=== PATIENT | female | born 1960 | race Caucasian/White ===

== ENCOUNTER 2022-09-27 14:49 | Outpatient (OUT) | payer BC, SELFPAY ==
--- NOTE | 2022-09-27 14:51 | MM_ITS ---
Patient: ZARA BENEDICT Exam Date: 09/27/2022 : 1960 Gender:F Ordering : SPEEDY Perez . Admission #: [id number] Family : DR MCCLAINJARETHIDA PRABHAKAR Order #: [id number] CLICK HERE TO VIEW EXAM RADIOLOGY REPORT PROCEDURE: MM TOMOSYNTHESIS SCREENING BI COMPARISON: MG MAMM SCREEN 3D MELVINA CAD, 09/10/2020. MG MAMM SCREEN 3D MELVINA CAD, 09/12/2021. INDICATIONS: Screening mammogram Z12.31 Calculator Name NCI Breast Cancer Risk Assessment Tool 5 Year Breast Cancer Risk 1.30% Lifetime Breast Cancer Risk 6.60% Personal Breast Cancer No Personal Ovarian Cancer No Treatments None Family Cancers Father with bladder cancer at age 80. LOCATION: [facility] BREAST COMPOSITION: Almost entirely fatty. FINDINGS: DIAGNOSTIC CATEGORY 1--NEGATIVE. NO CHANGE FROM COMPARISON ASSESSMENT. Scattered benign-appearing lymph nodes are present. RIGHT BREAST: No significant suspicious finding. LEFT BREAST: No significant suspicious finding. RECOMMENDATIONS: ROUTINE MAMMOGRAM AND CLINICAL EVALUATION IN 12 MONTHS. PLEASE NOTE: A NORMAL MAMMOGRAM DOES NOT EXCLUDE THE POSSIBILITY OF BREAST CANCER. A CLINICALLY SUSPICIOUS PALPABLE LUMP SHOULD BE BIOPSIED. Dictated by: Shekhar Horton MD on 09/28/2022 at 07:15 Approved by: Shekhar Horton MD on 09/28/2022 at 07:17
== END 2022-09-27 14:50 | disposition home or self-care (01) ==
LOC: MAMMO 14:49
PROVIDERS: PCP Family Medicine; Visit Provider Physician Assistant
DX: Z12.31 Encounter for screening mammogram for malignant neoplasm of breast (principal); Z80.52 Family history of malignant neoplasm of bladder
CPT/HCPCS: 77063; 77067

== ENCOUNTER 2022-10-11 15:29 | Outpatient (RCR) | payer BC, SELFPAY | END 2023-02-01 17:21 | disposition home or self-care (01) | LOC: PT 15:29 | PROVIDERS: PCP Family Medicine; Visit Provider Family Medicine | DX: R51.9 Headache, unspecified (principal) | CPT/HCPCS: 20561; 97161 ==

== ENCOUNTER 2022-11-30 07:39 | Outpatient (OUT) | payer BC, SELFPAY ==
[2022-11-30 12:28] LABS: Thyroid Stimulating Hormone 1.244 uIU/mL (0.358-3.740)
== END 2022-11-30 07:40 | disposition home or self-care (01) ==
LOC: LAB 07:41
PROVIDERS: PCP Family Medicine; Visit Provider Family Medicine
DX: R53.83 Other fatigue (principal)
CPT/HCPCS: 36415; 84443

== ENCOUNTER 2023-02-06 08:41 | Outpatient (OUT) | payer BC, SELFPAY | END 2023-02-06 08:42 | disposition home or self-care (01) | LOC: PST 08:42 | PROVIDERS: PCP Family Medicine; Visit Provider Surgery | DX: Z01.818 Encounter for other preprocedural examination (principal); Z86.010 Personal history of colon polyps ==

== ENCOUNTER 2023-02-13 09:39 | Day surgery (SDC) | payer BC, SELFPAY ==
--- NOTE | 2023-02-13 | OP_ITS ---
OPERATION DATE: ??02/13/2023 PREOPERATIVE DIAGNOSIS:? Personal history of colon polyps. POSTOPERATIVE DIAGNOSIS:? Sigmoid diverticulosis. PROCEDURE:? Colonoscopy to cecum. SURGEON:? Colby Herbert M.D. ANESTHESIA:? Monitored anesthesia care. ESTIMATED BLOOD LOSS:? Zero. INDICATIONS AND CONSENT:? Patient is a 62-year-old female who presents for surveillance colonoscopy. Indications, risks, benefits, alternatives of proceeding with colonoscopy were explained extensively to the patient, including the risks of bleeding, colon perforation or anesthetic complications.? All of her questions were answered.? Informed consent was obtained. PROCEDURE:? Patient brought to the operating room, placed in the left lateral decubitus position.? Monitored anesthesia care was provided.? Rectal exam was performed which showed no masses or blood.? The scope was inserted into the anal canal.? Under direct visualization was advanced.? With the aid of abdominal compression, it was advanced to the cecum where cecal markings were clearly identified.? There was noted to be a good prep.? Upon withdrawal of the scope, mucosal surfaces were carefully examined.? There were no mass lesions or polyps.? No inflammatory changes or ulcerations.? There was mild sigmoid diverticulosis without inflammatory changes or scarring.? The scope was retroflexed in the anal canal.? There were noted to be some prominent rectal veins.? No significant hemorrhoidal disease.? The scope was then withdrawn.? Patient tolerated procedure well, was sent to recovery room in good condition.f/u colonoscopy in 5 years CC:? Dr. Terrell ALDRICH
[2023-02-13 10:01] VITALS: BMI 27.6
[2023-02-13 10:08] VITALS: BP 163/100; PULSE 104; RESP 16; TEMP 36; O2SAT 99
[2023-02-13 10:12] LABS: Glucometer 177 mg/dL (74-106)
[2023-02-13] MEDS: LACTATED RINGER'S SOLUTION 1,000 ML 50 ML IV (10:17)
[2023-02-13 13:09] VITALS: BP 104/58; PULSE 89; RESP 16; O2SAT 100
[2023-02-13 13:25] VITALS: BP 104/63; PULSE 63; RESP 16; O2SAT 96
== END 2023-02-13 13:48 | disposition home or self-care (01) ==
PROVIDERS: PCP Family Medicine; Visit Provider Surgery
PROC: (CPT 45378; principal; 2023-02-13 10:50)
DX: K57.30 Diverticulosis of large intestine without perforation or abscess without bleeding (principal); Z86.010 Personal history of colon polyps; F41.9 Anxiety disorder, unspecified; E11.42 Type 2 diabetes mellitus with diabetic polyneuropathy; E11.319 Type 2 diabetes mellitus with unspecified diabetic retinopathy without macular edema; Z90.710 Acquired absence of both cervix and uterus; I10 Essential (primary) hypertension; Z79.4 Long term (current) use of insulin; Z79.84 Long term (current) use of oral hypoglycemic drugs; E66.3 Overweight; Z68.28 Body mass index [BMI] 28.0-28.9, adult
CPT/HCPCS: 45378; 36415; 82948; J2704

== ENCOUNTER 2023-03-29 13:13 | Outpatient (OUT) | payer BC, SELFPAY ==
--- NOTE | 2023-03-29 13:15 | XR_ITS ---
The [address] [address] Patient Name: ZARA BENEDICT MRN: [id number] date: 1960 Sex: F Assigned Patient Location: [facility] Current Patient Location: Accession/Order Number: [id number] Exam Date: 03/29/2023 13:16 Report Date: 04/01/2023 17:55 At the request of: JARETH PRABHAKAR Procedure: XR lumbar spine min 4V EXAM: XR lumbar spine min 4V HISTORY: Chronic Bilateral Low Back Pain COMPARISON: None. TECHNIQUE: 5 view study FINDINGS: Vertebral bodies are normal in height. There is mild disc space narrowing at L3-4, L4-5, and L5-S1. Right facet arthropathy is noted at L4-5 and L5-S1. Faceted gallbladder calculi noted. Also, there is milk of calcium bile within the gallbladder. XR/XR lumbar spine min 4V IMPRESSION: Lower lumbar spondylosis. Cholelithiasis. Electronically authenticated by: Susana HARVEY Date: 04/01/2023 17:55
--- OUTSIDE RECORDS SUMMARY | 2023-03-29 13:15 | XMS_ITS | CCD ---
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 Name Role Phone DO Fanny Prabhakar Primary Care Provider DO Bharat Zelaya Jr Attending Provider Mala Aguillon Unavailable Petangelica, DO Escobedo Primary Care Provider DO Bharat Zelaya Jr Attending Provider Bharat Zelaya Jr Attending Unavailable Bharat Zelaya Jr Admitting Unavailable Petznick, Fanny Primary Care Unavailable Petznick, Fanny Primary Care Unavailable Self, Referral Admitting Unavailable Self, Referral Attending Unavailable Bharat Zelaya Jr Admitting Unavailable Stepanic Bharat Jefferson Attending Unavailable Petznick, Fanny Primary Care Unavailable Bharat Zelaya Jr Admitting Unavailable Stepanic Bharat Jefferson Attending Unavailable Petznick, Fanny Primary Care Unavailable Petznick, Fanny Primary Care Unavailable Self, Referral Admitting Unavailable Self, Referral Attending Unavailable Bharat Zelaya Jr Admitting Unavailable iWlliamanic Bharat Jefferson Attending Unavailable Petznick, Fanny Primary Care Unavailable PETZNJORJE, DR ESCOBEDO Primary Care Unavailable VISCI, DR CHACON Attending Unavailable VISCI, DR CHACON Admitting Unavailable ZIEBER, DR JOHNSON De La Rosa Consulting Unavailable VISCI, DR CHACON Consulting Unavailable PETZNJROJE, DR ESCOBEDO Attending Unavailable PETZNJORJE, DR ESCOBEDO Admitting Unavailable PETZNICK, DR ESCOBEDO Primary Care Unavailable PETZNICK, DR ESCOBEDO Consulting Unavailable MISC, DR MCMAHON Admitting Unavailable MISC, DR MCMAHON Consulting Unavailable STEPANIC, DR DIAZ Primary Care Unavailable MISC, DR MCMAHON Attending Unavailable FLAVIA MELVIN Consulting Unavailable PETZNICK, DR ESCOBEDO Attending Unavailable PETZNICK, DR ESCOBEDO Admitting Unavailable PETZNICK, DR ESCOBEDO Primary Care Unavailable ELLI ., MR LOVELACE Attending Unavailable PETASAELICK, DR ESCOBEDO Primary Care Unavailable CALLOWAY ., MR [place] Admitting Unavailable PETANGELICA, DR ESCOBEDO Attending Unavailable PETANGELICA, DR ESCOBEDO Admitting Unavailable PETANGELICA, DR ESCOBEDO Primary Care Unavailable FANNY PRABHAKAR Primary Care Physician [phone] Colby SANTA Attending Unavailable FANNY PRABHAKAR Referring Unavailable Colby SANTA Attending Unavailable Allergies Allergy Classification Reported Allergen(s) Allergy Type Date of Onset Reaction(s) Facility (6 sources) atorvastatin; Translations: [atorvastatin] Drug Allergy 2 Joint pain (finding) [facility] (7 sources) Cephalexin; Translations: [cephalexin] Drug Allergy 6 Swelling, Edema (finding) [facility] (6 sources) rosuvastatin; Translations: [rosuvastatin] Drug Allergy 2 Diarrhea (finding) [facility] (2 sources) Acetaminophen / oxyCODONE; Translations: [acetaminophen-ox ycodone] Drug Allergy Itching (finding) [facility] (2 sources) diphenhydrAMINE; Translations: [diphenhydramine] Drug Allergy Itching (finding) [facility] (1 source) Hmg-Coa Reductase Inhibitors (Statins) Drug allergy aches/diarrhea [facility] Other (1 source) Acetaminophen / oxyCODONE; Translations: [Percocet] Drug Allergy [facility] Repository (1 source) diphenhydrAMINE; Translations: [Benadryl] Drug Allergy [facility] Repository Medications Current Medications Medication Drug Class(es) Dates Sig (Normalized) Sig (Original) 3 ML semaglutide 1.34 MG/ML Pen Injector [Ozempic] (1 source) Start: 01-14-2023 inject 1 mg by subcutaneous injection every week Ozempic (1 mg dose) 4 mg/3 mL subcutaneous solution 1 mg, SubCutaneous, qWeek, Refills(s) 0 Start Date: 01/14/23 Status: Ordered Acidophilus Probiotic Blend (1 source) Start: 01-29-2023 take 1 capsule by mouth once daily Acidophilus Probiotic Blend 1 cap(s), Oral, Daily, Refill(s) 0 Start Date: 01/29/23 Status: Ordered B-12 1000 mcg oral tablet (1 source) Start: 01-29-2023 take 1 tablet by mouth once daily B-12 1000 mcg oral tablet 1,000 mcg = 1 tab(s), Oral, Daily, Refills(s) 0 Start Date: 01/29/23 Status: Ordered celecoxib 200 mg oral capsule (5 sources) Nonsteroidal Anti-inflammatory Drug Start: 01-29-2023 take 1 capsule by mouth once daily CeleBREX 200 mg Cap 200 mg = 1 cap(s), Oral, Daily, Refills(s) 0 Start Date: 01/29/23 Status: Ordered Start: 10-19-2021 take 1 capsule by mo [facility] once daily Celecoxib (Celebrex) 200 mg Capsule Active 200 MG PO Daily October 18, 2021 11:00pm CeleBREX Active cetirizine hydrochloride 10 mg oral tablet (4 sources) Histamine-1 Receptor Antagonist Start: 01-29-2023 take 1 tablet by mouth once daily cetirizine 10 mg Tab 10 mg = 1 tab(s), Oral, Daily, Refills(s) 0 Start Date: 01/29/23 Status: Ordered Start: 10-17-2021 [facility] Cetirizine (Zyrtec) 10 mg Tablet Active 10 MG PO Every morning October 16, 2021 11:00pm Cymbalta 30 mg Cap-DR (1 source) Start: 01-14-2023 take 1 capsule by mouth once daily Cymbalta 30 mg Cap-DR = 1 cap(s), Oral, Daily, Refills(s) 0 Start Date: 01/14/23 Status: Ordered dapagliflozin 5 mg oral tablet (4 sources) Sodium-Glucose Cotransporter 2 Inhibitor Start: 10-17-2021 take 1 tablet by mouth once daily Dapagliflozin (Farxiga) 5 mg tablet Active 5 MG PO Daily October 16, 2021 11:00pm Farxiga Active dicyclomine hydrochloride 20 mg oral tablet (4 sources) Anticholinergic Start: 10-17-2021 take 20 mg by mouth twice daily Dicyclomine Active 20 MG PO Twice daily October 16, 2021 11:00pm Dicyclomine HCl Active DULoxetine 30 mg delayed release oral capsule (3 sources) Serotonin and Norepinephrine Reuptake Inhibitor Start: 10-17-2021 take 30 mg by mouth once daily at bedtime Duloxetine Active 30 MG PO Daily at bedtime October 16, 2021 11:00pm empagliflozin 10 mg oral tablet (1 source) Sodium-Glucose Cotransporter 2 Inhibitor Start: 01-29-2023 take 1 tablet by mouth once daily in the morning Jardiance 10 mg oral tablet 10 mg = 1 tab(s), Oral, qAM, Refills(s) 0 Start Date: 01/29/23 Status: Ordered Escitalopram (1 source) Serotonin Reuptake Inhibitor Escitalopram Oxalate Active esomeprazole 20 mg delayed release oral capsule (3 sources) Proton Pump Inhibitor Start: 10-19-2021 take 10 mg by mouth once daily Esomeprazole Magnesium (Nexium) 20 mg Capsule,Delayed Release(Dr/Ec) Active 10 MG PO Daily October 18, 2021 11:00pm estradiol 0.5 mg oral tablet (5 sources) Estrogen Start: 01-29-2023 take 1 tablet by mouth once daily estradiol 0.5 mg Tab 0.5 mg = 1 tab(s), Oral, Daily, Refills(s) 0 Start Date: 01/29/23 Status: Ordered Start: 10-17-2021 take 0.5 mg by mouth once daily at bedtime Estradiol Active 0.5 MG PO Daily at bedtime October 16, 2021 11:00pm Estradiol Active fluticasone propionate 0.05 mg/actuat metered dose nasal spray (4 sources) Corticosteroid Start: 01-29-2023 Flonase 0.05 m g/inh [place] 1 spray(s), Nasal, BID, Refill(s) 0 Start Date: 01/29/23 Status: Ordered Start: 10-17-2021 End: 10-19-2021 Fluticasone Propionate Disco ntinued 1 SPRAY INTRANASAL Daily October 16, 2021 11:00pm October 19, 2021 6:59am gabapentin 300 mg oral capsule (5 sources) Anti-epileptic Agent Start: 01-29-2023 take 1 capsule by mouth once daily gabapentin 300 mg Cap 300 mg = 1 cap(s), Oral, Daily, Refills(s) 0 Start Date: 01/29/23 Status: Ordered Start: 10-17-2021 take 300 mg by mouth once daily at bedtime Gabapentin Active 300 MG PO Daily at bedtime October 16, 2021 11:00pm Gabapentin Activ e glimepiride 1 mg oral tablet (4 sources) Sulfonylurea Start: 10-17-2021 take 2 mg by mouth once daily in the morning Glimepiride Active 2 MG PO Every morning October 16, 2021 11:00pm Glimepiride Acti ve hydrOXYzine hydrochloride 25 mg oral tablet (1 source) Antihistamine Start: 12-16-2021 take 1-2 tablets by mouth once daily at bedtime as needed hydrOXYzine HCl 25 MG 1-2 tablet at bedtime as needed Orally once a day for 10 days Nov, Active 3 ml insulin degludec 100 unt/ml pen injector (2 sources) Insulin Analog Start: 10-17-2021 Insulin Degludec (Tresiba Flextouch U-100) 100 unit/mL (3 mL) insulin pen Active 25 UNIT SUBCUT Every morning October 16, 2021 11:00pm Insulin Degludec (Tresiba Flextouch U-100) 100 unit/mL (3 mL) insulin pen (1 source) Start: 10-17-2021 Insulin Degludec (Tresiba Flextouch U-100) 100 unit/mL (3 mL) insulin pen Active 25 UNIT SUBCUT Every morning October 16, 2021 11:00pm insulin glargine 100 unt/ml injectable solution (1 source) Insulin Analog Start: 01-14-2023 inject 35 [IU] by subcutaneous injection once daily Lantus 100 units/mL Injection-Insulin 35 unit(s), SubCutaneous, Daily, Refills(s) 0 Start Date: 01/14/23 Status: Ordered krill oil 500 mg oral capsule (3 sources) Start: 10-17-2021 take 500 mg by mouth twice daily Krill Oil Active 500 MG PO Twice daily October 16, 2021 11:00pm L.Acidop-L.Pardeep-B.B ifid-B.Long (Probiotic Colon Support) 70 mg (5 billion cell) Tablet,Delayed Release (Dr/Ec) (3 sources) Start: 10-17-2021 take 1 tablet by mouth once daily L.Acidop-L.Pardeep-B .Bifid-B.Long (Probiotic Colon Support) 70 mg (5 billion cell) Tablet,Delayed Release (Dr/Ec) Active 1 TAB PO Daily October 16, 2021 11:00pm Start: 10-17-2021 take 1 tablet by nicole th once daily L.Acidbarak-Yen.Pardeep-B.Bifid-B.Long (Probioti c Colon Support) 70 mg (5 billion cell) Tablet,Delayed Release (Dr/Ec) Active 1 TAB PO Daily October 17, 2021 12:00am metFORMIN hydrochloride 1000 mg oral tablet (5 sources) Biguanide Start: 01-14-2023 take 1 tablet by mouth twice daily metformin 1000 mg Tab 1,000 mg = 1 tab(s), Oral, BID, Refills(s) 0 Start Date: 01/14/23 Status: Ordered Start: 10-17-2021 take 1000 mg by mouth at break fast Metformin Active 1000 MG PO With breakfast and supper October 16, 2021 11:00pm metFORMIN HCl Ac tive Ozempic (1 source) Ozempic Active predniSONE 10 mg oral tablet (1 source) Start: 12-16-2021 prednisone 10 MG as directed with food Orally 5 tablet x 2 days, 4 tablet x2 days, 3 tablet x2 days, 2 tablet x 2 days, 1 tablet x 2 days for 10 days Nov, Active Semaglutide (3 sources) Start: 10-17-2021 inject 1 mg by subcutaneous injection every week at bedtime Semaglutide (Ozempic) 1 mg/dose (4 mg/3 mL) pen injector Active 1 MG SUBCUT every week October 16, 2021 11:00pm Takes q Saturday @ HS Start: 10-17-2021 inject 1 mg by subcu taneous injection every week at bedtime Semaglutide (Ozempic) 1 mg/dose (4 mg/3 mL) pen injector Active 1 MG SUBCUT every week October 17, 2021 12:00am Takes q Saturday @ HS tiZANidine 4 mg oral tablet (5 sources) Central alpha-2 Adrenergic Agonist Start: 01-29-2023 take 1 tablet by mouth once daily Zanaflex 4 mg Tab 4 mg = 1 tab(s), Oral, Daily, Refills(s) 0 Start Date: 01/29/23 Status: Ordered Start: 10-17-2021 take 4 mg by mouth at bedtime Tizanidine Active 4 MG PO Bedtime October 16, 2021 11:00pm tiZANidine HCl A ctive Tresiba FlexTouch (1 source) Tresiba FlexTouc h Active vitamin b12 1 mg oral tablet (6 sources) Vitamin B12 Start: 10-19-2021 take 1 tablet by mouth once daily Cyanocobalamin (Vitamin B-12) (Vitamin B-12) 1,000 mcg Tablet Active 1000 MCG PO Daily October 18, 2021 11:00pm Start: 10-17-2021 End: 10-19-2021 take 1 tablet by mouth once daily Cyanocobalamin (Vitamin B-12) (Vitamin B-12) 2,500 mcg Tablet, Sublingual Discontinued 2500 MCG PO Daily October 16, 2021 11:00pm October 19, 2021 6:58am Zinc (3 sources) Start: 10-17-2021 take 50 mg by mouth once daily Zinc Active 50 MG PO Daily October 16, 2021 11:00pm Start: 10-17-2021 take 50 mg by mouth once daily Zinc Active 50 MG PO Daily October 17, 2021 12:00am Completed/Discontinued Medications Medication Drug Class(es) Dates Sig (Normalized) Sig (Original) acetaminophen 325 mg / oxyCODONE hydrochloride 5 mg oral tablet (3 sources) Opioid Agonist Start: 10-19-2021 End: 02-19-2022 take 1 tablet by mouth every six hours Oxycodone-Acetamin ophen (Percocet) 5-325 mg tablet Discontinued 1 TAB PO Q6H 28 7 October 19, 2021 February 19, 2022 6:12am atorvastatin (1 source) HMG-CoA Reductase Inhibitor Atorvastatin Calcium Not-Taking fluconazole 100 mg oral tablet (3 sources) Azole Antifungal Start: 10-17-2021 End: 10-19-2021 take 1 tablet by mouth once daily Fluconazole (Diflucan) 100 mg Tablet Discontinued 100 MG PO Daily October 16, 2021 11:00pm October 19, 2021 6:59am Up to 4 days Ivermectin (3 sources) Antiparasitic, Pediculicide Start: 10-17-2021 End: 10-19-2021 Ivermectin (Soolantra) 1 % Cream Discontinued 1 APPLIC TOPICAL Daily October 16, 2021 11:00pm October 19, 2021 6:59am Start: 10-17-2021 End: 10-19-2021 Ivermectin (Soolantra) 1 % C ream Discontinued 1 APPLIC TOPICAL Daily October 17, 2021 12:00am October 19, 2021 7:59am Pravastatin (1 source) HMG-CoA Reductase Inhibitor Prav astatin Sodium Not-Taking Triamcinolone (1 source) Corticosteroid Start: 11-12-2016 KENALOG - 10 mg Oct, 20 mg Problems Active Problems Problem Classification Problem Date Documented Date Episodic/Chronic Anxiety disorders (1 source) Anxiety 01-14-2023 Chronic Diabetes mellitus without complication (1 source) Diabetes mellitus 01-14-2023 Chronic Essential hypertension (1 source) Hypertensive disorder 01-14-2023 Chronic Headache; including migraine (4 sources) Headache; including migraine; Translations: [HEADACHE UNSPECIFIED] Onset: 06-25-2022 Other and unspecified benign neoplasm (3 sources) History of polyp of colon; Translations: [Personal history of colonic polyps] Onset: 01-29-2023 Episodic Other inflammatory condition of skin (1 source) Rosacea 01-14-2023 Chronic Other nervous system disorders (1 source) 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 Other non-traumatic joint disorders (4 sources) Other specific joint derangements of left shoulder, not elsewhere classified; Translations: [OTH SPEC JOINT DERANG LT SHLDR NEC] Onset: 10-10-2021 Chronic Other non-traumatic joint disorders (3 sources) Shoulder pain; Translations: [Pain in left shoulder] 10-19-2021 Episodic Other nutritional; endocrine; and metabolic disorders (1 source) Overweight 01-29-2023 Episodic Other nutritional; endocrine; and metabolic disorders (1 source) Overweight in adulthood with body mass index of 25 or more but less than 30 01-29-2023 Episodic Retinal detachments; defects; vascular occlusion; and retinopathy (1 source) 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 Unclassified (1 source) Unspecified rotator cuff tear or rupture of left shoulder, not specified as traumatic; Translations: [Unspecified rotator cuff tear or rupture of left shoulder, not specified as traumatic] Onset: 10-19-2021 Unclassified (1 source) Encounter for preprocedural laboratory examination; Translations: [Encounter for preprocedural laboratory examination] Onset: 10-17-2021 Past or Other Problems Problem Classification Problem Date Documented Date Episodic/Chronic Other connective tissue disease (1 source) Adhesive capsulitis of left shoulder; Translations: [Adhesive capsulitis of left shoulder] Onset: 02-19-2022 Episodic Other non-traumatic joint disorders (1 source) Pain in left shoulder; Translations: [Pain in left shoulder] Onset: 10-19-2021 Episodic Other screening for suspected conditions (not mental disorders or infectious disease) (4 sources) Encounter for screening mammogram for malignant neoplasm of breast; Translations: [ENC SCR MAMMO MALIG NEOPLASM BREAST] Onset: 09-12-2021 Episodic Poisoning by nonmedicinal substances (1 source) Toxic effect of venom of bees, accidental (unintentional), initial encounter Onset: 12-16-2021 Resolved: 12-16-2021 Episodic Residual codes; unclassified (4 sources) Other specified postprocedural states; Translations: [OTH SPECIFIED POSTPROCEDURAL STATES] Onset: 11-06-2021 Episodic Residual codes; unclassified (1 source) Family history of malignant neoplasm of bladder; Translations: [FAM HX MALIGNANT NEOPLASM BLADDER] Onset: 09-14-2021 Episodic Results Test Name Value Interpretation Reference Range Facility Outside Colonoscopyon 2022 Outside Colonoscopy [id number]#1. 00TIFF Normal [facility] Reminderson 02-14-2023 Reminders - From: Eunice Davis LPN To: GSN - Clinical; Sent: 02/14/2023 14:19:54 EST Show up: 01/14/2028 07:00:00 EDT Subject: colonoscopy recall Due Date/Time: 02/14/2028 07:00:00 EST Reminder/Recall Patient due for surveillance colonoscopy 02/14/2028 due to remote history of colon polyps. Normal [facility] Lab Reportson 02-13-2023 Lab Reports [id number]#1. 00TIFF Normal [facility] Insurance Correspondenceon 1 04-10-2022 Insurance Correspondence [id number] 1.00TIFF Normal [facility] Consent for Procedure/Surger yon 01-30-2023 Consent for Procedure/Surgery [id number] .00TIFF Normal [facility] Facesheeton 01-30-2023 Facesheet [id number]# 1.00TIFF [facility] Ambulatory Visit Summaryon 1 Ambulatory Visit Summary ISELA BENEDICT :1960 Visit Date:01/29/2023 Ambulatory Visit Instructions Your Diagnosis Personal history of colonic polyps Your Care Team Attending Physician - KIET GUZMAN, Colby De La Rosa Primary Care Physician - FANNY PRABHAKAR DO Referring Physician - FANNY PRABHAKAR DO This Is Your Medications List Contact prescribing physician if questions or concerns celecoxib (CeleBREX 200 mg Cap) cetirizine (cetirizine 10 mg Tab) cyanocobalamin (B-12 1000 mcg oral tablet) duloxetine (Cymbalta 30 mg Cap-DR) empagliflozin (Jardiance 10 mg oral tablet) estradiol (estradiol 0.5 mg Tab) fluticasone nasal (Flonase 0.05 mg/inh [place]) gabapentin (gabapentin 300 mg Cap) insulin glargine (Lantus 100 units/mL Injection-Insulin) lactobacillus acidophilus (Acidophilus Probiotic Blend) metformin (metformin 1000 mg Tab) semaglutide (Ozempic (1 mg dose) 4 mg/3 mL subcutaneous solution) tizanidine (Zanaflex 4 mg Tab) Procedures Performed Colonoscopy (08/01/2015), Colonoscopy, Rotator cuff repair, Stripping of vein, VH - Vaginal hysterectomy. Discharge Vitals Heart Rate (Peripheral) 72 Respiratory Rate 16 Blood Pressure 138/78 Height 175.2 cm Height 69 in Weight 88 kg Weight 193.6 lb BMI 28.67 Medications What How Much When Instructions Unchanged celecoxib (CeleBREX 200 mg Cap) 1 Capsules By Mouth Every day Contact prescribing physician if questions or concerns Unchanged cetirizine (cetirizine 10 mg Tab) 1 Tablets By Mouth Every day Contact prescribing physician if questions or concerns Unchanged cyanocobalamin (B-12 1000 mcg oral tablet) 1 Tablets By Mouth Every day Contact prescribing physician if questions or concerns Unchanged duloxetine (Cymbalta 30 mg Cap-DR) 1 Capsules By Mouth Every day Contact prescribing physician if questions or concerns Unchanged empagliflozin (Jardiance 10 mg oral tablet) 1 Tablets By Mouth Once a day (in the morning) Contact prescribing physician if questions or concerns Unchanged estradiol (estradiol 0.5 mg Tab) 1 Tablets By Mouth Every day Contact prescribing physician if questions or concerns Unchanged fluticasone nasal (Flonase 0.05 mg/ inh [place]) 1 Sprays Nasal Inhalation 2 times a day Contact prescribing physician if questions or concerns Unchanged gabapentin (gabapentin 300 mg Cap) 1 Capsules By Mouth Every day Contact prescribing physician if questions or concerns Unchanged insulin glargine (Lantus 100 units/ mL Injection-Insulin) 35 Units Subcutaneous Every day Contact prescribing physician if questions or concerns Unchanged lactobacillus acidophilus (Acidophilus Probiotic Blend) 1 Capsules By Mouth Every day Contact prescribing physician if questions or concerns Unchanged metformin (metformin 1000 mg Tab) 1 Tablets By Mouth 2 times a day Contact prescribing physician if questions or concerns Unchanged semaglutide (Ozempic (1 mg dose) 4 mg/ 3 mL subcutaneous solution) 1 Milligram Subcutaneous Every week Contact prescribing physician if questions or concerns Unchanged tizanidine (Zanaflex 4 mg Tab) 1 Tablets By Mouth Every day Contact prescribing physician if questions or concerns Allergies Benadryl (Itching) Percocet (Itching) atorvastatin (Joint pain) cephalexin (Edema) rosuvastatin (Diarrhea) Problems Ongoing - Any problem that you are currently receiving treatment for. Anxiety BMI 28.0-28.9,adult Diabetes History of colon polyps HTN (hypertension) Overweight Peripheral neuropathy Personal history of colonic polyps Retinopathy Rosacea Patient Survey You may receive a survey via text or e-mail asking about your office visit. Please share your experience with us by completing your survey. We appreciate your feedback and thank you for choosing us for your care. Normal [facility] CBC AUTO DIFFon 05-30-2022 BASO # 0.0 103/ul Normal 0.0-0.1 [facility] Comment on above: Performed By: #### C BC #### [facility] [address] [place] [address] Dr. Ian Sandra Basophils/100 WBC (Bld) 0.4 % Normal 0.2-2.0 [facility] Comment on above: Performed By: #### C BC #### [facility] [address] [place] [address] Dr. Ian Sandra EO # 0.1 103/ul Normal 0.0-0.7 [facility] Comment on above: Performed By: #### C BC #### [facility] [address] [place] [address] Dr. Ian Sandra Eosinophils/100 WBC (Bld) 3.1 % Normal 0.9-7.0 [facility] Comment on above: Performed By: #### C BC #### [facility] [address] [place] [address] Dr. Ina Sandra Erythrocyte distribution width (RBC) [Ratio] 13.5 % Normal 11.0-15.0 [facility] Comment on above: Performed By: #### C BC #### [facility] [address] [place] [address] Dr. Ian Sandra Hematocrit (Bld) [Volume fraction] 48.9 % Critically high 36.0-48.0 [facility] Comment on above: Performed By: #### C BC #### [facility] [address] [place] [address] Dr. Ian Sandra Hemoglobin (Bld) [Mass/Vol] 16.0 g/dL Normal 12.0-16.0 [facility] Comment on above: Performed By: #### C BC #### [facility] [address] [place] [address] Dr. Ian Sandra IG # 0.01 10e3/ul Normal 0.00-0.03 [facility] Comment on above: Performed By: #### C BC #### [facility] [address] [place] [address] Dr. Ian Sandra IG % 0.2 % Normal 0.0-0.5 [facility] Comment on above: Performed By: #### C BC #### [facility] [address] [place] [address] Dr. Ian Sandra LYMPH # 1.4 103/ul Normal 1.2-3.8 [facility] Comment on above: Performed By: #### C BC #### [facility] [address] [place] [address] Dr. Ian Sandra Lymphocytes/100 WBC (Bld) 29.5 % Normal 20.5-60.0 [facility] Comment on above: Performed By: #### C BC #### [facility] [address] [place] [address] Dr. Ian Sandra MANUAL DIFF REQ NO Normal [facility] Comment on above: Performed By: #### C BC #### [facility] [address] [place] [address] Dr. Ian Sandra MCH (RBC) [Entitic mass] 29.9 pg Normal 26.7-34.0 [facility] Comment on above: Performed By: #### C BC #### [facility] [address] [place] [address] Dr. Ian Sandra MCHC (RBC) [Mass/Vol] 32.7 g/dL Normal 29.9-35.2 [facility] Comment on above: Performed By: #### C BC #### [facility] [address] [place] [address] Dr. Ian Sandra MCV (RBC) [Entitic vol] 91.4 fL Normal 81.0-99.0 [facility] Comment on above: Performed By: #### C BC #### [facility] [address] [place] [address] Dr. Ian Sandra MONO # 0.4 103/ul Normal 0.3-0.8 [facility] Comment on above: Performed By: #### C BC #### [facility] [address] [place] [address] Dr. Ian Sandra Monocytes/100 WBC (Bld) 9.4 % Normal 1.7-12.0 [facility] Comment on above: Performed By: #### C BC #### [facility] [address] [place] [address] Dr. Ian Sandra NEUT # 2.6 103/ul Normal 1.4-6.5 [facility] Comment on above: Performed By: #### C BC #### [facility] [address] [place] [address] Dr. Ian Sandra Neutrophils/100 WBC (Bld) 57.4 % Normal 43.0-75.0 [facility] Comment on above: Performed By: #### C BC #### [facility] [address] [place] [address] Dr. Ian Sandra Platelet mean volume (Bld) [Entitic vol] 11.2 fL Normal 9.5-13.5 [facility] Comment on above: Performed By: #### C BC #### [facility] [address] [place] [address] Dr. Ian Sandra PLT 176 103/ul Normal 150-450 [facility] Comment on above: Performed By: #### C BC #### [facility] [address] [place] [address] Dr. Ian Sandra RBC 5.35 106/ul Normal 4.20-5.40 [facility] Comment on above: Performed By: #### C BC #### [facility] [address] [place] [address] Dr. Ian Sandra WBC 4.6 103/ul Normal 4.0-11.0 [facility] Comment on above: Performed By: #### C BC #### [facility] [address] [place] [address] Dr. Ian Sandra LIPID PROFILEon 05-30-2022 CHOL-HDL RATIO NORM SEE BELOW Normal [facility] Comment on above: Result Comment: 3.3 - 4.4 LOW RISK 4.4 - 7.1 AVERAGE RISK 7.1 - 11.0 MODERATE RISK >11.0 HIGH RISK Performed By: #### C MP, LIPID #### [facility] [address] [place] [address] Dr. Ian Sandra Cholesterol [Mass/Vol] 218 mg/dL Critically high <=200 [facility] Comment on above: Performed By: #### C MP, LIPID #### [facility] [address] [place], [place] [id number] Dr. Ian Sandra Cholesterol in HDL [Mass/Vol] 46 mg/dL Normal 40-60 [facility] Comment on above: Performed By: #### C MP, LIPID #### [facility] [address] [address] [address] Ian Sandra Cholesterol in LDL [Mass/Vol] 136.4 mg/dL Normal [facility] Comment on above: Performed By: #### C MP, LIPID #### [facility] [address] [address] [address] Ian Sandra Cholesterol.total/Choles terol in HDL [Mass ratio] 4.7 {ratio} Normal [facility] Comment on above: Performed By: #### C MP, LIPID #### [facility] [address] [place] [address] Dr. Ian Sandra HDL NORMAL > or = 60 mg/dl - LO W CARDIOVASCULAR RISK <40 mg/dl - HIGH CARDIOVASCULAR RISK Normal [facility] Comment on above: Performed By: #### C MP, LIPID #### [facility] [address] [place] [address] Dr. Ian Sandra LDL CALC NORMAL SEE BELOW Normal [facility] Comment on above: Result Comment: <100 mg/dl OPTIMAL 100 - 129 mg/dl NEAR OR ABOVE OPTIMAL 130 - 159 mg/dl BORDERLINE HIGH 160 - 189 mg/dl HIGH >190 mg/dl VERY HIGH Performed By: #### C MP, LIPID #### [facility] [address] [address] [address] Ian Sandra Triglyceride [Mass/Vol] 178 mg/dL Critically high <=150 [facility] Comment on above: Performed By: #### C MP, LIPID #### [facility] [address] [address] [address] Ian Sandra VLDL CALC 35.6 mg/dL Normal [facility] Comment on above: Performed By: #### C MP, LIPID #### [facility] [address] [address] [address] Ian Sandra MICROALB CREAT RATIO RANDOMo n 05-30-2022 mALB <1.3 Normal <=30.0 [facility] Comment on above: Performed By: #### M CRR #### [facility] [address] [place] [address] Dr. Ian Sandra MALB CR RATIO RANGE SEE BELOW Normal [facility] Comment on above: Result Comment: NO M ICROALBUMINURIA 0-29 MG/G CLINICAL MICROALBUMINURIA 30-300 MG/G MACROALBUMINURIA >300 MG/G Performed By: #### M CRR #### [facility] [address] [address] [address] Ian Sandra URINE CREAT 45.83 mg/dL Normal 20.00-300.00 [facility] Comment on above: Performed By: #### M CRR #### [facility] [address] [place] [address] Dr. Ian Sandra PROF 14(COMP METB)on 023 Albumin [Mass/Vol] 4.4 g/dL Normal 3.4-5.0 [facility] Comment on above: Performed By: #### C MP, LIPID #### [facility] [address] [place] [address] Dr. Ian Sandra Albumin/Globulin [Mass ratio] 1.1 {ratio} Normal [facility] Comment on above: Performed By: #### C MP, LIPID #### [facility] [address] [place] [address] Dr. Ian Sandra ALP [Catalytic activity/Vol] 80 U/L Normal 46-116 [facility] Comment on above: Performed By: #### C MP, LIPID #### [facility] [address] [place] [address] Dr. Ian Sandra ALT [Catalytic activity/Vol] 45 U/L Normal 14-59 [facility] Comment on above: Performed By: #### C MP, LIPID #### [facility] [address] [place] [address] Dr. Ian Sandra Anion gap [Moles/Vol] 11.7 mmol/L Normal [facility] Comment on above: Performed By: #### C MP, LIPID #### [facility] [address] [place] [address] Dr. Ian Sandra AST [Catalytic activity/Vol] 31 U/L Normal 15-37 [facility] Comment on above: Performed By: #### C MP, LIPID #### [facility] [address] [address] [address] Ian Sandra Bilirubin [Mass/Vol] 0.4 mg/dL Normal 0.2-1.0 [facility] Comment on above: Performed By: #### C MP, LIPID #### [facility] [address] [place] [address] Dr. Ian Sandra Calcium [Mass/Vol] 9.3 mg/dL Normal 8.5-10.1 [facility] Comment on above: Performed By: #### C MP, LIPID #### [facility] [address] [place] [address] Dr. Ian Sandra Chloride [Moles/Vol] 104 mmol/L Normal 98-107 [facility] Comment on above: Performed By: #### C MP, LIPID #### [facility] [address] [place] [address] Dr. Ian Sandra CO2 [Moles/Vol] 29.1 mmol/L Normal 21.0-32.0 [facility] Comment on above: Performed By: #### C MP, LIPID #### [facility] [address] [place] [address] Dr. Ian Sandra Creatinine [Mass/Vol] 0.58 mg/dL Normal 0.55-1.02 [facility] Comment on above: Performed By: #### C MP, LIPID #### [facility] [address] [place] [address] Dr. Ian Sandra EGFR-AF HONDURAN >60 Normal >=60 [facility] Comment on above: Performed By: #### C MP, LIPID #### [facility] [address] [place] [address] Dr. Ian Sandra EGFR-NON AF HONDURAN >60 Normal >=60 [facility] Comment on above: Performed By: #### C MP, LIPID #### [facility] [address] [place] [address] Dr. Ian Sandra Globulin (S) [Mass/Vol] 3.9 g/dL Normal [facility] Comment on above: Performed By: #### C MP, LIPID #### [facility] [address] [place] [address] Dr. Ian Sandra Glucose [Mass/Vol] 171 mg/dL Critically high 74-106 [facility] Comment on above: Performed By: #### C MP, LIPID #### [facility] [address] [place] [address] Dr. Ian Sandra Potassium [Moles/Vol] 3.8 mmol/L Normal 3.5-5.1 [facility] Comment on above: Performed By: #### C MP, LIPID #### [facility] [address] [place] [address] Dr. Ian Sandra Protein [Mass/Vol] 8.3 g/dL Critically high 6.4-8.2 [facility] Comment on above: Performed By: #### C MP, LIPID #### [facility] [address] [place] [address] Dr. Ian Sandra Sodium [Moles/Vol] 141 mmol/L Normal 136-145 [facility] Comment on above: Performed By: #### C MP, LIPID #### [facility] [address] [place] [address] Dr. Ian Sandra Urea nitrogen [Mass/Vol] 14.0 mg/dL Normal 7.0-18.0 [facility] Comment on above: Performed By: #### C MP, LIPID #### [facility] [address] [place] [address] Dr. Ian Sandra Urea nitrogen/Creatinine [Mass ratio] 24.1 mg/mg Normal [facility] Comment on above: Performed By: #### C MP, LIPID #### [facility] [address] [place] [address] Dr. Ian Sandra Basic Metabolic Panelon 11-2 Anion gap [Moles/Vol] 12.6 mmol/L Normal 6.0-15.0 [facility] Comment on above: Performed By: #### B MP #### [address] Calcium [Mass/Vol] 9.5 mg/dL Normal 8.2-10.2 [facility] Comment on above: Performed By: #### B MP #### [address] Chloride [Moles/Vol] 104 mmol/L Normal 95-114 [facility] Comment on above: Performed By: #### B MP #### [address] CO2 [Moles/Vol] 25.8 mmol/L Normal 22.0-30.0 [facility] Comment on above: Performed By: #### B MP #### [address] Creatinine [Mass/Vol] 0.59 mg/dL Normal 0.44-1.03 [facility] Comment on above: Performed By: #### B MP #### [address] Creatinine Clr Calc Pharmacy 121.43 [facility] Comment on above: Result Comment: PERF ORMED BY: [place] [address] PATHOLOGIST DIRECTOR [employer] IGOR GUSTAFSON M.D. Performed By: #### B MP #### [address] Estimated GFR ( Jeannie > 60 [facility] Comment on above: Result Comment: GFR estimated reference range: According to KDOQI guidelines, <60 ml/min/1.73m2 is sufficient to diagnose a patient with chronic kidney disease. Performed By: #### B MP #### [place] [address] [place] Estimated GFR (Non- Am > 60 [facility] Comment on above: Performed By: #### B MP #### [place] [address] [place] Glucose [Mass/Vol] 194 mg/dL High 70-100 [facility] Comment on above: Result Comment: [facility] Glucose Reference Range is dependent on time and content of last meal. Glucose of more than 200 mg/dL in a nonstressed, ambulatory subject supports the diagnosis of Diabetes Mellitus. ADA recommended reference range Performed By: #### B MP #### [facility] [address] [place] [address] [place] Potassium [Moles/Vol] 4.4 mmol/L Normal 3.5-5.1 [facility] Comment on above: Performed By: #### B MP #### [facility] [address] [place] [address] [place] Sodium [Moles/Vol] 138 mmol/L Normal 136-146 [facility] Comment on above: Performed By: #### B MP #### [facility] [address] [place] [address] [place] Urea nitrogen [Mass/Vol] 12 mg/dL Normal 9-23 [facility] Comment on above: Performed By: #### B MP #### [facility] [address] Creatinine and Glomerular fi ltration rate.predicted panel (S/P/Bld)Ordered By: Ga Field on 02-19-2022 Creatinine [Mass/Vol] 0.59 mg/dL 0.44-1.03 [facility] Estimated glomerular filtrat ion rate (GFR) non- AmericanOrdered By: Ga Field on 02-19-2022 GFR/1.73 sq M.predicted among non-blacks MDRD (S/P/Bld) [Vol rate/Area] > 60 mL/Min [facility] Glucose Glucometer (BldC) [M ass/Vol]Ordered By: Bharat Zelaya on 02-19-2022 Glucose [Mass/Vol] 163 mg/dL [facility] Comment on above: Random Glucose Refer ence Range is dependent on time and content of last meal. Glucose of more than 200 mg/dL in a nonstressed, ambulatory subject supports the diagnosis of Diabetes Mellitus. Glucose Poct Glucometerson 04-21-2021 Glucose [Mass/Vol] 163 mg/dL Normal [facility] Comment on above: Result Comment: [facility] Glucose Reference Range is dependent on time and content of last meal. Glucose of more than 200 mg/dL in a nonstressed, ambulatory subject supports the diagnosis of Diabetes Mellitus. PERFORMED BY: [facility] [place] [address] PATHOLOGIST DIRECTOR [employer] IGOR GUSTAFSON M.D. Performed By: #### G LULS #### Point of Care testing , No Panel InformationOrdered By: Ga Field on 02-19-2022 Estimated GFR () > 60 mL/Min [facility] Comment on above: GFR estimated refere nce range: According to KDOQI guidelines, <60 ml/min/1.73m2 is sufficient to diagnose a patient with chronic kidney disease. Pharmacy Creatinine Clearance (Chem 121.43 [facility] Serum or plasma anion gap de terminationOrdered By: Ga Field on 02-19-2022 Anion gap [Moles/Vol] 12.6 mmol/L 6.0-15.0 [facility] Serum or plasma calcium nava urement (mass/volume)Ordered By: Ga Field on 02-19-2022 Calcium [Mass/Vol] 9.5 mg/dL 8.2-10.2 [facility] Serum or plasma chloride eri surement (moles/volume)Ordered By: Ga Field on 02-19-2022 Chloride [Moles/Vol] 104 mmol/L 95-114 [facility] Serum or plasma glucose nava urement (mass/volume)Ordered By: Ga Field on 02-19-2022 Glucose [Mass/Vol] 194 mg/dL 70-100 [facility] Comment on above: ADA recommended refe rence rangeRandom Glucose Reference Range is dependent on time and content of last meal. Glucose of more than 200 mg/dL in a nonstressed, ambulatory subject supports the diagnosis of Diabetes Mellitus. Serum or plasma potassium me asurement (moles/volume)Ordered By: Ga Field on 02-19-2022 Potassium [Moles/Vol] 4.4 mmol/L 3.5-5.1 [facility] Serum or plasma sodium measu rement (moles/volume)Ordered By: Ga Field on 02-19-2022 Sodium [Moles/Vol] 138 mmol/L 136-146 [facility] Serum or plasma total carbon dioxide measurement (moles/volume)Ordered By: Ga Field on 02-19-2022 CO2 [Moles/Vol] 25.8 mmol/L 22.0-30.0 [facility] Serum or plasma urea nitroge n measurement (mass/volume)Ordered By: Ga Field on 02-19-2022 Urea nitrogen [Mass/Vol] 12 mg/dL 9-23 [facility] COVID-19 Antigenon 2 COVID-19 Antigen Healthcare Worker?: N Reference Range: Negative Negative results, from patients with symptom onset beyond five days, should be treated as presumptive and confirmation with a molecular assay, if necessary, for patient management, may be performed. Negative results do not rule out COVID-19 and should not be used as the sole basis for treatment or patient management decisions, including infection control decisions. Negative results should be considered in the context of a patient's recent exposures, history and the presence of clinical signs and symptoms consistent with COVID-19. The Jessica SARS Antigen SAMIR does not differentiate between SARS-CoV and SARS-CoV-2. This test was developed and its performance characteristic determined by [employer] and validated at [facility]. This test has not been FDA cleared or approved. This test has been authorized by FDA under an Emergency Use Authorization (EUA). This test has been validated in accordance with the FDA's Guidance Document (Policy for Diagnostics Testing in Laboratories Certified to Perform High Complexity Testing under CLIA prior to Emergency Use Authorization for Coronavirus Disease-2019 during the Public Health Emergency) issued on July 02, 2019. This test is only authorized for the duration of time the declaration that circumstances exist justifying the authorization of the emergency use of in vitro diagnostic tests for detection of SARS-CoV-2 virus and/or diagnosis of COVID-19 infection under section 564(b)(1) of the Act, 21 U.S.C. 360bbb-3(b)(1), unless the authorization is terminated or revoked sooner. SARS-CoV+SARS-CoV-2 (COVID-19) Ag [Presence] in Respiratory specimen by Rapid immunoassay Negative for SARS Antigen by SAMIR PERFORMED BY: [place] [id number] PATHOLOGIST DIRECTOR [employer] IGOR GUSTAFSON M.D. Normal [facility] Comment on above: Performed By: #### C OVID-19 JESSICA, SOFIANEG #### [facility] [address] [place] [address] COVID-19 SOFIAOrdered By: Juni Zelaya on 02-16-2022 SARS-CoV+SARS-CoV-2 (COVID-19) Ag IA.rapid Ql (Resp) Negative Negative [facility] Comment on above: This is a duplicate Jessica SARS Antigen (SAMIR) result to be used for statistical tracking purpose only. No Panel InformationOrdered By: Bharat Zelaya on 02-16-2022 SARS Antigen (LFIA) [facility] Jessica Ag Negativeon 02-17-20 Jessica Ag Negative Negative Normal Negative [facility] Comment on above: Result Comment: This is a duplicate Jessica SARS Antigen (SAMIR) result to be used for statistical tracking purpose only. PERFORMED BY: [place] [address] PATHOLOGIST DIRECTOR [employer] IGOR GUSTAFSON M.D. Performed By: #### C OVID-19 JESSICA, SOFIANEG #### [facility] [address] [place] [address] [place] Glucose Glucometer (BldC) [M ass/Vol]Ordered By: Bharat Zelaya on 10-19-2021 Glucose [Mass/Vol] 179 mg/dL [facility] Comment on above: Random Glucose Refer ence Range is dependent on time and content of last meal. Glucose of more than 200 mg/dL in a nonstressed, ambulatory subject supports the diagnosis of Diabetes Mellitus. Glucose Poct Glucometerson 0 10-19-2021 Glucose [Mass/Vol] 179 mg/dL Normal [facility] Comment on above: Result Comment: [place] Glucose Reference Range is dependent on time and content of last meal. Glucose of more than 200 mg/dL in a nonstressed, ambulatory subject supports the diagnosis of Diabetes Mellitus. PERFORMED BY: [place] [phone] PATHOLOGIST DIRECTOR [employer] IGOR GUSTAFSON M.D. Performed By: #### G JANESSA #### Point of Care testing , Basic Metabolic Panelon 09-29 Estimated GFR ( Jeannie > 60 Normal [facility] Comment on above: Result Comment: GFR estimated reference range: According to KDOQI guidelines, <60 ml/min/1.73m2 is sufficient to diagnose a patient with chronic kidney disease. Performed By: #### B MP #### [address] Estimated GFR (Non- Am > 60 Normal [facility] Comment on above: Performed By: #### B MP #### [address] COVID-19 FRMCon 10-17-2021 SARS-CoV-2 (COVID-19) RNA ANTOINETTE+probe Ql (Unsp spec) Negative Normal Negative [facility] Comment on above: Order Comment: Healt hcare Worker?: N Result Comment: Testing for SARS-CoV-2 by RT-PCR This test was developed and its performance characteristics determined by [employer] and validated at the [facility]. This test has not been FDA cleared or approved. This test has been authorized by FDA under an Emergency Use Authorization (EUA). This test has been validated in accordance with the FDA's Guidance Document (Policy for Diagnostics Testing in Laboratories Certified to Perform High Complexity Testing under CLIA prior to Emergency Use Authorization for Coronavirus Disease-2019 during the Public Health Emergency) issued on July 02, 2019. This test is only authorized for the duration of time the declaration that circumstances exist justifying the authorization of the emergency use of in vitro diagnostic tests for detection of SARS-CoV-2 virus and/or diagnosis of COVID-19 infection under section 564(b)(1) of the Act, 21 U.S.C. 360bbb-3(b)(1), unless the authorization is terminated or revoked sooner. PERFORMED BY: [address] [place] [id number] PATHOLOGIST DIRECTOR [employer] SALES JIANLAN SUN M.D. Performed By: #### C OVID 19 [facility] #### [place] [id number] [facility] COVID-19 Positive/NegativeOr dered By: Bharat eZlaya on 10-17-2021 SARS-CoV-2 (COVID-19) N gene ANTOINETTE+probe Ql (Resp) Negative Negative [facility] Comment on above: Testing for SARS-CoV -2 by RT-PCR This test was developed and its performance characteristics determined by [employer] and validated at the [facility]. This test has not been FDA cleared or approved. This test has been authorized by FDA under an Emergency Use Authorization (EUA). This test has been validated in accordance with the FDA's Guidance Document (Policy for Diagnostics Testing in Laboratories Certified to Perform High Complexity Testing under CLIA prior to Emergency Use Authorization for Coronavirus Disease-2019 during the Public Health Emergency) issued on July 02, 2019. This test is only authorized for the duration of time the declaration that circumstances exist justifying the authorization of the emergency use of in vitro diagnostic tests for detection of SARS-CoV-2 virus and/or diagnosis of COVID-19 infection under section 564(b)(1) of the Act, 21 U.S.C. 360bbb-3(b)(1), unless the authorization is terminated or revoked sooner. ECG 12 lead ECGon 10-17-2021 ECG 12 lead ECG [facility] [place] [address] [place], [place] [id number] Electrocardiograph Report Signed Patient: Zara Benedict MR#: [id number] : 1960 Acct:[id number] Age/Sex: 61 / F ADM Date: 10/17/21 Loc: Room: Type: [facility] Attending Dr: Bharat Zelaya Jr, DO Ordering Provider: Bharat Zelaya Jr, DO Date of Service: 10/17/21 ECG/ECG 12 lead ECG: OR 10/19/21 Copies to: Test Reason : Blood Pressure : / mmHG Vent. Rate : 083 BPM Atrial Rate : 083 BPM P-R Int : 160 ms QRS Dur : 100 ms QT Int : 378 ms P-R-T Axes : 049 -14 033 degrees QTc Int : 444 ms Normal sinus rhythm Moderate voltage criteria for LVH, may be normal variant Borderline ECG No previous ECGs available Confirmed by ALTON GUZMAN [id number] on 10/18/2021 4:41:03 PM Referred By: JAZMINE ZELAYA Electronically Signed By:EZRA DANG MD [facility] Transcribed By: MUS Signed By Gigi Dang MD 10/18/21 1641 Normal [facility] Estimated glomerular filtrat ion rate (GFR) non- AmericanOrdered By: Bharat Zelaya on 10-17-2021 GFR/1.73 sq M.predicted among non-blacks MDRD (S/P/Bld) [Vol rate/Area] > 60 mL/Min [facility] No Panel InformationOrdered By: Bharat Zelaya on 10-17-2021 Estimated GFR () > 60 mL/Min [facility] Comment on above: GFR estimated refere nce range: According to KDOQI guidelines, <60 ml/min/1.73m2 is sufficient to diagnose a patient with chronic kidney disease. Pharmacy Creatinine Clearance (Chem N/A [facility] Serum or plasma calcium nava urement (mass/volume)Ordered By: Bharat Zelaya on 10-17-2021 Calcium [Mass/Vol] 9.7 mg/dL Normal 8.2-10.2 [facility] Comment on above: Result Comment: PERF ORMED BY: [place] [address] PATHOLOGIST DIRECTOR [employer] IGOR GUSTAFSON M.D. Performed By: #### B MP #### [facility] [address] Serum or plasma chloride eri surement (moles/volume)Ordered By: Bharat Zelaya on 10-17-2021 Chloride [Moles/Vol] 102 mmol/L Normal 95-114 [facility] Comment on above: Performed By: #### B MP #### [facility] [address] [place] [address] Serum or plasma creatinine m easurement with calculation of estimated glomerular filtrOrdered By: Bharat Zelaya on 10-17-2021 Creatinine [Mass/Vol] 0.51 mg/dL Normal 0.44-1.03 [facility] Comment on above: Performed By: #### B MP #### [address] Serum or plasma glucose nava urement (mass/volume)Ordered By: Bharat Zelaya on 10-17-2021 Glucose [Mass/Vol] 134 mg/dL High 70-100 [facility] Comment on above: ADA recommended refe rence range Random Glucose Reference Range is dependent on time and content of last meal. Glucose of more than 200 mg/dL in a nonstressed, ambulatory subject supports the diagnosis of Diabetes Mellitus. Result Comment: [place] om Glucose Reference Range is dependent on time and content of last meal. Glucose of more than 200 mg/dL in a nonstressed, ambulatory subject supports the diagnosis of Diabetes Mellitus. ADA recommended reference range Performed By: #### B MP #### [address] Serum or plasma potassium me asurement (moles/volume)Ordered By: Bharat Zelaya on 10-17-2021 Potassium [Moles/Vol] 3.8 mmol/L Normal 3.5-5.1 [facility] Comment on above: Performed By: #### B MP #### [address] Serum or plasma sodium measu rement (moles/volume)Ordered By: Bharat Zelaya on 10-17-2021 Sodium [Moles/Vol] 137 mmol/L Normal 136-146 [facility] Comment on above: Performed By: #### B MP #### [address] Serum or plasma total carbon dioxide measurement (moles/volume)Ordered By: Bharat Zelaya on 10-17-2021 CO2 [Moles/Vol] 23.6 mmol/L Normal 22.0-30.0 [facility] Comment on above: Performed By: #### B MP #### [address] Serum or plasma urea nitroge n measurement (mass/volume)Ordered By: Bharat Zelaya on 10-17-2021 Urea nitrogen [Mass/Vol] 11 mg/dL Normal 9-23 [facility] Comment on above: Performed By: #### B #### [facility] [address] [id number] [facility] MRI SHOULDER LT WO CONon MRI SHOULDER LT WO CON EXAM: MRI SHOULDE R LT WO CON HISTORY: Left shoulder pain COMPARISON: None. TECHNIQUE: Multiplanar, multi sequential MRI sequences were performed FINDINGS: 7.4 mm foci of hydroxyapatite deposition within the anterior fibers of the supraspinatus tendon (axial 12). Adjacent 8.1 x 3.8 mm high-grade partial-thickness bursal sided tear of the anterior leading edge fibers of the supraspinatus tendon (coronal 16, axial 12 and sagittal 8). Thickening and edema of the adjacent supraspinatus tendon. No full-thickness tendon tear or retraction. The infraspinatus, subscapularis and teres minor tendons exhibit no thickening, tear or edema. Moderate amount of reactive fluid within the subacromial-subdeltoi d bursal space. No glenohumeral joint effusion. The acromioclavicular joint appears unremarkable for patient's age. However, mild reactive thickening of the acromial attachment of the coracoacromial ligament. The coracoclavicular ligaments are unremarkable. Questionable tear of the insertional fibers of the coracohumeral ligament. The superficial subcutaneous soft tissues are free of edema, hematoma, mass or cyst. No muscle edema, hematoma, atrophy or fatty infiltration. No avulsion of the biceps tendon long head from the bicipital tunnel or supraglenoid tubercle. Age-related fraying of the posterior superior aspect of the glenoid labrum at approximately the 11:00 position. No gross avulsion of the biceps labral anchor, however, limited secondary to patient positioning. The articular cartilage of the humeral head and glenoid exhibit no discrete chondral or osteochondral abnormality. IMPRESSION: 1. Supraspinatus hydroxyapatite deposition within adjacent high-grade partial-thickness bursal sided tear. 2. Moderate amount of reactive subacromial-subdeltoi d bursal fluid. 3. Age-related fraying of the posterior superior aspect of the glenoid labrum. 4. Questionable tearing of the insertional fibers of the coracohumeral ligament Electronically authenticated by: FLAVIA MELVIN Date: 2021-10-10 19:39 Normal [facility] MAMM SCREEN 3D MELVINA CADon 09-12-2021 MG MAMM SCREEN 3D MELVINA CAD Patient: ZARA BENEDICT Exam Date: 09/12/2021 : 1960 Gender:F Ordering : DR INES MEJIAS Admission #: [id number] Family : Order #: [id number] CLICK HERE TO VIEW EXAM RADIOLOGY REPORT PROCEDURE: MAMMOGRAM SCREENING 3D BILATERAL CAD COMPARISON: MG MAMM SCREEN 3D MELVINA CAD, 09/10/2020. INDICATIONS: Screening for malignant neoplasm of breast Calculator Name NCI Breast Cancer Risk Assessment Tool 5 Year Breast Cancer Risk 1.20% Lifetime Breast Cancer Risk 6.70% Personal Breast Cancer No Personal Ovarian Cancer No Treatments None Family Cancers Father with bladder cancer at age 80. LOCATION: The [facility] BREAST COMPOSITION: Almost entirely fatty. FINDINGS: DIAGNOSTIC CATEGORY 2--BENIGN FINDING: RIGHT BREAST: No significant suspicious finding. Scattered benign-appearing lymph nodes are present. No significant change has occurred. LEFT BREAST: No significant suspicious finding. No significant change has occurred. RECOMMENDATIONS: ROUTINE MAMMOGRAM AND CLINICAL EVALUATION IN 12 MONTHS. PLEASE NOTE: A NORMAL MAMMOGRAM DOES NOT EXCLUDE THE POSSIBILITY OF BREAST CANCER. A CLINICALLY SUSPICIOUS PALPABLE LUMP SHOULD BE BIOPSIED. Dictated by: Johnson Del Toro M.D. on 09/13/2021 at 10:39 Approved by: Johnson Del Toro M.D. on 09/13/2021 at 11:[address] [facility] Physical Therapy Noteon 03-02 Physical Therapy Note [id number] [id number] [facility] Provider [place] 01-13-2021 Provider Orders [id number] [id number] [facility] Provider [place] 11-18-2020 Provider Orders [id number]#1 [email or web address] [facility] Coding Summaryon 11-16-2020 Coding Summary HTMLBase 64 UlbpufnpULp9bRl+PGhlY WQ+XI3EWZXoL45weHGbjJ 5VG3pOTY9PRKNPMVSAUC4 AAD2vqAM5WAoxX0OvtjTr LuajxIRoUC73WYh5HBB7q NqaNVucwP5hkKCaA4k7Pl AmGD91oL56AFipOAHtLyZ 3LjZpbjsgbWFy J2rvBmUiqZNkXkk+PHRhY mxlIHdpZHRoPScxMDAlJy TyiBjyQX3uZy1lDTBzGIV vbGxhcHNlOiBj t4fyAGJdHPgxDR7rqApvX 7ZooEQ0QWLjn6v8Zy80lU I+WLZdJBT9tAgaDNmjz81 9BpYne9fpLJO9 vWAfLIugLXL1U19lx5Y4C WBqZYHdEHJ2mWA8eF8tjF qpdftpH2LzyOKxRtN5EIR 8zLTptA3dyVkq mntcdY3fYpd+D46OKC9CU KGMBP5ASjw1V3CeIaisjE I+JG05GVCaUX12mFBraTS xa5bzvGn2PkTp CWOqTWO3xFcnLJrdx5EeN AKcB75ieRYkn3V7BKWqqX rdxDBoXvLncDO6sX7fALt zfnzej7pspgcz Wjhyy8hdzb46lB33X18iG VdtQYWsJQF2LOXcLWRspA oukw5fdD4iJb8+LMnmc4z kf9qhoZj7GyIh VNZfvxFulDfxEJJ6j2EgL g19F4PtqZssh2QtDbc2kv 45rUEgv4D5gXX3FPdbJPI liY7mKBsxVuC4 MSBvMyBmrO64sWHsNRisH e1kmEjbsMcpAT6fLGOudc ekOCVfbV6xNOKpqQKuvBg qUC0gILYntyto h404QjRwMBV0FCLuyLZbB 7MzmU6uRcVrGSPqQLOuO4 TceVPtSVwuB578WPsyDnL 4ELRfjtCvQ0Zi XXSokPphQlW8u9J2Nd1Br 0MethhuDKB9XMmcFWT8Nv A4SdWoSnT1P0ZwBlq1FHQ vzNdpXX3aB6Sq VDTzwusavnjfaYM4MILtQ LUvxA94tNAbINyfXn3uq4 M7v626APKpBSDkwC17Kl8 udDogMTBwdCBU lH2ymdubj1xkevpcFoRkX HEnAKh7RCy3YLIcqMtfCg FhQPZ3RxK2RWF5vYLslL1 ymKckamqfrV7p Oyc+Y20gvN9sJVL2EIB6e crpVOQcqqQwSK00FM17M7 RyPjwvdGFibGU+PGRpdiB idRwmUY1bLdTp y8wke3QwATtkQ2CnXJYiI WydVbh1TAUmHJU6kSO8rM 3nOPKgCFhpi1Y4uUB1C1Y xjvVahm9yj2jg XFRmWLpbM67skXRcd5K9W NDjiUX2UPEagChwEkFfiN 93Oyc+QUPnmPkab1YzLwd ge3nps3hrjHm2 JaKeVHBcsqQpiKfbUVL2t 0TnTo69T65fTRvbZREsCC VpZHPjADMqsYqrzg9wyV5 wIi8+PGNvbCB3 eRR4uR2xQIKuVjA0TYmyK 923TgJeyJDqQhdpi4yjb2 olmEv8KqHoVAWhcxVuzQr yZED5t8XnWt56 M38lQIjhXVHxFBZfGSAeZ AHhoAycpo3qgI1wRz2+PC 0fs6djde87kJ89aAE+PHR zGUI0iHhuBXfi KWBkzK2sHBzqJhQ6CWGfR qFufY77pRBjPGxhXl5yoD rljCdkFO5bQWSvwmnod34 7GtAbq6fgFCAk uISyJErnFPN4K86sh8I9X CRlOGCyIXS5kNL2vY3txB lnbjogbGVmdDsgdmVydGl eJImyPOjrO278 IHRvcDsnPlBhdGllbnQgT jLfHTs4J4SaJcr4WBZlyD xqIB4unJTtGXtfUh1nxQk epKajBD1nYRCo whhld182UuLql6bdWWRnv AEgXAfwTGZ3Q07kn9N4QV FaFIKrJMI1cLW1pJ6tqZq nbjogbGVmdDsg hkHauMndITqaHYvlZ904R HRvcDsnPkJpcnRoIERhdG K8AH69LD42aNYpo9K4yRM 7G1PqCQGltrfi fgeelDE5VGUuYLAsbF70G k6isZsmJt7wLTMuLYH1LY PzfNJcO6HntG6mWdChOAR dCLXpS9FymYSa BCllB286NYjhNoP0VWIjw iVcU2FrZCIotKueBzR7s6 W8Mh7FZ4C8IY32QN03kOT ij1Z7gRQ0P4Vf PJHrevtgxwhirZN3FXFuQ ZRadT33Bg8puMnyFn8uXO HpSKY5THEyvXHrU4VzfC4 yOiAjMDAwMDAw B1UqiTZlIAmjN353JEowK lN2UAZhekFkJ2ZyERNtpV fwZzB8f2H9Ru8XRGg4XS0 7DU91uFHfh7G6 kJW1C5XdZCVurihjdysyu LV5OLLeDPOhmB25Lg9hwJ baWu6aZIAgEWT2UTAswLI rD1AfyP3cCtAt WMDvHTFuG7BsvNNpGYjxI 909CUuzLdF0JXFgvdJiI1 NqTIUesIluBkL9d9F4Ch6 XSCJfKE13DPZ7 qOR4WP37AE93D6WuIofqj GFibGU+PHRhYmxlIHdpZH RoPScxMDAlJyBzdHlsZT0 aVn3aKHXkDNHb jGnohNBuJrLqv0owGWGxT GuqYZ3moUrqC2AsiCJ3TN Clt3q8Rz77Z11gK4YqoUI +VMMwzWF6dEF0 eE2zSpMfWdM6DWpuT730Y hHceUQmYbfxd7vmc6ajiW i7WwN3ZZKickTyrPpdPWR 3d5RbYa84Q99w IHdpZHRoPSIxNSUiIHZhb Krjos2pfB0tPk9+PGNvbC R1uAI0tM9rLuXdIbY0DWy uZ404OxVjhYEv Nlzyr4uoe6hwmJi3MyCaP NHxjpQetPedAPG6j4NzLs 02O1SniNzbm9RaIzi7sh3 8dGUli2R7qYB6 E0CzXMXltzxrxLDznUnbC X7fQYFjegsfYCKuhW7hUI PpG3r4BaFmKfY4QEglG0T cmiC5SJAkeEMt BJdpYSX4C30cn9D0WRKxC DLfEWX1bZO4xF7paUjntk ogbGVmdDsgdmVydGljYWw sMBibK022QXHz nHmpGKQxxZ9yZQMyzCPya UwtTC2nSGUrbyhdPacRWL xFUiwgVEFNQVJBIEpFQU4 2L8YuGye2KAXn uDlkDN8ofXWbEAwcFp9ci RcyrSyuUD0qXPNcoadaOW RsgA3bZFBmpCGbiZseNP5 hOKNomcchs590 DnClMKW6UQBsrBLgX5Olt K9cMdThQPBeYWYeW6NphQ YnXTpeQ985MNrfToD0GAA vwzAxQ3BdQJOi lIdmBeT6f7J0Ux0rGW8rM S8lJHJmDH94PI38oWVmt0 G5aIE8U4KrJCOnrezcnay ylXZ9QDKtTTQc aA52vBMzAKufKh8qf8L0n 417CTIsREEkqL00Af9tlD ptYLXmwJWHiK4netuhm2q vcjogIzAwMDAw SQt8UCt0IAMckHvgAuZpO ZB1WnV5WIG3sTVenX5zbC mesnzvtQ0yRzd+NTggWWV cxnH7U5BpIrv0 ETBdaNyuAW5xlWHcMJprE e9feAqnbMljSU8nLMPotn azXPCkiV0lNXPbsEKwlEs nXO0eGPVpmbzh y083HwYbJTG0KUXpiLDuS 7ZaeA9fBvVbUJXnLNKuN8 BkzRLvWDolP151AKfiArR 2BKAukyAhM7Kn TEVjvGgpUuE5q0N6Wc2SE W1MOHE4G3AaTlr6ZQBoeE aaLN9abPYjVOkbOg1xtAf haZsfIP4kOGIm rmwyKRWjtY3eCXPujZHcc CtrUQ0rHMDuuvhtu050Qe JdPUX7FOPcpIKxQ2EzoP6 yOiAjMDAwMDAw U8EidLXpGQmwJ535EPzuW gU1IDGkatGuG7QvUDSpsZ zoOgV5z0H9Qy9COQV6fxA devbzG1H0qHA1 aWVudDwvdGQ+AQ50bb83K 0AzDcfhKel2ZXZxYSM4dG B9oT2eIXUkVNadq5N5zVT 3H6TdfqRiuw9y f1lzKVViZWeuE98hoNUoz 2G8KBCjiDP3XYOxwPbnTd CidK56Gxw+SYZkuHvqg7Y cEphyd7klw6fa sFm1BwWwGJJaseMqjLgmQ EY8n6CoZr46T48cIVjsKB RoPSIzMCUiIHZhbGlnbj0 mrG1bMu6+PGNv oLU6sJM2sT6nSvKgVaU7N HgtH331OqZafIZwMcbkk8 fht1jthVn2ZbOoLMXqpeT zlSsrOYC3j3In Aq56P6GflSgsk1KtAle2a z79qTAab0J7yQE7W0QoOE SrgcvwgFNtdLqqMJ9bZJP cznkzHBKftX5g CEElW6c0YtHsQlH5UCqoC 4PolfA3WRBolYOeHGFzvQ IFrY5exiegm8hexvubJnQ yUJFeEAc8IYs6 YGDkjBjqGyTeLGT9YhH1E QA7rQLbhA9xjMhisntglI 9wOyc+FYx7w2kdzSGpOZ6 soPI7DQ66UF85 uLHkd2Y3yUQ3F2KoGBRed xeddubqeTQ5MXDnDNZbcI 60Tt5xiLzjLn3rDDAnKPN 9PGDkuOGgQ7Zi uZ9iJtMaFZMvQAGjC3Ock CBtXKkiM842WEzzNyA1QH ZpexAdE1OyXCViqJoiKhN 0k8R9Or5WMO95 KB28KO86nHDiw0E9mAY5C 9GmUXOqgxossxowgWQ3YP AtGMAqdB82Qf6kqYuhJo5 kKROnZAT3YMIx gOZiR7WuyT9qMfAfFGLtJ DRdJ9UjlOEyHAywF237EA naMlN4TGLubcMqV9RxOMH ejMnrDzC7l9T6 Sn7SEz43QC78WE65qJCkf 9P2bTK6J8VbBAMichtlcq qktZM1OYFuIFZtkY33Dn7 nlZupBb4bVDMj RPG6NJHzmZHlQ4OqqQ4jX kGzCMTvUPHzA1FbuMHlAT jiP841LWgfIcN2FIZokwX bC0MyEPLxgAtj YeO8c9H2Cd8JANlfdak1Y 3RkPjwvdHI+SJ26TCAjFM 85wXHqzBOjr6uxoRc4LwW zMGEnYET9mVzb PSd (more content not included)... [facility] Provider [place] 09-13-2020 Provider Orders [id number] [email or web address] [facility] Coding Summaryon 09-12-2020 Coding Summary HTMLBase 64 OzvkxzhaMQw9hBy+PGhlY WQ+QM3SGAHtB77ipIRxgR 7JK5oKYR3GBBYCIJPYKU6 XIB3liXJ6RKhjW6TaphSb ViaytATmUH90DSl5DBE4s VwqROjqrM2tjCOhP1i9Fd XpUM67iU16IZkmOTYnVdT 3LjZpbjsgbWFy D0ddZrTfkRCnYlb+PHRhY mxlIHdpZHRoPScxMDAlJy EmhHpvPS9hAv2vVMTvMYM vbGxhcHNlOiBj j5uuFMSmTOfiNG9vqGofE 2DgwEQ4SHHym7n1Ps97nM I+GYEjKKC7oZcuKFdek26 6YtDch5ziMMJ5 tBDiWQveGMJ3J23ev5Q4M LFpNUDxIPI5eTX7aH4jeV otcpepA0KljRBsDjV1NJW 9jKFuvK7foIpx xpskmJ2rSew+E58PCK8AX KKKBH3VZxo4M8NiAwuekN I+OH45UWYaVC37nXScyGL sp5kvhPs9CpPz MLTgXZT2bXzsPHuzn8PuE AMbW49qlUAga4R8LXNzuL migVMpIsSabGR6qT7bNLn vwzhqg4kphaoe Rpryk8xyzj08rH94C18wH JdjBAOnCOX5XJStSMWbqJ onmf6zmF9yWa2+IIbyr1b mj4zrxIq5ApJd AGCafyYckOqqIEG7j4FdD n09Y0NisIggd6QqHqm4kp 60jOUxx8Y0lZU6WIuqFXW taV7uKVlbBzE0 NPUqTfLbdR53hFSfALtrN d3ijVopqNobXV1xBUUqpm reIQJuzO4iAXTzkZFzfAy mQS2wGZKijjkr t848TqJeFBX0YNIscLNjB 4RhqN4eUpOmJZVlRDIjF7 YglCUfZUeoD058JDugPgP 1TRAgykMwE9Xy BZZxlPkoKmS5b5E5Fo9Mr 1GwrkhcPIF4FAvkMUV2Zp D5FfOoNuX3R4SpMnk9RKL gdRiiKQ1bK0Ku NGIuulxdmdtyoIN3XCJeD JHckP36qFFlNGepWz8ux7 G2h506AEBdGZLdwB55Wt0 udDogMTBwdCBU nY0vvbssh4fbxrzvZgIsK LJqYTa9IRs4YAMbwDyjFw OdBWS2LgR6WAA6bSXqwQ9 uqAtsguxalD8i Oyc+M64ieT8rTSM9GAQ6d chrNWSuxuOyGI87QX16H8 RyPjwvdGFibGU+PGRpdiB rfUpgZK1qTfYx i5msz9ZgHKwlV9LoEAHhA WskWfr5UEViKCF5cVZ9sC 9jVHLaIAhwo6Q9oUC9Q6N gtfOewp1hb9gf PLMiGCggH96avURtu9C1J ULecEF9MPIljLrnXxEuxW 93Oyc+VVGahUmnv1AsWpw jy5lwa9psxXu8 WdLyQNPuooAwlUlhKOI2u 7WcHi22N02aDTnvAINtJS LlDGSiHNQuwVvdsz6fsF9 wIi8+PGNvbCB3 hPG6qP0bNTPfPvE1GNnbH 613PfDtlUTfKraiu8jzg1 xatUy3ZsGiKDPcxgUhgWu zLLC8u0UmWx43 E41wPWxxISYnSJWkIKCtF UIdiNjpdv2onQ2iSf4+PC 0yh9fmvn29xR99iGU+PHR kZSZ3oWndXCeh ZOYbdM3kYMiyOqX0VBHrV dDlvA93mXJrRIpbDz4omR zfhCtfFA3mAFDvqshjh72 7NyZug2giGQKm aCYmHAboWTT8P84kc6X8I EUsWGTcCWM7pML5vI0vyM lnbjogbGVmdDsgdmVydGl gXNlmIZhzT592 IHRvcDsnPlBhdGllbnQgT fIgWUe8O8LxWwh4QGGgqS agXQ0cbFLcCCscXv2onLz qwUkiFC7pOSXa ldglt855ZbBrh4lpFNYuc KBiXUssGCP1E82rg5B8JF IhARFhNTC8eLK9xK8ntYe nbjogbGVmdDsg ykMqwHtgKWzsJUbvA679D HRvcDsnPkJpcnRoIERhdG Y5IM20TT16oLPnr1U5xXV 4B6NfIDVfwyrb nobmjXU3VVSyHGWyhT21D n7vgKfqQv0hEOWsCWA4OY LxlIOfT7YsqO0vCgQoHDC xLNMpE3EjkVAu ECyaS026XLhjTkX1YQLcj nLeQ2RyTFCbuWqjQdI7w5 Q5Zo6ZJ5X5OV85QA63nXM rs5P1cNS4B7En TZWylmeqhedioGK1TSFpJ SZobF94Vd0olOmoOl7iTX CfXYI6QWJxeXOjG6XwmF5 yOiAjMDAwMDAw K4VdrVIcCLcqQ213QAaxI uX7ABIphdSwB9BaYPRqzV osCkN1g1A4Js5NNSq6WQ4 0PN17hXPnr5H0 iCN4I6UwNGSuzcgnwowuq RD5DNApPTEjoD37Ur6smB poYy4vFWBmISR8SDPffFX sS7HfeD5wXbZa BCZbJSMhN4JztGHgAAwxB 491MYzlTgP6KSGkvaImH4 HpHLHevZdfGgB5j5X7Li3 ALQLoYT46RVQ9 mFR2NC21KH16X6TyAmisa GFibGU+PHRhYmxlIHdpZH RoPScxMDAlJyBzdHlsZT0 iKd9lVQWkAAFk wWqccBLkWzZaq4vwELQnI IjnCV3kxJxkG2HrkEY2UB Ozu1u3Hb05M36hZ3UcbDD +UDKxlHJ8hAN5 eY7xQvLdNwL4YLarN002M nVgnRPlTwztd3nhx0ypmG l7NqB3BAZhgpKfkCaqBAA 5d7QcKw69V21a IHdpZHRoPSIxNSUiIHZhb Hwrqc3spX7uQu3+PGNvbC N1jQW4lE4eDqWyUwV2UJk iV710BbCpdXXg Lxdrc5xco8uduWw5NcUbK IGjgqDdlAuqCQW1z8ReEr 03D5SzpZfpk3KsKcb2zq1 0gSVuo3V1kQK2 F1PoPQVcaywoiYTnvWpgA Y6tWUJjdispQONseZ5wNG AlW9o2AhPcSmB2TOrkY4I wmwU6FMUtbVOh HLmaOMX9G81oh8Z9WBDtS KTuWGD1lPQ6qZ7rqPgoyf ogbGVmdDsgdmVydGljYWw xRItoM348JTWo eOkoXVUctZ0nEISkqHPau UnjHH1zFTBfjxjtEcoFTJ xFUiwgVEFNQVJBIEpFQU4 4U9NiSmm8HMDy aHvgLQ7xhLCcCEhmDy5sj IlclBpbNJ1bAJVkufkzDL CbjX7nAHPfeMYiaYuuRK4 cTMMsfaayz350 WrVpYTT1JNLikCNzA3Jkt E8aNpGnLPSkWOImC9VjmM FxOHzeP769ZUtlXgD5GEH nycNwN0WeVWCa qJgfSgX0l1C4Ji9rRK1yS I7mJMPqDH90XX84dXIjs8 L7bCM1V4AaIOXclcyyyay awHM5NPMsVGQd eV75jPXqGXkhJm8ub4N0v 642HDEcKNSfkA78Wt0nqD diIBPxiCGVyP1peqfxw1h vcjogIzAwMDAw HCh2IOn3AKUciWmcKlAqM CU3PbT4MWS3uIWtxZ8lfJ lrwooniY0vZnq+NTggWWV cqqS2T7JlOjs3 OWDmuDygTQ6ycZYgWQszD z3ggLclnObkBR8zKYSiku ydAUDabF6oNISxkXLbvKy qNV1bTTXzehvy v388JkLaMUL7BARrmDFoC 5VgkI9uIyBcDUNbPTFdZ2 LvoEPvAXsiV855KIeaIjK 0OQCjubTbM6Xi SOGgjDvpOyZ9s4K8Ua0GS X0LTAV4L0NdHvv7ZYXcrN puGG3mhNPjXMaqNc2stBq abHtlHW1bWGNj kelrWFCotH5sOXZsrUXtc AjcVD1rHXCsarifd032Tk ZwQWX3RUFspHXwW5HrtW9 yOiAjMDAwMDAw Q4PkvXWyYHkaH894LBawH mS2NSCwbkCgX9WhNYDllH arCdL0a2A5Dy3AAXvxfNY +NH57tm17M6Ko WggfOwm3IQNzYUW5oXD7c T1sJDQvDJaqe0D2rZP9K5 CivfIyud0qs6qdROUdJLa zP63irOXtm6A0 QPOjuSW7TWWbfPxbVzDqr G93Oyc+WVNkaEuzk3YiQn sqt5nze2ddfDh3PmFfKNY gdmFsaWduPSJ0 c1ImEv96K43yEIhzVSPhS DQyYHRhZMWrgSawnq2ynD 9wIi8+CBStkHZ2hOW5cK0 wSbEoDeR3YJec S914ViBhiHIlBweas4dqr 6bppPg0KlJsEWTchwEluX sxYXW0u1WqHy26D4ZjiMc ea5HmGuz0ny23 eOKwy1Q6gYS1D4VqWYIja twzjZMwnEdsEG3gSGMpjh gdWNMqnR7iNWYpA7i5BeM cRoV8NGfxX2Az tlX2LMSgpAOhOWAvhIIZt A6tdggje3msfhpsDdVxWP XaDGt2DFx2CPYroOkfMxR rNSV0BhS3DJJ8 bOHpuH9jqLpheqrujA0aD yc+BNc8l0mbaRFoXE9fvT M1OT38TB12rDEbd4R2wLJ 7Z7LkDJEzoqci hagyiPT1VQGlJGImiS63G y3afDeqCa0yBOMsNRL2VA TnrAPdV5ZauZ2zMtEdAZI jHIUoP6YsaCHy BKefA453UYwjFgX7KPYao aOuA3QdEEEdhRjoSaN1s3 M6Dx1GNQ83QB90DP20hSH co3F9qUP9J7Tt HCMkvkjlhtfjiCT5IPGwT SEabW56Oy1kbCgpAe6aZG DnSLE6YPRhlFZcO2ZzsE3 yOiAjMDAwMDAw L5LwhWBaUCnvW136ABnfF aH3EEUdneWtW1HaEUXxjU mkYyI3n5R8Ep7RPs25ST9 3ID72pVIta5R2 sKW7V5UcZYFifietdpymg QU4SYAzVWGcxO76Dp1hpB mgVv8xFCWlWXF0QVQpgEK cM5MrhD3mIvEn BCXrFEJqV2OluHZqKMgyA 224GTlyLnF8KGIndhFsT8 WmWNQkbHjeYiJ8k1T2Rf1 PSAsbstg3N2Gt PjwvdHI+NA37ZYIqKU49m NXqlBThp3jqaXl3CoJbQW SfOUF6bAeiRIcht5XhBRY uD67jpTSsj1S4 IGN (more content not included)... Normal [facility] Mammo Screening 3D Bilate ral.on 09-10-2020 [place] Mammo Screening 3D Bilateral. MAMMOGRAM SCREENING 3-D BILATERAL CLINICAL DATA: Routine screening. FINDINGS: Screening digital mammogram study of both breasts was performed with 2-D and 3-D tomosynthesis imaging. Study was compared to the prior exam dated 09/04/2019. Scattered areas of fibroglandular density are noted bilaterally. There is no evidence of interval dominant spiculated mass, grouped microcalcifications, or skin thickening which would be suggestive of malignancy. A few benign-appearing calcifications are seen on the left. Axillary lymph nodes are noted bilaterally. R2 Image Cat Scan Technologist was utilized for this study. IMPRESSION: No specific evidence of malignancy seen in either breast. BI-RADS 2 - Benign, no evidence of malignancy. Normal interval followup is recommended in 12 months. OVERALL ASSESSMENT- BENIGN A letter of notification will be sent to the patient regarding the results. Assessment / Recommendation: 2-1 Normal interval follow-up Breast density: Scattered Fibroglandular Density Recall interval: 012 months Final Dictated by: Bereket Bernard MD Dictated DT/TM: 09/12/20 5:53 Signed (Electronic Signature): Bereket Bernard MD 09/12/20 8:37 am Technologist: MARLENA Assessment: 2-Benign finding Recommendation: Normal interval follow-up Normal [facility] Provider Orderson 09-02-2020 Provider Orders [id number] .[id number] [facility] Vital Signs Date Time Vital Sign Value Performing Clinician Facility 01-29-2023 15:12-0400 Blood Pressure Location Colby NILL [facility] [place] 01-29-2023 15:12-0400 Diastolic blood pressure 78 mm[Hg] Colby NILL [facility] 01-29-2023 15:12-0400 Heart rate 72 /min Colby NILL [facility] [place] 01-29-2023 15:12-0400 Respiratory rate 16 /min Colby NILL [facility] [place] 01-29-2023 15:12-0400 Systolic blood pressure 138 mm[Hg] Colby NILL [facility] [place] 02-19-2022 08:45-0500 Diastolic blood pressure 81 mm[Hg] DO Fanny Petznick Work Phone: [facility] 02-19-2022 08:45-0500 Heart rate 77 /min DO Fanny Petznick Work Phone: [facility] 02-19-2022 08:45-0500 Respiratory rate 16 /min DO Fanny Petznick Work Phone: [facility] 02-19-2022 08:45-0500 SaO2% (BldA) [Mass fraction] 95 % DO Afnny Petznick Work Phone: [facility] 02-19-2022 08:45-0500 Systolic blood pressure 146 mm[Hg] DO Fanny Petznick Work Phone: [facility] 02-19-2022 08:11-0500 Body temperature 98.4 [degF] DO Fanny Petznick Work Phone: [facility] 02-19-2022 07:41-0500 Inhaled oxygen flow rate 8 L/min DO Fanny Petznick Work Phone: [facility] 02-19-2022 07:24-0500 Body height 175.26 cm DO Fanny Petznick Work Phone: [facility] 02-19-2022 07:24-0500 Body mass index (BMI) [Ratio] 28.6 kg/m2 DO Fanny Petznick Work Phone: [facility] 02-19-2022 07:24-0500 Body weight 87.99 kg DO Fanny Petznick Work Phone: [facility] 12-16-2021 11:50-0400 Body height 175.26 cm Mala Aguillon Other [employer] [facility] [employer] Other 12-16-2021 11:50-0400 Body mass index (BMI) [Ratio] 28.65 kg/m2 Mala Aguillon Other [employer] Other 12-16-2021 11:50-0400 Body temperature 97.6 [degF] Mala Aguillon Other [employer] Other 12-16-2021 11:50-0400 Body weight 88 kg Mala Pal Other [employer] Other 12-16-2021 11:50-0400 Diastolic blood pressure 79 mm[Hg] Mala Aguillon Other [employer] Other 12-16-2021 11:50-0400 Respiratory rate 18 /min Mala Aguillon Other [employer] Other 12-16-2021 11:50-0400 SaO2% (BldA) [Mass fraction] 99 % Mala Aguillon Other [employer] Other 12-16-2021 11:50-0400 Systolic blood pressure 145 mm[Hg] Mala Aguillon Other [facility] [employer] Other 10-19-2021 14:52-0400 Diastolic blood pressure 64 mm[Hg] DO Fanny Petznick Work Phone: [facility] 10-19-2021 14:52-0400 Heart rate 89 /min DO Fanny Petznick Work Phone: [facility] 10-19-2021 14:52-0400 Respiratory rate 18 /min DO Fanny Petznick Work Phone: [phone] [place] [address] 10-19-2021 14:52-0400 SaO2% (BldA) [Mass fraction] 94 % DO Fanny Petznick Work Phone: [phone] [place] [address] 10-19-2021 14:52-0400 Systolic blood pressure 144 mm[Hg] DO Fanny Petznick Work Phone: [facility] 10-19-2021 13:15-0400 Body temperature 98.4 [degF] DO Fanny Petznick Work Phone: [facility] 10-19-2021 12:40-0400 Inhaled oxygen flow rate 8 L/min DO Fanny Petznick Work Phone: [facility] 10-19-2021 11:15-0400 Body height 175.26 cm DO Fanny Petznick Work Phone: [phone] [place] [address] 10-19-2021 11:15-0400 Body mass index (BMI) [Ratio] 29.2 kg/m2 DO Fanny Petznick Work Phone: [facility] 10-19-2021 11:15-0400 Body weight 89.8 kg DO Fanny Petznick Work Phone: [facility] Encounters Encounter Date Encounter Type Care Provider Facility Start: 02-13-2023 End: 02-14-2023 ambulatory Colby SANTA Facility:CD:[id number] Start: 01-29-2023 End: 01-30-2023 ambulatory Colby SANTA Facility:[facility] Start: 01-29-2023 End: 01-29-2023 Patient encounter procedure Colby De La Rosa [facility] Start: 01-03-2023 ambulatory Colby SANTA Facility:[facility] [place] Start: 06-25-[address] FANNY PRABHAKAR Fac ility:[facility] Start: 06-03-2022 Encounter for genera l adult medical examination without abnormal findings DR FANNY PRABHAKAR [facility] Start: 05-30-2022 End: 05-31-[address] FANNY PRABHAKAR Facility:[facility] Start: 05-30-2022 End: 05-31-2022 Encounter for general adult medical examination without abnormal findings DR FANNY PRABHAKAR Facility:[facility] Start: 05-21-2022 ambulatory Fanny Prabhakar Facili ty:[facility] Start: 03-30-[address] FANNY PRABHAKAR Fac ility:[facility] Start: 02-19-2022 End: 02-19-2022 ambulatory Bharat Zelaya Jr Facility:[facility] Start: 02-19-2022 End: 02-19-2022 Admission to same day surgery center DO Fanny Petznick Work Phone: [facility] [place] Start: 02-19-2022 End: 02-19-2022 ambulatory DO Fanny Petznick Work Phone: [facility] Work Phone: Start: 02-16-2022 End: 02-16-2022 ambulatory Bharat Zelaya Jr Facility:[facility] Start: 02-16-2022 End: 02-16-2022 ambulatory DO Fanny Petznick Work Phone: [facility] Work Phone: Start: 02-16-2022 End: 02-16-2022 Patient encounter procedure DO Fanny Petznick Work Phone: [facility] Start: 12-16-2021 End: 12-16-2021 ambulatory Mala Aguillon Other [employer] Other Start: 12-16-2021 Office outpatient ne w 20 minutes Mala Aguillon [facility] Start: 11-06-2021 End: 03-16-2022 ambulatory MR ALBANIA CALLOWAY . Facility:[facility] Start: 10-19-2021 End: 10-19-2021 ambulatory Bharat Zelaya Facility:[facility] Start: 10-19-2021 End: 10-19-2021 Admission to same day surgery center DO Fanny Petznick Work Phone: [facility] [place] Start: 10-17-2021 End: 10-17-2021 [facility] Start: 10-17-2021 End: 10-17-2021 Patient encounter procedure DO Fanny Petznick Work Phone: [facility] Start: 10-10-2021 End: 10-11-[address] DOCTOR PACHECO Facility:[facility] Start: 09-12-2021 End: 09-13-[address] FANNY PRABHAKAR Facility:[facility] Start: 09-04-2021 End: 09-05-2021 ambulatory Fanny Prabhakar Facility:[facility] Procedures Date Procedure Procedure Detail Performing Clinician Start: 02-19-2022 Reduction procedure DO Fanny Petznick Work Phone: Start: 10-19-2021 Procedure on shoulder joint DO Fanny Petznick Work Phone: Start: 08-01-2015 Colonoscopy Colby NI LL Colonoscopy Colby NILL Repair of musculoten dinous cuff of shoulder Colby NILL SARS Antigen (LFIA) DO Allis on Petznick Work Phone: Stripping of vein Colby NI LL Comment on above: x 2 Vaginal hysterectomy Colby NILL Plan of Treatment Date Care Activity Detail Author Start: 02-19-2022 End: 02-19-2022 [facility] Start: 10-19-2021 [facility] Work Phone: Start: 10-19-2021 [facility] Work Phone: Immunizations Immunization Date Immunization Notes Care Provider Fa cili 12-30-2022 influenza virus vaccine, unspecified formulation Colby [facility] [place] 07-15-2020 COVID-19 mRNA, Comirnaty (Pfizer) DO [employer] Work Phone: [facility] 06-24-2020 COVID-19 mRNA, Comirnaty (Pfizer) DO [employer] Work Phone: [facility] Payers Date Payer Category Payer Self-pay [id number] 1960 Unknown [id number] 2.16.84 [id number] 1960 Unknown [id number] 2.16.84 0.1.833544.3.579.2.593 1962 Unknown [id number] 2.16.84 0.1.944660.3.579.2.593 1962 Unknown [id number] 2.16.84 0.1.940491.3.579.2.593 1962 Unknown [id number] 2.16.84 0.1.245264.3.579.2.593 1962 Unknown [id number] 2.16.84 0.1.063875.3.579.2.593 1962 Unknown [id number] 2.16.8 40.1.429440.3.579.2.727 1962 Unknown [id number] 2.16.8 40.1.314838.3.579.2.727 1959 Unknown [id number] 1959 Unknown [id number] Unknown [id number] 2.16.8 40.1.765982.3.579.2.531 Unknown [id number] 2.16.8 40.1.605811.3.579.2.531 Unknown [id number] 2.16.8 40.1.963663.3.579.2.531 Unknown [id number] 2.16.8 40.1.131456.3.579.2.531 Unknown [id number] 2.16.8 40.1.017909.3.579.2.531 Unknown [id number] 2.16.8 40.1.945915.3.579.2.531 Social History Date Type Detail Facility Start: 10-19-2021 End: 01-29-2023 Tobacco smoking status INIS Never smoked tobacco (finding) [facility] Start: 1960 Sex Assigned At Female F [facility] Sex Assigned At [facility] Tobacco smoking status Never Gener [facility] [place] Medical Equipment Procedure Code Equipment Code Equipment Origin al Text Equipment Identifier Dates Arthroscopy, shoulder Tendon/ligament bone anchor, bioabsorbable [id number] [facility] Start: 10-19-2021 Arthroscopy, shoulder Tendon/ligament bone anchor, bioabsorbable [id number] FDA Start: 10-19-2021 Goals Date Patient Goal Desired Activity /State Functional Status Date Assessment Result Facility 01-29-2023 Functional Status N/A [facility] 01-29-2023 Note Date & Type Note Facility 01-29-2023 Note Chief Complaint consultation for colonoscopy HPI Staff 62 year old female presents on consultation from Dr. Ramakrishna Prabhakar for surveillance colonoscopy. Last colonoscopy completed 07/2015 with cecal tubular adenoma. Denies abdominal or rectal pain. No rectal bleeding or change in bowel habits. Denies nausea or vomiting. No unexplained weight loss. No known family history of colon cancer. History of Present Illness 62 yo female with h/o htn, DMII, peripheral neuropathy, anxiety, referred for surveillance colonoscopy due to personal h/o colon polyps; last colonoscopy 07/2015 with removal of 2 cecal tubular adenomas; denies change in bms or blood in stools; abd operations significant for vaginal hysterectomy; denies asa or NSAID use, on Celebrex daily, no SBE prophylaxis; no fmhx of GI malignancy or IBD; no tobacco use. Review of Systems PHQ Score Initial Depression Screen Score: 0 ROS - Provider Constitutional: no fever, no sweats, no weight loss. Eyes: no glasses, no blurred vision, no visual loss. ENMT: no dentures, no hoarseness, no swallowing difficulties, no hearing loss, no ear infection(s), no nose bleeds. Cardiovascular: normal blood pressure, no chest pain, regular heartbeat, no heart murmur. Respiratory: no shortness of breath, no cough, no asthma, no wheezing. Gastrointestinal: no nausea, no vomiting, no diarrhea, no constipation, no blood in stool, no change in bowel habits, no abdominal pain, no hepatitis. Genitourinary: no kidney stones, no urine infection, no dysuria. Musculoskeletal: no pain, no weakness. Skin: no changing moles, no rash, no skin lumps. Neurologic: no seizures, no epilepsy, no headache. Psychiatric: no emotional or psychiatric problem. Heme/Lymph: no bleeding problems, no anemia, no blood clots, no transfusions. Allergy/Immunologic: no swollen lymph nodes/glands, no IV drug abuse. Other: Additional ROS info: Except as noted in the above Review of Systems and in the History of Present Illness, all other systems have been reviewed and are negative or noncontributory. Physical Exam Vitals & Measurements HR: 72(Peripheral) RR: 16 BP: 138/78 HT: 69 in HT: 175.2 cm WT: 88 kg WT: 193.6 lb BMI: 28.67 HEENT: normal conjunctiva, sclera clear, no scleral icterus, EOM intact, PERRLA, oral mucosa moist without lesions. Neck: trachea midline, no mass, symmetric, no thyromegaly or nodules, no adenopathy Respiratory: lungs CTA, respirations non labored. Cardiovascular: regular rate and rhythm, no murmur, no pedal edema or varicosities. Gastrointestinal: soft, non distended, no tenderness, no masses, no palpable hernias, diastasis recti no, no hepatosplenomegaly; normal bs Lymphatic: no cervical adenopathy, no supraclavicular adenopathy. Musculoskeletal: normal gait, digits and nails without infection, nodes, cyanosis, clubbing. Skin: no rashes, no lesions, no ulcers, no subcutaneous nodules, induration. Psychiatric/Neuro: oriented to time, place, person, judgement normal, affect appropriate for age, insight intact, no focal deficits. Tests: review of old records completed , Discussed surgical options, risks, and possible complications with patient. Assessment/Plan 1. Personal history of colonic polyps (Z86.010: Personal history of colonic polyps) plan surveillance colonoscopy under anesthesia, informed consent obtained. Follow-up No qualifying data available Problem List/Past Medical History Ongoing Anxiety BMI 28.0-28.9,adult Diabetes History of colon polyps HTN (hypertension) Overweight Peripheral neuropathy Personal history of colonic polyps Retinopathy Rosacea Historical No qualifying data Procedure/Surgical History Colonoscopy (08/01/2015), Colonoscopy, Rotator cuff repair, Stripping of vein, VH - Vaginal hysterectomy. Medications Acidophilus Probiotic Blend, 1 cap(s), Oral, Daily B-12 1000 mcg oral tablet, 1000 mcg= 1 tab(s), Oral, Daily CeleBREX 200 mg Cap, 200 mg= 1 cap(s), Oral, Daily cetirizine 10 mg Tab, 10 mg= 1 tab(s), Oral, Daily Cymbalta 30 mg Cap-DR, 1 cap(s), Oral, Daily estradiol 0.5 mg Tab, 0.5 mg= 1 tab(s), Oral, Daily Flonase 0.05 mg/inh [place], 1 spray(s), Nasal, BID gabapentin 300 mg Cap, 300 mg= 1 cap(s), Oral, Daily Jardiance 10 mg oral tablet, 10 mg= 1 tab(s), Oral, qAM Lantus 100 units/mL Injection-Insulin, 35 unit(s), SubCutaneous, Daily metformin 1000 mg Tab, 1000 mg= 1 tab(s), Oral, BID Ozempic (1 mg dose) 4 mg/3 mL subcutaneous solution, 1 mg, SubCutaneous, qWeek Zanaflex 4 mg Tab, 4 mg= 1 tab(s), Oral, Daily Allergies Benadryl (Itching) Percocet (Itching) atorvastatin (Joint pain) cephalexin (Edema) rosuvastatin (Diarrhea) Social History Alcohol - Denies Alcohol Use, 01/29/2023 Substance Abuse - Denies Substance Abuse, 01/29/2023 Tobacco Never (less than 100 in lifetime) Tobacco Use:. Never Smokeless Tobacco Use:., 01/29/2023 Family History Abdominal aortic aneurysm: Father. Alcoholism: Broth (more content not included)... [facility] Comment on above: Result Comment: Elec tronically Signed By: KIET GUZMAN, Colby Kaur.[email or web address]\Date and Time Signed: 01/29/23 15:50 EDT Evaluation note 12-16-2021 Note Date & Type Note Facility 12-16-2021 Evaluation note Encounter Date Diagnosis Assessment Notes Nov, Local reaction to bee sting, accidental or unintentional, initial encounter (ICD-10 - T63.441A) Discussed diagnosis with patient. Advised to take medication as directed, reviewed side effects of steroid, take with food and plenty of water. Instructed close monitoring of area. Wound care as discussed. Avoid picking at scab or scrubbing, clean by letting warm soapy water run over. Will send in rx of hydroxyzine to use as directed as needed. May leave open to air. Follow up with PCP in the next 2-3 days. Immediate eval by ER if fever, chills, body aches, increase in swelling or redness, red streaking from wound, SOB, difficulty breathing, chest pain, or any new or concerning symptoms. Patient verbalizes understanding and is agreeable to treatment plan [facility] Other Evaluation + Plan note Note Date & Type Note Facility Evaluation + Plan note No data available for this section [facility] [place] Evaluation note Note Date & Type Note Facility Evaluation note No assessment information availa [facility] Work Phone: History general Narrative - Reported Note Date & Type Note Facility History general Narrative - Reported Type Medical History Type 2 diabetes antwon itus without complication, without long-term current use of insulin Medical History Hypercholesterolemia Medical History Depression, unspecified depressi on type Medical History Proliferative diabet ic retinopathy associated with type 2 diabetes mellitus, unspecified laterality, unspecified proliferative retinopathy type Surgical History hysterectomy Surgical History vein ligation Surgical History tubal ligation Surgical History oral surgery Surgical History left shoulder surgery 2021 Hospitalization History see above [facility] Other Hospital Discharge instructions Note Date & Type Note Facility Hospital Discharge instructions Additional Instructions #1 ice left shoulder as needed for pain. #2 start physical therapy tomorrow. #3 10 wall walks 4 times a day. #4 may use left arm [facility] Work Phone: Hospital Discharge instructions Note Date & Type Note Facility Hospital Discharge instructions No data available for this section [facility] [place] Progress note Note Date & Type Note Facility Progress note No data available for this section [facility] [place] Summary Purpose Family History No Family History Records Found Relationship Condition Age at Onset Recorded Date/T kacy Not Specified Alzheimer's dementia Unknown Hypertension Unknown father Malignant neoplasm of urinary bladder Unk nown Chronic obstructive pulmonary disease Unk nown brother Hypertension Unknown Advance Directives No Advanced Directives Records Found Advance Directive Response Recorded Date/ Time Advance Directives No July 05 11:51am Advance Directive Response Recorded Date/ Time Advance Directives No July 05 10:51am Chief Complaint and Reason for Visit Chief Complaint Internal Derangement Internal Derangement Chief Complaint 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 Additional Source Comments INFORMATION SOURCE (unrecogn ized section and content) DATE CREATED AUTHOR 08/02/2021 [facility] DATE CREATED AUTHOR AUTHOR'S ORGANIZ ATION 05/31/2022 [facility] DATE CREATED AUTHOR AUTHOR'S ORGANIZ ATION 06/27/2022 [facility] DATE CREATED AUTHOR AUTHOR'S ORGANIZ ATION 03/02/2023 [facility] Care Teams (unrecognized sec tion and content) Team Status: Inactive Member Role Status Dates Fanny Prabhakar DO Primary Care Provider Active Bharat Zelaya Jr, DO Attending Provider Active Team Status: Active Member Role Status Dates Fanny Prabhakar DO Primary Care Provider Active REASON FOR VISIT (unrecogniz ed section and content) RIGHT LEG SWELLING, ITCHING POST BEE STING Goals (unrecognized section and content) Goals may be documented in a n alternate section FOR RECORDS PERTAINING TO PATIENTS WHO ARE OR HAVE BEEN ENROLLED IN A CHEMICAL DEPENDENCY/SUBSTANCEABUSE PROGRAM, SOME INFORMATION MAY BE OMITTED. This clinical summary was aggregated from multiple sources. Caution should be exercised in using it in the provision of clinical care. This summary normalizes information from multiple sources, and as a consequence, information in this document may materially change the coding, format and clinical context of patient data. In addition, data may be omitted in some cases. CLINICAL DECISIONS SHOULD BE BASED ON THE PRIMARY CLINICAL RECORDS. [facility] [employer] [facility]. provides no warranty or guarantee of the accuracy or completeness of information in this document.
== END 2023-03-29 13:14 | disposition home or self-care (01) ==
LOC: RAD 13:13
PROVIDERS: PCP Family Medicine; Visit Provider Family Medicine
DX: M54.50 Low back pain, unspecified (principal); G89.29 Other chronic pain; M47.816 Spondylosis without myelopathy or radiculopathy, lumbar region
CPT/HCPCS: 72110

== ENCOUNTER 2023-08-19 21:55 | Outpatient (REF) | payer BC, SELFPAY ==
--- OUTSIDE RECORDS SUMMARY | 2023-08-19 22:00 | XMS_ITS | CCD ---
Author Organization [facility] Care Team Providers Care Fitting Room Associate Name Role Phone Aki, DO Escobedo Primary Care Provider Nathalie Jefferson, DO Diaz Attending Provider Mala Aguillon Unavailable Petangelica, DO Escobedo Primary Care Provider DO Bharat Zelaya Jr Attending Provider Bharat Zelaya Jr Attending Unavailable Bharat Zelaya Jr Admitting Unavailable Petznick, Fanny Primary Care Unavailable Petznick, Fanny Primary Care Unavailable Self, Referral Admitting Unavailable Self, Referral Attending Unavailable Bharat Zelaya Jr Admitting Unavailable Bharat Zelaya Jr Attending Unavailable Petznjorje, Fanny Primary Care Unavailable Bharat Zelaya Jr Admitting Unavailable Bharat Zelaya Jr Attending Unavailable Petznick, Fanny Primary Care Unavailable Petznick, Fanny Primary Care Unavailable Self, Referral Admitting Unavailable Self, Referral Attending Unavailable Bharat Zelaya Jr Admitting Unavailable Bharat Zelaya Jr Attending Unavailable Petznjorje, Fanny Primary Care Unavailable PETANGELICA, DR ESCOBEDO Primary Care Unavailable VISCI, DR CHACON Attending Unavailable VISCI, DR CHACON Admitting Unavailable ZIEBER, DR JOHNSON De La Rosa Consulting Unavailable VISCI, DR CHACON Consulting Unavailable PETZNJORJE, DR ESCOBEDO Attending Unavailable PETZNJORJE, DR ESCOBEDO Admitting Unavailable PETZNJORJE, DR ESCOBEDO Primary Care Unavailable PETZNJORJE, DR ESCOBEDO Consulting Unavailable MISC, DR MCMAHON Admitting Unavailable MISC, DR MCMAHON Consulting Unavailable STEPANIC, DR DIAZ Primary Care Unavailable MISC, DR MCMAHON Attending Unavailable FLAVIA MELVIN Consulting Unavailable PETZNJORJE, DR ESCOBEDO Attending Unavailable PETZNJORJE, DR ESCOBEDO Admitting Unavailable PETZNJORJE, DR ESCOBEDO Primary Care Unavailable CALLOWAY ., MR LOVELACE Attending Unavailable PETANGELICA, DR ESCOBEDO Primary Care Unavailable CALLOWAY ., MR LOVELACE Admitting Unavailable PETANGELICA, DR ESCOBEDO Attending Unavailable AKI, DR ESCOBEDO Admitting Unavailable AKI, DR ESCOBEDO Primary Care Unavailable FANNY PRABHAKAR Primary Care Physician Colby SANTA Attending Unavailable FANNY PRABHAKAR Referring Unavailable Colby SANTA Attending Unavailable FANNY PRABHAKAR Attending Unavailable FANNY PRABHAKAR Referring Unavailable FANNY PRABHAKAR Attending Unavailable Allergies Allergy Classification Reported Allergen(s) Allergy Type Date of Onset Reaction(s) Facility (6 sources) atorvastatin; Translations: [atorvastatin] Drug Allergy 2 Joint pain (finding) [facility] (7 sources) Cephalexin; Translations: [cephalexin] Drug Allergy 6 Swelling, Edema (finding) [facility] (6 sources) rosuvastatin; Translations: [rosuvastatin] Drug Allergy 2 Diarrhea (finding) [facility] (2 sources) Acetaminophen / oxyCODONE; Translations: [acetaminophen-ox ycodone] Drug Allergy Itching (finding) [facility] [place] (2 sources) diphenhydrAMINE; Translations: [diphenhydramine] Drug Allergy Itching (finding) General Surgery [facility] A (1 source) Hmg-Coa Reductase Inhibitors (Statins) Drug allergy aches/diarrhea [employer] Other (1 source) Acetaminophen / oxyCODONE; Translations: [Percocet] Drug Allergy [facility] Repository (1 source) diphenhydrAMINE; Translations: [Benadryl] Drug Allergy [facility] Medications Current Medications Medication Drug [...] Start: 10-19-2021 take 1 capsule by mo [facility] once daily Celecoxib (Celebrex) 200 mg Capsule Active 200 MG PO Daily October 18, 2021 11:00pm CeleBREX Active cetirizine hydrochloride 10 mg oral tablet (4 sources) Histamine-1 Receptor Antagonist Start: 01-29-2023 take 1 tablet by mouth once daily cetirizine 10 mg Tab 10 mg = 1 tab(s), Oral, Daily, Refills(s) 0 Start Date: 01/29/23 Status: Ordered Start: 10-17-2021 take 1 tablet by nicole once daily in the morning Cetirizine (Zyrtec) [...] Corticosteroid Start: 01-29-2023 Flonase 0.05 m g/inh [place]glis 1 spray(s), Nasal, BID, Refill(s) 0 Start [...] 1 tablet by nicole th once daily L.Acidop-L.Pardeep-B.Bifid-B.Long (Probioti c Colon Support) 70 mg (5 [...] Range Facility Outside Colonoscopyon 2022 Outside Colonoscopy [id number]#1. 00TIFF Normal [facility] Reminderson 02-14-2023 Reminders - From: Eunice Davis LPN To: GSN - Clinical; Sent: 02/14/2023 14:19:54 EST Show up: 01/14/2028 07:00:00 EDT Subject: colonoscopy recall Due Date/Time: 02/14/2028 07:00:00 EST Reminder/Recall Patient due for surveillance colonoscopy 02/14/2028 due to remote history of colon polyps. Normal [facility] Lab Reportson 02-13-2023 Lab Reports [id number]#1. 00TIFF [facility] Insurance Correspondenceon 1 04-10-2022 Insurance Correspondence [id number] 1.00TIFF [facility] Consent for Procedure/Surger yon 01-30-2023 Consent for Procedure/Surgery [id number]#1 .00TIFF [facility] Facesheeton 01-30-2023 Facesheet [id number]# 1.00TIFF [facility] Ambulatory Visit Summaryon 1 Ambulatory Visit Summary ISELA BENEDICT :1960 Visit Date:01/29/2023 Ambulatory Visit Instructions Your Diagnosis Personal history of colonic polyps Your Care Team Attending Physician - Colby SANTA MD Primary Care Physician - FANNY PRABHAKAR DO Referring Physician - FANNY PRABHAKAR DO This Is Your Medications List Contact prescribing physician if questions or concerns celecoxib (CeleBREX 200 mg Cap) cetirizine (cetirizine 10 mg Tab) cyanocobalamin (B-12 1000 mcg oral tablet) duloxetine (Cymbalta 30 mg Cap-DR) empagliflozin (Jardiance 10 mg oral tablet) estradiol (estradiol 0.5 mg Tab) fluticasone nasal (Flonase 0.05 mg/inh Inglis) gabapentin (gabapentin 300 mg Cap) insulin glargine [...] Unchanged fluticasone nasal (Flonase 0.05 mg/ inh Inglis) 1 Sprays Nasal Inhalation 2 times a [...] for choosing us for your care. Normal [facility] CBC AUTO DIFFon 05-30-2022 BASO # 0.0 103/ul Normal 0.0-0.1 [facility] Comment on above: Performed By: #### C BC #### [facility] [address] [address] [address] Ian Sandra Basophils/100 WBC (Bld) 0.4 % Normal 0.2-2.0 [facility] Comment on above: Performed By: #### C BC #### [facility] [address] [address] [address] Ian Sandra EO # 0.1 103/ul Normal 0.0-0.7 [facility] Comment on above: Performed By: #### C BC #### [facility] [address] [place] [address] Dr. Ian Sandra Eosinophils/100 WBC (Bld) 3.1 % Normal 0.9-7.0 [facility] Comment on above: Performed By: #### C BC #### [facility] [address] [place] [address] Dr. Ian Sandra Erythrocyte distribution width (RBC) [Ratio] 13.5 % Normal 11.0-15.0 [facility] Comment on above: Performed By: #### C BC #### [facility] [address] [place] [address] Dr. Ian Sandra Hematocrit (Bld) [Volume fraction] 48.9 % Critically high 36.0-48.0 [facility] Comment on above: Performed By: #### C BC #### [facility] [address] [place] [address] Dr. Ian Sandra Hemoglobin (Bld) [Mass/Vol] 16.0 g/dL Normal 12.0-16.0 [facility] Comment on above: Performed By: #### C BC #### [facility] [address] [place] [address] Dr. Ian Sandra IG # 0.01 10e3/ul Normal 0.00-0.03 [facility] Comment on above: Performed By: #### C BC #### [facility] [address] [place] [address] Dr. Ian Sandra IG % 0.2 % Normal 0.0-0.5 [facility] Comment on above: Performed By: #### C BC #### [facility] [address] [place] [address] Dr. Ian Sandra LYMPH # 1.4 103/ul Normal 1.2-3.8 [facility] Comment on above: Performed By: #### C BC #### [facility] [address] [place] [address] Dr. Ian Sandra Lymphocytes/100 WBC (Bld) 29.5 % Normal 20.5-60.0 [facility] Comment on above: Performed By: #### C BC #### [facility] [address] [place] [address] Dr. Ian Sandra MANUAL DIFF REQ NO Normal [facility] [place] Comment on above: Performed By: #### C BC #### [facility] [address] [place] [address] Dr. Ian Sandra MCH (RBC) [Entitic mass] 29.9 pg Normal 26.7-34.0 [facility] Comment on above: Performed By: #### C BC #### [facility] [address] [place] [address] Dr. Ian Sandra MCHC (RBC) [Mass/Vol] 32.7 g/dL Normal 29.9-35.2 [facility] Comment on above: Performed By: #### C BC #### [facility] [address] [place] [address] Dr. Ian Sandra MCV (RBC) [Entitic vol] 91.4 fL Normal 81.0-99.0 [facility] Comment on above: Performed By: #### C BC #### [facility] [address] [place] [address] Dr. Ian Sandra MONO # 0.4 103/ul Normal 0.3-0.8 [facility] Comment on above: Performed By: #### C BC #### [facility] [address] [place] [address] Dr. Ian Sandra Monocytes/100 WBC (Bld) 9.4 % Normal 1.7-12.0 [facility] Comment on above: Performed By: #### C BC #### [facility] [address] [place], [place] [id number] Dr. Ian Sandra NEUT # 2.6 103/ul Normal 1.4-6.5 [facility] Comment on above: Performed By: #### C BC #### [facility] [address] [place] [address] Dr. Ian Sandra Neutrophils/100 WBC (Bld) 57.4 % Normal 43.0-75.0 [facility] Comment on above: Performed By: #### C BC #### [facility] [address] [place] [address] Dr. Ian Sandra Platelet mean volume (Bld) [Entitic vol] 11.2 fL Normal 9.5-13.5 [facility] Comment on above: Performed By: #### C BC #### [facility] [address] [place] [address] Dr. aIn Sandra PLT 176 103/ul Normal 150-450 [facility] Comment on above: Performed By: #### C BC #### [facility] [address] [place] [address] Dr. Ian Sandra RBC 5.35 106/ul Normal 4.20-5.40 [facility] Comment on above: Performed By: #### C BC #### [facility] [address] [place] [address] Dr. Ian Sandra WBC 4.6 103/ul Normal 4.0-11.0 [facility] Comment on above: Performed By: #### C BC #### [facility] [address] [place] [address] Dr. Ian Sandra LIPID PROFILEon 05-30-2022 CHOL-HDL RATIO NORM SEE BELOW Normal [facility] Comment on above: Result Comment: 3.3 - 4.4 LOW RISK 4.4 - 7.1 AVERAGE RISK 7.1 - 11.0 MODERATE RISK >11.0 HIGH RISK Performed By: #### C MP, LIPID #### [facility] [address] [place] [address] Dr. Ian Sandra Cholesterol [Mass/Vol] 218 mg/dL Critically high <=200 [facility] Comment on above: Performed By: #### C MP, LIPID #### [facility] [address] [address] [address] Ian Sandra Cholesterol in HDL [Mass/Vol] 46 mg/dL Normal 40-60 [facility] Comment on above: Performed By: #### C MP, LIPID #### [facility] [address] [address] [address] Ian Sandra Cholesterol in LDL [Mass/Vol] 136.4 mg/dL Normal [facility] Comment on above: Performed By: #### C MP, LIPID #### [facility] [address] [address] [address] Ian Sandra Cholesterol.total/Choles terol in HDL [Mass ratio] 4.7 {ratio} Normal [facility] Comment on above: Performed By: #### C MP, LIPID #### [facility] [address] [place] [address] Dr. Ian Sandra HDL NORMAL > or = 60 mg/dl - LO W CARDIOVASCULAR RISK <40 mg/dl - HIGH CARDIOVASCULAR RISK Normal [facility] Comment on above: Performed By: #### C MP, LIPID #### [facility] [address] [address] [address] Ian Sandra LDL CALC NORMAL SEE BELOW Normal [facility] [place] Comment on above: Result Comment: <100 mg/dl OPTIMAL 100 - 129 mg/dl NEAR OR ABOVE OPTIMAL 130 - 159 mg/dl BORDERLINE HIGH 160 - 189 mg/dl HIGH >190 mg/dl VERY HIGH Performed By: #### C MP, LIPID #### [facility] [address] [address] [address] Ian Sandra Triglyceride [Mass/Vol] 178 mg/dL Critically high <=150 [facility] Comment on above: Performed By: #### C MP, LIPID #### [facility] [address] [place] [address] Dr. Ian Sandra VLDL CALC 35.6 mg/dL Normal [facility] Comment on above: Performed By: #### C MP, LIPID #### [facility] [address] [address] [address] Ian Sandra MICROALB CREAT RATIO RANDOMo n 05-30-2022 mALB <1.3 Normal <=30.0 [facility] Comment on above: Performed By: #### M CRR #### [facility] [address] [address] [address] Ian Sandra MALB CR RATIO RANGE SEE BELOW Normal [facility] Comment on above: Result Comment: NO M ICROALBUMINURIA 0-29 MG/G CLINICAL MICROALBUMINURIA 30-300 MG/G MACROALBUMINURIA >300 MG/G Performed By: #### M CRR #### [facility] [address] [address] [address] Ian Sandra URINE CREAT 45.83 mg/dL Normal 20.00-300.00 [facility] Comment on above: Performed By: #### M CRR #### [facility] [address] [place] [address] Dr. Ian Sandra PROF 14(COMP METB)on 023 Albumin [Mass/Vol] 4.4 g/dL Normal 3.4-5.0 [facility] Comment on above: Performed By: #### C MP, LIPID #### [facility] [address] [place] [address] Dr. Ian Sandra Albumin/Globulin [Mass ratio] 1.1 {ratio} Normal [facility] Comment on above: Performed By: #### C MP, LIPID #### [facility] [address] [place] [address] Dr. Ian Sandra ALP [Catalytic activity/Vol] 80 U/L Normal 46-116 [facility] Comment on above: Performed By: #### C MP, LIPID #### [facility] [address] [place] [address] Dr. Ian Sandra ALT [Catalytic activity/Vol] 45 U/L Normal 14-59 [facility] Comment on above: Performed By: #### C MP, LIPID #### [facility] [address] [address] [address] Ian Sandra Anion gap [Moles/Vol] 11.7 mmol/L Normal [facility] Comment on above: Performed By: #### C MP, LIPID #### [facility] [address] [address] [address] Ian Sandra AST [Catalytic activity/Vol] 31 U/L Normal 15-37 [facility] Comment on above: Performed By: #### C MP, LIPID #### [facility] [address] [address] [address] Ian Sandra Bilirubin [Mass/Vol] 0.4 mg/dL Normal 0.2-1.0 [facility] Comment on above: Performed By: #### C MP, LIPID #### [facility] [address] [address] [address] Ian Sandra Calcium [Mass/Vol] 9.3 mg/dL Normal 8.5-10.1 [facility] Comment on above: Performed By: #### C MP, LIPID #### [facility] [address] [place] [address] Dr. Ian Sandra Chloride [Moles/Vol] 104 mmol/L Normal 98-107 [facility] Comment on above: Performed By: #### C MP, LIPID #### [facility] [address] [address] [address] Ian Sandra CO2 [Moles/Vol] 29.1 mmol/L Normal 21.0-32.0 [facility] Comment on above: Performed By: #### C MP, LIPID #### [facility] [address] [place] [address] Dr. Ian Sandra Creatinine [Mass/Vol] 0.58 mg/dL Normal 0.55-1.02 [facility] Comment on above: Performed By: #### C MP, LIPID #### [facility] [address] [place] [address] Dr. Ian Sandra EGFR-AF KENYAN >60 Normal >=[address] [facility] Comment on above: Performed By: #### C MP, LIPID #### [facility] [address] [address] [address] Ian Sandra EGFR-NON AF KENYAN >60 Normal >=60 [facility] Comment on above: Performed By: #### C MP, LIPID #### [facility] [address] [address] [address] Ian Sandra Globulin (S) [Mass/Vol] 3.9 g/dL Normal [facility] Comment on above: Performed By: #### C MP, LIPID #### [facility] [address] [address] [address] Ian Sandra Glucose [Mass/Vol] 171 mg/dL Critically high 74-106 [facility] Comment on above: Performed By: #### C MP, LIPID #### [facility] [address] [address] [address] Ian Sandra Potassium [Moles/Vol] 3.8 mmol/L Normal 3.5-5.1 [facility] Comment on above: Performed By: #### C MP, LIPID #### [facility] [address] [address] [address] Ian Sandra Protein [Mass/Vol] 8.3 g/dL Critically high 6.4-8.2 [facility] Comment on above: Performed By: #### C MP, LIPID #### [facility] [address] [address] [address] Ian Sandra Sodium [Moles/Vol] 141 mmol/L Normal 136-145 [facility] Comment on above: Performed By: #### C MP, LIPID #### [facility] [address] [address] [address] Ian Sandra Urea nitrogen [Mass/Vol] 14.0 mg/dL Normal 7.0-18.0 [facility] Comment on above: Performed By: #### C MP, LIPID #### [facility] [address] [address] [address] Ian Sandra Urea nitrogen/Creatinine [Mass ratio] 24.1 mg/mg Normal [facility] Comment on above: Performed By: #### C MP, LIPID #### [facility] [address] [address] [address] Ian Sandra Basic Metabolic Panelon 11- Anion gap [Moles/Vol] 12.6 mmol/L Normal 6.0-15.0 [facility] Comment on above: Performed By: #### B MP #### [facility] [address] Calcium [Mass/Vol] 9.5 mg/dL Normal 8.2-10.2 [facility] Comment on above: Performed By: #### B MP #### [facility] [address] Chloride [Moles/Vol] 104 mmol/L Normal 95-114 [facility] Comment on above: Performed By: #### B MP #### [facility] [address] [place] [address] CO2 [Moles/Vol] 25.8 mmol/L Normal 22.0-30.0 [facility] Comment on above: Performed By: #### B MP #### [address] Creatinine [Mass/Vol] 0.59 mg/dL Normal 0.44-1.03 [facility] Comment on above: Performed By: #### B MP #### [place] [address] [place] Creatinine Clr Calc Pharmacy 121.43 [facility] Comment on above: Result Comment: PERF ORMED BY: [place] [address] PATHOLOGIST FIRE RANGER IGOR GUSTAFSON M.D. Performed By: #### B MP #### [address] Estimated GFR ( Jeannie > 60 [facility] Comment on above: Result Comment: GFR estimated reference range: According to KDOQI guidelines, <60 ml/min/1.73m2 is sufficient to diagnose a patient with chronic kidney disease. Performed By: #### B MP #### [address] Estimated GFR (Non- Am > 60 [facility] Comment on above: Performed By: #### B MP #### [address] Glucose [Mass/Vol] 194 mg/dL High 70-100 [facility] Comment on above: Result Comment: Justin om Glucose Reference Range is dependent on time and content of last meal. Glucose of more than 200 mg/dL in a nonstressed, ambulatory subject supports the diagnosis of Diabetes Mellitus. ADA recommended reference range Performed By: #### B MP #### [facility] [address] [id number] [place] Potassium [Moles/Vol] 4.4 mmol/L Normal 3.5-5.1 [facility] Comment on above: Performed By: #### B MP #### [facility] [address] [place] [address] [place] Sodium [Moles/Vol] 138 mmol/L Normal 136-146 [facility] Comment on above: Performed By: #### B MP #### [facility] [address] [place] [address] [place] Urea nitrogen [Mass/Vol] 12 mg/dL Normal 9-23 [facility] Comment on above: Performed By: #### B MP #### [facility] [address] [place] [address] [place] Creatinine and Glomerular fi ltration rate.predicted panel (S/P/Bld)Ordered By: Ga Field on 02-19-2022 Creatinine [Mass/Vol] 0.59 mg/dL 0.44-1.03 [facility] Estimated glomerular filtrat ion rate (GFR) non- AmericanOrdered By: Ga Field on 02-19-2022 GFR/1.73 sq M.predicted among non-blacks MDRD (S/P/Bld) [Vol rate/Area] > 60 mL/Min [facility] Glucose Glucometer (BldC) [M ass/Vol]Ordered By: Bharat Zelaya on 02-19-2022 Glucose [Mass/Vol] 163 mg/dL [facility] Comment on above: Random Glucose Refer ence Range is dependent on time and content of last meal. Glucose of more than 200 mg/dL in a nonstressed, ambulatory subject supports the diagnosis of Diabetes Mellitus. Glucose Poct Glucometerson 1 04-21-2021 Glucose [Mass/Vol] 163 mg/dL Normal [facility] Comment on above: Result Comment: Justin om Glucose Reference Range is dependent on time and content of last meal. Glucose of more than 200 mg/dL in a nonstressed, ambulatory subject supports the diagnosis of Diabetes Mellitus. PERFORMED BY: [facility] [place] [id number] PATHOLOGIST FIRE RANGER IGOR GUSTAFSON M.D. Performed By: #### G LULS #### Point of Care testing , No Panel InformationOrdered By: Ga Field on 02-19-2022 Estimated GFR () > 60 mL/Min [facility] Comment on above: GFR estimated refere nce range: According to KDOQI guidelines, <60 ml/min/1.73m2 is sufficient to diagnose a patient with chronic kidney disease. Pharmacy Creatinine Clearance (Chem 121.43 [facility] Serum or plasma anion gap de terminationOrdered By: Ga Field on 02-19-2022 Anion gap [Moles/Vol] 12.6 mmol/L 6.0-15.0 [facility] Serum or plasma calcium nava urement (mass/volume)Ordered By: Ga Field on 02-19-2022 Calcium [Mass/Vol] 9.5 mg/dL 8.2-10.2 [facility] Serum or plasma chloride eri surement (moles/volume)Ordered By: Ga Field on 02-19-2022 Chloride [Moles/Vol] 104 mmol/L 95-114 [facility] Serum or plasma glucose nava urement (mass/volume)Ordered By: Ga Field on 02-19-2022 Glucose [Mass/Vol] 194 mg/dL 70-100 [facility] Comment on above: ADA recommended refe rence rangeRandom Glucose Reference Range is dependent on time and content of last meal. Glucose of more than 200 mg/dL in a nonstressed, ambulatory subject supports the diagnosis of Diabetes Mellitus. Serum or plasma potassium me asurement (moles/volume)Ordered By: Ga Field on 02-19-2022 Potassium [Moles/Vol] 4.4 mmol/L 3.5-5.1 [facility] Serum or plasma sodium measu rement (moles/volume)Ordered By: Ga Field on 02-19-2022 Sodium [Moles/Vol] 138 mmol/L 136-146 [facility] Serum or plasma total carbon dioxide measurement (moles/volume)Ordered By: Ga Field on 02-19-2022 CO2 [Moles/Vol] 25.8 mmol/L 22.0-30.0 [facility] Serum or plasma urea nitroge n measurement (mass/volume)Ordered By: Ga Field on 02-19-2022 Urea nitrogen [Mass/Vol] 12 mg/dL 12-22 [facility] COVID-19 Antigenon 2 COVID-19 Antigen Healthcare Worker?: [...] developed and its performance characteristic determined by [employer] and validated at [facility]. This test has not been FDA cleared [...] for SARS Antigen by SAMIR PERFORMED BY: [place] [address] PATHOLOGIST FIRE RANGER IGOR GUSTAFSON M.D. Normal [facility] Comment on above: Performed By: #### C OVID-19 JESSICA, SOFIANEG #### [address] COVID-19 SOFIAOrdered By: Juni Zelaya on 02-16-2022 SARS-CoV+SARS-CoV-2 (COVID-19) Ag IA.rapid Ql (Resp) Negative Negative [facility] Comment on above: This is a duplicate Jessica SARS Antigen (SAMIR) result to be used for statistical tracking purpose only. No Panel InformationOrdered By: Bharat Zelaya on 02-16-2022 SARS Antigen (LFIA) [facility] Jessica Ag Negativeon 02-17-20 Jessica Ag Negative Negative Normal Negative [facility] Comment on above: Result Comment: This is a duplicate Jessica SARS Antigen (SAMIR) result to be used for statistical tracking purpose only. PERFORMED BY: [place] [address] PATHOLOGIST FIRE RANGER IGOR GUSTAFSON M.D. Performed By: #### C OVID-19 JESSICA, SOFIANEG #### [address] Glucose Glucometer (BldC) [M ass/Vol]Ordered By: Bharat Zelaya on 10-19-2021 Glucose [Mass/Vol] 179 mg/dL [facility] Comment on above: Random Glucose Refer ence Range is dependent on time and content of last meal. Glucose of more than 200 mg/dL in a nonstressed, ambulatory subject supports the diagnosis of Diabetes Mellitus. Glucose Poct Glucometerson 0 10-19-2021 Glucose [Mass/Vol] 179 mg/dL Normal [facility] Comment on above: Result Comment: Justin om Glucose Reference Range is dependent on time and content of last meal. Glucose of more than 200 mg/dL in a nonstressed, ambulatory subject supports the diagnosis of Diabetes Mellitus. PERFORMED BY: [address] [place] [address] PATHOLOGIST FIRE RANGER IGOR GUSTAFSON M.D. Performed By: #### G JANESSA #### Point of Care testing , Basic Metabolic Panelon 09-29 Estimated GFR ( Jeannie > 60 Normal [facility] Comment on above: Result Comment: GFR estimated reference range: According to KDOQI guidelines, <60 ml/min/1.73m2 is sufficient to diagnose a patient with chronic kidney disease. Performed By: #### B MP #### [address] Estimated GFR (Non- Am > 60 Normal [facility] Comment on above: Performed By: #### B MP #### [address] COVID-19 FRMCon 10-17-2021 SARS-CoV-2 (COVID-19) RNA ANTOINETTE+probe Ql (Unsp spec) Negative Normal Negative [facility] Comment on above: Order Comment: Healt hcare Worker?: N Result Comment: Testing for SARS-CoV-2 by RT-PCR This test was developed and its performance characteristics determined by [employer] ([employer]) and validated at the [facility]. This test has not been FDA cleared [...] is terminated or revoked sooner. PERFORMED BY: [facility] [address] [place] [id number] PATHOLOGIST FIRE RANGER IGOR GUSTAFSON M.D. Performed By: #### C OVID 19 [facility] #### [place] [id number] [facility] COVID-19 Positive/NegativeOr dered By: Bharat Zelaya on 10-17-2021 SARS-CoV-2 (COVID-19) N gene ANTOINETTE+probe Ql (Resp) Negative Negative [facility] Comment on above: Testing for SARS-CoV -2 by RT-PCR This test was developed and its performance characteristics determined by [employer] ([employer]) and validated at the [facility]. This test has not been FDA cleared [...] lead ECGon 10-17-2021 ECG [address] [facility] Main [place] [address] [place], [place] [id number] Electrocardiograph Report Signed Patient: Zara Benedict MR#: [id number] : 1960 Acct:[id number] Age/Sex: 61 / F ADM Date: 10/17/21 Loc: Room: Type: [facility] Attending Dr: Bharat Zelaya Jr, DO Ordering [...] previous ECGs available Confirmed by [id number] on 10/18/2021 4:41:03 PM Referred By: JAZMINE ZELAYA Electronically Signed By:EZRA DANG MD [facility] Transcribed By: MUS Signed By Gigi Dang MD 10/18/21 1641 Normal [facility] Estimated glomerular filtrat ion rate (GFR) non- AmericanOrdered By: Bharat Zelaya on 10-17-2021 GFR/1.73 sq M.predicted among non-blacks MDRD (S/P/Bld) [Vol rate/Area] > 60 mL/Min [facility] No Panel InformationOrdered By: Bharat Zelaya on 10-17-2021 Estimated GFR () > 60 mL/Min [facility] Comment on above: GFR estimated refere nce range: According to KDOQI guidelines, <60 ml/min/1.73m2 is sufficient to diagnose a patient with chronic kidney disease. Pharmacy Creatinine Clearance (Chem N/A [facility] Serum or plasma calcium nava urement (mass/volume)Ordered By: Bharat Zelyaa on 10-17-2021 Calcium [Mass/Vol] 9.7 mg/dL Normal 8.2-10.2 [facility] Comment on above: Result Comment: PERF ORMED BY: [place] [address] PATHOLOGIST FIRE RANGER IGOR GUSTAFSON M.D. Performed By: #### B MP #### [facility] [address] Serum or plasma chloride eri surement (moles/volume)Ordered By: Bharat Zelaya on 10-17-2021 Chloride [Moles/Vol] 102 mmol/L Normal 95-114 [facility] Comment on above: Performed By: #### B MP #### [facility] [address] [place] [address] [place] Serum or plasma creatinine m easurement with calculation of estimated glomerular filtrOrdered By: Bharat Zelaya on 10-17-2021 Creatinine [Mass/Vol] 0.51 mg/dL Normal 0.44-1.03 [facility] Comment on above: Performed By: #### B MP #### [address] Serum or plasma glucose nava urement (mass/volume)Ordered By: Bharat Zelaya on 10-17-2021 Glucose [Mass/Vol] 134 mg/dL High 70-100 [facility] Comment on above: ADA recommended refe rence range Random Glucose Reference Range is dependent on time and content of last meal. Glucose of more than 200 mg/dL in a nonstressed, ambulatory subject supports the diagnosis of Diabetes Mellitus. Result Comment: Justin om Glucose Reference Range is dependent on time and content of last meal. Glucose of more than 200 mg/dL in a nonstressed, ambulatory subject supports the diagnosis of Diabetes Mellitus. ADA recommended reference range Performed By: #### B MP #### [address] Serum or plasma potassium me asurement (moles/volume)Ordered By: Bharat Zelaya on 10-17-2021 Potassium [Moles/Vol] 3.8 mmol/L Normal 3.5-5.1 [facility] Comment on above: Performed By: #### B MP #### [address] Serum or plasma sodium measu rement (moles/volume)Ordered By: Bharat Zelaya on 10-17-2021 Sodium [Moles/Vol] 137 mmol/L Normal 136-146 [facility] Comment on above: Performed By: #### B MP #### [address] Serum or plasma total carbon dioxide measurement (moles/volume)Ordered By: Bharat Zelaya on 10-17-2021 CO2 [Moles/Vol] 23.6 mmol/L Normal 22.0-30.0 [facility] Comment on above: Performed By: #### B MP #### [address] Serum or plasma urea nitroge n measurement (mass/volume)Ordered By: Bharat Zelaya on 10-17-2021 Urea nitrogen [Mass/Vol] 11 mg/dL Normal 9-23 [facility] Comment on above: Performed By: #### B MP #### [facility] [address] MRI SHOULDER LT WO CONon MRI SHOULDER [...] by: FLAVIA MELVIN Date: 2021-10-10 19:39 Normal [facility] MAMM SCREEN 3D MELVINA CADon 09-12-2021 MG MAMM SCREEN 3D MELVINA CAD Patient: ZARA BENEDICT Exam Date: 09/12/2021 : 1960 Gender:F Ordering : DR INES MEJIAS Admission #: [id number] Family : Order #: [id number] CLICK HERE TO VIEW EXAM RADIOLOGY REPORT [...] bladder cancer at age 82. LOCATION: [facility] BREAST COMPOSITION: Almost entirely fatty. FINDINGS: DIAGNOSTIC [...] Toro M.D. on 09/13/2021 at 11:56 Normal [facility] Physical Therapy Noteon 2 Physical Therapy Note [id number] .00OTGTIFF [facility] Provider [place] 01-13-2021 Provider Orders [id number]#1 .00OTGTIFF [facility] Provider [place] 11-18-2020 Provider Orders [id number]#[facility]on 11-16-2020 Coding Summary HTMLBase 64 UlqfurxnXEo4wPx+PGhlY WQ+HT3KKETlF57ljAQhwT 5DN4tQWY8FBRIQZAUKAV9 UTU2gpYL1AVfhU3DrydGm OnxmpOVmLT63PQm2JVZ0k HbyPNbwcR4ymOGoQ9u9Dg VgXW98fM86NOkzPDChKxB 3LjZpbjsgbWFy L8eyDjYewVUxKcg+PHRhY mxlIHdpZHRoPScxMDAlJy CtxLjdCK1rJm2qKPPpYSS vbGxhcHNlOiBj s3scEFPkMEstTM7gaNazF 4AenMR3VZUgv3h0Wn56rL I+MYTdYCB5fGlhVCcbd33 2McQvd8noKWT3 jADnFXrtQET5H36yv7I7P VQaPBQrYSY8vLR8vD5dxD ticukzN9OcvWPzKwN8WED 0cNGrzI1sgKhp vcqmvL1cRvw+U95OZE8VJ LCRXD8FUrt3S3OtHiifrV I+HS20FTBhGE20yLHflXG pp8isaNj8AiXt AALqYHC1vBaeGCgwz0SeY SMrI67mgYGgy4J0HQFiaM snwUMmAbDxrJA3zE3xLXa mauwpk2isheep Lqnet8iiwi15vC70J13tT XnuBRTvSQF0PJXcMLRvpG sxnc8taU3gPq2+YOupi2r jc6pcfLc9ZaPy NCWziySmaRfiVGZ0a1WyG v89P9AjqBfey2ByKoz1iw 75iJAvp0K3fJX3GXxzNJU egT6uTWmaLnN6 VTBpRhOpvT25gDIaYLhgQ c9oaTbqtNlnQH4eCVGdzn wbEJYfrM5nUDRwpKNdeLa oXI1hTFUigjdu h263GhBjHVD8MKRyiBFqP 3TcoE5nUxFaQRGjZEPyN7 MlfYSgJCuoC584EAbeXrX 7AWOaafGfG0Hq KVSvgDwjQhE6d9D8Ed4Zp 3SydvvlUAG7IWdtWET0Uo D6VuRvQdN2O1GiGbz8XMO hmWswRW8aA2Ad YWVrjpfsmypicIA9IBJlN IBkvK29mGNsYEopUv3ep0 P1v611NQOzUGBnyU58Sq3 udDogMTBwdCBU hV7ylqcht6uzmgamPwKzU HJyPGz8FBd9NUTcyWqaGm NwPUA1DsT9JQV7hBOhbS4 iiIyzrdanuV7e Oyc+Q45teX9kTVE7UOX2n iagKBEatnUeDZ09RS85M5 RyPjwvdGFibGU+PGRpdiB cmGanAV3dYkWi c6uco5TmHTqjP8NhUIVzB RknLbw2FRCgIUX5fOP5cU 2tVEJuBBvln6G4bTU9E1H rdfZkan0vl3jc FIKjUNcbC04xkBHqr5B8C GAuyYT8WMCjpVtoPfGutV 93Oyc+GGStwRtqd1ItWsg iz9mxb8rohEd3 EtVxDFQyezIeuNmrEJG8t 8YiCc12I29zOJbeVJCrDV HzRNYnXFUawGnaib3hyJ0 wIi8+PGNvbCB3 tHN1cJ2hTLSkSiC8XNfqZ 332VoMvqGThHxysj0ocg6 xjzYu3WoQcYSLfmjCxzVs aNJC0n6SqDy02 G48aLMufEOWnUXOgWDGuT RElnVpsct5nrK0qOb3+PC 8mw1hlke17uE44tLQ+PHR pRLX5vVhkBCql MZXxoM5qKJnwPdN7FMVzC fOjjK36oOQqVDhyVc9bpF upzXwmTG4nNEZmfuwey54 3OaWcb2dkBWVp eQBtYGjtXRT5S03no4M2D TGcHLNiVXB4rIH2xK9ppU lnbjogbGVmdDsgdmVydGl jSPenGMvuQ690 IHRvcDsnPlBhdGllbnQgT rLeEJf7S3AtOij5EFWfwU pxVX2pxHMvKFkmHr5hnNk ccKcxXK5zHAXn athek289SvDae4dfZNXen LZaUZfzOVA9G26dm8V8ND UjHNMaBSU5jWL2wY9fvGs nbjogbGVmdDsg szJvvNkaHJndJAplM076K HRvcDsnPkJpcnRoIERhdG J7HQ96MO65nGZsj7X3nAA 0Q6ToDOBbukdb pidawKV9CJJsQNYobQ53H p5daOxbWz2mWIAmRBS1WN IyfGYlJ6GacR9bEhUgTSR mGVClU9JpzIRu MMafS360MRpuEcH3PRUey wHeI2SmXIVgwEckZyI9l2 W0Si0UF4Y7FY88UI20lTD gr6D6iPE5I2By FYJduxabhptfpZO7FGPtB OKddW41Zw0umIcyVz0eEI PqUHL3IPVkuAShZ3CmjO6 yOiAjMDAwMDAw X8QguHSrOZirA627FOauL eV5GDKojmNeV0ImFAScdQ piJyD9a5M7Zo3REHb6ZO4 0GC04vVZif5P4 bPU9R0IuIFUtdwhahhbtt PQ5YNQmVFGdyN52Hy9niQ ykXn8sDIJtSHB4LPVeqSB rB9PktH9xJpCc YCJqTOZnU7JjmSHfZAbcE 539QLkoDdR0JLUxzpAkR7 ChHUUohMzbGrA4f8I1Qz7 FXZPdQI38QCM2 bMF2DR31QH51R6IiKqzxe GFibGU+PHRhYmxlIHdpZH RoPScxMDAlJyBzdHlsZT0 qYc4dAZOmFEAa aIezzSQeJqHmq1hiSHQpN TiqYD3jnVbkY8LvcGB5YR Jcg7i2Sv83G34qQ1SntDN +ZELefGC1kRI8 nY9jMuEnNwT0NAqjZ730H sCuzZLxBizcd7prv9sylM j9GyF6EKXwhrAjrTavFSR 9u5UkOj53M77n IHdpZHRoPSIxNSUiIHZhb Zaejh0liX8hBb6+PGNvbC H5gNS2wO4iAlKrEhI2SCj vZ105QoCflUZb Dogtb4nax6wuhGi5MpYdC MLqkzFwxHgnHKK8w8TuHu 93P6WjbDbyr2LlMes4hu4 1kIKur3C2xMH0 X9WtHQYbvfiphSMrnNqzU Q2sXZNwomgaEURldH3fJC LwU4k8VkYiTsW8BRpjB4H dxgT4KQKavXEx LRsfPPX2F31ug8K3QMYzA FPcEEU2kIT2iX9udKfjxr ogbGVmdDsgdmVydGljYWw uCVhkE883RBVm tDvoPUNvcA6gCZKnzGDes OkqNY5sLFJevfprZmlNGF xFUiwgVEFNQVJBIEpFQU4 2M2NfFpo5KYSf iXdxAF6wfDUbFSmtXy8ir VyvjQvrKJ5jPYVonyybBY KujT1nIJZzrKJjqMruMS9 xVUAqeyfzf687 CyTsQZO9MLBteVVwI1Uxc H2vHiAeAHLmHZIhM9JitT IjAFltC376ZNvcDkA7MBD epkRdS2EoTUCc tEwxGcS8e3O6Iq3xPY7kH W0kHQZrFN67GO73yCFkj0 M4zXD0G5VrSZAhlfjnjqm qoKH3UYCqKOXl zW54sWVhUPyuSx8ij6W5p 897DETyNMPbdY87Yi0ehL dhHQVjdPRDsJ3dpccjx7d vcjogIzAwMDAw MLy8MHa4TPWjcFrzWrZlG KW9BfY5TEW4vZSmuQ7loS oqjrfneD0dAce+NTggWWV srvF9E9LwEqe9 LHDriXqzKI7igJZyYHozV s3rnQrlmRkyAJ0eSTJlrb osDDFbnM7rTWHwjCOicFf tKA0hADPulwev i089ByQwICJ5NQTefNKiC 8GfyR2nCcEtOGJpWUNrP2 PnpKWvLCzsT884OPqqQoI 2NJBsloUjO0If RXTumNksViK6x1U4Xi3ZJ Y8GZZR0H7FjUxn3QNHvaS uyRP7vuKIcPMjlRc1ulAl ogGftFJ1eZUGq fqjzITWcrR2xNRXvuJQrt XahOU2dPGHkznurh411Ch VrPBN9EDLzaVHuV6GrzG4 yOiAjMDAwMDAw E7UbsGEzEMntG179WNmbP pI9JANppmVhH2MoVXKeyK mpMdG0o5J9Vz1CGIX2ggD nvqagZ2H8uLG2 aWVudDwvdGQ+EO80qc90Q 0UhMqsyHjk3MGPnSRN5qN M8gD1lTHQzWInpg0K0lVV 3D0BhguGcve9s m6aqVPDcANwhX08leSSmb 7E2WDPcoIX2HOSnaNobQq KktE94Bgy+JMJpkUrda1H mGyamk9dyp8lv jSe9CwPqFQPtzfEquNyjM HY1i1TgYn03V45gIEouIL RoPSIzMCUiIHZhbGlnbj0 inE8kZx0+PGNv zRM7nJP6yH7xWqKfQyU5A SdlP918ZnFgzQMwNojwx3 wfq7sspSp3GrWqUKOusuK bqVsxFYM4t2Zv Cw66D6KnwYnpw3NuCtw4j q00aRSfq8P0cIE6F6QqEB UywcdbmYPffYjrDU3eKDC wdnpgJDYwwA5h DRXyL6c2ZqPgObR2YTpsM 0OhhnI6KHPgrGRaXSKvbJ UIwT5vhdlml6jpadgwVbG yBBXzODc1MAc8 EAPmjPboYvTpHAQ3IqA4R KL3fWShpO0wyXvffqhtlY 9wOyc+OUg0p7jgbKJwRH3 hsXS3TN37HM19 oVTfe2Y1dTS7O0OxRJNkw gvparfryRY2MRSdAOWznG 06Iv3xcMykDp9mJAPvXPU 4TGRocTXaD8Nh aP3rEvNwKVAlQOEyP3Bcy ZKhQKfbK817EVchWpU4PC VrnvKrV1WgSFKmuTvhUzX 1x0D3Dl7FPQ19 NQ36FT71sBOqi0V1uVB3Y 8IiZPUohslksglmrZD7CH EzKCJbiV13Bz9miNckFi0 kDPHaHKB8JLNw fIPfD6MmsU2zGwHgLIYoY SNdM0EhoXEqIQlzP467EN zwBzM0AIAgrhAqK3JbMAV knCppJxM8i8T4 Kh5AEd11EV54FH40gTPql 2M7iRL9S9XmLUUsoipser mqhGP1CAXhAIQfbJ34Qi6 giRqeUr2kFPZp SXP9HOYobVYnX6RgoB8oA xDrQHHtEAXpU2YluGFsPN bmV488LDofJkB8WKOuxkS kP1QwDJJouRcm GbJ9b0Q6Oz3KKFubrdm8C 3RkPjwvdHI+KX92KSYnFX 28gJBikTZjy6loxEi1UeF mZWXcXOP5pAho PSd (more content not included)... [facility] Provider Orderson 09-13-2020 Provider Orders [id number] [facility] Coding Summaryon 09-12-2020 Coding Summary [employer]Base 64 BwqsfumxVSn8mQn+PGhlY WQ+YR6VQXPiN71mwBWitD 6ME0zYFB6KQZDLQCLSQO5 BLX3bjNR2ZJbjW0TrkkKz NpfiuFTtGU13GFt4QZC3p GisJZlasE8ecGCmZ2a6Dm NgDE46pA58EBozSYGiQgW 3LjZpbjsgbWFy K1nrJqKobEMuFvd+PHRhY mxlIHdpZHRoPScxMDAlJy VknCifBB6cDq7lGYLyJYV vbGxhcHNlOiBj o9ymYKZfETsmNT4vaNrmM 7OtbIW8NSYdx9x3Ep35yO I+MVVaIFY3jSyxHLkbi82 2PrUig6ciXBU0 rWFgOFbnFQR5K24yc7Y4K LZcZJAuXIW0jHM8gF7dyP wzqmvgR3EmgZMiWbA5DGF 5gUNtmZ5cvPth jrmzyO5hWkq+M42GOQ9RU RVDTB3MHit2D0VuYrtrzD I+ZD83WJTxXG47mFZxzMM ke8mtdAk6KdSa BCWpABQ3kAmvLErpu8OhK ILtW49qgWKnc0U9FVTsjA pehCZpRyPpcCW6oX1nUGn ddldvi0wimuiu Bmraa6ezkc94vT25X85uY InbUCIcYCO6NBIoXOHjcA ycdm4hyZ4mUk5+BSsaa1x oq4opmBd0MxLb WFVxnzXbcAnxVRN7s4DeK d14H6ZrmDvfx2NbJjq7bs 69vTPct8H8sVH9AMgtPYP ikK2wHOjoUmT3 BWYxIzTbxF16gWXkMOobI z8lhWputVmjVR7rGDWlql tjDKTneZ1iWARobJAizDm lLY6bSNLkxmbu i280TpVaHCG6YQOnzZSgZ 7MtnN5aRaGuNRBvKAPzV7 KwlWDlHJcqV620SZswMcR 4ADLlbiQiZ2Kl DXJcjBbhZnX2u8P0Ua5Nv 9UbmqzdUPP3BHcbQJD4Iq C8PpUyFtA5O4FbBjo4NXU dwEfsYP3lK0Np HFBgjhjdxnjgoFA4DKJvA MVonH50nCVrJAhhBz0iq5 B6k679GNMoFNKylA79Jk8 udDogMTBwdCBU fJ8onzitp8lhlacdFkDnV GVmPGn9PBl1JGGqsZqzVz InMFY5RtI0RZI3tLSceN4 esXfscpzuqD7a Oyc+H81mxT1pZJD3XQR2g vmrFDQjdcFsCT93LI61J1 RyPjwvdGFibGU+PGRpdiB slKqhVH1lMiOy b6rly8RzZAovE3VhQBWtQ LtlRlu3LXWmBBM5yCX3fG 8sSCNqTTjaw8M4fCN4D0D fyzZenb0rb6xo IXNwVWtrG75yqNFdk0N2O ILaxQG9XKLhxCxuAeXctX 93Oyc+ZHWfxEjlz3KaPcf qn6nda8abyQm5 WzKlWJNuwaXrqIwrPQL4v 3YeYm40I07xBZiiLVAqRM YeFVJwMEYxjJwtzi1anZ1 wIi8+PGNvbCB3 gQR3aL1jSFYgPeB9VDyiB 950OgGluVLtQvrbj4ueq7 gpxJl8WxKdMCLwtmAegLr bGFP8c0IeDv40 X07xGByfBZCaPCOdZKCdW SHwiEmjdr4gwU2lKn2+PC 9cd0gfvn83sX79mIQ+PHR fKOO3aUzcAMdr KNJcgP9lPUryWzF4USXjI xOihW47qZIfWVehTf6bpD xzvRihOD4oJCDbwayul78 6HkScf1ygFVLq mZMeAGeeMXS6F49rz6P6E HYbMDMiIVI7kRH0uT9xlV lnbjogbGVmdDsgdmVydGl xNXcsGOygT972 IHRvcDsnPlBhdGllbnQgT yHkVYk2H5FqCrb4KRFneV zjAF0arALmMWqzFy9glFe jlTeyFW7cYWSg lthiy314DzEgn9yqWYKdy HEqRRpaHOX6O13ky6X6FU TtFFNxGOD8aEB7gA8hdDq nbjogbGVmdDsg myQrnHreEGpkMFwcW930M HRvcDsnPkJpcnRoIERhdG T8NF83DJ86dOVtd1P7yIW 5L3IeHNFmhuuh yesxcZA7WPZqRDFfiH82C r3cgQgeUf7zMPJcIRI3JT WnmIZrU6LbdX0cPpFcLWO xQBAhP4HdwQHy GLldQ147MIgfFeU5EUMmt tGjK8IjTOZozBnyCrW2a4 S0Cm3GM4P1JB79KM00hLU kp6W8qCR8F0Tk DMIvxqypzipjuUR8NRChM LOikY45Ef7tkTzzFg0wZY IiTOW1ZTXnqDLpK3ExuN2 yOiAjMDAwMDAw L1YckAKaYLiaG903RNkjR xV5DYUzbmFzD1NzBALmnO rfTnI8j4X3Qb7UAMm8SE6 3UK17qOSxn1Y4 kGH3U8LzXKTtneiqqmbbf GW4KJEfKSXhoA59Be4kdS qnAb9zOUHvVVS8HZPbyYX lI6PqdB9bFgEm BMNoGARnZ2MgmDRkYHegM 403QYqzMqR9JCWykqTnA4 TeQLIbkGpsKoJ6f7F3Ax1 XWJSnHO60RLG0 tVS3DG26GW31N0HsBeziy GFibGU+PHRhYmxlIHdpZH RoPScxMDAlJyBzdHlsZT0 hOc5rJANyBWXm jCghqQGcQmKmv3hbEJPsG GhgAO2ibSigT5ZmmZO8KF Cai6m2Zl19Y56yR9QyiQC +RUEnhDK9vXA9 vP4qUtNcWzK7HSjzA952W pBfpBOxSggea7nyk9leqY k4RpX4MNXidxHhtFpmFBA 9x6PgJy33A60x IHdpZHRoPSIxNSUiIHZhb Uzoaa3ftN5nMx1+PGNvbC U5cHT5hH1dKoWmAsF9YNr zM599QuUthNOy Hmknh5gtg9zezAx7GvEpQ AFplwXxhGktWOE6m9DsQv 46G5AnnDkii9FfInr6wo5 2nLYoc7F2iGZ4 U1HlTLSalfswtWCbcStbC P5jCQRralwhAARnvL6gGG VcY5d2UdEsOgF7NSvhP5R fzmN9EXUujMSe TEezKOL8H63mr4M7GMJsE USvPMO4oYK9oM1vlKxwts ogbGVmdDsgdmVydGljYWw iEXysJ849DNPz zLncHWEcnJ9mOIYfnGIwy VckSS2dNNHkviyiRudNLK xFUiwgVEFNQVJBIEpFQU4 5O5SkRhr6FJBs qMzbVE4nkOEeGJgnVi8hl CxayIuhYA6jAPHyshnnLD FuzI5rTNSgyPCzfBruDG4 dQRKothztl103 BbRxNUN6UZWowNIxL4Qqp S8kJdKpKJNaVDRjJ8KbjF YfSQoeW774UWyfUpQ7HEW sknDdX4YjYOYh gTkqDoK9x3E6Ox7uQA8oF R9dONHzGE06RS35eYQhh2 D4qAJ7E7LaTTYdsiihunm vgLC3PNIqZPMi zG14rGYlTOxrYa3fk3F5z 281QDPoMWHheT93Oh7bfI mkLGMttCZYqZ7lkkiti8l vcjogIzAwMDAw ZVb5KEh8EOKxjYxnEuMmL RJ8EkK5ODJ5tIQolI0lyI rwiemwzG7pMcd+NTggWWV nkyV2Z4RpBxw8 XOCbnQfsUN4keETuEJchM n2mpGctuMlfJR1aYYJozq ujCTCwoV2iXVHeaGPbnJg cAM4bLPCluwgq y739WtJpRUY2JVPflGIoV 0BqcU0bDyWyPWSlZDPbP3 JlyDPfXGwgH367KCehNnH 4TJDxpmKeN6Fq DEMaqWwyRrS3t2F8Sg1OH I7NZKQ7N8WqCxh1CVKtaR hsGZ9fwXXnHRtoMf3qxIh xgKouXO1hAHFz snljEBQkfZ3sAZQjpNTpv LaeDT9oTLPqzhmlr887Ic UlTUK9VTTluLQdF4LinM8 yOiAjMDAwMDAw A2UtgHVhCWdoH445GEmzZ mD6HGVazsMwU0PqFLHyyG riJyJ0k6F7Fc5LMPpvgKZ +LT06kj55G6Xt DidpRdr3VIWtRDU3yHP5z U4qBHBiTPvbe9E5mOB6K6 HqvaZvbe8ys2yjESQsEQg pX22rsESkb5K2 ZHLnfXX2TUWeyNuuZeAac G93Oyc+KYBaoQnoq8UdEj vyu9gvw5timWa9BvUiJWM gdmFsaWduPSJ0 p0FgAg97H96qVYbhPYJsN LKmCWJyVUUfoJtqhm6xiI 9wIi8+ZGNvmYV4tQJ8bB7 lQhWfXnK9HHac T092UfOfzHMgWlmsk0lyj 6hsdNo6WaXdZFCkbmVygX wkJAI2w4VfFt76X5ThrIl sy9QeXyu6oo86 jJUnk9V1hCC1T0WkHNBoh ibygINnqIpnAQ3zMOTfzj ptPWGimL1qZQVfV9k2EgU sCiK9FZjxP7Zz ykW2KSExfXCrPGFfySZBz R3fepuks4eulitkVfWeNQ HlCXx9AGt5CDDpaLqnDxH lAOH8VsX0HPE5 dLIjsC4waMhfwqykkF0sV yc+ZFf4m9iuqSObVR2boA C2GB88IE94dYNnh1O3pGV 9S8OwRNUqzfkv rbhavXC9NWWkEARbyX70U u0esFmxKr5qNRBzQNI6VK EjdBKnP4SbrY9gKhQjYUL hYEXyO3VvyFHd SLplH924MUvaIgL1BXVgq hCkV3NyIRGjzDixVlA5i5 Q8Ux8MRM69VL14SV16cFW qz0R0jTB7B8Cq XDDwlcrzrwqbuPI6UKRpR YYvzE15Ok7kuVcxWt2pPH PlEFF9AJFnoMWlA0HlfG8 yOiAjMDAwMDAw S6AgoKIuORraH035YCapQ jO0XIFoonKlF0KnMTDekS hcYrA0c5X2Rb3RLk52ZV0 0GC50iZLjn7W4 uQF3O9MnWGIkhsjfvuxwv ZU7HLEnRENroA25Zg3hqG xeLi2yRTJxGVD5SDSrlFN wQ9YzmJ1eUeCt MFLpQPCrD4WrsOPpDQnaK 346CAdmZyD2GAIcnbVvS4 WpWPXzbOvmTwX4g5L3Yy1 BLTewfam6P6Oc PjwvdHI+ED23BDNeQV07w LLleMQie6nzxCw8UrTpLC OpIXX2wFllWRbuz7XiZLZ nI67pwFMqj6M7 IGN (more content not included)... Normal [facility] Mammo Screening 3D Bilate ral.on 09-10-2020 [place] Mammo Screening 3D Bilateral. MAMMOGRAM SCREENING 3-D [...] lymph nodes are noted bilaterally. R2 Image Loss Prevention Auditor was utilized for this study. IMPRESSION: No [...] 2-Benign finding Recommendation: Normal interval follow-up Normal [facility] Provider Orderson 09-02-2020 Provider Orders [id number] Normal [facility] Vital Signs Date Time Vital Sign Value Performing Clinician Facility 01-29-2023 15:12-0400 Blood Pressure Location [facility] 01-29-2023 15:12-0400 Diastolic blood pressure 78 mm[Hg] [facility] 01-29-2023 15:12-0400 Heart rate 72 /min [facility] 01-29-2023 15:12-0400 Respiratory rate 16 /min [facility] 01-29-2023 15:12-0400 Systolic blood pressure 138 mm[Hg] [facility] 02-19-2022 08:45-0500 Diastolic blood pressure 81 mm[Hg] DO Fanny Petznick Work Phone: [facility] 02-19-2022 08:45-0500 Heart rate 77 /min DO Fanny Petznick Work Phone: [facility] 02-19-2022 08:45-0500 Respiratory rate 16 /min DO Fanny Petznick Work Phone: [facility] 02-19-2022 08:45-0500 SaO2% (BldA) [Mass fraction] 95 % DO Fanny Petznick Work Phone: [facility] 02-19-2022 08:45-0500 Systolic blood pressure 146 mm[Hg] DO Fanny Petznick Work Phone: [facility] 02-19-2022 08:11-0500 Body temperature 98.4 [degF] DO Fanny Petznick Work Phone: [facility] 02-19-2022 07:41-0500 Inhaled oxygen flow rate 8 L/min DO Fanny Petznick Work Phone: [facility] 02-19-2022 07:24-0500 Body height 175.26 cm DO Fanny Petznick Work Phone: [facility] 02-19-2022 07:24-0500 Body mass index (BMI) [Ratio] 28.6 kg/m2 DO Fanny Petznick Work Phone: [facility] 02-19-2022 07:24-0500 Body weight 87.99 kg DO Fanny Petznick Work Phone: [facility] 12-16-2021 11:50-0400 Body height 175.26 cm Mala Aguillon Other [employer] Other 12-16-2021 11:50-0400 Body mass index (BMI) [Ratio] 28.65 kg/m2 Mala Aguillon Other [employer] Other 12-16-2021 11:50-0400 Body temperature 97.6 [degF] Mala Aguillon Other [employer] Other 12-16-2021 11:50-0400 Body weight 88 kg Mala Aguillon Other [employer] Other 12-16-2021 11:50-0400 Diastolic blood pressure 79 mm[Hg] Mala Aguillon Other [employer] Other 12-16-2021 11:50-0400 Respiratory rate 18 /min Mala Aguillon Other [employer] Other 12-16-2021 11:50-0400 SaO2% (BldA) [Mass fraction] 99 % Mala Aguillon Other [employer] Other 12-16-2021 11:50-0400 Systolic blood pressure 145 mm[Hg] Mala Aguillon Other [facility] [employer] Other 10-19-2021 14:52-0400 Diastolic blood pressure 64 mm[Hg] DO Fanny Petznick Work Phone: [facility] 10-19-2021 14:52-0400 Heart rate 89 /min DO Fanny Petznick Work Phone: [facility] 10-19-2021 14:52-0400 Respiratory rate 18 /min DO Fanny Petznick Work Phone: [facility] 10-19-2021 14:52-0400 SaO2% (BldA) [Mass fraction] 94 % DO Fanny Petznick Work Phone: [facility] 10-19-2021 14:52-0400 Systolic blood pressure 144 mm[Hg] DO Fanny Petznick Work Phone: [facility] 10-19-2021 13:15-0400 Body temperature 98.4 [degF] DO Fanny Petznick Work Phone: [facility] 10-19-2021 12:40-0400 Inhaled oxygen flow rate 8 L/min DO Fanny Petznick Work Phone: [facility] 10-19-2021 11:15-0400 Body height 175.26 cm DO Fanny Petznick Work Phone: [facility] 10-19-2021 11:15-0400 Body mass index (BMI) [Ratio] 29.2 kg/m2 DO Fanny Petznick Work Phone: [facility] 10-19-2021 11:15-0400 Body weight 89.8 kg DO Fanny Petznick Work Phone: [facility] Encounters Encounter Date Encounter Type Care Provider Facility Start: 07-25-2023 End: 07-25-2023 ambulatory FANNY M PETZNICK Not Available Start: 03-28-2023 End: 03-28-2023 ambulatory FANNY PRABHAKAR Not Available Start: 02-13-2023 End: 02-14-2023 ambulatory Colby SANTA Facility:[id number] Start: 01-29-2023 End: 01-30-2023 ambulatory Colby SANTA Facility:[facility] Start: 01-29-2023 End: 01-29-2023 Patient encounter procedure Col[facility] NEFFL General Surgery Nill/Said Juan A Start: 01-03-2023 ambulatory Colby KIET Facility:[facility] Start: 06-25-[address] FANNY PRABHAKAR Fac ility:[facility] Start: 06-03-2022 Encounter for genera l adult medical examination without abnormal findings DR FANNY PRABHAKAR [facility] Start: 05-30-2022 End: 05-31-[address] FANNY PRABHAKAR Facility:[facility] Start: 05-30-2022 End: 05-31-2022 Encounter for general adult medical examination without abnormal findings DR FANNY PRABHAKAR Facility:[facility] Start: 05-21-2022 ambulatory Fanny Prabhakar Facili ty:[facility] Start: 03-30-[address] FANNY PRABHAKAR Fac ility:[facility] Start: 02-19-2022 End: 02-19-2022 ambulatory Bharat Zelaya Jr Facility:[facility] Start: 02-19-2022 End: 02-19-2022 Admission to same day surgery center DO Fanny Petangelica Work Phone: [facility] [place] Start: 02-19-2022 End: 02-19-2022 ambulatory DO Fanny Petangelica Work Phone: [facility] Work Phone: Start: 02-16-2022 End: 02-16-2022 ambulatory Bharat Zelaya Jr Facility:[facility] Start: 02-16-2022 End: 02-16-2022 ambulatory DO Fanny Petznick Work Phone: [facility] Work Phone: Start: 02-16-2022 End: 02-16-2022 Patient encounter procedure DO Fanny Petznick Work Phone: [facility] Start: 12-16-2021 End: 12-16-2021 ambulatory Mala Aguillon Other [employer] Other Start: 12-16-2021 Office outpatient ne w 20 minutes Mala Aguillon [facility] Start: 11-06-2021 End: 03-16-2022 ambulatory MR ALBANIA CALLOWAY . Facility:[facility] Start: 10-19-2021 End: 10-19-2021 [facility] Start: 10-19-2021 End: 10-19-2021 Admission to same day surgery center DO Fanny Petangelica Work Phone: [facility] [place] Start: 10-17-2021 End: 10-17-2021 [facility] Start: 10-17-2021 End: 10-17-2021 Patient encounter procedure DO Fanny Prabhakar Work Phone: [facility] Start: 10-10-2021 End: 10-11-[address] DOCTOR PACHECO Facility:[facility] Start: 09-12-2021 End: 09-13-[address] FANNY PRABHAKAR Facility: Start: 09-04-2021 End: 09-05-2021 ambulatory Fanny Prabhakar Facility:[facility] Procedures Date Procedure Procedure Detail Performing Clinician Start: 02-19-2022 Reduction procedure DO Fanny Petangelica Work Phone: Start: 10-19-2021 Procedure on shoulder joint DO Fanny Petangelica Work Phone: Start: 08-01-2015 Colonoscopy Colby MORA Colonoscopy Colby NEFFL Repair of musculoten dinous cuff of shoulder Colby SANTA SARS Antigen (LFIA) DO Allis on Petznick Work Phone: Stripping of vein Colby WU MORGAN Comment on above: x 2 Vaginal hysterectomy Colby SANTA Plan of Treatment Date Care Activity Detail Author Start: 02-19-2022 End: 02-19-2022 [facility] Start: 10-19-2021 [facility] Work Phone: Start: 10-19-2021 [facility] Work Phone: Immunizations Immunization Date Immunization Notes Care Provider Fa cili 12-30-2022 influenza virus vaccine, unspecified formulation Colby SANTA [facility] 07-15-2020 COVID-19 mRNA, Comirnaty (Pfizer) DO Fanny Prabhakar Work Phone: [facility] 06-24-2020 COVID-19 mRNA, Comirnaty (Pfizer) DO Fanny Petangelica Work Phone: [facility] Payers Date Payer Category Payer Self-pay [id number] 1960 Unknown [id number] 2.16.84 0.1.088281.3.579.2.593 1960 Unknown [id number] 2.16.84 0.1.109188.3.579.2.593 1962 Unknown [id number] 2.16.84 0.1.583581.3.579.2.593 1962 Unknown [id number] 2.16.84 0.1.519506.3.579.2.593 1962 Unknown [id number] 2.16.84 0.1.693656.3.579.2.593 1962 Unknown [id number] 2.16.84 0.1.758836.3.579.2.593 1962 Unknown [id number] 2.16.8 40.1.742757.3.579.2.727 1962 Unknown [id number] 2.16.8 40.1.498035.3.579.2.727 1962 Unknown [id number] 2.16.84 0.1.398732.3.579.2.1259 1962 Unknown [id number] 2.16.840 .1.926394.3.579.2.1259 1959 Unknown [id number] 1959 Unknown [id number] Unknown [id number] 2.16.8 40.1.064486.3.579.2.531 Unknown [id number] 2.16.8 40.1.515061.3.579.2.531 Unknown [id number] 2.16.8 40.1.893059.3.579.2.531 Unknown [id number] 2.16.8 40.1.250257.3.579.2.531 Unknown [id number] 2.16.8 40.1.546946.3.579.2.531 Unknown [id number] 2.16.8 40.1.066638.3.579.2.531 Social History Date Type Detail Facility Start: 10-19-2021 End: 01-29-2023 Tobacco smoking status NDIS Never smoked tobacco (finding) [facility] Start: 1960 Sex Assigned At Female F [facility] Sex Assigned At [facility] Tobacco smoking status Never Gener al [facility] [place] Medical Equipment Procedure Code Equipment Code Equipment Origin al Text Equipment Identifier Dates Arthroscopy, shoulder Tendon/ligament bone anchor, bioabsorbable [id number] FDA Start: 10-19-2021 Arthroscopy, shoulder Tendon/ligament bone anchor, bioabsorbable ()[id number] FDA Start: 10-19-2021 Goals Date Patient Goal Desired Activity /State Functional Status Date Assessment Result Facility 01-29-2023 Functional Status N/A General [facility] Clinical Note 01-29-2023 Note Date & Type [...] 1 tab(s), Oral, Daily Flonase 0.05 mg/inh [place], 1 spray(s), Nasal, BID gabapentin 300 mg [...] Father. Alcoholism: Broth (more content not included)... [facility] Comment on above: Result Comment: Elec [...] understanding and is agreeable to treatment plan [employer] Other Evaluation + Plan note Note Date & Type Note Facility Evaluation + Plan note No data available for this section General [facility] Evaluation note Note Date & Type Note Facility Evaluation note No assessment information availa ble [facility] Work Phone: History general Narrative - Reported [...] shoulder surgery 2021 Hospitalization History see above [employer] [facility] Other Hospital Discharge instructions Note Date & Type Note Facility Hospital Discharge instructions Additional Instructions #1 ice left shoulder as needed for pain. #2 start physical therapy tomorrow. #3 10 wall walks 4 times a day. #4 may use left arm [facility] Work Phone: Hospital Discharge instructions Note Date & Type Note Facility Hospital Discharge instructions No data available for this section General [facility] [place] Progress note Note Date & Type Note Facility Progress note No data available for this section General [facility] Summary Purpose Family History No Family History [...] section and content) DATE CREATED AUTHOR 08/02/2021 [facility] DATE CREATED AUTHOR AUTHOR'S ORGANIZ ATION 05/31/2022 [facility] DATE CREATED AUTHOR AUTHOR'S ORGANIZ ATION 06/27/2022 [facility] DATE CREATED AUTHOR AUTHOR'S ORGANIZ ATION 03/02/2023 [facility] DATE CREATED AUTHOR AUTHOR'S ORGANIZ ATION 07/27/[address] [facility] [employer] Care Teams (unrecognized sec tion and content) [...] BE BASED ON THE PRIMARY CLINICAL RECORDS. [employer] provides no warranty or guarantee of the accuracy or completeness of information in this document.
== END 2023-08-19 21:56 | disposition home or self-care (01) ==
LOC: LAB 21:55
PROVIDERS: PCP Family Medicine; Visit Provider Physician Assistant
DX: Z01.419 Encounter for gynecological examination (general) (routine) without abnormal findings (principal)
CPT/HCPCS: 87624; G0145

== ENCOUNTER 2023-08-21 06:47 | Outpatient (OUT) | payer BC, SELFPAY ==
--- OUTSIDE RECORDS SUMMARY | 2023-08-21 06:50 | XMS_ITS | CCD ---
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 Name Role Phone Aki, DO Escobedo Primary [...] Drug Allergy 2 Joint pain (finding) [facility] (7 sources) Cephalexin; Translations: [cephalexin] Drug Allergy 6 Swelling, Edema (finding) [facility] (6 sources) rosuvastatin; Translations: [rosuvastatin] Drug Allergy 2 Diarrhea (finding) [facility] (2 sources) Acetaminophen / oxyCODONE; Translations: [acetaminophen-ox ycodone] Drug Allergy Itching (finding) [facility] [place] (2 sources) diphenhydrAMINE; Translations: [diphenhydramine] Drug Allergy Itching (finding) General Surgery Juan A (1 source) Hmg-Coa Reductase Inhibitors (Statins) Drug allergy aches/diarrhea adQ Other (1 source) Acetaminophen / oxyCODONE; Translations: [Percocet] Drug Allergy [facility] Repository (1 source) diphenhydrAMINE; Translations: [Benadryl] Drug Allergy [facility] Repository Medications Current Medications Medication Drug Class(es) [...] Start: 10-19-2021 take 1 capsule by mo [facility] once daily Celecoxib (Celebrex) 200 mg [...] Corticosteroid Start: 01-29-2023 Flonase 0.05 m g/inh [place] 1 spray(s), Nasal, BID, Refill(s) 0 Start [...] Outside Colonoscopyon 2022 Outside Colonoscopy [id number]#1. 00TIFF Normal [facility] Reminderson 02-14-2023 Reminders - From: Eunice Davis LPN To: GSN - Clinical; Sent: 02/14/2023 14:19:54 EST Show up: 01/14/2028 07:00:00 EDT Subject: colonoscopy recall Due Date/Time: 02/14/2028 07:00:00 EST Reminder/Recall Patient due for surveillance colonoscopy 02/14/2028 due to remote history of colon polyps. Normal [facility] Lab Reportson 02-13-2023 Lab Reports [id number]#1. 00TIFF [facility] Insurance Correspondenceon 1 04-10-2022 Insurance Correspondence [id number]# 1.00TIFF [facility] Consent for Procedure/Surger yon 01-30-2023 Consent for Procedure/Surgery [id number]#1 .00TIFF [facility] Facesheeton 01-30-2023 Facesheet [id number]# 1.00TIFF [facility] Ambulatory Visit Summaryon 1 Ambulatory Visit [...] mg Tab) fluticasone nasal (Flonase 0.05 mg/inh [place]) gabapentin (gabapentin 300 mg Cap) insulin glargine [...] Unchanged fluticasone nasal (Flonase 0.05 mg/ inh [place]) 1 Sprays Nasal Inhalation 2 times a [...] us for your care. Normal Sneed [facility] CBC AUTO DIFFon 05-30-2022 BASO # 0.0 103/ul Normal 0.0-0.1 [facility] Comment on above: Performed By: #### C BC #### [facility] Laboratory [address] [address] [address] Ian Sandra Basophils/100 WBC (Bld) 0.4 % Normal 0.2-2.0 [facility] Comment on above: Performed By: #### C BC #### [facility] Laboratory [address] [address] [address] Ian Sandra EO # 0.1 103/ul Normal 0.0-0.7 [facility] Comment on above: Performed By: #### C BC #### [facility] Laboratory [address] [place] [address] Dr. Ian Sandra Eosinophils/100 WBC (Bld) 3.1 % Normal 0.9-7.0 [facility] Comment on above: Performed By: #### C BC #### [facility] Laboratory [address] [place] [address] Dr. Ian Sandra Erythrocyte distribution width (RBC) [Ratio] 13.5 % Normal 11.0-15.0 [facility] Comment on above: Performed By: #### C BC #### [facility] Laboratory [address] [place] [address] Dr. Ian Sandra Hematocrit (Bld) [Volume fraction] 48.9 % Critically high 36.0-48.0 [facility] Comment on above: Performed By: #### C BC #### [facility] Laboratory [address] [place] [address] Dr. Ian Sandra Hemoglobin (Bld) [Mass/Vol] 16.0 g/dL Normal 12.0-16.0 [facility] Comment on above: Performed By: #### C BC #### [facility] [address] [place] [address] Dr. Ian Sandra IG # 0.01 10e3/ul Normal 0.00-0.03 [facility] Comment on above: Performed By: #### C BC #### [facility] [address] [place] [address] Dr. Ian Sandra IG % 0.2 % Normal 0.0-0.5 [facility] Comment on above: Performed By: #### C BC #### [facility] [address] [place] [address] Dr. Ian Sandra LYMPH # 1.4 103/ul Normal 1.2-3.8 [facility] Comment on above: Performed By: #### C BC #### [facility] [address] [place] [address] Dr. Ian Sandra Lymphocytes/100 WBC (Bld) 29.5 % Normal 20.5-60.0 [facility] Comment on above: Performed By: #### C BC #### [facility] [address] [place] [address] Dr. Ian Sandra MANUAL DIFF REQ NO Normal [facility] Comment on above: Performed By: #### C BC #### [facility] [address] [place] [address] Dr. Ian Sandra MCH (RBC) [Entitic mass] 29.9 pg Normal 26.7-34.0 [facility] Comment on above: Performed By: #### C BC #### [facility] [address] [place] [address] Dr. Ian Sandra MCHC (RBC) [Mass/Vol] 32.7 g/dL Normal 29.9-35.2 [facility] Comment on above: Performed By: #### C BC #### [facility] [address] [place] [address] Dr. Ian Sandra MCV (RBC) [Entitic vol] 91.4 fL Normal 81.0-99.0 [facility] Comment on above: Performed By: #### C BC #### [facility] [address] [place] [address] Dr. Ian Sandra MONO # 0.4 103/ul Normal 0.3-0.8 [facility] Comment on above: Performed By: #### C BC #### [facility] [address] [place] [address] Dr. Ian Sandra Monocytes/100 WBC (Bld) 9.4 % Normal 1.7-12.0 [facility] Comment on above: Performed By: #### C BC #### [facility] Laboratory [address] [place], [place] [id number] Dr. Ian Sandra NEUT # 2.6 103/ul Normal 1.4-6.5 [facility] Comment on above: Performed By: #### C BC #### [facility] [address] [place] [address] Dr. Ian Sandra Neutrophils/100 WBC (Bld) 57.4 % Normal 43.0-75.0 [facility] Comment on above: Performed By: #### C BC #### [facility] [address] [place] [address] Dr. Ian Sandra Platelet mean volume (Bld) [Entitic vol] 11.2 fL Normal 9.5-13.5 [facility] Comment on above: Performed By: #### C BC #### [facility] [address] [place] [address] Dr. Ian Sandra PLT 176 103/ul Normal 150-450 [facility] Comment on above: Performed By: #### C BC #### [facility] [address] [place] [address] Dr. Ian Sandra RBC 5.35 106/ul Normal 4.20-5.40 [facility] Comment on above: Performed By: #### C BC #### [facility] [address] [place] [address] Dr. Ian Sandra WBC 4.6 103/ul Normal 4.0-11.0 [facility] Comment on above: Performed By: #### C BC #### [facility] [address] [place] [address] Dr. Ian Sandra LIPID PROFILEon 05-30-2022 CHOL-HDL RATIO NORM SEE BELOW Normal [facility] Comment on above: Result Comment: 3.3 - 4.4 LOW RISK 4.4 - 7.1 AVERAGE RISK 7.1 - 11.0 MODERATE RISK >11.0 HIGH RISK Performed By: #### C MP, LIPID #### [facility] [address] [place] [address] Dr. Ian Sandra Cholesterol [Mass/Vol] 218 mg/dL Critically high <=200 [facility] Comment on above: Performed By: #### C MP, LIPID #### [facility] [address] [address] [address] Ian Sandra Cholesterol in HDL [Mass/Vol] 46 mg/dL Normal 40-60 [facility] Comment on above: Performed By: #### C MP, LIPID #### [facility] [address] [address] [address] Ian Sandra Cholesterol in LDL [Mass/Vol] 136.4 mg/dL Normal [facility] Comment on above: Performed By: #### C MP, LIPID #### [facility] [address] [address] [address] Ian Sandra Cholesterol.total/Choles terol in HDL [Mass ratio] 4.7 {ratio} Normal [facility] Comment on above: Performed By: #### C MP, LIPID #### [facility] [address] [place] [address] Dr. Ian Sandra HDL NORMAL > or = 60 mg/dl - LO W CARDIOVASCULAR RISK <40 mg/dl - HIGH CARDIOVASCULAR RISK Normal [facility] Comment on above: Performed By: #### C MP, LIPID #### [facility] [address] [address] [address] Ian Sandra LDL CALC NORMAL SEE BELOW Normal [facility] Comment on above: Result Comment: <100 mg/dl OPTIMAL 100 - 129 mg/dl NEAR OR ABOVE OPTIMAL 130 - 159 mg/dl BORDERLINE HIGH 160 - 189 mg/dl HIGH >190 mg/dl VERY HIGH Performed By: #### C MP, LIPID #### [facility] [address] [address] [address] Ian Sandar Triglyceride [Mass/Vol] 178 mg/dL Critically high <=150 [facility] Comment on above: Performed By: #### C MP, LIPID #### [facility] [address] [place] [address] Dr. Ian Sandra VLDL CALC 35.6 mg/dL Normal [facility] Comment on above: Performed By: #### C MP, LIPID #### [facility] [address] [address] [address] Ian Sandra MICROALB CREAT RATIO RANDOMo n 05-30-2022 mALB <1.3 Normal <=30.0 [facility] Comment on above: Performed By: #### M CRR #### [facility] [address] [address] [address] Ian Sandra MALB CR RATIO RANGE SEE BELOW Normal [facility] Comment on above: Result Comment: NO M ICROALBUMINURIA 0-29 MG/G CLINICAL MICROALBUMINURIA 30-300 MG/G MACROALBUMINURIA >300 MG/G Performed By: #### M CRR #### [facility] [address] [address] [address] Ian Sandra URINE CREAT 45.83 mg/dL Normal 20.00-300.00 [facility] Comment on above: Performed By: #### M CRR #### [facility] [address] [place] [address] Dr. Ian Snadra PROF 14(COMP METB)on 023 Albumin [Mass/Vol] 4.4 g/dL Normal 3.4-5.0 [facility] Comment on above: Performed By: #### C MP, LIPID #### [facility] [address] [place] [address] Dr. Ian Sandra Albumin/Globulin [Mass ratio] 1.1 {ratio} Normal [facility] Comment on above: Performed By: #### C MP, LIPID #### [facility] [address] [place] [address] Dr. Ian Sandra ALP [Catalytic activity/Vol] 80 U/L Normal 46-116 [facility] Comment on above: Performed By: #### C MP, LIPID #### [facility] [address] [place] [address] Dr. Ian Sandra ALT [Catalytic activity/Vol] 45 U/L Normal 14-59 [facility] Comment on above: Performed By: #### C MP, LIPID #### [facility] [address] [address] [address] Ian Sandra Anion gap [Moles/Vol] 11.7 mmol/L Normal [facility] Comment on above: Performed By: #### C MP, LIPID #### [facility] [address] [address] [address] Ian Sandra AST [Catalytic activity/Vol] 31 U/L Normal 15-37 [facility] Comment on above: Performed By: #### C MP, LIPID #### [facility] [address] [address] [address] Ian Sandra Bilirubin [Mass/Vol] 0.4 mg/dL Normal 0.2-1.0 [facility] Comment on above: Performed By: #### C MP, LIPID #### [facility] [address] [address] [address] Ian Sandra Calcium [Mass/Vol] 9.3 mg/dL Normal 8.5-10.1 [facility] Comment on above: Performed By: #### C MP, LIPID #### [facility] [address] [place] [address] Dr. Ian Sandra Chloride [Moles/Vol] 104 mmol/L Normal 98-107 [facility] Comment on above: Performed By: #### C MP, LIPID #### [facility] [address] [address] [address] Ian Sandra CO2 [Moles/Vol] 29.1 mmol/L Normal 21.0-32.0 [facility] Comment on above: Performed By: #### C MP, LIPID #### [facility] [address] [place] [address] Dr. Ian Sandra Creatinine [Mass/Vol] 0.58 mg/dL Normal 0.55-1.02 [facility] Comment on above: Performed By: #### C MP, LIPID #### [facility] [address] [place] [address] Dr. Ian Sandra EGFR-AF LAO >60 Normal >=60 [facility] Comment on above: Performed By: #### C MP, LIPID #### [facility] [address] [address] [address] Ian Sandra EGFR-NON AF LAO >60 Normal >=60 [facility] Comment on above: Performed By: #### C MP, LIPID #### [facility] [address] [address] [address] Ian Sandra Globulin (S) [Mass/Vol] 3.9 g/dL Normal [facility] Comment on above: Performed By: #### C MP, LIPID #### [facility] [address] [address] [address] Ian Sandra Glucose [Mass/Vol] 171 mg/dL Critically high 74-106 [facility] Comment on above: Performed By: #### C MP, LIPID #### [facility] [address] [address] [address] Ian Sandra Potassium [Moles/Vol] 3.8 mmol/L Normal 3.5-5.1 [facility] Comment on above: Performed By: #### C MP, LIPID #### [facility] [address] [address] [address] Ian Sandra Protein [Mass/Vol] 8.3 g/dL Critically high 6.4-8.2 [facility] Comment on above: Performed By: #### C MP, LIPID #### [facility] [address] [address] [address] Ian Sandra Sodium [Moles/Vol] 141 mmol/L Normal 136-145 [facility] Comment on above: Performed By: #### C MP, LIPID #### [facility] [address] [address] [address] Ian Sandra Urea nitrogen [Mass/Vol] 14.0 mg/dL Normal 7.0-18.0 [facility] Comment on above: Performed By: #### C MP, LIPID #### [facility] [address] [address] [address] Ian Sandra Urea nitrogen/Creatinine [Mass ratio] 24.1 mg/mg Normal [facility] Comment on above: Performed By: #### C MP, LIPID #### [facility] [address] [address] [address] Ian Sandra Basic Metabolic Panelon 11- Anion gap [Moles/Vol] 12.6 mmol/L Normal 6.0-15.0 [facility] Comment on above: Performed By: #### B MP #### [facility] [address] Calcium [Mass/Vol] 9.5 mg/dL Normal 8.2-10.2 [facility] Comment on above: Performed By: #### B MP #### [facility] [address] Chloride [Moles/Vol] 104 mmol/L Normal 95-114 [facility] Comment on above: Performed By: #### B MP #### [facility] [address] [place] [address] CO2 [Moles/Vol] 25.8 mmol/L Normal 22.0-30.0 [facility] Comment on above: Performed By: #### B MP #### [address] Creatinine [Mass/Vol] 0.59 mg/dL Normal 0.44-1.03 [facility] Comment on above: Performed By: #### B MP #### [place] [address] [place] Creatinine Clr Calc Pharmacy 121.43 [facility] Comment on above: Result Comment: PERF ORMED BY: [place] [address] PATHOLOGIST ENTRY WRITER IGOR GUSTAFSON M.D. Performed By: #### B MP #### [address] Estimated GFR ( Jeannie > 60 [facility] Comment on above: Result Comment: GFR estimated reference range: According to KDOQI guidelines, <60 ml/min/1.73m2 is sufficient to diagnose a patient with chronic kidney disease. Performed By: #### B MP #### [address] Estimated GFR (Non- Am > 60 [facility] Comment on above: Performed By: #### B MP #### [address] Glucose [Mass/Vol] 194 mg/dL High 70-100 [facility] Comment on above: Result Comment: [place] om Glucose Reference Range is dependent on time and content of last meal. Glucose of more than 200 mg/dL in a nonstressed, ambulatory subject supports the diagnosis of Diabetes Mellitus. ADA recommended reference range Performed By: #### B MP #### [facility] [address] [id number] [place] Potassium [Moles/Vol] 4.4 mmol/L Normal 3.5-5.1 [facility] Comment on above: Performed By: #### B MP #### [facility] [address] [place] [address] [place] Sodium [Moles/Vol] 138 mmol/L Normal 136-146 [facility] Comment on above: Performed By: #### B MP #### [facility] [address] [place] [address] [place] Urea nitrogen [Mass/Vol] 12 mg/dL Normal 9-23 [facility] Comment on above: Performed By: #### B MP #### [facility] [address] [place] [address] [place] Creatinine and Glomerular fi ltration rate.predicted panel (S/P/Bld)Ordered By: Ga Field on 02-19-2022 Creatinine [Mass/Vol] 0.59 mg/dL 0.44-1.03 [facility] Estimated glomerular filtrat ion rate (GFR) non- AmericanOrdered By: Ga Field on 02-19-2022 GFR/1.73 sq M.predicted among non-blacks MDRD (S/P/Bld) [Vol rate/Area] > 60 mL/Min [facility] Glucose Glucometer (BldC) [M ass/Vol]Ordered By: Bharat Zelaya on 02-19-2022 Glucose [Mass/Vol] 163 mg/dL [facility] Comment on above: Random Glucose Refer ence Range is dependent on time and content of last meal. Glucose of more than 200 mg/dL in a nonstressed, ambulatory subject supports the diagnosis of Diabetes Mellitus. Glucose Poct Glucometerson 1 04-21-2021 Glucose [Mass/Vol] 163 mg/dL Normal [facility] Comment on above: Result Comment: [place] om Glucose Reference Range is dependent on time and content of last meal. Glucose of more than 200 mg/dL in a nonstressed, ambulatory subject supports the diagnosis of Diabetes Mellitus. PERFORMED BY: [facility] [place] [address] PATHOLOGIST ENTRY WRITER IGOR GUSTAFSON M.D. Performed By: #### G LULS #### Point of Care testing , No Panel InformationOrdered By: Ga Field on 02-19-2022 Estimated GFR () > 60 mL/Min [facility] Comment on above: GFR estimated refere nce range: According to KDOQI guidelines, <60 ml/min/1.73m2 is sufficient to diagnose a patient with chronic kidney disease. Pharmacy Creatinine Clearance (Chem 121.43 [facility] Serum or plasma anion gap de terminationOrdered By: Ga Field on 02-19-2022 Anion gap [Moles/Vol] 12.6 mmol/L 6.0-15.0 [facility] Serum or plasma calcium nava urement (mass/volume)Ordered By: Ga Field on 02-19-2022 Calcium [Mass/Vol] 9.5 mg/dL 8.2-10.2 [facility] Serum or plasma chloride eri surement (moles/volume)Ordered By: Ga Field on 02-19-2022 Chloride [Moles/Vol] 104 mmol/L 95-114 [facility] Serum or plasma glucose nava urement (mass/volume)Ordered By: Ga Field on 02-19-2022 Glucose [Mass/Vol] 194 mg/dL 70-100 [facility] Comment on above: ADA recommended refe rence rangeRandom Glucose Reference Range is dependent on time and content of last meal. Glucose of more than 200 mg/dL in a nonstressed, ambulatory subject supports the diagnosis of Diabetes Mellitus. Serum or plasma potassium me asurement (moles/volume)Ordered By: Ga Field on 02-19-2022 Potassium [Moles/Vol] 4.4 mmol/L 3.5-5.1 [facility] Serum or plasma sodium measu rement (moles/volume)Ordered By: Ga Field on 02-19-2022 Sodium [Moles/Vol] 138 mmol/L 136-146 [facility] Serum or plasma total carbon dioxide measurement (moles/volume)Ordered By: Ga Field on 02-19-2022 CO2 [Moles/Vol] 25.8 mmol/L 22.0-30.0 [facility] Serum or plasma urea nitroge n measurement (mass/volume)Ordered By: Ga Field on 02-19-2022 Urea nitrogen [Mass/Vol] 12 mg/dL 12-22 [facility] COVID-19 Antigenon 2 COVID-19 Antigen Healthcare Worker?: [...] developed and its performance characteristic determined by [employer] and validated at [facility]. This test has not been FDA cleared [...] for SARS Antigen by [facility] PERFORMED BY: [place] [address] PATHOLOGIST ENTRY WRITER IGOR GUSTAFSON M.D. Normal [facility] Comment on above: Performed By: #### C OVID-19 JESSICA, SOFIANEG #### [address] COVID-19 SOFIAOrdered By: Juni Zelaya on 02-16-2022 SARS-CoV+SARS-CoV-2 (COVID-19) Ag IA.rapid Ql (Resp) Negative Negative [facility] Comment on above: This is a duplicate Jessica SARS Antigen (SAMIR) result to be used for statistical tracking purpose only. No Panel InformationOrdered By: Bharat Zelaya on 02-16-2022 SARS Antigen (LFIA) [facility] Jessica Ag Negativeon 02-17-20 Jessica Ag Negative Negative Normal Negative [facility] Comment on above: Result Comment: This is a duplicate Jessica SARS Antigen (SAMIR) result to be used for statistical tracking purpose only. PERFORMED BY: [place] [address] PATHOLOGIST ENTRY WRITER IGOR GUSTAFSON M.D. Performed By: #### C OVID-19 JESSICA, SOFIANEG #### [address] Glucose Glucometer (BldC) [M ass/Vol]Ordered By: Bharat Zelaya on 10-19-2021 Glucose [Mass/Vol] 179 mg/dL [facility] Comment on above: Random Glucose Refer ence Range is dependent on time and content of last meal. Glucose of more than 200 mg/dL in a nonstressed, ambulatory subject supports the diagnosis of Diabetes Mellitus. Glucose Poct Glucometerson 0 10-19-2021 Glucose [Mass/Vol] 179 mg/dL Normal [facility] Comment on above: Result Comment: [place] Glucose Reference Range is dependent on time and content of last meal. Glucose of more than 200 mg/dL in a nonstressed, ambulatory subject supports the diagnosis of Diabetes Mellitus. PERFORMED BY: [address] [place] [address] PATHOLOGIST ENTRY WRITER IGOR GUSTAFSON M.D. Performed By: #### G JANESSA #### Point of Care testing , Basic Metabolic Panelon 09-29 Estimated GFR ( Jeannie > 60 Normal [facility] Comment on above: Result Comment: GFR estimated reference range: According to KDOQI guidelines, <60 ml/min/1.73m2 is sufficient to diagnose a patient with chronic kidney disease. Performed By: #### B MP #### [address] Estimated GFR (Non- Am > 60 Normal [facility] Comment on above: Performed By: #### B MP #### [address] COVID-19 FRMCon 10-17-2021 SARS-CoV-2 (COVID-19) RNA ANTOINETTE+probe Ql (Unsp spec) Negative Normal Negative [facility] Comment on above: Order Comment: Healt hcare Worker?: N Result Comment: Testing for SARS-CoV-2 by RT-PCR This test was developed and its performance characteristics determined by [employer] ([employer]) and validated at the [facility]. This test has not been FDA cleared [...] is terminated or revoked sooner. PERFORMED BY: [facility] [address] [facility] [place] [id number] PATHOLOGIST ENTRY WRITER IGOR GUSTAFSON M.D. Performed By: #### C OVID 19 [facility] #### [place] [id number] [facility] COVID-19 Positive/NegativeOr dered By: Bharat Zelaya on 10-17-2021 SARS-CoV-2 (COVID-19) N gene ANTOINETTE+probe Ql (Resp) Negative Negative [facility] Comment on above: Testing for SARS-CoV -2 by RT-PCR This test was developed and its performance characteristics determined by [employer] | mentor | [employer] ([employer]) and validated at the [facility]. This test has not been FDA cleared [...] lead ECGon 10-17-2021 ECG 12 lead ECG [facility] Main [place] [address] [place], [place] [id number] Electrocardiograph Report Signed Patient: Zara Benedict MR#: [id number] : 1960 Acct:[id number] Age/Sex: 61 / F ADM Date: 10/17/21 Loc: Room: Type: [facility] Attending Dr: Bharat Zelaya Jr, DO Ordering [...] previous ECGs available Confirmed by [facility] ([id number] on 10/18/2021 4:41:03 PM Referred By: JAZMINE ZELAYA Electronically Signed By:EZRA DANG MD [facility] Transcribed By: MUS Signed By Gigi Dang MD 10/18/21 1641 Normal [facility] Estimated glomerular filtrat ion rate (GFR) non- AmericanOrdered By: Bharat Zelaya on 10-17-2021 GFR/1.73 sq M.predicted among non-blacks MDRD (S/P/Bld) [Vol rate/Area] > 60 mL/Min [facility] No Panel InformationOrdered By: Bharat Zelaya on 10-17-2021 Estimated GFR () > 60 mL/Min [facility] Comment on above: GFR estimated refere nce range: According to KDOQI guidelines, <60 ml/min/1.73m2 is sufficient to diagnose a patient with chronic kidney disease. Pharmacy Creatinine Clearance (Chem N/A [facility] Serum or plasma calcium nava urement (mass/volume)Ordered By: Bharat Zelaya on 10-17-2021 Calcium [Mass/Vol] 9.7 mg/dL Normal 8.2-10.2 [facility] Comment on above: Result Comment: PERF ORMED BY: [place] [address] PATHOLOGIST ENTRY WRITER IGOR GUSTAFSON M.D. Performed By: #### B MP #### [facility] [address] Serum or plasma chloride eri surement (moles/volume)Ordered By: Bharat Zelaya on 10-17-2021 Chloride [Moles/Vol] 102 mmol/L Normal 95-114 [facility] Comment on above: Performed By: #### B MP #### [facility] [address] [place] [address] [place] Serum or plasma creatinine m easurement with calculation of estimated glomerular filtrOrdered By: Bharat Zelaya on 10-17-2021 Creatinine [Mass/Vol] 0.51 mg/dL Normal 0.44-1.03 [facility] Comment on above: Performed By: #### B MP #### [address] Serum or plasma glucose nava urement (mass/volume)Ordered By: Bharat Zelaya on 10-17-2021 Glucose [Mass/Vol] 134 mg/dL High 70-100 [facility] Comment on above: ADA recommended refe rence range Random Glucose Reference Range is dependent on time and content of last meal. Glucose of more than 200 mg/dL in a nonstressed, ambulatory subject supports the diagnosis of Diabetes Mellitus. Result Comment: [place] om Glucose Reference Range is dependent on time and content of last meal. Glucose of more than 200 mg/dL in a nonstressed, ambulatory subject supports the diagnosis of Diabetes Mellitus. ADA recommended reference range Performed By: #### B MP #### [address] Serum or plasma potassium me asurement (moles/volume)Ordered By: Bharat Zelaya on 10-17-2021 Potassium [Moles/Vol] 3.8 mmol/L Normal 3.5-5.1 [facility] Comment on above: Performed By: #### B MP #### [address] Serum or plasma sodium measu rement (moles/volume)Ordered By: Bharat Zelaya on 10-17-2021 Sodium [Moles/Vol] 137 mmol/L Normal 136-146 [facility] Comment on above: Performed By: #### B MP #### [address] Serum or plasma total carbon dioxide measurement (moles/volume)Ordered By: Bharat Zelaya on 10-17-2021 CO2 [Moles/Vol] 23.6 mmol/L Normal 22.0-30.0 [facility] Comment on above: Performed By: #### B MP #### [address] Serum or plasma urea nitroge n measurement (mass/volume)Ordered By: Bharat Zelaya on 10-17-2021 Urea nitrogen [Mass/Vol] 11 mg/dL Normal 9-23 [facility] Comment on above: Performed By: #### B MP #### [facility] [address] MRI SHOULDER LT WO CONon MRI [...] by: FLAVIA MELVIN Date: 2021-10-10 19:[address] [facility] MAMM SCREEN 3D MELVINA CADon 09-12-2021 MG MAMM SCREEN 3D MELVINA CAD Patient: ZARA BENEDICT Exam Date: 09/12/2021 : 1960 Gender:F Ordering : DR INES MEJIAS Admission #: [id number] Family : Order #: [id number] CLICK HERE TO VIEW EXAM RADIOLOGY REPORT [...] bladder cancer at age 82. LOCATION: [facility] BREAST COMPOSITION: Almost entirely fatty. FINDINGS: DIAGNOSTIC [...] Toro M.D. on 09/13/2021 at 11:56 Normal [facility] Physical Therapy Noteon 2 Physical Therapy Note [id number] .00OTGTIFF [facility] Provider [place] 01-13-2021 Provider Orders [id number] .00OTGTIFF [facility] Provider [place] 11-18-2020 Provider Orders [id number] [facility] Summaryon 11-16-2020 Coding Summary HTMLBase 64 KwknyznoTXr7bVz+PGhlY WQ+LL0CLBTvH36puMTvtN 8XZ5xJFZ7TWTFITSILDH7 JPS2woHN9MLsaO4JauyXl QnsiwYRwPA14EAb8SIR6i GjeRMbrpG4xeKTmW4f7At YvYN09vM07MYqrROEmLqX 3LjZpbjsgbWFy F4cuJeFzzVQnAqi+PHRhY mxlIHdpZHRoPScxMDAlJy YyvCkiAH2pAj8wMVZyEOB vbGxhcHNlOiBj q4aoPRCnHKiiEG7ewZvsO 3XpnOY8TZLqx2p0Pw45iL I+BULwOIE7sMubWFfkz71 3TkNel1cdSXH4 fHEeXPumXYL6X95la1L9X ZAsMYQhWLL2mOR7qB3hcF gxduixM2WccYRoGsG7ZQS 6wEOkkD6cpKga vboihY8bVac+R46LBC2LN JOAOO5HRpc8J5UgIwmeoZ I+EB50HTCcAZ72oEEwlYR en7tpwDz2SmTh FVWqIIK3bHjmWRhvb6IiJ XLeT24wrPNmn5Q5UQZyjX dvlRUcBiSfvLF5sS2hBRf eotbue1jqrchf Xwdpy7xlnc10mC97D61tW FbuIQWfPIS5WCQcYCKebY xevz8qyG8lQp5+HXlby7h ic2iupXo9QfKc ICKszjLfwUpxMQT9s2GzB k74I1SodSvzk5EkUwj3tt 81bJGmr2M4hQE9LVboFGU zpU2oZGzrNrY3 LQLwGaVjlV97fWMoQQxyJ p1hoYclcAnfJG4gOPGgla tgUQPilL3iELXavOJlqAo vMU4iUZMzuaib v036TdJeKKK1FRHvpCZtJ 3QgbW2kWhDzZYOnHVHkH2 TetDYkQDqnU552MQtrUgT 3GXVcopBfR2Xs TDDauXqeYhU5s3Q4Zm2Vh 8GrvgqrXKC4LLtsTUN7Vn X1HtQkElT6H8TbXar3BSV pdRuqZL7gS1Pc EFIkfnthptojjJR7ATCxT YMsgN43dMUhISkaXb4fn6 Y9u350IBQhJPFfrZ77Nr2 udDogMTBwdCBU fZ5skztzk4cfugfxSmObJ JXsDNm3VIf2EWSqqQcdCh OiUOP0PjA6ZUU8wLPntN7 clYjkefbzsF0p Oyc+I84gjG2mACQ6KVH2o zhkUJQeiiBuXF45VG63U5 RyPjwvdGFibGU+PGRpdiB uwEhiVN8eCtXr q0ehx8GiNOksM9IfMPAeL BtnWyx0MFOtEHI5pZW6tQ 4tNJOgEEfct7V8hWJ7H8M wfiTblp8fn8ab CQSbSDppF78poTFsq8O1Q ITanWO0XPZdmYerThPseD 93Oyc+CGDxuHgur9UbQzj kl6joa4pgtDr1 HuNeMLRvxnRcjQoiPEZ9y 9KpNl97Q87hWCyxFJZwCS VaYOMgNQMxhHfucz0oaX3 wIi8+PGNvbCB3 uVG8nT7mPSScOsF9CDcpD 456PbLquAGsOwhvm7mit6 mcwHp1MaRgKPJrcwEbyKe cULH3p9BySo90 X33tQUotRRIgUDYlRRYqO SLloZzirw9beT2iDm2+PC 0lj6hhja52vJ61yTS+PHR fDWN0oQkeZNox ZENenA0cWBsoLoA7HWOxB sUgdD24yNUzKYdrSt8hiU qepNbcGD3uQZNkwmpjz75 6UzBhf6paBPKl uZLlLZweBBU3K95pf3R6Z GHoEMUnWHV6mYV7jB0kaH lnbjogbGVmdDsgdmVydGl lVFhcFNibA623 IHRvcDsnPlBhdGllbnQgT yHdENu9U9FtTta7DQZhtE spON6nxGLlROjtRg7xmZd lfLxzGJ6xUBUg jeizy313NrMqn9oiOVUlb SKbKCweFEA6F96ld2A8YY JaERTmOAE7mZH0qB6ymZy nbjogbGVmdDsg msOlxYovPSuzBRuxR573O HRvcDsnPkJpcnRoIERhdG G9QL90ZN27pAJcv5L9cHA 5M4HtGUPiuwbt zqtogJI3CUFgPAXrwS29F k7zqTciFb3lBWLiCZV7QE TueYUhX1FheS5zMzIqVNW vFMDxZ0VgyQUj BUeqZ817XSsdNwN9XNOrx cNqC5McVSQrdQuyLeX8s5 M6Jw7FA3F1MY91AE01wQX jw1Q3lCY5J5Ee NTLmldlwwbwiyHQ3OXItH TBraT86Jm0rrEdqKl0qIS GxVTW5UCJlkWIqQ1AayP8 yOiAjMDAwMDAw L0DqxOYoFUkwP555MSzmZ xO3HCVwbeHnP9AjWVCfiN nsZbV7f3O5La6NNWg9UI4 4UU07qOPnk6U5 tEL2F0WmRATkoojyejbyj JR6AAHrMAUmjX95Tc2ntK izKo9oINSiOUL8SNMoyVY bV6PmmK3qYlZd YZPdIDOfI6DgmQGtFNwcR 098YKpqMxQ8TWUmrdWeT9 DgCLQgfJmqJmV4o8Y0Tw9 RMTPiRY33GMD2 jBE1JO81QX21H9LbCyrap GFibGU+PHRhYmxlIHdpZH RoPScxMDAlJyBzdHlsZT0 uDj4iRVEdYQSw fVtzkGNfEmXwo0jkYTRpC FoqKO2ouDolM5OrrGG6AA Bph3w4Jo80P98uR5ToyLC +RRAsiOU9tAB1 aU3eIuYyHkG0VLylN525Y bYppQIuAlinb1mya5gtaM g8DwB7MLPtwnRdiGxpJMN 7x3YrPi59A57c IHdpZHRoPSIxNSUiIHZhb Aobga5csK7yIs4+PGNvbC Y3tER0zF4tLgDqNeC0ZNi qN375SgEgxTYj Uyivj9flt4jorFj1FfQgF QFewiXtjJlyHNX3e6HpFy 00I1RhuXadc9YsIzt3os9 2nWOsr9L8eYA4 H5GtSEBeivzzuUEbsAedQ F5iPDWohwxsSMVhvQ6qES TkV9t3QmYaMdT6EEvsZ8L tbcM7TLXyvDSx NTwaMAH7W97bo7N9EGEtW MAuBYC0vXW3pM2avFsyue ogbGVmdDsgdmVydGljYWw nVCyrU546UZYd iFjzVVZsnU4aOMOkbTMen UpyJU5nYIFganzzTjhFQI xFUiwgVEFNQVJBIEpFQU4 1Y9AdJcu6RPWe mFmqPN4bwXFfXKkrEg9ox WghtFavTM6lRFUofsdwWT SntC5bPCZuaJNkuOifEZ7 lAJGiuzgps945 AzGiEGT2RWGkmRMbI6Plo M7vQiTxRTSfDPMvM8PtaX KvVAlvK679FVrjNhQ2TCM ekhVxE5VhUGZo vFtgKkR1a4V4Ql7pCQ0sQ F6lDMTcKL40DX02mNZtk1 D8jHO1G9DoQSDrpxqjnhn uhQH7PSVlNIHc dG49wTIiJRdyGt5ct4P2x 293HFOpYRJxdM80Qk1jpL utQEXmmFCDnN2czqnix5t vcjogIzAwMDAw JCa2GIx6OLRhcUjkOwPsE NT3QjQ3OVJ6uECotU3djJ auchvhrI4gIar+NTggWWV mrhZ6M7VmQky1 QEEdsXkqKD6plSVvSWdoF w4alIipvTlvBK2yRLSdff gfPZAhbU8lGGSssBWojMl tDG2nOEXhhigj q085BzTaVIS9UKFucUExA 6WghD8bStMwMQCxVOLvZ0 ZxvGKsYBgcT379FXgtWeF 9DFMursBhP4Gf CJPtvQydXmY3s9S1Ke9VR T1SCKV6R1UuTrh7WGLutK elJK5jxAXiIFwaHa6nhSz kjRzqRM6nIRQg zlunDMVrcE5iJHZmwQYyi SkoUV5nAUUtnzaay934Fr JpBSM7SHHsxJMjA3NuuW0 yOiAjMDAwMDAw O9TozMCnRDgrJ430RMncX cM8YOTqdhBdH4DaIJIrtC pwFdF8w3G0Nv8EGRO3yfM qnuzoF3H1fAT7 aWVudDwvdGQ+NX01cs84Y 9AwZuysJid3HCIfPKF5zG C0sD5rLBZsHQepl4M9cJO 3U7UbbiDguu3v a7zbPJRqSMxsL79reIIsf 2R5LZFleVA4YJBghMidKf AliJ24Jwn+ZFYxkPlmt7Z bIjzvb5orv1hb oDk2AlVfLBYlbwQelGrpJ IY1l4ViNh21V33iIRbjTJ RoPSIzMCUiIHZhbGlnbj0 hkZ6eKn8+PGNv tRX6qBD4sF7mJoAdVlY7Z IlnR165EaXrhEZeTeiti2 qwe7rhtQi2WsCnPEJfibF rnOirRFK1z0Ed Uy13Y4XvoLdpm4OhYdb7r z30uUVho7R6bAN1S9PiNX PekwnwkPBzeHddIG4yHUH qwbivEYQnoF8f DNYbY8f7RzKxEnO5EWpeA 1GqfeU3NYHsdSPsXITuiP SHpQ7jkvzql3gadytrObQ vLPTgMHr4JXa4 XYLcwFymBbIcVMQ2TiQ4U YJ1kZSzqT5ckFaumnndcP 9wOyc+TOs3b3orgXVkDR4 xxLM2HA16CO79 sTYyk5U1yLH8I0NcYGRoo egwxjgquYK0LPJeFFCdkW 37Fe5yfTelYe4fMNWfWUD 2UGYhdSYzO6Xt vH5lTjIfBHPyAMFoE9Ick QPnQEgxU495SKnzZwZ4MK GsjdJjB1AaHUHoqBafEjO 3p0Q5Hn0FUF54 RN04TS43cPWbn8C6vWT8C 7NwMEPdsaejziflhLF3ZV ZmBEQmzI33Ll4xrObgQl6 dCPJbQRQ0ELUb aREoQ4KzmP8yIkBtLOQjL IApT4ImwPAvAFznT228JO siUxX9SVXfhbGnK6IrUUW jaZcfEkF1u4H0 Af7CRv77MB47LB28gTYja 2Z0vHB8R2AjTGAwaxswrs gldNQ2CSZgMZAydU51Vk6 jbVlbJh7fFHOx JCW7JWTbqSGdD8FcyD8cR qUdRRPjQUYnB1OczKAdXF tcW534HHgtEdS1AAXsdgA bS8HvOUGofMzy ApR0l3A1Hx0NAHlfwnh4K 3RkPjwvdHI+MO63RCKcNE 22cGNktVByv2djgLs3LeL fMJIqPIU6oMhb PSd (more content not included)... [facility] Provider [place] 09-13-2020 Provider Orders [id number] [facility] Coding Summaryon 09-12-2020 Coding Summary HTMLBase 64 WemlbwyqDWa4jAy+PGhlY WQ+MP1VJDGfV54qtYUtjV 1ZK6nPYJ9OMNFWYIBVGN7 MCN9lnOL0MTegO6VugfKu ZfhnwKGeMW86PLj2PBP7m KgkJMvyrD5tyPMqI9x4Eb SoPD20dO08XYscHPDgQcT 3LjZpbjsgbWFy R9hjPzVvtOKlPld+PHRhY mxlIHdpZHRoPScxMDAlJy RduQqjKS0sHn1xVPCmSDM vbGxhcHNlOiBj c9zjMRBgBFisSR6wvDsnN 7TsePJ2MZLdy1g7Tn20lF I+JGYvMLD8bHojGDpff34 9ItOnz4isQQE2 iWDdQYltYEJ0K80in0Q4H CDbKYQbIGY8zVH1dC6nsB ikiefgJ6FkjDHuBnH2XTP 3xHHkmO3mmDoq lqnsyO7sUoc+Z28SKP0WC HMDDA8EMqa5A1PeUrsinJ I+QS64RWVeSQ53zEVrtJB ly6afmZu2IcRq DGCtNFS7wRejROhzm0QzU SZaX83uwMLjm1Z8PHViyQ qiqJWfGeWjsIY1tW0hGEg zqlqfh7brpguj Rxttg9bvpp59tE89X74vH ZovXWZlJMK0USNjRUJbqR htej2hlM4bXk3+OFche0g cn5irmBs9BnBj LWYdrjRsoDjtLYL8q5WzS u06I8CigIoqo1QuBjb7rd 89uCHxw3T0hAZ1YZflESG feH4kPGyxAeS0 POVlClZqrY56mCLtTTmoZ v5rhYfrpXjfAP8rKBNpsq eaBOYvuH9zDSMrcWRggZc bHW2cZTGtfwkz m290BiKwFQE5LINljJTnF 3KljP8bZhMyNHOiYRYdZ7 PejBXfNVobP457EJwoHaC 3DYLsocBbR7Pa NGBsaMdaSrE5p5J6Ro8Eq 9IolndqIFF1OPcvUMX1Fn T1DiTaIkQ9N6QjRkt6SIC eoDgnTV1iL2Dv JJKexqitwnpmhLM3TWOwX RCqvG86iUGoJSnaOe9wi7 N0h004HGMoCRZxyN80Xz7 udDogMTBwdCBU iS8iijrkt7itckraNkLlQ IPnHQg6QZu2AYVaqYdfLq OcUFV2UhA6UEE4oYAdsJ7 yyHdwdgyujO8d Oyc+M99yaT4qUER7YRM1g zyxKXIugyLeAL76CO26D0 RyPjwvdGFibGU+PGRpdiB yxSzoJK1xVpYd q2wlz7XoYKzdM2AiYYYwX XzdCaz1QDInOGW5zPG0gM 0gLZRiINuqn3I3fPG5N6N fmfPncg5vq9dh IOZvURvwU84fkRJyo9C1Y SChoJH7HVNoyIkiNmSanH 93Oyc+RLDwyFkmy2IcYry cv8xtd6kllLj9 KbGqWUNijgJgbTjmTUJ2v 4ScWh53G22zERsrLLRfJT OsTMDbVJMcfPqbhv0zjW7 wIi8+PGNvbCB3 aVB8vL6kBYYnNqS7LSpbD 803ZsYwfEEaEbwvb1iwb0 nvyWe7AnLqUZYhprDsoQg qYCB6f5UmZr47 Z63nMAjwMYIgCFFkSKZlS JMvgCbmdg8vyK1xCr6+PC 5kc1lfqt54aK56dYX+PHR qXEN2lAzbYUyt GJHbaU6kQNvyRnI1CMDsF nQgyQ44hXPbSZxbHp4rjY ljiSbaPZ3iBHPcdolze57 1OsKbs8vdZMXb qACxZWpnRUC2P38uu6D1J YVqWVLpLXM5aHZ9mY7esN lnbjogbGVmdDsgdmVydGl nMPioRBpsY077 IHRvcDsnPlBhdGllbnQgT cIhFOm4P5UgVsx4KEMnlV frNX2ynJBiKTciEu7qnHz ejKxgYE5gGUSs lemrs469YxOai5pyFURxa JXsXJfsBYQ5F87es4V7RP FsYRZrFVE3bCD2yE3uwIn nbjogbGVmdDsg btWuiBbqDCykJKglF225E HRvcDsnPkJpcnRoIERhdG P7MT85XS68wCQqo9Q7jHF 3B6NcFHKbqxtu sgcfxVR9NCLqXAWhoS50U d0grGuvKw8gTIJzGZT6EL HzyOCiY1KjpP7uTtJsNFW tIMLxN1EhwADw QIscQ872OFeaWyP3FWAhd eRiN2PwJTHkkNbyDtY7j2 Y0Uq2PE8S1JB63GS73aFJ ba1V2mIG8Y1Kj KIChhmtaukaouGZ3UQMpA NSenC83Cq2jzImqAg6cWR AoUTN1LCOxnMAnI4XdbH2 yOiAjMDAwMDAw V9TwlDMxGRpaS475KElqF gE8JNQdvqZkZ6QuCDUxcI wmBkB2g9H3Xt5ODEy4NQ0 7GK82vLPwd1F0 cGN4E2QhWIRgnusajmthh KZ5TUMbFOCoeD17Ya0tpB ecUm1sFPOxNGQ7MIJlhDG lK4JqeV0eIsYq UWJxOJBbX6LdqHFcSYyzS 423CEwvEoU6EISrfgIcE4 UcWFWliKieUrB4q2S1Cb4 DLXQmRW82KDY0 bVN4GQ18PZ39L0ItBlzot GFibGU+PHRhYmxlIHdpZH RoPScxMDAlJyBzdHlsZT0 uUz9nHWXdOZDl cAntkZKoZgAqd0wuYLJcU IjaBU9qxKzlF2JdpNC2BO Gmc6a3Ae50W91nJ0TiuEM +RCZrgTY7pNC6 yU7yAzDfFpB0AGsfF035B fSfnMMjZcwos9vwf8fetZ q7RwH1UUIohpNkgLlyANH 8i4MmGy86R08k IHdpZHRoPSIxNSUiIHZhb Rwcmd0kqL8gZy0+PGNvbC R5hAC5zK7sSgXnMjA0AMf zN658DzRqoENv Umfcm4hnw5wnzAm9DeYoH TFgxuTjmYotADC9c8JfAx 72I8RydOmsd2NiIhi1xk9 6eGRxf9O8cTK9 I7FhDWRbetwlxXRimQrdL H1mRGAtgtvsPHUsqR7nZK RqQ9y1FzFmTcP7LWxsL5Z zlsO0OMTxpDFz TLuuYLE6Z83yh0K6NTBwA URcUCF9qGV1kW7utOiqhl ogbGVmdDsgdmVydGljYWw rWAqhG285BIQe kBmtKVUrxE1yZSUroHSrc DxeDP4xSMHhqmunZoqGCJ xFUiwgVEFNQVJBIEpFQU4 2Z6WmVee8DZFj dVwrOI9qsULyNPenWf1hx BkdaOxlZT7yIXHavgnpPW NhnZ9bWSJirCHbhWgdVW7 nHGJwknfpx349 RwBsCUJ7AJGiaJMfS2Hct Y9hBeMdGIRoTVIhR3QefO VqWBxgF097RCfiGgS8KLK eqrVsI0VcGNRp bCqcUpG4t3P4Tv4pWK3oS M4hIZWbGH83TF19eCTja5 H8iDM6R9YlIAYiwegkyio hbKW8CPXvMAQf nE79bNBuOJooDk9su1X2t 384XNOrUZNjtA49Rn5soR zuBCHnoIAJtV8yxqpia8l vcjogIzAwMDAw IIr0UQw7RKGmkFmhClYkY EO6JxA1MKZ0mGDrwQ9mvH wjmzzmoR0rUyl+NTggWWV mxqR1O1ImEsh1 LLJwpRepNK1lgNEmOZhuN b7mzBuycNkxYX2dKBWqji nfCWXjkA1zJRLwiZDxfDi nDF4aSIHwxbmy q450IrJcBNT1ECIaaSFrY 4IaqG0sElSfDDPdWWByN3 AptVPsDQueL036OAuqZlT 5IOAebjElI8Rc YCHoiWywLkS2n4M7Mp7II B0PTTB7F6MqBxn9FUFreH vrFP5xcKHpXWoaXw9jxRx ohDocUT5aTUPq hbmvAAWghY3xMUEnrLCkd PdzGL8dYFGmgknvq533Ga KgVXC2NCWxhIAvX9WvnY1 yOiAjMDAwMDAw S0AtwRRkGUphF917WNcdE uV9JILzrsKmE4GgGKIceW qgEjK0j4D2Xe3DEWuhzRL +YZ58gm83I7Uk WmtkZbs5XDBuSXF1lQQ2j R7gHBZdLDizd7S6nJE6B2 MplwJqqd9vp6ljHRWiILr kB00hnSWvk8E3 OECxeXY9ANGphYbuQdXbm G93Oyc+EEXubGwjz3DgYg xvs4nxj6ttdDf0PbSaGRB gdmFsaWduPSJ0 v2WiWi28Z79bSMqxXAGoH PLmWXApFQCdsJbkrn4xaR 9wIi8+AGUhlAP8rLG7lA7 pZgKsAxV7FLxh C953FzMrqJSjZamlu9icv 2twnIi5HkSdTDIehaNqiW rnVBW8t8UpPr98D2AslPm vt2FfDni0oo17 yBZqt2X4fRZ5F7EiDNQha cwhvLQdtGieGQ0eBXPvxl jfKASfeY6pYXAxO9g0UrG tBvK2RSqbS3Aj zqE5BAXoeONtFXRphDTYc X0jjfdwe9pndcbdPdWaLR ScMBi5FZx1RKThrRmhNjU gOTR5RvM8RNT0 kLVfhH4nxHjenzfvcZ3kU yc+NFy1i1fiyJKdAN1tsY J3YB02VD88kSHsj3C9oQK 4C6FoNLRlxfnk ueyooKF3QLHyNWSwoA25Y q3hkJorZt9oXXFsODW2XW GubKKiA6SanY4sYhMtYTP eEPZzR9ArlFKe DBuiD251GJcgBqO7NDZxi dDgN2QuGUGahUzvRhL0f6 D6Yx6ZYA60VT46PN50aYZ hi6K5yRK3S1Fg LMMevizmctoszBJ5FYNrZ ILldT42Nq7hpPziVv2lOL JfHLZ9OZChuJGzL4VupF0 yOiAjMDAwMDAw U3JicVPqPHmwQ584UPuoN oT6FJRgmoBrD5GrJLAlrA beXkG1z2X6Ba2KMo75LR0 5LA10wSQbu7V9 sUJ6B1NpMUMxiunnqwshy UL1CYGiCSVoxB85Br0rvH npTa1bRFOzYKF0HLVctAF tZ1JoyP9xRoFq XEDeUWWwT2FzuQMiEXglW 505QGygGyZ3SUGxkuKxV8 PjWEQlaRnrQfX6h0K3Fn7 XYErdouh5G7Vx PjwvdHI+OE19RPMuOE04r NByiRSzu6shyRb9FxXaYT SnBPM6xMirJBqgv1GeTCG mX04ljAKpv3O5 IGN (more content not included)... Normal [facility] Mammo Screening 3D Bilate ral.on 09-10-2020 [place] Mammo Screening 3D Bilateral. MAMMOGRAM SCREENING 3-D [...] lymph nodes are noted bilaterally. [employer]2 Image [employer] was utilized for this study. IMPRESSION: No [...] 2-Benign finding Recommendation: Normal interval follow-up Normal [facility] Provider Orderson 09-02-2020 Provider Orders [id number] Normal [facility] Vital Signs Date Time Vital Sign Value Performing Clinician Facility 01-29-2023 15:12-0400 Blood Pressure Location Colby [employer] [facility] 01-29-2023 15:12-0400 Diastolic blood pressure 78 mm[Hg] Colby [employer] [facility] 01-29-2023 15:12-0400 Heart rate 72 /min Colby [employer] [facility] 01-29-2023 15:12-0400 Respiratory rate 16 /min Colby [employer] [facility] 01-29-2023 15:12-0400 Systolic blood pressure 138 mm[Hg] Colby [employer] [facility] 02-19-2022 08:45-0500 Diastolic blood pressure 81 mm[Hg] DO Fanny Petznick Work Phone: [facility] 02-19-2022 08:45-0500 Heart rate 77 /min DO Fanny Petznick Work Phone: [facility] 02-19-2022 08:45-0500 Respiratory rate 16 /min DO Fanny Petznick Work Phone: [facility] 02-19-2022 08:45-0500 SaO2% (BldA) [Mass fraction] 95 % DO Fanny Petznick Work Phone: [facility] 02-19-2022 08:45-0500 Systolic blood pressure 146 mm[Hg] DO Fanny Petznick Work Phone: [facility] 02-19-2022 08:11-0500 Body temperature 98.4 [degF] DO Fanny Petznick Work Phone: [facility] 02-19-2022 07:41-0500 Inhaled oxygen flow rate 8 L/min DO Fanny Petznick Work Phone: [facility] 02-19-2022 07:24-0500 Body height 175.26 cm DO Fanny Petznick Work Phone: [facility] 02-19-2022 07:24-0500 Body mass index (BMI) [Ratio] 28.6 kg/m2 DO Fanny Petznick Work Phone: [facility] 02-19-2022 07:24-0500 Body weight 87.99 kg DO Fanny Petznick Work Phone: [facility] 12-16-2021 11:50-0400 Body height 175.26 cm Mala Aguillon Other [employer] Other 12-16-2021 11:50-0400 Body mass index (BMI) [Ratio] 28.65 kg/m2 Mala Aguillon Other [employer] Other 12-16-2021 11:50-0400 Body temperature 97.6 [degF] Mala Aguillon Other [employer] Other 12-16-2021 11:50-0400 Body weight 88 kg Mala Aguillon Other [employer] Other 12-16-2021 11:50-0400 Diastolic blood pressure 79 mm[Hg] Mala Aguillon Other [employer] Other 12-16-2021 11:50-0400 Respiratory rate 18 /min Mala Aguillon Other [employer] Other 12-16-2021 11:50-0400 SaO2% (BldA) [Mass fraction] 99 % Mala Aguillon Other [employer] Other 12-16-2021 11:50-0400 Systolic blood pressure 145 mm[Hg] Mala Aguillon Other [facility] [employer] Other 10-19-2021 14:52-0400 Diastolic blood pressure 64 mm[Hg] DO Fanny Petznick Work Phone: [facility] 10-19-2021 14:52-0400 Heart rate 89 /min DO Fanny Petznick Work Phone: [facility] 10-19-2021 14:52-0400 Respiratory rate 18 /min DO Fanny Petznick Work Phone: [facility] 10-19-2021 14:52-0400 SaO2% (BldA) [Mass fraction] 94 % DO Fanny Petznick Work Phone: [facility] 10-19-2021 14:52-0400 Systolic blood pressure 144 mm[Hg] DO Fanny Petznick Work Phone: [facility] 10-19-2021 13:15-0400 Body temperature 98.4 [degF] DO Fanny Petznick Work Phone: [facility] 10-19-2021 12:40-0400 Inhaled oxygen flow rate 8 L/min DO Fanny Petznick Work Phone: [facility] 10-19-2021 11:15-0400 Body height 175.26 cm DO Fanny Petznick Work Phone: [facility] 10-19-2021 11:15-0400 Body mass index (BMI) [Ratio] 29.2 kg/m2 DO Fanny Petznick Work Phone: [facility] 10-19-2021 11:15-0400 Body weight 89.8 kg DO Fanny Petznick Work Phone: [facility] Encounters Encounter Date Encounter Type Care Provider Facility Start: 07-25-2023 End: 07-25-2023 ambulatory FANNY M PETZNICK Not Available Start: 03-28-2023 End: 03-28-2023 ambulatory FANNY PRABHAKAR Not Available Start: 02-13-2023 End: 02-14-2023 ambulatory Colby SANTA Facility:[id number] Start: 01-29-2023 End: 01-30-2023 ambulatory Colby SANTA Facility:[facility] Start: 01-29-2023 End: 01-29-2023 Patient encounter procedure Colby NEFFL General Surgery Nill/Said Juan A Start: 01-03-2023 ambulatory Colby KIET Facility:[facility] Start: 06-25-[address] FANNY PRABHAKAR Fac ility:[facility] Start: 06-03-2022 Encounter for genera l adult medical examination without abnormal findings DR FANNY PRABHAKAR [facility] Start: 05-30-2022 End: 05-31-[address] FANNY PRABHAKAR Facility:[facility] Start: 05-30-2022 End: 05-31-2022 Encounter for general adult medical examination without abnormal findings DR FANNY PRABHAKAR Facility:[facility] Start: 05-21-2022 ambulatory Fanny Prabhakar Facili ty:[facility] Start: 03-30-[address] FANNY PRABHAKAR Fac ility:[facility] Start: 02-19-2022 End: 02-19-2022 ambulatory Bharat Zelaya Jr Facility:[facility] Start: 02-19-2022 End: 02-19-2022 Admission to same day surgery center DO Fanny Petangelica Work Phone: [facility] [place] Start: 02-19-2022 End: 02-19-2022 ambulatory DO Fanny Petangelica Work Phone: [facility] Work Phone: Start: 02-16-2022 End: 02-16-2022 ambulatory Bharat Zelaya Jr Facility:[facility] Start: 02-16-2022 End: 02-16-2022 ambulatory DO Fanny Petznick Work Phone: [facility] Work Phone: Start: 02-16-2022 End: 02-16-2022 Patient encounter procedure DO Fanny Petznick Work Phone: [facility] Start: 12-16-2021 End: 12-16-2021 ambulatory Mala Aguillon Other [employer] Other Start: 12-16-2021 Office outpatient ne w 20 minutes Mala Aguillon [facility] Start: 11-06-2021 End: 03-16-2022 ambulatory MR ALBANIA CALLOWAY . Facility:[facility] Start: 10-19-2021 End: 10-19-20[facility] Start: 10-19-2021 End: 10-19-2021 Admission to same day surgery center DO Fanny Petangelica Work Phone: [facility] [place] Start: 10-17-2021 End: 10-17-2021 [facility] Start: 10-17-2021 End: 10-17-2021 Patient encounter procedure DO Fanny Prabhakar Work Phone: [facility] Start: 10-10-2021 End: 10-11-[address] DOCTOR PACHECO Facility:[facility] Start: 09-12-2021 End: 09-13-[address] FANNY PRABHAKAR Facility: Start: 09-04-2021 End: 09-05-2021 ambulatory Fanny Prabhakar Facility:[facility] Procedures Date Procedure Procedure Detail Performing Clinician [...] Activity Detail Author Start: 02-19-2022 End: 02-19-2022 [facility] Start: 10-19-2021 [facility] Work Phone: Start: 10-19-2021 [facility] Work Phone: Immunizations Immunization Date Immunization Notes Care Provider Fa cili 12-30-2022 influenza virus vaccine, unspecified formulation Colby SANTA General Surgery Juan A 07-15-2020 COVID-19 mRNA, Comirnaty (Pfizer) DO Fanny Prabhakar Work Phone: [facility] 06-24-2020 COVID-19 mRNA, Comirnaty (Pfizer) DO Fanny Petangelica Work Phone: [facility] Healthcare Payers Date Payer Category Payer Self-pay [id number] 1960 Unknown [id number] 2.16.84 0.1.548724.3.579.2.593 1960 Unknown [id number] 2.16.84 0.1.768849.3.579.2.593 1962 Unknown [id number] 2.16.84 0.1.799119.3.579.2.593 1962 Unknown [id number] 2.16.84 0.1.311000.3.579.2.593 1962 Unknown [id number] 2.16.84 0.1.629183.3.579.2.593 1962 Unknown [id number] 2.16.84 0.1.213552.3.579.2.593 1962 Unknown [id number] 2.16.8 40.1.309129.3.579.2.727 1962 Unknown [id number] 2.16.8 40.1.502129.3.579.2.727 1962 Unknown [id number] 2.16.84 0.1.984396.3.579.2.1259 1962 Unknown [id number] 2.16.840 .1.185044.3.579.2.1259 1959 Unknown [id number] 1959 Unknown [id number] Unknown [id number] 2.16.8 40.1.829545.3.579.2.531 Unknown [id number] 2.16.8 40.1.670677.3.579.2.531 Unknown [id number] 2.16.8 40.1.001285.3.579.2.531 Unknown [id number] 2.16.8 40.1.562165.3.579.2.531 Unknown [id number] 2.16.8 40.1.370279.3.579.2.531 Unknown [id number] 2.16.8 40.1.824117.3.579.2.531 Social History Date Type Detail Facility Start: 10-19-2021 End: 01-29-2023 Tobacco smoking status MAIS Never smoked tobacco (finding) [facility] Start: 1960 Sex Assigned At Female F [facility] Sex Assigned At [facility] Tobacco smoking status Never Gener al [facility] Procedure Code Equipment Code Equipment Origin al Text Equipment Identifier Dates Arthroscopy, shoulder Tendon/ligament bone anchor, bioabsorbable [id number] FDA Start: 10-19-2021 Arthroscopy, shoulder Tendon/ligament bone anchor, bioabsorbable [id number] FDA Start: 10-19-2021 Goals Date Patient Goal [...] 1 tab(s), Oral, Daily Flonase 0.05 mg/inh [place], 1 spray(s), Nasal, BID gabapentin 300 mg [...] Father. Alcoholism: Broth (more content not included)... [facility] Comment on above: Result Comment: Elec tronically Signed By: KIET GUZMAN, Colby Kaur.[email or web address]\\Date and Time Signed: 01/29/23 15:50 EDT Evaluation [...] understanding and is agreeable to treatment plan adQ Other Evaluation + Plan note Note Date & Type Note Facility Evaluation + Plan note No data available for this section General Surgery [facility] Evaluation note Note Date & Type Note Facility Evaluation note No assessment information availa ble [facility] Work Phone: History general Narrative - [...] shoulder surgery 2021 Hospitalization History see above [facility] [employer] Other Hospital Discharge instructions Note Date & Type Note Facility Hospital Discharge instructions Additional Instructions #1 ice left shoulder as needed for pain. #2 start physical therapy tomorrow. #3 10 wall walks 4 times a day. #4 may use left arm [facility] Work Phone: Hospital Discharge instructions Note Date & Type Note Facility Hospital Discharge instructions No data available for this section General Surgery [facility] note Note Date & Type Note [...] section and content) DATE CREATED AUTHOR 08/02/2021 [facility] DATE CREATED AUTHOR AUTHOR'S ORGANIZ ATION 05/31/2022 [facility] DATE CREATED AUTHOR AUTHOR'S ORGANIZ ATION 06/27/2022 [facility] DATE CREATED AUTHOR AUTHOR'S ORGANIZ ATION 03/02/2023 [facility] DATE CREATED AUTHOR AUTHOR'S ORGANIZ ATION 07/27/2023 [facility] EPIC Care Teams (unrecognized [...] BE BASED ON THE PRIMARY CLINICAL RECORDS. [employer] provides no warranty or guarantee of the accuracy or completeness of information in this document."
[2023-08-21 07:00] LABS: Basophils Percent Auto 0.9 % (0.2-2.0); Eosinophils Absolute Auto 0.1 10^3/uL (0.0-0.7); Hematocrit 46.2 % (36.0-48.0); Hemoglobin 14.7 g/dL (12.0-16.0); Immature Granulocytes Abs Auto 0.01 10^3/uL (0.00-0.03); Immature Granulocytes Pct Auto 0.2 % (0.0-0.5); Lymphocytes Absolute Auto 1.2 10^3/uL (1.2-3.8); Lymphocytes Percent Auto 25.3 % (20.5-60.0); Mean Corpuscular HGB Conc 31.8 g/dL (29.9-35.2); Mean Corpuscular Hemoglobin 29.9 pg (26.7-34.0); Mean Corpuscular Volume 93.9 fL (81.0-99.0); Mean Platelet Volume 11.5 fL (9.5-13.5); Monocytes Absolute Auto 0.5 10^3/uL (0.3-0.8); Monocytes Percent Auto 9.7 % (1.7-12.0); Neutrophils Absolute Auto 2.8 10^3/uL (1.4-6.5); Neutrophils Percent Auto 60.9 % (43.0-75.0); Platelet Count 158 10^3/uL (150-450); Red Blood Count 4.92 10^6/uL (4.20-5.40); Red Cell Distribution Width 13.2 % (11.0-15.0); White Blood Count 4.7 10^3/uL (4.0-11.0)
[2023-08-21 08:34] LABS: Alanine Aminotransferase 46 U/L (14-59); Albumin Globulin Ratio 1.2; Alkaline Phosphatase 81 U/L (46-116); Aspartate Amino Transferase 21 U/L (15-37); BUN Creatinine Ratio 25.4; Bilirubin Total 0.4 mg/dL (0.2-1.0); Calcium 9.5 mg/dL (8.5-10.1); Carbon Dioxide 27.1 mmol/L (21.0-32.0); Chloride 104 mmol/L (98-107); Chol HDL Ratio 4.4; Cholesterol 224 mg/dL (<=200); Estimated GFR (African America >60 (>=60); Estimated GFR (Non-African Ame >60 (>=60); Globulin 3.4 g/dL; Glucose 128 mg/dL (74-106); HDL Cholesterol 51 mg/dL (40-60); Potassium 4.1 mmol/L (3.5-5.1); Sodium 141 mmol/L (136-145); Total Protein 7.4 g/dL (6.4-8.2); Triglycerides 131 mg/dL (<=150); VLDL CHOLESTEROL 26.2 mg/dL
[2023-08-21 13:55] LABS: Creatinine Urine Random 57.53 mg/dL (20.00-300.00); Microalbum Creatinine Ratio Ur 22.5 mg/g (0.0-29.9); Microalbumin Urine Random <1.3 mg/dL (<=30.0)
== END 2023-08-21 06:48 | disposition home or self-care (01) ==
LOC: LAB 06:47
PROVIDERS: PCP Family Medicine; Visit Provider Family Medicine
DX: Z00.00 Encounter for general adult medical examination without abnormal findings (principal); E11.42 Type 2 diabetes mellitus with diabetic polyneuropathy
CPT/HCPCS: 36415; 80053; 80061; 82043; 82570; 85025

== ENCOUNTER 2023-09-07 07:51 | Outpatient (OUT) | payer BC, SELFPAY ==
--- NOTE | 2023-09-07 | US_ITS ---
The [address] [address] Patient Name: ZARA BENEDICT MRN: [id number] date: 1960 Sex: F Assigned Patient Location: [place] Current Patient Location: [place] Accession/Order Number: [id number] Exam Date: 09/07/2023 07:56 Report Date: 09/09/2023 08:21 At the request of: JARETH PRABHAKAR Procedure: US right upper quadrant PROCEDURE: US right upper quadrant, 09/07/2023 7:56 AM EDT CLINICAL INDICATIONS: Right upper quadrant abdominal pain for 6 months. COMPARISON: None. TECHNIQUE: Right quadrant abdominal sonogram, charlton scale, color, and spectral assessment. FINDINGS: Visualized pancreas is unremarkable. No ductal dilatation is seen. Portions of head and tail segment obscured. Right kidney is normal in morphology. It measures 11.8 x 6.4 x 6.0 cm. No hydronephrosis or shadowing calculus is identified. Focal renal abnormality is not demonstrated. No ascites. Liver is upper normal in size right lobe 15.8 cm. Increased echogenicity, coarsened echotexture, decreased acoustic penetration noted. Visualized portal vein patent, antegrade flow, normal velocity. Common bile duct 0.5 cm. Multiple echogenic foci are present near the expected location of the gallbladder. There is suggestion of wall echo pattern. Contracted gallbladder with extensive cholelithiasis favored. Localized pain, wall thickening is not seen. US/US right upper quadrant IMPRESSION: 1. Suspect cholelithiasis within contracted gallbladder. No wall thickening, localized pain, or biliary dilatation. 2. Mild hepatomegaly, moderate hepatic steatosis. Electronically authenticated by: KING BONILLA Date: 09/09/2023 08:21
--- OUTSIDE RECORDS SUMMARY | 2023-09-07 07:53 | XMS_ITS ---
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 Assembly Line Name Role Phone Petcheriick, DO Fanny Primary Care Provider [phone] Stepish Jefferson, DO Diaz Attending Provider Mala Aguillon Unavailable Petznick, DO Fanny Primary Care Provider [phone] Nathalie Jefferson, DO Diaz Attending Provider Bharat Zelaya Jr Attending Unavailable Bharat Zelaya Jr Admitting Unavailable Petznick, Fanny Primary Care Unavailable Petznick, Fanny Primary Care Unavailable Self, Referral Admitting Unavailable Self, Referral Attending Unavailable Williamanic Bharat Jefferson Admitting Unavailable Stepanic Bharat Jefferson Attending Unavailable Petznick, Fanny Primary Care Unavailable Bharat Zelaya Jr Admitting Unavailable Stepanic Bharat Jefferson Attending Unavailable Petznick, Fanny Primary Care Unavailable Petznick, Fanny Primary Care Unavailable Self, Referral Admitting Unavailable Self, Referral Attending Unavailable Williamanic Bharat Jefferson Admitting Unavailable Stepanic Bharat Jefferson Attending Unavailable Petangelica, Fanny Primary Care Unavailable PETANGELICA, DR TEMPLETON Primary Care Unavailable VISCI, DR CHACON Attending Unavailable VISCI, DR CHACON Admitting Unavailable ZIEBER, DR JOHNSON De La Rosa Consulting Unavailable VISCI, DR CHACON Consulting Unavailable PETZNJORJE, DR TEMPLETON Attending Unavailable PETZNJORJE, DR TEMPLETON Admitting Unavailable PETZNJORJE, DR TEMPLETON Primary Care Unavailable PETZNJORJE, DR TEMPLETON Consulting Unavailable MISC, DR MCMAHON Admitting Unavailable MISC, DR MCMAHON Consulting Unavailable STEPANIC, DR DIAZ Primary Care Unavailable MISC, DR MCMAHON Attending Unavailable FLAVIA MELVIN Consulting Unavailable PETZNJORJE, DR TEMPLETON Attending Unavailable PETZNJORJE, DR TEMPLETON Admitting Unavailable PETZNJORJE, DR TEMPLETON Primary Care Unavailable CALLOWAY ., MR LOVELACE Attending Unavailable PETZNICK, DR TEMPLETON Primary Care Unavailable CALLOWAY ., MR [place] Admitting Unavailable PETZNICK, DR TEMPLETON Attending Unavailable PETANGELICA, DR TEMPLETON Admitting Unavailable PETANGELICA, DR TEMPLETON Primary Care Unavailable FANNY PRABHAKAR Primary Care Physician [phone] KIET, Colby De La Rosa Attending Unavailable FANNY PRABHAKAR Referring Unavailable Colby SANTA Attending Unavailable FANNY PRABHAKAR Attending Unavailable FANNY PRABHAKAR Referring Unavailable FANNY PRABHAKAR Attending Unavailable HAROONMARILU VILLALBA Attending Unavailable Allergies Allergy Classification Reported Allergen(s) Allergy Type Date of Onset Reaction(s) Facility (6 sources) atorvastatin; Translations: [atorvastatin] Drug Allergy 2 Joint pain (finding) [facility] (7 sources) Cephalexin; Translations: [cephalexin] Drug Allergy 6 Swelling, Edema (finding) [facility] (6 sources) rosuvastatin; Translations: [rosuvastatin] Drug Allergy 2 Diarrhea (finding) [facility] (2 sources) Acetaminophen / oxyCODONE; Translations: [acetaminophen-ox ycodone] Drug Allergy Itching (finding) [facility] (2 sources) diphenhydrAMINE; Translations: [diphenhydramine] Drug Allergy Itching (finding) [facility] [place] (1 source) Hmg-Coa Reductase Inhibitors (Statins) Drug allergy aches/diarrhea [facility] Other (1 source) Acetaminophen / oxyCODONE; Translations: [Percocet] Drug Allergy [facility] (1 source) diphenhydrAMINE; Translations: [Benadryl] Drug Allergy [facility] Encounters Encounter Date Encounter Type Care Provider Facility Start: 08-19-2023 End: 08-19-2023 ambulatory MARILU PATIÑO Not Available Start: 07-25-2023 End: 07-25-2023 ambulatory FANNY PRABHAKAR Not Available Start: 03-28-2023 End: 03-28-2023 ambulatory FANNY PRABHAKAR Not Available Start: 02-13-2023 End: 02-14-2023 ambulatory Colby SANTA Facility:CD:[id number] Start: 01-29-2023 End: 01-30-2023 ambulatory Colby Estrella SANTA Facility:[facility] Start: 01-29-2023 End: 01-29-2023 Patient encounter procedure Colby De La Rosa KIET General Surgery Nill/Said [facility] Start: 01-03-2023 ambulatory Colby SANTA Facility:[facility] [place] Start: 06-25-[address] FANNY PRABHAKAR Fac ility:[facility] Start: 06-03-2022 Encounter for genera l adult medical examination without abnormal findings DR FANNY PRABHAKAR [facility] Start: 05-30-2022 End: 05-31-[address] FANNY PRABHAKAR Facility:[facility] Start: 05-30-2022 End: 05-31-2022 Encounter for general adult medical examination without abnormal findings DR FANNY PRABHAKAR Facility:[facility] Start: 05-21-2022 ambulatory Fanny Prabhakar Facili ty:[facility] Start: 03-30-[address] FANNY PRABHAKAR Fac ility:[facility] Start: 02-19-2022 End: 02-19-2022 ambulatory Bharat Zelaya Jr Facility:[facility] Start: 02-19-2022 End: 02-19-2022 Admission to same day surgery center DO Fanny Petznick Work Phone: [facility] [place] Start: 02-19-2022 End: 02-19-2022 ambulatory DO Fanny Petznick Work Phone: [facility] Work Phone: Start: 02-16-2022 End: 02-16-2022 ambulatory Bharat Zelaya Jr Facility:[facility] Start: 02-16-2022 End: 02-16-2022 ambulatory DO Fanny Petznick Work Phone: [facility] Work Phone: Start: 02-16-2022 End: 02-16-2022 Patient encounter procedure DO Fanny Petznick Work Phone: [facility] Start: 12-16-2021 End: 12-16-2021 ambulatory Mala Aguillon Other [facility] Other Start: 12-16-2021 Office outpatient ne w 20 minutes Mala Aguillon [facility] Start: 11-06-2021 End: 03-16-2022 ambulatory MR [place]IA CALLOWAY . Facility:[facility] Start: 10-19-2021 End: 10-19-2021 ambulatory Bharat Zelaya Jr Facility:[facility] Start: 10-19-2021 End: 10-19-2021 Admission to same day surgery center DO Fanny Prabhakar Work Phone: [facility] [place] Start: 10-17-2021 End: 10-17-2021 ambulatory Bharat Zelaya Jr Facility:[facility] Start: 10-17-2021 End: 10-17-2021 Patient encounter procedure DO Fanny Prabhakar Work Phone: [facility] Start: 10-10-2021 End: 10-11-[address] DOCTOR PACHECO Facility:[facility] Start: 09-12-2021 End: 09-13-[address] FANNY PRABHAKAR Facility:[facility] Start: 09-04-2021 End: 09-05-2021 ambulatory Fanny Prabhakar Facility:[facility] Medical Equipment Procedure Code Equipment Code Equipment Origin al Text Equipment Identifier Dates Arthroscopy, shoulder Tendon/ligament bone anchor, bioabsorbable [id number] [facility] Start: 10-19-2021 Arthroscopy, shoulder Tendon/ligament bone anchor, bioabsorbable ()[id number] [facility] Start: 10-19-2021 Goals Date Patient Goal Desired Activity /State Immunizations Immunization Date Immunization Notes Care Provider Caitlyn ramirez 12-30-2022 influenza virus vaccine, unspecified formulation Colby SANTA General Surgery [place] 07-15-2020 COVID-19 mRNA, Comirnaty (Pfizer) DO Fanny Prabhakar Work Phone: [facility] 06-24-2020 COVID-19 Solomon Ambrocio (Pfizer) DO Fanny Terrell Work Phone: [facility] Medications Current Medications Medication Drug Class(es) Dates [...] Start: 10-19-2021 take [address] [facility] once daily Celecoxib (Celebrex) 200 mg Capsule Active 200 MG PO Daily October 18, 2021 11:00pm CeleBREX Active cetirizine hydrochloride 10 mg oral tablet (4 sources) Histamine-1 Receptor Antagonist Start: 01-29-2023 take 1 tablet by mouth once daily cetirizine 10 mg Tab 10 mg = 1 tab(s), Oral, Daily, Refills(s) 0 Start Date: 01/29/23 Status: Ordered Start: 10-17-2021 take 1 tablet by [facility] once daily in the morning Cetirizine (Zyrtec) [...] Corticosteroid Start: 01-29-2023 Flonase 0.05 m g/inh Abbott 1 spray(s), Nasal, BID, Refill(s) 0 Start [...] KENALOG - 10 mg Oct, 20 mg Payers Date Payer Category Payer Self-pay [id number] 1960 Unknown [id number] 2.16.84 [id number] 1960 Unknown [id number] 2.16.84 0.1.744850.3.579.2.593 1960 Unknown [id number] 2.16.84 0.1.701275.3.579.2.593 1960 Unknown [id number] 2.16.84 0.1.996105.3.579.2.593 1960 Unknown [id number] 2.16.84 0.1.261722.3.579.2.593 1960 Unknown [id number] 2.16.84 0.1.911868.3.579.2.593 1960 Unknown [id number] 2.16.8 40.1.485859.3.579.2.727 1960 Unknown [id number] 2.16.8 40.1.171307.3.579.2.727 1960 Unknown [id number] 2.16.84 0.1.838100.3.579.2.9 1960 Unknown [id number] 2.16.84 0.1.990245.3.579.2.1259 1960 Unknown [id number] 2.16.840 .1.575009.3.579.2.9 1959 Unknown [id number] 1957 Unknown [id number] Unknown [id number] 2.16.8 40.1.224539.3.579.2.531 Unknown [id number] 2.16.8 40.1.125785.3.579.2.531 Unknown [id number] 2.16.8 40.1.926836.3.579.2.531 Unknown [id number] 2.16.8 40.1.986546.3.579.2.531 Unknown [id number] 2.16.8 40.1.699567.3.579.2.531 Unknown [id number] 2.16.8 40.1.880369.3.579.2.531 Plan of Treatment Date Care Activity Detail Author Start: 02-19-2022 End: 02-19-2022 [facility] Start: 10-19-2021 [facility] Work Phone: Start: 10-19-2021 [facility] Work Phone: Problems Active Problems Problem Classification Problem Date [...] HX MALIGNANT NEOPLASM BLADDER] Onset: 09-14-2021 Episodic Procedures Date Procedure Procedure Detail Performing Clinician Start: 02-19-2022 Reduction procedure DO Fanny [employer] Work Phone: Start: 10-19-2021 Procedure on shoulder joint DO Fanny Petznick Work Phone: Start: 08-01-2015 Colonoscopy Colby MORA Colonoscopy Colby SANTA Repair of musculoten dinous cuff of shoulder Colby SANTA SARS Antigen (LFIA) DO Allis on Petznick Work Phone: Stripping of vein Colby MORA Comment on above: x 2 Vaginal hysterectomy Colby SANTA Results Test Name Value Interpretation Reference Range Facility Outside Colonoscopyon 2022 Outside Colonoscopy [id number]#1. 00TIFF Normal [facility] Reminderson 02-14-2023 Reminders - From: Eunice Davis LPN To: GSN - Clinical; Sent: 02/14/2023 14:19:54 EST Show up: 01/14/2028 07:00:00 EDT Subject: colonoscopy recall Due Date/Time: 02/14/2028 07:00:00 EST Reminder/Recall Patient due for surveillance colonoscopy 02/14/2028 due to remote history of colon polyps. Normal [facility] Lab Reportson 02-13-2023 Lab Reports [id number]#1. 00TIFF Normal [facility] Insurance Correspondenceon 1 04-10-2022 Insurance Correspondence [id number]# 1.00TIFF [facility] Consent for Procedure/Surger yon 01-30-2023 Consent for Procedure/Surgery [id number]#1 .00TIFF Normal [facility] Facesheeton 01-30-2023 Facesheet [id number]# 1.00TIFF [facility] Ambulatory Visit Summaryon 1 Ambulatory Visit [...] mg Tab) fluticasone nasal (Flonase 0.05 mg/inh Abbott) gabapentin (gabapentin 300 mg Cap) insulin glargine [...] Unchanged fluticasone nasal (Flonase 0.05 mg/ inh Abbott) 1 Sprays Nasal Inhalation 2 times a [...] choosing us for your care. Normal Sneed [facility] CBC AUTO DIFFon 05-30-2022 BASO # 0.0 103/ul Normal 0.0-0.1 [facility] Comment on above: Performed By: #### C BC #### [facility] [address] [address] [address] Ian Sandra Basophils/100 WBC (Bld) 0.4 % Normal 0.2-2.0 [facility] Comment on above: Performed By: #### C BC #### [facility] [address] [address] [address] Ian Sandra EO # 0.1 103/ul Normal 0.0-0.7 [facility] Comment on above: Performed By: #### C BC #### [facility] [address] [place] [address] Dr. Ian Sandra Eosinophils/100 WBC (Bld) 3.1 % Normal 0.9-7.0 [facility] Comment on above: Performed By: #### C BC #### [facility] [address] [place] [address] Dr. Ian Sandra Erythrocyte distribution width (RBC) [Ratio] 13.5 % Normal 11.0-15.0 [facility] Comment on above: Performed By: #### C BC #### [facility] [address] [place] [address] Dr. Ian Sandra Hematocrit (Bld) [Volume fraction] 48.9 % Critically high 36.0-48.0 [facility] Comment on above: Performed By: #### C BC #### [facility] [address] [place] [address] Dr. Ian Sandra Hemoglobin (Bld) [Mass/Vol] 16.0 g/dL Normal 12.0-16.0 [facility] Comment on above: Performed By: #### C BC #### [facility] [address] [place] [address] Dr. Ian Sandra IG # 0.01 10e3/ul Normal 0.00-0.03 [facility] Comment on above: Performed By: #### C BC #### [facility] [address] [place] [address] Dr. Ian Sandra IG % 0.2 % Normal 0.0-0.5 [facility] Comment on above: Performed By: #### C BC #### [facility] [address] [place] [address] Dr. Ian Sandra LYMPH # 1.4 103/ul Normal 1.2-3.8 [facility] Comment on above: Performed By: #### C BC #### [facility] [address] [place] [address] Dr. Ian Sandra Lymphocytes/100 WBC (Bld) 29.5 % Normal 20.5-60.0 [facility] Comment on above: Performed By: #### C BC #### [facility] [address] [place] [address] Dr. Ian Sandra MANUAL DIFF REQ NO Normal [facility] Comment on above: Performed By: #### C BC #### [facility] [address] [place] [address] Dr. Ian Sandra MCH (RBC) [Entitic mass] 29.9 pg Normal 26.7-34.0 [facility] Comment on above: Performed By: #### C BC #### [facility] [address] [place] [address] Dr. Ian Sandra MCHC (RBC) [Mass/Vol] 32.7 g/dL Normal 29.9-35.2 [facility] Comment on above: Performed By: #### C BC #### [facility] [address] [place] [address] Dr. Ian Sandra MCV (RBC) [Entitic vol] 91.4 fL Normal 81.0-99.0 [facility] Comment on above: Performed By: #### C BC #### [facility] [address] [place] [address] Dr. Ian Sandra MONO # 0.4 103/ul Normal 0.3-0.8 [facility] Comment on above: Performed By: #### C BC #### [facility] [address] [place] [address] Dr. Ian Sandra Monocytes/100 WBC (Bld) 9.4 % Normal 1.7-12.0 [facility] Comment on above: Performed By: #### C BC #### [facility] [address] [place] [address] Dr. Ian Sandra NEUT # 2.6 103/ul Normal 1.4-6.5 [facility] Comment on above: Performed By: #### C BC #### [facility] [address] [place] [address] Dr. Ian Sandra Neutrophils/100 WBC (Bld) 57.4 % Normal 43.0-75.0 [facility] Comment on above: Performed By: #### C BC #### [facility] [address] [place] [address] Dr. Ian Sandra Platelet mean volume (Bld) [Entitic vol] 11.2 fL Normal 9.5-13.5 [facility] Comment on above: Performed By: #### C BC #### [facility] [address] [place] [address] Dr. Ian Sandra PLT 176 103/ul Normal 150-450 [facility] Comment on above: Performed By: #### C BC #### [facility] [address] [place] [address] Dr. Ian Sandra RBC 5.35 106/ul Normal 4.20-5.40 [facility] Comment on above: Performed By: #### C BC #### [facility] [address] [place] [address] Dr. Ian Sandra WBC 4.6 103/ul Normal 4.0-11.0 [facility] Comment on above: Performed By: #### C BC #### [facility] [address] [place] [address] Dr. Ian Sandra LIPID PROFILEon 05-30-2022 CHOL-HDL RATIO NORM SEE BELOW Normal [facility] Comment on above: Result Comment: 3.3 - 4.4 LOW RISK 4.4 - 7.1 AVERAGE RISK 7.1 - 11.0 MODERATE RISK >11.0 HIGH RISK Performed By: #### C MP, LIPID #### [facility] [address] [place] [address] Dr. Ian Sandra Cholesterol [Mass/Vol] 218 mg/dL Critically high <=200 [facility] Comment on above: Performed By: #### C MP, LIPID #### [facility] [address] [address] [address] Ian Sandra Cholesterol in HDL [Mass/Vol] 46 mg/dL Normal 40-60 [facility] Comment on above: Performed By: #### C MP, LIPID #### [facility] [address] [address] [address] Ian Sandra Cholesterol in LDL [Mass/Vol] 136.4 mg/dL Normal [facility] Comment on above: Performed By: #### C MP, LIPID #### [facility] [address] [address] [address] Ian Sandra Cholesterol.total/Choles terol in HDL [Mass ratio] 4.7 {ratio} Normal [facility] Comment on above: Performed By: #### C MP, LIPID #### [facility] [address] [place] [address] Dr. Ian Sandra HDL NORMAL > or = 60 mg/dl - LO W CARDIOVASCULAR RISK <40 mg/dl - HIGH CARDIOVASCULAR RISK Normal [facility] Comment on above: Performed By: #### C MP, LIPID #### [facility] [address] [address] [address] Ian Sadnra LDL CALC NORMAL SEE BELOW Normal [facility] Comment on above: Result Comment: <100 mg/dl OPTIMAL 100 - 129 mg/dl NEAR OR ABOVE OPTIMAL 130 - 159 mg/dl BORDERLINE HIGH 160 - 189 mg/dl HIGH >190 mg/dl VERY HIGH Performed By: #### C MP, LIPID #### [facility] [address] [address] [address] Ian Sandra Triglyceride [Mass/Vol] 178 mg/dL Critically high <=150 [facility] Comment on above: Performed By: #### C MP, LIPID #### [facility] [address] [place] [address] Dr. Ian Sandra VLDL CALC 35.6 mg/dL Normal [facility] Comment on above: Performed By: #### C MP, LIPID #### [facility] [address] [address] [address] Ian Sandra MICROALB CREAT RATIO RANDOMo n 05-30-2022 mALB <1.3 Normal <=30.0 [facility] Comment on above: Performed By: #### M CRR #### [facility] [address] [place] [address] Dr. Ian Sandra MALB CR RATIO RANGE SEE BELOW Normal [facility] Comment on above: Result Comment: NO M ICROALBUMINURIA 0-29 MG/G CLINICAL MICROALBUMINURIA 30-300 MG/G MACROALBUMINURIA >300 MG/G Performed By: #### M CRR #### [facility] [address] [address] [address] Ian Sandra URINE CREAT 45.83 mg/dL Normal 20.00-300.00 [facility] Comment on above: Performed By: #### M CRR #### [facility] [address] [place] [address] Dr. Ian Sandra PROF 14(COMP METB)on 023 Albumin [Mass/Vol] 4.4 g/dL Normal 3.4-5.0 [facility] Comment on above: Performed By: #### C MP, LIPID #### [facility] [address] [place] [address] Dr. Ian Sandra Albumin/Globulin [Mass ratio] 1.1 {ratio} Normal [facility] Comment on above: Performed By: #### C MP, LIPID #### [facility] [address] [place] [address] Dr. Ian Sandra ALP [Catalytic activity/Vol] 80 U/L Normal 46-116 [facility] Comment on above: Performed By: #### C MP, LIPID #### [facility] [address] [place] [address] Dr. Ian Sandra ALT [Catalytic activity/Vol] 45 U/L Normal 14-59 [facility] Comment on above: Performed By: #### C MP, LIPID #### [facility] [address] [place] [address] Dr. Ian Sandra Anion gap [Moles/Vol] 11.7 mmol/L Normal [facility] Comment on above: Performed By: #### C MP, LIPID #### [facility] [address] [address] [address] Ian Sandra AST [Catalytic activity/Vol] 31 U/L Normal 15-37 [facility] Comment on above: Performed By: #### C MP, LIPID #### [facility] [address] [place] [address] Dr. Ian Sandra Bilirubin [Mass/Vol] 0.4 mg/dL Normal 0.2-1.0 [facility] Comment on above: Performed By: #### C MP, LIPID #### [facility] [address] [place] [address] Dr. Ian Sandra Calcium [Mass/Vol] 9.3 mg/dL Normal 8.5-10.1 [facility] Comment on above: Performed By: #### C MP, LIPID #### [facility] [address] [place] [address] Dr. Ian Sandra Chloride [Moles/Vol] 104 mmol/L Normal 98-107 [facility] Comment on above: Performed By: #### C MP, LIPID #### [facility] [address] [place] [address] Dr. Ian Sandra CO2 [Moles/Vol] 29.1 mmol/L Normal 21.0-32.0 [facility] Comment on above: Performed By: #### C MP, LIPID #### [facility] [address] [place] [address] Dr. Ian Sandra Creatinine [Mass/Vol] 0.58 mg/dL Normal 0.55-1.02 [facility] Comment on above: Performed By: #### C MP, LIPID #### [facility] [address] [place] [address] Dr. Ian Sandra EGFR-AF AUSTRIAN >60 Normal >=60 [facility] Comment on above: Performed By: #### C MP, LIPID #### [facility] [address] [place] [address] Dr. Ian Sandra EGFR-NON AF AUSTRIAN >60 Normal >=60 [facility] Comment on above: Performed By: #### C MP, LIPID #### [facility] [address] [address] [address] Ian Sandra Globulin (S) [Mass/Vol] 3.9 g/dL Normal [facility] Comment on above: Performed By: #### C MP, LIPID #### [facility] [address] [address] [address] Ian Sandra Glucose [Mass/Vol] 171 mg/dL Critically high 74-106 [facility] Comment on above: Performed By: #### C MP, LIPID #### [facility] [address] [address] [address] Ian Sandra Potassium [Moles/Vol] 3.8 mmol/L Normal 3.5-5.1 [facility] Comment on above: Performed By: #### C MP, LIPID #### [facility] [address] [address] [address] Ian Sandra Protein [Mass/Vol] 8.3 g/dL Critically high 6.4-8.2 [facility] Comment on above: Performed By: #### C MP, LIPID #### [facility] [address] [address] [address] Ian Sandra Sodium [Moles/Vol] 141 mmol/L Normal 136-145 [facility] Comment on above: Performed By: #### C MP, LIPID #### [facility] [address] [address] [address] Ian Sandra Urea nitrogen [Mass/Vol] 14.0 mg/dL Normal 7.0-18.0 [facility] Comment on above: Performed By: #### C MP, LIPID #### [facility] [address] [address] [address] Ian Sandra Urea nitrogen/Creatinine [Mass ratio] 24.1 mg/mg Normal [facility] Comment on above: Performed By: #### C MP, LIPID #### [facility] [address] [address] [address] Ian Sandra Basic Metabolic Panelon 11-2 Anion gap [Moles/Vol] 12.6 mmol/L Normal 6.0-15.0 [facility] Comment on above: Performed By: #### B MP #### [address] Calcium [Mass/Vol] 9.5 mg/dL Normal 8.2-10.2 [facility] Comment on above: Performed By: #### B MP #### [address] Chloride [Moles/Vol] 104 mmol/L Normal 95-114 [facility] Comment on above: Performed By: #### B MP #### [address] CO2 [Moles/Vol] 25.8 mmol/L Normal 22.0-30.0 [facility] Comment on above: Performed By: #### B MP #### [address] Creatinine [Mass/Vol] 0.59 mg/dL Normal 0.44-1.03 [facility] Comment on above: Performed By: #### B MP #### [place] [address] [place] Creatinine Clr Calc Pharmacy 121.43 [facility] Comment on above: Result Comment: PERF ORMED BY: [place] [address] PATHOLOGIST SERVICE TECHNICIAN IGOR GUSTAFSON M.D. Performed By: #### B MP #### [address] Estimated GFR ( Jeannie > 60 [facility] Comment on above: Result Comment: GFR estimated reference range: According to KDOQI guidelines, <60 ml/min/1.73m2 is sufficient to diagnose a patient with chronic kidney disease. Performed By: #### B MP #### [address] Estimated GFR (Non- Am > 60 [facility] Comment on above: Performed By: #### B MP #### [facility] [address] [place] [address] [place] Glucose [Mass/Vol] 194 mg/dL High 70-100 [facility] Comment on above: Result Comment: [place] om Glucose Reference Range is dependent on time and content of last meal. Glucose of more than 200 mg/dL in a nonstressed, ambulatory subject supports the diagnosis of Diabetes Mellitus. ADA recommended reference range Performed By: #### B MP #### [facility] [address] Potassium [Moles/Vol] 4.4 mmol/L Normal 3.5-5.1 [facility] Comment on above: Performed By: #### B MP #### [facility] [address] Sodium [Moles/Vol] 138 mmol/L Normal 136-146 [facility] Comment on above: Performed By: #### B MP #### [facility] [address] [place] [address] [place] Urea nitrogen [Mass/Vol] 12 mg/dL Normal 9-23 [facility] Comment on above: Performed By: #### B MP #### [facility] [address] Creatinine and Glomerular fi ltration rate.predicted panel (S/P/Bld)Ordered By: Ga Field on 02-19-2022 Creatinine [Mass/Vol] 0.59 mg/dL 0.44-1.03 [facility] Estimated glomerular filtrat ion rate (GFR) non- AmericanOrdered By: Ga Field on 02-19-2022 GFR/1.73 sq M.predicted among non-blacks MDRD (S/P/Bld) [Vol rate/Area] > 60 mL/Min [facility] Glucose Glucometer (BldC) [M ass/Vol]Ordered By: Bharat Zelaya on 02-19-2022 Glucose [Mass/Vol] 163 mg/dL [facility] Comment on above: Random Glucose Refer ence Range is dependent on time and content of last meal. Glucose of more than 200 mg/dL in a nonstressed, ambulatory subject supports the diagnosis of Diabetes Mellitus. Glucose Poct Glucometerson 1 04-21-2021 Glucose [Mass/Vol] 163 mg/dL Normal [facility] Comment on above: Result Comment: [place] Glucose Reference Range is dependent on time and content of last meal. Glucose of more than 200 mg/dL in a nonstressed, ambulatory subject supports the diagnosis of Diabetes Mellitus. PERFORMED BY: [facility] [place] [address] PATHOLOGIST SERVICE TECHNICIAN IGOR GUSTAFSON M.D. Performed By: #### G LULS #### Point of Care testing , No Panel InformationOrdered By: Ga Field on 02-19-2022 Estimated GFR () > 60 mL/Min [facility] Comment on above: GFR estimated refere nce range: According to KDOQI guidelines, <60 ml/min/1.73m2 is sufficient to diagnose a patient with chronic kidney disease. Pharmacy Creatinine Clearance (Chem 121.43 [facility] Serum or plasma anion gap de terminationOrdered By: Ga Field on 02-19-2022 Anion gap [Moles/Vol] 12.6 mmol/L 6.0-15.0 [facility] Serum or plasma calcium nava urement (mass/volume)Ordered By: Ga Field on 02-19-2022 Calcium [Mass/Vol] 9.5 mg/dL 8.2-10.2 [facility] Serum or plasma chloride eri surement (moles/volume)Ordered By: Ga Field on 02-19-2022 Chloride [Moles/Vol] 104 mmol/L 95-114 [facility] Serum or plasma glucose nava urement (mass/volume)Ordered By: Ga Field on 02-19-2022 Glucose [Mass/Vol] 194 mg/dL 70-100 [facility] Comment on above: ADA recommended refe rence rangeRandom Glucose Reference Range is dependent on time and content of last meal. Glucose of more than 200 mg/dL in a nonstressed, ambulatory subject supports the diagnosis of Diabetes Mellitus. Serum or plasma potassium me asurement (moles/volume)Ordered By: Ga Field on 02-19-2022 Potassium [Moles/Vol] 4.4 mmol/L 3.5-5.1 [facility] Serum or plasma sodium measu rement (moles/volume)Ordered By: Ga Field on 02-19-2022 Sodium [Moles/Vol] 138 mmol/L 136-146 [facility] Serum or plasma total carbon dioxide measurement (moles/volume)Ordered By: Ga Field on 02-19-2022 CO2 [Moles/Vol] 25.8 mmol/L 22.0-30.0 [facility] Serum or plasma urea nitroge n measurement (mass/volume)Ordered By: Ga Field on 02-19-2022 Urea nitrogen [Mass/Vol] 12 mg/dL 9-23 [facility] COVID-19 Antigenon 2 COVID-19 Antigen Healthcare Worker?: [...] developed and its performance characteristic determined by [employer] and validated at [facility]. This test has not been FDA cleared [...] for SARS Antigen by SAMIR PERFORMED BY: [place] [address] PATHOLOGIST SERVICE TECHNICIAN IGOR GUSTAFSON M.D. Normal [facility] Comment on above: Performed By: #### C OVID-19 JESSICA, SOFIANEG #### [address] COVID-19 SOFIAOrdered By: Juni Zelaya on 02-16-2022 SARS-CoV+SARS-CoV-2 (COVID-19) Ag IA.rapid Ql (Resp) Negative Negative [facility] Comment on above: This is a duplicate Jessica SARS Antigen (SAMIR) result to be used for statistical tracking purpose only. No Panel InformationOrdered By: Bharat Zelaya on 02-16-2022 SARS Antigen (LFIA) [facility] Jessica Ag Negativeon 02-17-20 Jessica Ag Negative Negative Normal Negative [facility] Comment on above: Result Comment: This is a duplicate Jessica SARS Antigen (SAMIR) result to be used for statistical tracking purpose only. PERFORMED BY: [place] [address] PATHOLOGIST SERVICE TECHNICIAN IGOR GUSTAFSON M.D. Performed By: #### C OVID-19 JESSICA, SOFIANEG #### [facility] [address] [place], [place] [id number] [place] Glucose Glucometer (BldC) [M ass/Vol]Ordered By: Bharat Zelaya on 10-19-2021 Glucose [Mass/Vol] 179 mg/dL [facility] Comment on above: Random Glucose Refer ence Range is dependent on time and content of last meal. Glucose of more than 200 mg/dL in a nonstressed, ambulatory subject supports the diagnosis of Diabetes Mellitus. Glucose Poct Glucometerson 0 10-19-2021 Glucose [Mass/Vol] 179 mg/dL Normal [facility] Comment on above: Result Comment: [place] Glucose Reference Range is dependent on time and content of last meal. Glucose of more than 200 mg/dL in a nonstressed, ambulatory subject supports the diagnosis of Diabetes Mellitus. PERFORMED BY: [place] [address] PATHOLOGIST SERVICE TECHNICIAN IGOR GUSTAFSON M.D. Performed By: #### G JANESSA #### Point of Care testing , Basic Metabolic Panelon 09-29 Estimated GFR ( Jeannie > 60 Normal [facility] Comment on above: Result Comment: GFR estimated reference range: According to KDOQI guidelines, <60 ml/min/1.73m2 is sufficient to diagnose a patient with chronic kidney disease. Performed By: #### B MP #### [facility] [address] [place] [address] Estimated GFR (Non- Am > 60 Normal [facility] Comment on above: Performed By: #### B MP #### [facility] [address] [place] [address] COVID-19 FRMCon 10-17-2021 SARS-CoV-2 (COVID-19) RNA ANTOINETTE+probe Ql (Unsp spec) Negative Normal Negative [facility] Comment on above: Order Comment: Healt hcare Worker?: N Result Comment: Testing for SARS-CoV-2 by RT-PCR This test was developed and its performance characteristics determined by [employer]) and validated at the [facility]. This test has not been FDA cleared [...] is terminated or revoked sooner. PERFORMED BY: [place] [id number] PATHOLOGIST SERVICE TECHNICIAN IGOR GUSTAFSON M.D. Performed By: #### C OVID 19 [facility] #### [place] [id number] [place] COVID-19 Positive/NegativeOr dered By: Bharat Zelaya on 10-17-2021 SARS-CoV-2 (COVID-19) N gene ANTOINETTE+probe Ql (Resp) Negative Negative [facility] Comment on above: Testing for SARS-CoV -2 by RT-PCR This test was developed and its performance characteristics determined by [employer] ([employer]) and validated at the [facility]. This test has not been FDA cleared [...] lead ECGon 10-17-2021 ECG 12 lead ECG [facility] Main [place] [address] [place], [place] [id number] Electrocardiograph Report Signed Patient: Zara Benedict MR#: [id number] : 1960 Acct:[id number] Age/Sex: 61 / F ADM Date: 10/17/21 Loc: PS Room: Type: [facility] Attending Dr: Bharat Zelaya Jr, DO Ordering [...] previous ECGs available Confirmed by ALTON GUZMAN [facility] ([id number]) on 10/18/2021 4:41:03 PM Referred By: JAZMINE ZELAYA Electronically Signed By:EZRA DANG MD [facility] Transcribed By: MUS Signed By Gigi Dang MD 10/18/21 1641 Normal [facility] Estimated glomerular filtrat ion rate (GFR) non- AmericanOrdered By: Bharat Zelaya on 10-17-2021 GFR/1.73 sq M.predicted among non-blacks MDRD (S/P/Bld) [Vol rate/Area] > 60 mL/Min [facility] No Panel InformationOrdered By: Bharat Zelaya on 10-17-2021 Estimated GFR () > 60 mL/Min [facility] Comment on above: GFR estimated refere nce range: According to KDOQI guidelines, <60 ml/min/1.73m2 is sufficient to diagnose a patient with chronic kidney disease. Pharmacy Creatinine Clearance (Chem N/A [facility] Serum or plasma calcium nava urement (mass/volume)Ordered By: Bharat Zelaya on 10-17-2021 Calcium [Mass/Vol] 9.7 mg/dL Normal 8.2-10.2 [facility] Comment on above: Result Comment: PERF ORMED BY: [place] [address] PATHOLOGIST SERVICE TECHNICIAN IGOR GUSTAFSON M.D. Performed By: #### B MP #### [facility] [address] [place] [address] Serum or plasma chloride eri surement (moles/volume)Ordered By: Bharat Zelaya on 10-17-2021 Chloride [Moles/Vol] 102 mmol/L Normal 95-114 [facility] Comment on above: Performed By: #### B MP #### [address] Serum or plasma creatinine m easurement with calculation of estimated glomerular filtrOrdered By: Bharat Zelaya on 10-17-2021 Creatinine [Mass/Vol] 0.51 mg/dL Normal 0.44-1.03 [facility] Comment on above: Performed By: #### B MP #### [address] Serum or plasma glucose nava urement (mass/volume)Ordered By: Bharat Zelaya on 10-17-2021 Glucose [Mass/Vol] 134 mg/dL High 70-100 [facility] Comment on above: ADA recommended refe rence range Random Glucose Reference Range is dependent on time and content of last meal. Glucose of more than 200 mg/dL in a nonstressed, ambulatory subject supports the diagnosis of Diabetes Mellitus. Result Comment: [place] om Glucose Reference Range is dependent on time and content of last meal. Glucose of more than 200 mg/dL in a nonstressed, ambulatory subject supports the diagnosis of Diabetes Mellitus. ADA recommended reference range Performed By: #### B MP #### [address] Serum or plasma potassium me asurement (moles/volume)Ordered By: Bharat Zelaya on 10-17-2021 Potassium [Moles/Vol] 3.8 mmol/L Normal 3.5-5.1 [facility] Comment on above: Performed By: #### B MP #### [address] Serum or plasma sodium measu rement (moles/volume)Ordered By: Bharat Zelaya on 10-17-2021 Sodium [Moles/Vol] 137 mmol/L Normal 136-146 [facility] Comment on above: Performed By: #### B MP #### [address] Serum or plasma total carbon dioxide measurement (moles/volume)Ordered By: Bharat Zelaya on 10-17-2021 CO2 [Moles/Vol] 23.6 mmol/L Normal 22.0-30.0 [facility] Comment on above: Performed By: #### B MP #### [facility] [address] [place] [id number] [place] Serum or plasma urea nitroge n measurement (mass/volume)Ordered By: Bharat Zelaya on 10-17-2021 Urea nitrogen [Mass/Vol] 11 mg/dL Normal 9-23 [facility] Comment on above: Performed By: #### B MP #### [facility] [address] [place] [id number] [place] MRI SHOULDER LT WO CONon MRI SHOULDER [...] by: FLAVIA MELVIN Date: 2021-10-10 19:39 Normal [facility] MAMM SCREEN 3D MELVINA CADon 09-12-2021 MG MAMM SCREEN 3D MELVINA CAD Patient: ZARA BENEDICT Exam Date: 09/12/2021 : 1960 Gender:F Ordering : DR INES MEJIAS Admission #: [id number] Family : Order #: [id number] CLICK HERE TO VIEW EXAM RADIOLOGY REPORT [...] bladder cancer at age 82. LOCATION: [facility] BREAST COMPOSITION: Almost entirely fatty. FINDINGS: [...] Toro M.D. on 09/13/2021 at 11:56 Normal [facility] Physical Therapy Noteon 2 Physical Therapy Note [id number] .00OTGTIFF Normal [facility] Provider [place] 01-13-2021 Provider Orders [id number] .00OTGTIFF Normal [facility] Provider [place] 11-18-2020 Provider Orders [id number] .00OTGTIFF [facility] Coding Summaryon 11-16-2020 Coding Summary HTMLBase 64 QwwbilmhXEr6zTb+PGhlY WQ+RK7SBUEzD03jrKDffU 2VC9sJIS6FUEHIFUAFGZ2 FHG4obYZ8RJbhU7JaggQx WwyhlIDoES68FDd7WOU3w HgwDSaegZ1xbZYgX2n9Pu PvUJ40dO19ROgeLHKcGaN 3LjZpbjsgbWFy C1syIqVexQAkFcq+PHRhY mxlIHdpZHRoPScxMDAlJy RpyFutCP5nQj8fBSOoCAC vbGxhcHNlOiBj w3hxFADcOChfKN7kfJkrF 9NigBG1WWXdb1j8Ql42xJ I+MFOnWMS4nGmwXTkig00 7VcItu9vzMKQ2 bCMoJTljPGL1I55sz4Q5H RDhCOHtHPN6gWG0tS5ikJ lvqzpxN1XyjVSuQyQ3IZP 5jJZtpD4hxJyn ilkzuS5aChj+C79VRA7WT BBOKS7OExq0S3ZsCzgkiR I+KZ37ALBlVM40qYKsnBX sj2mqlDo8HjBi FOHmZHL6qSgnMSlal8HqX JKoX29khXJjn7Y8FQZrtZ upsUOoBlHdcYR3gV2zFDm xactmc7djdpbr Ymeez1revb65yE75J04cE FtqARAnHZT6LHWdQNSpyN uneq7gpK5qZf7+UIfmo6e rv6gvnSc7IoLn JMArimWnjIkbUQM6p3PfY h50A5SpgNzvz7BcRje5uo 07oKAka2P2hCT8XIgbNAZ qpL9jUXbvCtD4 GPJvEiVmaC76iEJqUAdiH i6bxOgmiDyzTD3lEZUfsc zyQQKsvU6rOJOgtZPiiRq rHZ3mFPJtfdyl o999OyOpZOR1LVPslCIpM 2UswU8pRjZwJUZbPZNsQ4 FgfXLmMCkaL683MJqjPyP 9PAMiacXsH0Pz PLYvgSyaHzE8h0P5Tr2We 5HayeqsOFQ4UVpoTON9Ej R7BdFxCsV0Z9QmOpp3DTN fzBmlQZ6hH2Rv RDCoabezgjgbvSI8CPKrA WXctO83nUTlKHxhCf6qx2 E9l553RMSrKIDypC82Sy9 udDogMTBwdCBU jH9usrgho2tqmzfdMxJbY GPrGEm0TUr1ZAYdoAqsYk CaNAF7KiC4IUP4cDVpjS9 xcQzturgniD0p Oyc+I00dnM1gWSP5GQW2r jseQSIxnjHcTD97CK08B8 RyPjwvdGFibGU+PGRpdiB efCmoTL9hAiFl k8tqv8JgGRwxR0VjXATsF FruVif2YFLzBMK0vKD5cU 5wJCDoQDdeb9P3uHP4R7J pffQoke1fw8cj UMSvZWrqC30gxXUhy4N3O DOirRU6PTDmvTutKbIayV 93Oyc+AQFqmCyxa5DcIfq se1cqa5lzhBf2 ZcTaLMVaykEspAmxZRC3p 9NqOa05O26rPInoUHMuWZ NjWWYeVZOklUrfur5gmJ1 wIi8+PGNvbCB3 oFK0sA8pXZYcXdY8GRsxO 936KgCfcFBgIjpnu0lhd2 rqjRi3UtQvXJBtoqNdpYt yOZI7h6KyHu59 V93jNVjeUAVzNXCiNDKkL RVtqCdgjo1duQ5hDl5+PC 1oh9xqlj73uD27eUL+PHR sHMP0mRoiIVzo WDZgaY8iLAiePuI8XFUzM tXbkC78pORxVPgpMx8rrZ lotDkhNE7jBCWjpcucu09 8XiCpa5paTJOe nZGePOrfZJS0P34th0O1Q JZoLGGdPWC3iDB5tS1igN lnbjogbGVmdDsgdmVydGl iVThfPHloT453 IHRvcDsnPlBhdGllbnQgT dZvWYg5D3ZwGdw1PYMhtF qjFN8mwWGhHNktLf8ioGo vhZyxLY8nOSDv wsivj902XtGrg3djFWPnd AHdOPcgMHI1R75kr4V6NI YvKDWiLSA4xMS3kY1osIm nbjogbGVmdDsg vcJnpFvfBBjuMYdhJ174L HRvcDsnPkJpcnRoIERhdG Y6GI56XA85yWDzl7A5yZD 5Z1WoNBBhgxqp fuipvWO7DGZoCGUopO87Q j5rwNulKm4sPJUmCDC7RM OgxLCmE4VtjF8vBuSfHLW kENPaW0LayWUu BWovC880KDciFqU4UWIix hInB3QjDPDlwXchZuK6n4 U4Zo4PH6I8IG70AE40bQY ic1T8fKI4G3Mz UFBjuesfmnyayYH3KEWfY UPlbO53Tv9caYtzLh2pEW BlDHX0ZQJdsPAjE7TwyO7 yOiAjMDAwMDAw L6PevVMkFXjyF525NItcC eR4HRGfdlLnC5LpYCJkfQ vhYiM6s8U6Dr1XHVi4EZ4 5MA43fUXay8V8 iHG3R3UmVXOseqozjnxhn LI9OKZuJRKlaT22Rl1syN nqHn1nXEOxFJJ9TQCfdDC aD3YjdJ0lBiWy YYUeMBOyE7MpqLBgZWojV 619PRjxQeQ8CLLlunKbP6 JfBFJelLgfXjE3h0I2Xj3 DXOWuNK95UIL7 vSB9QC53BP09U8WtXavim GFibGU+PHRhYmxlIHdpZH RoPScxMDAlJyBzdHlsZT0 xNj0aABVaYZJh pOdirEQmXtRsb2owFBYuZ OuvKJ7wnHmbN9AxkNH9KZ Lnc7k4Wn30H50wN2LyyMA +FYDpkKD2lWN2 eA7dPdHrCqL8TYezV498D qAkoSVqBsxev7fzo6zqzG l4ZiG4XXIyftBcyGugGMF 4t1PyWp86Y16n IHdpZHRoPSIxNSUiIHZhb Gsxri2riM8mWb1+PGNvbC U7xQI5oV4dIyWnAqT3MOq mN912BsJvmFFl Sazcc5hve9fqoNf3VnJbB KMlaeOiiLqnBEU5h6XcXf 07D4KgvLxdz6NxQgc5wq8 2qABvw9Z0zNU5 F3TnBQZjgufdiQKskNxjG Z8qAUBoxeenWMSmeR6cBC KzG4h2MnZrWwD6ZHnlI9C fgeX5RCImmIAl WVlsRYU3P19km0I4CBEwD LDdIUW2qZC0fF2drFyals ogbGVmdDsgdmVydGljYWw eYSkpZ576EDXd iTdiZEAjaW8xINBlqWRxq VpjYU9tXKFbmhuoCmdKKL xFUiwgVEFNQVJBIEpFQU4 9A3ZkIxw0SNXo bZvhMP2qiJCdDBbeUb2cw JudyUfvUQ2kPLQiscpiKK ZdqL7cMDLfcSOhlTrzEB6 qHRIohafim199 HcQeRAE4OOZuyHRnL2Wqb L3iFhPrNUKrQWMeY1NgcP NxPIykD223GAsnDcA5DJI ldlPnD8DvLHKz dIvtVxS7u3M8Ga9hDT9qV R3xEUZpIP09KY17bNSqu2 I0lNY1M7CjYGYeanolsbs qwBK9FXDoESPh cT95vXBfNVguIg0qo7S4z 489ECTvXJHceP53Xl7inG beTZZkkUQQeO7zkwrjg2v vcjogIzAwMDAw OWd7HPw4DTKfwRvaHqXnW HL6KsX5WPA2fBWobZ2cgP jlnmxvzD7eQla+NTggWWV sbnM3B9TmQne9 ISHzkCxvVS7tvYFkEPnmU k3tmYvkjFriEN9uJLGjxx rmDZVgnM6tOYPqgSSdxDf lFP3gGYIzpnyl f037DoWmVZD2CPTgoBNtE 3QgwL8vSfYzLWGkYBLoH9 WnvCFyUXioA498ORokYfH 4OOIrkiFhY0Yt GKYfxZcjKgT0s3U8Hw7PJ J3OFFG4G7UzObl5VCSyzR dgAJ5zgJSnJZwhYi1cvXm miJqlTO4zWPNl abkjYFChvT4vGSIkvJSte FhbNP2qOCPqkmput767So DjHYU5VFMzaFThL9KclF8 yOiAjMDAwMDAw W7IzcIOxSRweP764OMjqY pH1CTGdwoOtC8IaBBOlfP ipJyY0f6Y8Ao9XBQU1daG fctluZ4D4nMM7 aWVudDwvdGQ+KM96dn26Z 7TbJhrdMvg9HDJgGHK6eV W8pY7zROCaDJaii3D8kHJ 0B5HmdsDvmw0d o9prEGKaNGcqP72hvLTzr 2R7TGJotPQ6CWKekPiwKl YeoN22Tkh+GBUbuGahx3F hCboar7jat1hu kBy2MqSlMRFfvxHbmFamH VZ2b4MkOq25G06oFCjpOI RoPSIzMCUiIHZhbGlnbj0 hmM5pDq9+PGNv lGY0rUX2qN8mNiRfDwA5N VlvV271IzWzvKAaIzbsk3 ctp7jusWr4WpYtFYUuxgC gpSgiIII8e1Qo Zb23P7AgoUhtp6XfPlz1f q66aIKfh0Y5jSP9F2BiUF IcygjciJUpuKgcYU5pRFR zeifqHKNqiK7x CQRmN1x9KuEgEtG1JWxaL 4UvgpR8SBOzxGBsHTJzmN XXkB5oajrac1xxxakkHhV wPOCsNTy6TMs9 BIKjsWlhChFrZGZ5AeB7C ST4dAIptL1xkHvhhywvsR 9wOyc+LAi7k0qbfJNfUP5 taTN5HW87TA16 qAMtx1N6dXW4O2WpZSPhb mttconlzSX6LAGqYPRtkE 03Ql5tyCywGt0uGTXqMOU 4BQOqeQIhR1Zs kC6iPlDeISSxMVNyU8Gxo DEmQCkyL771REraWhI7SH ZitgDmN6BlZRQyeCpzZqS 0e0N9Rj8RCY83 PG21KX32mYIae2U5zKZ1E 1PrZTZchonfxriviJK8UG NuGKKihR42Lu7noRsnKu3 eHHGsYTY8INJg vGNgJ6TjfE0zVpXfDWLeA PJyS6XgkLYtAUpfN192DU ldLwQ9VVQdujWfR0HoZKK lrMvjUvX9w3V6 Dy7QYp01EY15FJ55wUEwb 3K3aQD9P6PwSIIsmpfcss ubeLD2UFXgALWqrJ11Yk0 zdBkhRa1wEIEa EOJ5HFRzqNTvC4AtfJ8aH dDzEQJiQKVfJ0TkzKDeEU dbD898EDxrNwK5EYLohcX hG1CsVCJmqDia ElC1e6B6Um9PMLzcdin3D 3RkPjwvdHI+DT84PPXzDU 52lIXgwGGcq5txaAa3NrA lZFYrFON0fIaw PSd (more content not included)... [facility] Provider [place] 09-13-2020 Provider Orders [id number] [facility] Coding Summaryon 09-12-2020 Coding Summary HTMLBase 64 FqzeeqcnLUo1mOd+PGhlY WQ+AT9FYZCcB29etUEgcR 9UA1wQVD8UOGOSDNTCSX7 KFP9quLX0HKuoZ6LkuzIz FfdomNOeAZ34CUs1AMR4u FqxZCspnU5eaSRoR4x9Nk SvKA21wS26YTruRKKtGiH 3LjZpbjsgbWFy D3kiXoLafJFiGut+PHRhY mxlIHdpZHRoPScxMDAlJy LwfFzuRY3mEr5mFORhSKS vbGxhcHNlOiBj v5pxCFRxIApzUB2hxIxqJ 0IniNS7NSKhp4z1Xv03bC I+LJUrRQE1yCvtFFzmt88 0PzJji3fuRMC9 iTKjFRqkTTG7D62bl7D1T CDcQSNcXOC0dFJ1kH9wcL dxdzltZ2PgfZHnVbU1FTE 7bPDvdZ5elLks wrrfwR4vZji+Q78LGN5HB UTJCD2MZte4J8GsOffgoG I+PV11HJFpFR55hXNlgZU fz2utkMm0NxLs KZPxDHS9vBucEIxud0UxH XHwF35olTOoi9Q7YJXhiS qmcOXeNdHxgSS6rB4kPWl tiisyk1hsbdqi Jtzeu0dnly59yP28C66vR PdyLFGzSHX2TMQrKXTsyT czqw5ebE9mAd9+SMkbd3l tc5rtcFa7NzGh TBUjnqAbfKdfMUD8w9NyG l81J7XjdEuzp8BqNnh7lv 04bCZaz3A0hIZ0MDdiQPX klQ3cHPxwDsG5 HLZyVeKltE25gNFbZEsaX e0sgYktjIoxCS0dWRGgfp sqETCkhT3cCHRjgWRydFq kXT9dVMDqtrts c582WwLiWKW3PNAmzULsT 9HtfP7vLwZbSJSrILAyT8 ZmiPFxEBhgH062EDijHbW 2FUZqwtUdO6Kr FNEllQjmGyA8y5V9Ti3Ly 3KpducuSBI5UUrhFFC6Ko G1UdRfUvP5G2RcGng1TFK swIreUU5pZ4Ut KPCaywsopjbyuXP1DXPiL YIfcQ78tZKnCIhgRk9lr5 H5v060LXBsKHChkG55Bp5 udDogMTBwdCBU vZ9auxaui5ymxkomJlJhW SSaNQf5QVk2ZZUpmVedHc RrFIL2TwJ8CRO8qDTtfQ2 dzGqmmubxtO6a Oyc+S75ztB7kXYR0KXO9w vajBJNczuIwAM35QK67L2 RyPjwvdGFibGU+PGRpdiB geSrzIH4vTvMc o9skc1MsJOldI5JiNRVaW KgjXvt4VROmHSN1mYC1vJ 8fIMCxMRrkj9Z6sPZ5S5K ebrOjrf4mv7fw DARtUJpmI41spTWjq1E8T AAtkIX0WBXwgDgcXeQwnC 93Oyc+MFJraCaqc1HeEnj jt7rbp1ybfWg1 ObGmGTYfyyDpsVkuAQH5s 0QeEa22U04nHKfnTCTfQW OsSDUtYTYybAahel8eoE0 wIi8+PGNvbCB3 sBJ0gL8eNTKnEmK3TCaaE 970KgSbhFLaLxgqo9jya5 yhhBm9PnXhOQBavwHxmNx gOBT3b6LoUu66 K18aUImfNRVjBWPkOJTwI NBtsEgjct4txA0wMq3+PC 9ob6cvhz46kR69pLY+PHR sOXI7pDnoNMih VWXfqS7mCKpsCmT1LHDoM pTxkV83bLVmWYdyDv4jrR npdYkzQH7yOGHlsdknb47 0EtMtn3yrOOKj vWYkGLpuTQQ7Z81zg9R0A IIjZRYnZIS8yFE6tT1sfW lnbjogbGVmdDsgdmVydGl nTWiaWOpoS080 IHRvcDsnPlBhdGllbnQgT mJtRAz2U2NqNpj3XWPuyJ rwGC9ldTWfDFviTf3rnLv pjMviKI5yTEEy vngpp362MqPbn4jcPXFcj PIiNVmcCBE9R08li7J9QD IrDSUzHWJ2lEQ6uF5vpGd nbjogbGVmdDsg ohBzsZuwGFojYPggB081W HRvcDsnPkJpcnRoIERhdG S2DP27RU16jPLvw7M9cAP 5F2NqEHLgyagl fpltoCV6PXLaBWOgjH36P y1tpMdqKn0pBMKqCAB7YU OdnAPmL7NwuC5dNzRvJJD hAIUjE7VilWTs YRxyA164AQlcJsW3GDDjt wBoV2KeDAFqyDgcTnC3f5 W2Gc7JO0Y2QP84YN30qHR zx7O0zQD2N7Yk WEDyxxwflgyizXK0DKXqB BAqwU30Bd0baXbiPr8bGH FcCFJ4QDTgzRZwZ6QdrC2 yOiAjMDAwMDAw Z3McqCSqQRfrH151UWbjD oG4LUZspuZtJ7PfOLRgnF ypEhL0z3B5Gp0CIXp6IU9 5EF53jFUvn3V7 zXM4W7BbFAAwnrpjzvlnz CK5ENJiIQLkqG24Hg2piN duLf4yYHTkNZB1PIYppHJ qV6MbtN0wAdXz OIIiCSFcV8XavCOyGAlnS 935PZnaUpS0FACjqpFqD4 FkBIDmzPvdMoI9m4U3Pp5 FMQGtYG28SHR6 jPR5TS90BW24W9LjBsbeu GFibGU+PHRhYmxlIHdpZH RoPScxMDAlJyBzdHlsZT0 nEg1aQLJlSBAl bVnpiJJeUhCmt5uiONMhD ZlkCD6dsStcE9RzaVX0LD Xhx1j1Sv63Z76zH7RpxSZ +ORCxcWH5fMU6 yR8nMqHdFhX3HAvzZ907B gTnuFNpTkcum2ggz9pbwJ g1ZaV9DIDvotBjyKflKJL 9n1GvBx02C28v IHdpZHRoPSIxNSUiIHZhb Lbpkb1vaE7bGa1+PGNvbC E5lUR6iP5zWyTmJxC5TKu hL756SlEocWSm Lzcbo7vfm3xznRy0RnSkK KVjigVsbSnhXCI6n4XqOs 89K0AkoPuuz5OcLgg7ia4 9pEOzs9H2hCI4 P0SkPEDlxkgeyPOduMruF M4lSXSnxdlnLVKcdY2tUW BfV4i4NcDsWtH3ROolG9P asoE6KUHnuVYb RQimOYN4L52sa1E0WOFyJ UNgUBO2jOK0dG3ziWdclg ogbGVmdDsgdmVydGljYWw mXKbhB154RKCu aKhsZEXzjX0yGVSwaFGck VbmTH1pZEErhptmWqkVFB xFUiwgVEFNQVJBIEpFQU4 8W7TyEkj1WAFi rFvhZZ0toGHcYDxpQr6rk AlyvHxlEH9mIAEkmhtqRF RvyR7zMZPcmLBqgAspHC1 lIXEmkezbg757 DuNfCLJ6AFGglPOfH8Rbf L8mCmYuQIYiPYZiQ3QqnL YrNIkuH322WJgsEnN5QMO dtcNcW8IsWCZs gAxdIvE0j8P0Fu6wTK4wV E4eTKKzIO88GE89nXCmh8 Z9aZP0R8NcMSZcioygmdb ijVN5BJKtXLYe xL77wMIrKHcwSw8ew8U0s 517CZKtVDZptM30Se3oaP ejZMXivSAQyF3bohtpe1z vcjogIzAwMDAw KNr6TEu9SUEnhVsvEeHqX ML8OzJ0CKV7jTVenG2fjG lrfcjphD8dKlz+NTggWWV edqH1B2TnGwq9 VDFbaGwwOZ5hxZLkWFnlQ z4faLcfrRxbMH5hQCGyry xiSMPneX4pEFEsxRKwyOq oRN3sRXPeejun u439MxImZEO4AZTdcOJbM 6FocF2pEyNmBRLvWHCtF5 NirWSoUTbgA910ENbhLiA 2BHYafaTpF2Qz LQEyaRaeYpE5w6F4Cv1CD X2RYWM1O4XdPve9NBDimO owMF5jrZLdKKxrZp2bhNv utCfxCX5uUDAg bjuwFLJyxH2aQJEieBJcj WpxLY2kXTZzelelm207Vv LxWOL2BDJibWYiN0LmzR9 yOiAjMDAwMDAw M3UfyINxXYinM401CJtlI zX5JSXdsjYyV8PeIIQoeJ woDtY3e3J8Vj5DESaavOB +FS89js11G6Aj BdseFde7USIyWDZ2xFY6d G4sYKImPXhqi1A5pYR0Y2 LmozUcuf8ed8uoHCLiPBa yJ39auXUvu9X6 LRTklMH7DXWvaPvxUyPub G93Oyc+SFTrmLmxq8NqRi ffm5chc5liwVo6FhXwSQG gdmFsaWduPSJ0 v3HyWb55P48oKSdwYGJsP ASsGMPfIAExyEpbup2lhL 9wIi8+THVxtZI5kPQ0kM7 rPsIaKoR0HWcd I068RvHkzOOqWmejw7gky 6xmmUw7YrJoBOLtuiLttM bsIUT2s4GcUt17Q7ZyfEw xs6UoNgc7ib60 dDEbm9A3yKA0Z1NuUGBbw cpilHSrnOzaUM8aATZrer daEMCtwU6bLNWaC2x7JvB mEfQ0BOipY7Na feG4SGYoqMDiBXGdqWSOl L6zfvojn3quurkaIpHxKB PnOYn8PFe1DYWlcLlzEjV hJLR5ErI0ZLB2 xVSfqV7egMuowufbdM7cU yc+KQk8j7eadMGxGT5ygF Y5GE68NK34sTStq7X5zBA 8B2LsBHRpvtbz tlqgeNS4KBLlTTNklK32H d0jeDubPs5fLSIgHJF2UB LkeGGpV8XrhK0yJpZsSDI aLLGgL2XlmTGo HEbrK517XHovFfZ8HAYtd hUvE2UrGFHrgCrrAcC7n8 S5Gr6QGR96VW08QR10sMR yx2G3qVU9T8Jn PAYqarjdvnjfoFC6SSYjO VAdpR16Bx8wpXxtMf1gFP MiIIY7QMZvkLLwD3PnbP1 yOiAjMDAwMDAw N2VlvBSvTOfxI885QAfkC vO1BMVshoPxP7DbRNKrkJ ivKhR3l7G3Eu3EHz09KQ2 4XU75xPInn9M6 yIE4Q5RjCWSdmokshwclw AO9RAPnRKDwkY96Ue1ffB rsVx7pJMFpAGG2ESTbvVR eO4PmsE4pCsSb KHMkICNsV3UfhWYfCXcsL 241HUlgZaW2QALvpcHsI9 QlPQVlnBjfMiJ8h9T3Cv5 IXSdydon6D3Px PjwvdHI+IN93RAFbLH70f ENcbTBgl7fqgIq5KpGyZU PrAYJ9jCajJVprg5YsFUS rV78xrEHhc6X3 IGN (more content not included)... Normal [facility] Mammo Screening 3D Bilate ral.on 09-10-2020 [place] Mammo Screening 3D Bilateral. MAMMOGRAM SCREENING 3-D [...] lymph nodes are noted bilaterally. R2 Image Waiter/Waitress Second Class was utilized for this study. IMPRESSION: No [...] Assessment: 2-Benign finding Recommendation: Normal interval follow-up [facility] Provider Orderson 09-02-2020 Provider Orders [id number] [facility] Social History Date Type Detail Facility Start: 10-19-2021 End: 01-29-2023 Tobacco smoking status NHIS Never smoked tobacco (finding) [facility] Start: 1960 Sex Assigned At Female F [facility] Sex Assigned At [facility] Tobacco smoking status Never [facility] [place] Vital Signs Date Time Vital Sign Value Performing Clinician Facility 01-29-2023 15:12-0400 Blood Pressure Location Colby fos4X [facility] 01-29-2023 15:12-0400 Diastolic blood pressure 78 mm[Hg] Colby NEFFL [facility] 01-29-2023 15:12-0400 Heart rate 72 /min Colby Quick HitL [facility] 01-29-2023 15:12-0400 Respiratory rate 16 /min Colby Quick [facility]L [facility] 01-29-2023 15:12-0400 Systolic blood pressure 138 mm[Hg] Colby Quick HitL [facility] 02-19-2022 08:45-0500 Diastolic blood pressure 81 mm[Hg] DO Fanny Petznick Work Phone: [facility] 02-19-2022 08:45-0500 Heart rate 77 /min DO Fanny Petznick Work Phone: [facility] 02-19-2022 08:45-0500 Respiratory rate 16 /min DO Fanny Petznick Work Phone: [facility] 02-19-2022 08:45-0500 SaO2% (BldA) [Mass fraction] 95 % DO Fanny Petznick Work Phone: [facility] 02-19-2022 08:45-0500 Systolic blood pressure 146 mm[Hg] DO Fanny Petznick Work Phone: [facility] 02-19-2022 08:11-0500 Body temperature 98.4 [degF] DO Fanny Petznick Work Phone: [facility] 02-19-2022 07:41-0500 Inhaled oxygen flow rate 8 L/min DO Fanny Petznick Work Phone: [facility] 02-19-2022 07:24-0500 Body height 175.26 cm DO Fanny Petznick Work Phone: [facility] 02-19-2022 07:24-0500 Body mass index (BMI) [Ratio] 28.6 kg/m2 DO Fanny Petznick Work Phone: [facility] 02-19-2022 07:24-0500 Body weight 87.99 kg DO Fanny Petznick Work Phone: [facility] 12-16-2021 11:50-0400 Body height 175.26 cm Mala Aguillon Other [employer] Other 12-16-2021 11:50-0400 Body mass index (BMI) [Ratio] 28.65 kg/m2 Mala Aguillon Other [facility] Other 12-16-2021 11:50-0400 Body temperature 97.6 [degF] Mala Aguillon Other [facility] Other 12-16-2021 11:50-0400 Body weight 88 kg Mala Aguillon Other [facility] Other 12-16-2021 11:50-0400 Diastolic blood pressure 79 mm[Hg] Mala Aguillon Other [facility] Other 12-16-2021 11:50-0400 Respiratory rate 18 /min Mala Aguillon Other [facility] Other 12-16-2021 11:50-0400 SaO2% (BldA) [Mass fraction] 99 % Mala Aguillon Other [employer] Other 12-16-2021 11:50-0400 Systolic blood pressure 145 mm[Hg] Mala Pal Other [facility] Other 10-19-2021 14:52-0400 Diastolic blood pressure 64 mm[Hg] DO Fanny Petznick Work Phone: [facility] 10-19-2021 14:52-0400 Heart rate 89 /min DO Fanny Petznick Work Phone: [facility] 10-19-2021 14:52-0400 Respiratory rate 18 /min DO Fanny Petznick Work Phone: [facility] 10-19-2021 14:52-0400 SaO2% (BldA) [Mass fraction] 94 % DO Fanny Petznick Work Phone: [facility] 10-19-2021 14:52-0400 Systolic blood pressure 144 mm[Hg] DO Fanny Petznick Work Phone: [facility] 10-19-2021 13:15-0400 Body temperature 98.4 [degF] DO Fanny Petznick Work Phone: [facility] 10-19-2021 12:40-0400 Inhaled oxygen flow rate 8 L/min DO Fanny Petznick Work Phone: [facility] 10-19-2021 11:15-0400 Body height 175.26 cm DO Fanny Petznick Work Phone: [facility] 10-19-2021 11:15-0400 Body mass index (BMI) [Ratio] 29.2 kg/m2 DO Fanny Prabhakar Work Phone: [facility] 10-19-2021 11:15-0400 Body weight 89.8 kg DO Fanny Prabhakar Work Phone: [facility] Functional Status Date Assessment Result Facility 01-29-2023 [...] 1 tab(s), Oral, Daily Flonase 0.05 mg/inh Abbott, 1 spray(s), Nasal, BID gabapentin 300 mg [...] Father. Alcoholism: Broth (more content not included)... [facility] Comment on above: Result Comment: Elec tronically Signed By: KIET GUZMAN, Colby Sin\Date and Time Signed: 01/29/23 15:50 EDT Evaluation [...] understanding and is agreeable to treatment plan [facility] Other Evaluation + Plan note Note Date & Type Note Facility Evaluation + Plan note No data available for this section [facility] [place] Evaluation note Note Date & Type Note Facility Evaluation note No assessment information availa [facility] Work Phone: History general Narrative [...] shoulder surgery 2021 Hospitalization History see above [facility] Other Hospital Discharge instructions Note Date & Type Note Facility Hospital Discharge instructions Additional Instructions #1 ice left shoulder as needed for pain. #2 start physical therapy tomorrow. #3 10 wall walks 4 times a day. #4 may use left arm [facility] Work Phone: Hospital Discharge instructions Note Date & Type Note Facility Hospital Discharge instructions No data available for this section [facility] [place] Progress note Note Date & Type Note Facility Progress note No data available for this section [facility] [place] Summary Purpose Family History No Family History [...] section and content) DATE CREATED AUTHOR 08/02/2021 [facility] DATE CREATED AUTHOR AUTHOR'S ORGANIZ ATION 05/31/2022 [facility] DATE CREATED AUTHOR AUTHOR'S ORGANIZ ATION 06/27/2022 [facility] DATE CREATED AUTHOR AUTHOR'S ORGANIZ ATION 03/02/2023 [facility] DATE CREATED AUTHOR AUTHOR'S ORGANIZ ATION 08/21/2023 [facility] [employer] Care Teams (unrecognized [...] BE BASED ON THE PRIMARY CLINICAL RECORDS. [facility] [employer] [facility]. provides no warranty or guarantee of the accuracy or completeness of information in this document.
== END 2023-09-07 07:52 | disposition home or self-care (01) ==
LOC: US 07:51
PROVIDERS: PCP Family Medicine; Visit Provider Family Medicine
DX: R10.11 Right upper quadrant pain (principal); R16.0 Hepatomegaly, not elsewhere classified; K76.0 Fatty (change of) liver, not elsewhere classified
CPT/HCPCS: 76705

== ENCOUNTER 2023-09-12 13:54 | Outpatient (OUT) | payer BC, SELFPAY ==
--- NOTE | 2023-09-12 14:18 | XR_ITS ---
The [address] [address] Patient Name: ZARA BENEDICT MRN: [id number] date: 1960 Sex: F Assigned Patient Location: [facility] Current Patient Location: [facility] Accession/Order Number: [id number] Exam Date: 09/12/2023 14:08 Report Date: 09/12/2023 15:53 At the request of: MARILU PATIÑO Procedure: XR DEXA axial skeleton EXAMINATION: XR DEXA axial skeleton, 09/12/2023 2:08 PM EDT HISTORY: Post Menopausal State Z78.0 COMPARISON: None. TECHNIQUE: Dual-energy X-ray absorptiometry (DEXA) bone density study performed for the axial skeleton. HISTORY: Post Menopausal State Z78.0 FINDINGS: Bone mineral density of the before meals spine L1-L4 measures 1.314 g/sq cm squared. T score 1.1. WHO ossification: Normal. Lowest bone mineral density left femoral trochanter measures 0.742 g/sq cm. T score -0.9. WHO classification: Normal XR/XR DEXA axial skeleton IMPRESSION: Normal bone mineral density. Low fracture risk Electronically authenticated by: FLAVIA CHAVES Date: 09/12/2023 15:53
--- OUTSIDE RECORDS SUMMARY | 2023-09-12 14:18 | XMS_ITS | CCD ---
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 Name Role Phone Aki, DO Escobedo Primary Care Provider DO Bharat [...] Admitting Unavailable PETANGELICA, DR ESCOBEDO Attending Unavailable AIK, DR ESCOBEDO Admitting Unavailable AKI, DR ESCOBEDO Primary Care Unavailable FANNY PRABHAKAR Primary Care Physician Colby SANTA Attending Unavailable FANNY PRABHAKAR Referring Unavailable Colby SANTA Attending Unavailable FANNY PRABHAKAR Attending Unavailable FANNY PRABHAKAR Referring Unavailable FANNY PRABHAKAR Attending Unavailable MARILU PATIÑO Attending Unavailable Allergies Allergy Classification Reported Allergen(s) Allergy Type Date of Onset Reaction(s) Facility (6 sources) atorvastatin; Translations: [atorvastatin] Drug Allergy 2 Joint pain (finding) [facility] (7 sources) Cephalexin; Translations: [cephalexin] Drug Allergy 6 Swelling, Edema (finding) [facility] (6 sources) rosuvastatin; Translations: [rosuvastatin] Drug Allergy 2 Diarrhea (finding) [facility] (2 sources) Acetaminophen / oxyCODONE; Translations: [acetaminophen-ox ycodone] Drug Allergy Itching (finding) General Surgery Juan A (2 sources) diphenhydrAMINE; Translations: [diphenhydramine] Drug Allergy Itching (finding) General Surgery Juan A (1 source) Hmg-Coa Reductase Inhibitors (Statins) Drug allergy aches/diarrhea [employer] Other (1 source) Acetaminophen / oxyCODONE; Translations: [Percocet] Drug Allergy [facility] (1 source) diphenhydrAMINE; Translations: [Benadryl] Drug Allergy [facility] Medications Current Medications Medication Drug Class(es) [...] Start: 10-19-2021 take 1 capsule by mo [facility] once daily Celecoxib (Celebrex) 200 [...] Corticosteroid Start: 01-29-2023 Flonase 0.05 m g/inh [place] 1 spray(s), Nasal, BID, Refill(s) 0 Start [...] Outside Colonoscopyon 2022 Outside Colonoscopy [id number]#1. 00TIFF Normal [facility] Reminderson 02-14-2023 Reminders - From: Eunice Davis LPN To: GSN - Clinical; Sent: 02/14/2023 14:19:54 EST Show up: 01/14/2028 07:00:00 EDT Subject: colonoscopy recall Due Date/Time: 02/14/2028 07:00:00 EST Reminder/Recall Patient due for surveillance colonoscopy 02/14/2028 due to remote history of colon polyps. Normal [facility] Lab Reportson 02-13-2023 Lab Reports [id number]#1. 00TIFF [facility] Insurance Correspondenceon 1 04-10-2022 Insurance Correspondence [id number]# 1.00TIFF [facility] Consent for Procedure/Surger yon 01-30-2023 Consent for Procedure/Surgery [id number]#1 .00TIFF [facility] Facesheeton 01-30-2023 Facesheet [id number]# 1.00TIFF [facility] Ambulatory Visit Summaryon 1 Ambulatory Visit Summary [...] mg Tab) fluticasone nasal (Flonase 0.05 mg/inh [place]) gabapentin (gabapentin 300 mg Cap) insulin glargine [...] Unchanged fluticasone nasal (Flonase 0.05 mg/ inh [place]) 1 Sprays Nasal Inhalation 2 times a [...] choosing us for your care. Normal [facility] CBC AUTO DIFFon 05-30-2022 BASO # 0.0 103/ul Normal 0.0-0.1 [facility] Comment on above: Performed By: #### C BC #### [facility] [address] [place] [address] Dr. Ian Sandra Basophils/100 WBC (Bld) 0.4 % Normal 0.2-2.0 [facility] Comment on above: Performed By: #### C BC #### [facility] [address] [place] [address] Dr. Ian Sandra EO # 0.1 103/ul Normal 0.0-0.7 [facility] Comment on above: Performed By: #### C BC #### [facility] [address] [place] [address] Dr. Ian Sandra Eosinophils/100 WBC (Bld) 3.1 % Normal 0.9-7.0 [facility] Comment on above: Performed By: #### C BC #### [facility] [address] [place] [address] Dr. Ian Sandra Erythrocyte distribution width (RBC) [Ratio] 13.5 % Normal 11.0-15.0 [facility] Comment on above: Performed By: #### C BC #### [facility] [address] [place] [address] Dr. Ian Sandra Hematocrit (Bld) [Volume fraction] 48.9 % Critically high 36.0-48.0 [facility] Comment on above: Performed By: #### C BC #### [facility] [address] [place] [address] Dr. Ian Sandra Hemoglobin (Bld) [Mass/Vol] 16.0 g/dL Normal 12.0-16.0 [facility] Comment on above: Performed By: #### C BC #### [facility] [address] [place] [address] Dr. Ian Sandra IG # 0.01 10e3/ul Normal 0.00-0.03 [facility] Comment on above: Performed By: #### C BC #### [facility] [address] [place] [address] Dr. Ian Sandra IG % 0.2 % Normal 0.0-0.5 [facility] Comment on above: Performed By: #### C BC #### [facility] [address] [address] [address] Ian Sandra LYMPH # 1.4 103/ul Normal 1.2-3.8 [facility] Comment on above: Performed By: #### C BC #### [facility] [address] [address] [address] Ian Sandra Lymphocytes/100 WBC (Bld) 29.5 % Normal 20.5-60.0 [facility] Comment on above: Performed By: #### C BC #### [facility] [address] [place] [address] Dr. Ian Sandra MANUAL DIFF REQ NO Normal [facility] Comment on above: Performed By: #### C BC #### [facility] [address] [place] [address] Dr. Ian Sandra MCH (RBC) [Entitic mass] 29.9 pg Normal 26.7-34.0 [facility] Comment on above: Performed By: #### C BC #### [facility] [address] [place] [address] Dr. Ian Sandra MCHC (RBC) [Mass/Vol] 32.7 g/dL Normal 29.9-35.2 [facility] Comment on above: Performed By: #### C BC #### [facility] [address] [place] [address] Dr. Ian Sandra MCV (RBC) [Entitic vol] 91.4 fL Normal 81.0-99.0 [facility] Comment on above: Performed By: #### C BC #### [facility] [address] [place] [address] Dr. Ian Sandra MONO # 0.4 103/ul Normal 0.3-0.8 [facility] Comment on above: Performed By: #### C BC #### [facility] [address] [place] [address] Dr. Ian Sandra Monocytes/100 WBC (Bld) 9.4 % Normal 1.7-12.0 [facility] Comment on above: Performed By: #### C BC #### [facility] [address] [place] [address] Dr. Ian Sandra NEUT # 2.6 103/ul Normal 1.4-6.5 [facility] Comment on above: Performed By: #### C BC #### [facility] [address] [place] [address] Dr. Ian Sandra Neutrophils/100 WBC (Bld) 57.4 % Normal 43.0-75.0 [facility] Comment on above: Performed By: #### C BC #### [facility] [address] [place] [address] Dr. Ian Sandra Platelet mean volume (Bld) [Entitic vol] 11.2 fL Normal 9.5-13.5 [facility] Comment on above: Performed By: #### C BC #### [facility] [address] [place] [address] Dr. Ian Sandra PLT 176 103/ul Normal 150-450 [facility] Comment on above: Performed By: #### C BC #### [facility] [address] [place] [address] Dr. Ian Sandra RBC 5.35 106/ul Normal 4.20-5.40 [facility] Comment on above: Performed By: #### C BC #### [facility] [address] [place] [address] Dr. Ian Sandra WBC 4.6 103/ul Normal 4.0-11.0 [facility] Comment on above: Performed By: #### C BC #### [facility] [address] [place] [address] Dr. Ian Sandra LIPID PROFILEon 05-30-2022 CHOL-HDL RATIO NORM SEE BELOW Normal [facility] Comment on above: Result Comment: 3.3 - 4.4 LOW RISK 4.4 - 7.1 AVERAGE RISK 7.1 - 11.0 MODERATE RISK >11.0 HIGH RISK Performed By: #### C MP, LIPID #### [facility] [address] [place] [address] Dr. Ian Sandra Cholesterol [Mass/Vol] 218 mg/dL Critically high <=200 [facility] Comment on above: Performed By: #### C MP, LIPID #### [facility] [address] [address] [address] Ian Sandra Cholesterol in HDL [Mass/Vol] 46 mg/dL Normal 40-60 [facility] Comment on above: Performed By: #### C MP, LIPID #### [facility] [address] [address] [address] Ian Sandra Cholesterol in LDL [Mass/Vol] 136.4 mg/dL Normal [facility] Comment on above: Performed By: #### C MP, LIPID #### [facility] [address] [address] [address] Ian Sandra Cholesterol.total/Choles terol in HDL [Mass ratio] 4.7 {ratio} Normal [facility] Comment on above: Performed By: #### C MP, LIPID #### [facility] [address] [place] [address] Dr. Ian Sandra HDL NORMAL > or = 60 mg/dl - LO W CARDIOVASCULAR RISK <40 mg/dl - HIGH CARDIOVASCULAR RISK Normal [facility] Comment on above: Performed By: #### C MP, LIPID #### [facility] [address] [address] [address] Ian Sandra LDL CALC NORMAL SEE BELOW Normal [facility] Comment on above: Result Comment: <100 mg/dl OPTIMAL 100 - 129 mg/dl NEAR OR ABOVE OPTIMAL 130 - 159 mg/dl BORDERLINE HIGH 160 - 189 mg/dl HIGH >190 mg/dl VERY HIGH Performed By: #### C MP, LIPID #### [facility] [address] [address] [address] Ian Sandra Triglyceride [Mass/Vol] 178 mg/dL Critically high <=150 [facility] Comment on above: Performed By: #### C MP, LIPID #### [facility] [address] [address] [address] Ian Sandra VLDL CALC 35.6 mg/dL Normal [facility] Comment on above: Performed By: #### C MP, LIPID #### [facility] [address] [address] [address] Ian Sandra MICROALB CREAT RATIO RANDOMo n 03-01-2023 mALB <1.3 Normal <=30.0 [facility] Comment on above: Performed By: #### M CRR #### [facility] [address] [address] [address] Ian Sandra MALB CR RATIO RANGE SEE BELOW Normal [facility] Comment on above: Result Comment: NO M ICROALBUMINURIA 0-29 MG/G CLINICAL MICROALBUMINURIA 30-300 MG/G MACROALBUMINURIA >300 MG/G Performed By: #### M CRR #### [facility] [address] [address] [address] Ian Sandra URINE CREAT 45.83 mg/dL Normal 20.00-300.00 [facility] Comment on above: Performed By: #### M CRR #### [facility] [address] [address] [address] Ian Sandra PROF 14(COMP METB)on 023 Albumin [Mass/Vol] 4.4 g/dL Normal 3.4-5.0 [facility] Comment on above: Performed By: #### C MP, LIPID #### [facility] [address] [address] [address] Ian Sandra Albumin/Globulin [Mass ratio] 1.1 {ratio} Normal [facility] Comment on above: Performed By: #### C MP, LIPID #### [facility] [address] [address] [address] Ian Sandra ALP [Catalytic activity/Vol] 80 U/L Normal 46-116 [facility] Comment on above: Performed By: #### C MP, LIPID #### [facility] [address] [address] [address] Ian Sandra ALT [Catalytic activity/Vol] 45 U/L Normal 14-59 [facility] Comment on above: Performed By: #### C MP, LIPID #### [facility] [address] [address] [address] Ian Sandra Anion gap [Moles/Vol] 11.7 mmol/L Normal [facility] Comment on above: Performed By: #### C MP, LIPID #### [facility] [address] [address] [address] Ian Sandra AST [Catalytic activity/Vol] 31 U/L Normal 15-37 [facility] Comment on above: Performed By: #### C MP, LIPID #### [facility] [address] [address] [address] Ian Sandra Bilirubin [Mass/Vol] 0.4 mg/dL Normal 0.2-1.0 [facility] Comment on above: Performed By: #### C MP, LIPID #### [facility] [address] [address] [address] Ian Sandra Calcium [Mass/Vol] 9.3 mg/dL Normal 8.5-10.1 [facility] Comment on above: Performed By: #### C MP, LIPID #### [facility] [address] [place] [address] Dr. Ian Sandra Chloride [Moles/Vol] 104 mmol/L Normal 98-107 [facility] Comment on above: Performed By: #### C MP, LIPID #### [facility] [address] [address] [address] Ian Sandra CO2 [Moles/Vol] 29.1 mmol/L Normal 21.0-32.0 [facility] Comment on above: Performed By: #### C MP, LIPID #### [facility] [address] [address] [address] Ian Sandra Creatinine [Mass/Vol] 0.58 mg/dL Normal 0.55-1.02 [facility] Comment on above: Performed By: #### C MP, LIPID #### [facility] [address] [address] [address] Ian Sandra EGFR-AF RWANDAN >60 Normal >=60 [facility] Comment on above: Performed By: #### C MP, LIPID #### [facility] [address] [address] [address] Ian Sandra EGFR-NON AF RWANDAN >60 Normal >=60 [facility] Comment on above: Performed By: #### C MP, LIPID #### [facility] [address] [address] [address] Ian Sandra Globulin (S) [Mass/Vol] 3.9 g/dL Normal [facility] Comment on above: Performed By: #### C MP, LIPID #### [facility] [address] [address] [address] Ian Sandra Glucose [Mass/Vol] 171 mg/dL Critically high 74-106 [facility] Comment on above: Performed By: #### C MP, LIPID #### [facility] [address] [address] [address] Ian Sandra Potassium [Moles/Vol] 3.8 mmol/L Normal 3.5-5.1 [facility] Comment on above: Performed By: #### C MP, LIPID #### [facility] [address] [place] [address] Dr. Ian Sandra Protein [Mass/Vol] 8.3 g/dL Critically high 6.4-8.2 [facility] Comment on above: Performed By: #### C MP, LIPID #### [facility] [address] [place] [address] Dr. Ian Sandra Sodium [Moles/Vol] 141 mmol/L Normal 136-145 [facility] Comment on above: Performed By: #### C MP, LIPID #### [facility] [address] [place] [address] Dr. Ian Sandra Urea nitrogen [Mass/Vol] 14.0 mg/dL Normal 7.0-18.0 [facility] Comment on above: Performed By: #### C MP, LIPID #### [facility] [address] [place] [address] Dr. Ian Sandra Urea nitrogen/Creatinine [Mass ratio] 24.1 mg/mg Normal [facility] Comment on above: Performed By: #### C MP, LIPID #### [facility] [address] [place] [address] Dr. Ian Sandra Basic Metabolic Panelon 11-2 Anion gap [Moles/Vol] 12.6 mmol/L Normal 6.0-15.0 [facility] Comment on above: Performed By: #### B MP #### [facility] [address] Calcium [Mass/Vol] 9.5 mg/dL Normal 8.2-10.2 [facility] Comment on above: Performed By: #### B MP #### [facility] [address] Chloride [Moles/Vol] 104 mmol/L Normal 95-114 [facility] Comment on above: Performed By: #### B MP #### [facility] [address] CO2 [Moles/Vol] 25.8 mmol/L Normal 22.0-30.[address] [facility] Comment on above: Performed By: #### B MP #### [address] Creatinine [Mass/Vol] 0.59 mg/dL Normal 0.44-1.03 [facility] Comment on above: Performed By: #### B MP #### [place] [address] [place] Creatinine Clr Calc Pharmacy 121.43 [facility] Comment on above: Result Comment: PERF ORMED BY: [place] [address] PATHOLOGIST WILDLIFE BIOLOGY TECHNICIAN IGOR GUSTAFSON M.D. Performed By: #### B MP #### [address] Estimated GFR ( Jeannie > 60 [facility] Comment on above: Result Comment: GFR estimated reference range: According to KDOQI guidelines, <60 ml/min/1.73m2 is sufficient to diagnose a patient with chronic kidney disease. Performed By: #### B MP #### [address] Estimated GFR (Non- Am > 60 [facility] Comment on above: Performed By: #### B MP #### [place] [address] [place] Glucose [Mass/Vol] 194 mg/dL High 70-100 [facility] Comment on above: Result Comment: [place] om Glucose Reference Range is dependent on time and content of last meal. Glucose of more than 200 mg/dL in a nonstressed, ambulatory subject supports the diagnosis of Diabetes Mellitus. ADA recommended reference range Performed By: #### B MP #### [facility] [address] [id number] [place] Potassium [Moles/Vol] 4.4 mmol/L Normal 3.5-5.1 [facility] Comment on above: Performed By: #### B MP #### [facility] [address] [id number] [place] Sodium [Moles/Vol] 138 mmol/L Normal 136-146 [facility] Comment on above: Performed By: #### B MP #### [facility] [address] [place] [address] [place] Urea nitrogen [Mass/Vol] 12 mg/dL Normal 9-23 [facility] Comment on above: Performed By: #### B MP #### [facility] [address] [id number] [place] Creatinine and Glomerular fi ltration rate.predicted panel (S/P/Bld)Ordered By: Ga Field on 02-19-2022 Creatinine [Mass/Vol] 0.59 mg/dL 0.44-1.03 [facility] Estimated glomerular filtrat ion rate (GFR) non- AmericanOrdered By: Ga Field on 02-19-2022 GFR/1.73 sq M.predicted among non-blacks MDRD (S/P/Bld) [Vol rate/Area] > 60 mL/Min [facility] Glucose Glucometer (BldC) [M ass/Vol]Ordered By: Bharat Zelaya on 02-19-2022 Glucose [Mass/Vol] 163 mg/dL [facility] Comment on above: Random Glucose Refer ence Range is dependent on time and content of last meal. Glucose of more than 200 mg/dL in a nonstressed, ambulatory subject supports the diagnosis of Diabetes Mellitus. Glucose Poct Glucometerson 1 1-21-2022 Glucose [Mass/Vol] 163 mg/dL Normal [facility] Comment on above: Result Comment: [place] om Glucose Reference Range is dependent on time and content of last meal. Glucose of more than 200 mg/dL in a nonstressed, ambulatory subject supports the diagnosis of Diabetes Mellitus. PERFORMED BY: [place] [address] PATHOLOGIST WILDLIFE BIOLOGY TECHNICIAN IGOR GUSTAFSON M.D. Performed By: #### G LURAIN #### Point of Care testing , No Panel InformationOrdered By: Ga Field on 02-19-2022 Estimated GFR () > 60 mL/Min [facility] Comment on above: GFR estimated refere nce range: According to KDOQI guidelines, <60 ml/min/1.73m2 is sufficient to diagnose a patient with chronic kidney disease. Pharmacy Creatinine Clearance (Chem 121.43 [facility] Serum or plasma anion gap de terminationOrdered By: Ga Field on 02-19-2022 Anion gap [Moles/Vol] 12.6 mmol/L 6.0-15.0 [facility] Serum or plasma calcium nava urement (mass/volume)Ordered By: Ga Field on 02-19-2022 Calcium [Mass/Vol] 9.5 mg/dL 8.2-10.2 [facility] Serum or plasma chloride eri surement (moles/volume)Ordered By: Ga Field on 02-19-2022 Chloride [Moles/Vol] 104 mmol/L 95-114 [facility] Serum or plasma glucose nava urement (mass/volume)Ordered By: Ga Field on 02-19-2022 Glucose [Mass/Vol] 194 mg/dL 70-100 [facility] Comment on above: ADA recommended refe rence rangeRandom Glucose Reference Range is dependent on time and content of last meal. Glucose of more than 200 mg/dL in a nonstressed, ambulatory subject supports the diagnosis of Diabetes Mellitus. Serum or plasma potassium me asurement (moles/volume)Ordered By: Ga Field on 02-19-2022 Potassium [Moles/Vol] 4.4 mmol/L 3.5-5.1 [facility] Serum or plasma sodium measu rement (moles/volume)Ordered By: Ga Field on 02-19-2022 Sodium [Moles/Vol] 138 mmol/L 136-146 [facility] Serum or plasma total carbon dioxide measurement (moles/volume)Ordered By: Ga Field on 02-19-2022 CO2 [Moles/Vol] 25.8 mmol/L 22.0-30.[address] [facility] Serum or plasma urea nitroge n measurement (mass/volume)Ordered By: Ga Field on 02-19-2022 Urea nitrogen [Mass/Vol] 12 mg/dL 12-22 [facility] COVID-19 Antigenon 2 COVID-19 Antigen [...] developed and its performance characteristic determined by [employer] and validated at [facility]. This test has not been [...] for SARS Antigen by SAMIR PERFORMED BY: [place] [address] PATHOLOGIST WILDLIFE BIOLOGY TECHNICIAN IGOR GUSTAFSON M.D. Normal [facility] Comment on above: Performed By: #### C OVID-19 JESSICA, SOFIANEG #### [facility] [address] [place] [address] COVID-19 SOFIAOrdered By: Juni Zelaya on 02-16-2022 SARS-CoV+SARS-CoV-2 (COVID-19) Ag IA.rapid Ql (Resp) Negative Negative [facility] Comment on above: This is a duplicate Jessica SARS Antigen (SAMIR) result to be used for statistical tracking purpose only. No Panel InformationOrdered By: Bharat Zelaya on 02-16-2022 SARS Antigen (LFIA) [facility] Jessica Ag Negativeon 02-17-20 Jessica Ag Negative Negative Normal Negative [facility] Comment on above: Result Comment: This is a duplicate Jessica SARS Antigen (SAMIR) result to be used for statistical tracking purpose only. PERFORMED BY: [place] [address] PATHOLOGIST WILDLIFE BIOLOGY TECHNICIAN IGOR GUSTAFSON M.D. Performed By: #### C OVID-19 JESSICA, SOFIANEG #### [address] [address] [facility] Glucose Glucometer (BldC) [M ass/Vol]Ordered By: Bharat Zelaya on 10-19-2021 Glucose [Mass/Vol] 179 mg/dL [facility] Comment on above: Random Glucose Refer ence Range is dependent on time and content of last meal. Glucose of more than 200 mg/dL in a nonstressed, ambulatory subject supports the diagnosis of Diabetes Mellitus. Glucose Poct Glucometerson 0 10-19-2021 Glucose [Mass/Vol] 179 mg/dL Normal [facility] Comment on above: Result Comment: [place] om Glucose Reference Range is dependent on time and content of last meal. Glucose of more than 200 mg/dL in a nonstressed, ambulatory subject supports the diagnosis of Diabetes Mellitus. PERFORMED BY: [address] [place] [address] PATHOLOGIST WILDLIFE BIOLOGY TECHNICIAN IGOR GUSTAFSON M.D. Performed By: #### G JANESSA #### Point of Care testing , Basic Metabolic Panelon 09-29 Estimated GFR ( Jeannie > 60 Normal [facility] Comment on above: Result Comment: GFR estimated reference range: According to KDOQI guidelines, <60 ml/min/1.73m2 is sufficient to diagnose a patient with chronic kidney disease. Performed By: #### B MP #### [address] Estimated GFR (Non- Am > 60 Normal [facility] Comment on above: Performed By: #### B MP #### [address] COVID-19 FRMCon 10-17-2021 SARS-CoV-2 (COVID-19) RNA ANTOINETTE+probe Ql (Unsp spec) Negative Normal Negative [facility] Comment on above: Order Comment: Healt hcare Worker?: N Result Comment: Testing for SARS-CoV-2 by RT-PCR This test was developed and its performance characteristics determined by [employer] ([employer]) and validated at the [facility]. This test has not been [...] is terminated or revoked sooner. PERFORMED BY: [address] [address] PATHOLOGIST WILDLIFE BIOLOGY TECHNICIAN IGOR GUSTAFSON M.D. Performed By: #### C OVID 19 [facility] [place] #### [place] [id number] [facility] COVID-19 Positive/NegativeOr dered By: Bharat Zelaya on 10-17-2021 SARS-CoV-2 (COVID-19) N gene ANTOINETTE+probe Ql (Resp) Negative Negative [facility] Comment on above: Testing for SARS-CoV -2 by RT-PCR This test was developed and its performance characteristics determined by [employer] ([employer]) and validated at the [facility]. This test has not been [...] lead ECGon 10-17-2021 ECG 12 lead ECG [facility] [address] [place] [address] [place], [place] [id number] Electrocardiograph Report Signed Patient: Zara Benedict MR#: [id number] : 1960 Acct:[id number] Age/Sex: 61 / F ADM Date: 10/17/21 Loc: Room: Type: [facility] Attending [...] By Gigi Dang MD 10/18/21 1641 Normal [facility] Estimated glomerular filtrat ion rate (GFR) non- AmericanOrdered By: Bharat Zelaya on 10-17-2021 GFR/1.73 sq M.predicted among non-blacks MDRD (S/P/Bld) [Vol rate/Area] > 60 mL/Min [facility] No Panel InformationOrdered By: Bharat Zelaya on 10-17-2021 Estimated GFR () > 60 mL/Min [facility] Comment on above: GFR estimated refere nce range: According to KDOQI guidelines, <60 ml/min/1.73m2 is sufficient to diagnose a patient with chronic kidney disease. Pharmacy Creatinine Clearance (Chem N/A [facility] Serum or plasma calcium nava urement (mass/volume)Ordered By: Bharat Zelaya on 10-17-2021 Calcium [Mass/Vol] 9.7 mg/dL Normal 8.2-10.2 [facility] Comment on above: Result Comment: PERF ORMED BY: [address] [place] [address] PATHOLOGIST [employer]ILDLIFE BIOLOGY TECHNICIAN IGOR GUSTAFSON M.D. Performed By: #### B MP #### [facility] [address] [place] [address] Serum or plasma chloride eri surement (moles/volume)Ordered By: Bharat Zelaya on 10-17-2021 Chloride [Moles/Vol] 102 mmol/L Normal 95-114 [facility] Comment on above: Performed By: #### B MP #### [facility] [address] [place] [address] [place] Serum or plasma creatinine m easurement with calculation of estimated glomerular filtrOrdered By: Bharat Zelaya on 10-17-2021 Creatinine [Mass/Vol] 0.51 mg/dL Normal 0.44-1.03 [facility] Comment on above: Performed By: #### B MP #### [address] Serum or plasma glucose nava urement (mass/volume)Ordered By: Bharat Zelaya on 10-17-2021 Glucose [Mass/Vol] 134 mg/dL High 70-100 [facility] Comment on above: ADA recommended refe rence range Random Glucose Reference Range is dependent on time and content of last meal. Glucose of more than 200 mg/dL in a nonstressed, ambulatory subject supports the diagnosis of Diabetes Mellitus. Result Comment: [place] om Glucose Reference Range is dependent on time and content of last meal. Glucose of more than 200 mg/dL in a nonstressed, ambulatory subject supports the diagnosis of Diabetes Mellitus. ADA recommended reference range Performed By: #### B MP #### [address] Serum or plasma potassium me asurement (moles/volume)Ordered By: Bharat Zelaya on 10-17-2021 Potassium [Moles/Vol] 3.8 mmol/L Normal 3.5-5.1 [facility] Comment on above: Performed By: #### B MP #### [address] Serum or plasma sodium measu rement (moles/volume)Ordered By: Bharat Zelaya on 10-17-2021 Sodium [Moles/Vol] 137 mmol/L Normal 136-146 [facility] Comment on above: Performed By: #### B MP #### [address] Serum or plasma total carbon dioxide measurement (moles/volume)Ordered By: Bharat Zelaya on 10-17-2021 CO2 [Moles/Vol] 23.6 mmol/L Normal 22.0-30.[address] [facility] Comment on above: Performed By: #### B MP #### [address] [place] [address] [facility] Serum or plasma urea nitroge n measurement (mass/volume)Ordered By: Bharat Zelaya on 10-17-2021 Urea nitrogen [Mass/Vol] 11 mg/dL Normal 9- [facility] Comment on above: Performed By: #### B MICHI #### [facility] [address] [id number] [facility] MRI SHOULDER LT WO CONon MRI SHOULDER [...] MELVIN Date: 2021-10-10 19:39 Normal [facility] MAMM SCREEN 3D MELVINA CADon 09-12-2021 MG MAMM SCREEN 3D MELVINA CAD Patient: ZARA BENEDICT Exam Date: 09/12/2021 : 1960 Gender:F Ordering : DR INES MEJIAS Admission #: [id number] Family : Order #: [id number] CLICK HERE TO VIEW EXAM RADIOLOGY REPORT [...] bladder cancer at age 82. LOCATION: [facility] BREAST COMPOSITION: Almost entirely fatty. FINDINGS: DIAGNOSTIC [...] Toro M.D. on 09/13/2021 at 11:56 Normal [facility] Physical Therapy Noteon -2 Physical Therapy Note [id number] .00OTGTIFF Normal [facility] Provider [place] 01-13-2021 Provider Orders [id number] [facility] Provider [place] 11-18-2020 Provider Orders [id number] [facility] Coding Summaryon 11-16-2020 Coding Summary HTMLBase 64 CqzjshujZNh3hGi+PGhlY WQ+QF8RXKQtR14usHHdeA 5XK5oVNF8CBDBPTMKEYZ4 EUF2jzFZ2HEnmU8UsjwQw JeolvTWlKI53MTz3QIX7p CogDEdumX3tuJGwT5e8Bz MpPJ84rM50DHdnYBHtVjC 3LjZpbjsgbWFy Z3dvFlZjiNEkXjn+PHRhY mxlIHdpZHRoPScxMDAlJy AfuCiqHI1vOf3gFJVzCDA vbGxhcHNlOiBj u4haFBMnAZzkSI3ojNosK 3SkuRY7BULyp7n8Jk07bH I+XAIvCXG2oOwkKQitt70 4JpUgc8onBPK7 qWJjXQxdJYE0I60te0D5M IWlPQLkKWT3kTW3cL0wwF pfcbnjT9ImcXPsDqJ1IOB 6iODpqW7isHzt degegD7bTjy+W64NHA3ZX DLHBJ6DVdf7A3ZzTthlzX I+NI50GHHtZP11hROptFE lg8bnyYh9QcZz VRHiFEH9qJfwJUeug0JtZ MGtK42liPVui8S9GELvrF sbnFDgBhQnbRI6bU4bREg tqvkrf4amkgua Ccfbb7omes26oQ27R69uH PxwSBLaNJY0XPOzZLUaeE jccs1wsB6xBt1+LPwmx6u rj8plaJu6ZaXy LLUzjuToqDjpMPX0h4IyM k12Q8CtgXwrv2XcAjx7ae 05eMKbu0L9fFT0DZxmXNU etC6eWAheWxK9 SUMbNcVvaN46qWWgRLydE m7cgQpyiGmuVR4mRZUglq ccHMZegB2uDEFrfBVjeYo mCT4lPVAwmckg k795SyIpQOX5IMJgdVUyR 7XjwB7xZwAvGRXqFBHsM1 AstAUgMHicT005DJgkFyP 6DIPrcpQhO2Dd DSZzxFgiSqU3v3W3Ij3Tc 1FjckfiYZF6GNunLGA4Pn M1WfYxAvO3Q3LlEox2XGK wkYwhHE0lV7Di SWXrejouqamvqWJ1IAMxE YVpkN80gXWoDJnqSb7hp1 O6e698LKWlLHMmlU42Oc9 udDogMTBwdCBU tO5xbgrza3ggowouBcUeL VJaZYs1PGp2BHQjtHyfIf ZrFAH6MyL9TLA0nNGtfN9 cdUkjyxowsA3h Oyc+P53cuA1kVQR0HSV1p rhmBODituDyOA27SW03P3 RyPjwvdGFibGU+PGRpdiB ysTxxMP1oZvEh u2crg1PxWDwxH9CdPTYpA JnwMms3GAHcCFX3tAT2qQ 9eINJfELlgd8Y5qAN3P5B qroJngg3fs2tp EUFkOBbpD91ekOGtu5O6B MWulLE3TSWowZhbBeEbiB 93Oyc+KAQquFmgk9BmGze il2gsd9tebXr1 BfHyODNpptYwxIclMDZ4o 1UhDg99A24oPLltQAGuPT LaVYFiCTNybJstpv7xhV6 wIi8+PGNvbCB3 rKW5xK0nHGBiZrX7HBvrD 470ZrMmlLLpTergo9bwt6 zonLb9DbLgMVEirzYtvJs bFQJ2p5JsOl46 E33dWGlhWFGmNGCwNIVdO ZSxtNpnij1pzT6pMo9+PC 0sb2bdos11qU73rEU+PHR vQJE4rNfmAOmh SXFwyH8zJYwqKsH7OQKlL lWveF76uEEeHQklOq6xyU fcdAkwRC9oEGJgoajda39 0QwRne5thWSHy lXRgKEcyNSV1V23bv5J5Y LQgPWOxLKR8uJU2lD9ciB lnbjogbGVmdDsgdmVydGl fBDfaHKeoI290 IHRvcDsnPlBhdGllbnQgT cAzLGv5Y7IxLol8VFWloI dlUR7jsDHfJQvzPn6grBv wbUovMR9cFUFl ercey170GgPjx7ixNLUlz RKtFBxbVER8A15ib4T2GE AcOXBfMLQ2pAA0zS9kwMm nbjogbGVmdDsg igUfhXgxGIucYVwvD603B HRvcDsnPkJpcnRoIERhdG A3ZX11IQ18mEPmy8P8fBT 7Y8VlUKLactyf xcqibCY4QYSvLAHodE13K m4xjGatTp7kNZOwDTN5QP MoqTFlL1QvgU1zRdKoEQC wGQXbU0WruKQh NXwmA198PAtyYjJ6JXYwt wMiY1UpDNCpeQjfXtY4w5 Z0Ty4QO6R7XD54IR19oBU jt5F5zJQ6E5Em HNJogwwixlewnCN9UUYdK IZbsK86Tp1aiKzoEa4aXW GcWVX8STYarUSlC8DelC2 yOiAjMDAwMDAw L5YmuFZjSStoA735AUlhL rB0LDSkukTkR0QzTXBozT rgGeJ2t7P2Bh1UUBz0RC8 1YU44zUSoq1M7 yWR4A1QpCWIfidaagdfge UG9IBQeRIEuwI80Ks2tkP jwTt9iZNNjRME1IAKlrEZ rL3LlfF9aPyMx CXXuIQIyI9EguTZlCUsqJ 471XPtkKhB1RCYmlzUsE7 SoVHKhbGtyOsE6z4A2Sr8 OTNTxHP16YWK2 yUW3ME03XO35U4VgQokqk GFibGU+PHRhYmxlIHdpZH RoPScxMDAlJyBzdHlsZT0 aZd0gBGMvIUDv yTlpmUOuZnVoq6vvUCTwQ KybOD2giYjbD1NnsXA8GW Tjv4g3Uk68Y79bN4HibRC +LDYqrHL4kYR0 bL5dKsQbEaG9NTyeG845U dLlmHInGvmgj1cyk0lgnC v9PzH1WBWylkPljHsuJDR 9d9YnHm65D87k IHdpZHRoPSIxNSUiIHZhb Hgkvs1whS3qOj9+PGNvbC I5oOV8oB5cSyUeRhQ9VTw sB811BhNftXZz Vrgll5rbj0vuoJt1ZfBcR UDcmnPacBcaCOU0t4HkFe 24U6PklHjgi3EcOte2ga2 6lPBej9G4mAG3 G2AwPVWujmbxmRLkiHdnE R7xDQOhhkwlEIAzgH5lIR ZsS2o3ObSpGqX6BWqrL3M wxuG5NOHprSAu KXyoWSB9E06xf7X3ASFvK PNfTON8yZO8eJ2jeAdnvz ogbGVmdDsgdmVydGljYWw iBRdvX419PTUh wJvlUXCaxX4hFJRgxZYhw MhnII1uFLSdhknrTcyMVL xFUiwgVEFNQVJBIEpFQU4 6X6AvRbf3FIEk oRfqTQ2zgRMzTXcdTr6bm XhboOufYL9iMWKcszlrPI XocS5nYNElaQIblXmfNN9 zUCXtodqsu466 PzCrZZP3DPRkxRRdQ3Gfs O9hMdDpVNLiVIUzS3GwoG KxNCwlS824WHpsZfX6FYL wvdArD6BdMDUh bIpyZgM0u2X0Cx6gQR7eZ P9mLXNvDO96CF67zMQjh6 O4jHN7A6CqBYExuxufbfz etFR0HPHmRMQg eE92vGDjBRjoLk1cg7I1f 444SMMmILBotF53Ta1ncS aiPOXnxWCPcM7vpuovt4q vcjogIzAwMDAw ZJh0SSq4ZLVmeGioPhPoV CH4RvI4XNC7gDYutL7zuR ywbczjsE4xUea+NTggWWV xvcF3I5PhIli4 DALrfFebJS4eaQJxSIqcC m7euQgzyGqmJU3cPYGtbr ocGRLqpK2oADEvrKPvdUn mZO8jPKGdjjkq s518RcSlTYY6CMIwbCAnZ 8MsdQ5pLiCaVTDrZKAzQ3 OmvANqWHfdY541EQhsAwC 4EWXbohMcF6Ff ISOgdEbyMcL0h1I0Tp9IL W4VAZR9K7MmFpx0VTVwwC eiKX3uyMVaPZxkWt0gsKj hyTiuJX7yINCt qstqDCAlbV9dRNAekOEui GwhMF1qVJVvybeew452Fe XeLRM9AXYdqFHsZ4XlcN7 yOiAjMDAwMDAw E5VhgHXmPKrtA247WRrnU yU3PSBmcaBfX7NzCBHhkN ewHjG5w1V3Ig2NUBZ3jpC akqyuM6U0eSN9 aWVudDwvdGQ+LU00tn92U 6BdVujyPwh3ZBSdFBX1pP Q5bB1nNORzVAggm0W2gRK 0L3ErjjOexh4u j7ahBSIwTZkeJ02fpACvb 6J6AJWmyBV8CYNegUheDr IixI30Nvp+OTGpvNent3M lPxjpx5dqm1xr eYd7DdJxZQBofiEfpQycA HK0p1XcMk06V22oEPahCN RoPSIzMCUiIHZhbGlnbj0 ljZ7gSj0+PGNv xFE8wRU1nF4kDnMkEmE7F JsgY424KiAoeWKrPwzhx1 czf5gvqRz3HbNoLCVynzP faQadSBV7v3Wg Hj27Z1MnvYwlh8XsSea0z g67iKUyy0F0lAB1N7CeYU DglznmiDOjoKcqWZ5iLCC yidplELHqpM4w YKSqP8t2ApWzBtR3LKstZ 4IqrqP9RIUciIItUSClhH TKsY1fdppur2jhwdsiVyI wDTNxGIr7CEp3 JVPfvUqyOxLmVVE9ObZ9P QC1iAJunU1nmKbaarlucC 9wOyc+ZMp6z6ymvALfHL9 ktUD8KF33LX92 dKUzk0N9uYZ3R3FqPYSye twtmtukmMM9TMNmVVNdiN 51Cc7orUjgQg7zVUCyPEH 2ZRMofTQeS4Eo lR8qZfUmSSJuEOLpL0Xny UVoPZmmD542KWdfIlO3QO DvtxRmV1KzQFEfxDeiOnV 3o4L5Nq4SOT67 VP18ZM95cIYgz3Z3iVB8U 3KoTKAulshiyglbwJO5KN HsIRCeiR67At7zyRihEa6 yQSHkMRA3DSXl iIGxA5JxcG6kJqMzENNwK KGfO9SopQPwVHjfO971JU rnMuW8IAXvcfMiL3LfYBZ imDdzLzJ0m9E9 Bw4UVb62TV36WI44qWPif 5I0fKF4U8XtKXTbzbcnfq dleDE5EEGxACXvzL04Js4 yzOhlNs2dMYZt NJM4HVRahFKuH0HzbX0cD mQfBQUhMWDjX6EouOZgWC lhO111PDtuBtU8CTHekeK iX7KzWBYkoPix MlH2h1S5Gd9HZJfmmda7S 3RkPjwvdHI+DG18ZUXuTS 65qAZlvQKbj3eseZs9PsC sUOJqTEZ4iCux PSd (more content not included)... [facility] Provider Orderson 09-13-2020 Provider Orders [id number] [facility] Coding Summaryon 09-12-2020 Coding Summary HTMLBase 64 BbpmldayXOb5uCl+PGhlY WQ+PM0FDCIyI98xkYCutA 8CZ7pEJL0HBWGQRYDYZE5 KHT8qzNT9HPohU2IpqoYw ExvijOQgCW46XAw0INI5j EchHFhnlX0zeZUpQ1v0Pt ZrTC54gY57XQvtSWKeQwR 3LjZpbjsgbWFy A9vcVaIxpKUsHlu+PHRhY mxlIHdpZHRoPScxMDAlJy DlvJtyNG2pUj2aMGFwVNG vbGxhcHNlOiBj d1zsQMKvTRxhJV8rnGtyE 9WutSI1RCIyi4w1Rp15oW I+FPKxRDZ7yQfgIFhrm43 9WuVni3nrWFQ1 yREiPZhsTPO4D72mx4C0F JHvFGCiQCE2aIK6hI8lwA stwtsdQ4TtjXGpUzR7EVH 6iJZehE0caRag vdywsF3xVxi+J98BXD3WM PEFUG7GEwq8R6ThAxajuK I+GL49VEZzIF77iKVucUC mm3xypWf2LeAv AHLhHCG2fGffWGaik9KyU DQfK61tgFOrx6K1VWClbU wyuFXyTqYclKO8nF5sIYf enlule6ypwrpe Wmdqb8xiue17hV80S21sS RnxEXKkAFJ3PZPyBPBqjU nykg2qzO2eFx6+AFoyl2z qf2odkQn0TsHp BZAoqlFcyMsiDWY5g1YgG f60F5GfeOqcd5YlTdw4tv 84kKGmd0J4uXS0EJelKWY ktH9nMLviTkJ2 GZAxUpAauL12dWHxBPboZ u4flRjeeDtxYC7tDKUhqq slYHQzbS5jZUUeqOKwpRj cZT5bYBIitmit d243QkRjJXK0KPBuiWHmY 4ZflL1dPtHbUSYpWYFuY8 QvbPOqNNlrS704YSyyDtF 3NFWkimSnK8Dg FUYmgBdbVmL8s3M2Bi0Li 9WemldkLOH0HIlgJOT3Qg C0RgRqNwL1R1FbSnh8ZKI nyIdcSH8xH7Ok ETHppegbmtvzjZF4RFDlK ZXwlX25bPOxOQuyBx9mo5 N8e441UQGtLTTmmV03So8 udDogMTBwdCBU nR5qpudai7nfdebfIuPyV YDwQCm0SYc9VLUjsDurGy ApDCK3WgI4QWC1qSLkzS5 xsNwsnqhprE4h Oyc+R66nxC3vSXG0MSG4z cnsBHKelhOtLA05CZ42P6 RyPjwvdGFibGU+PGRpdiB aqKhbMQ7gIsSe v8mxc9MuKPybW0UtYWOsK FbwOwz0CUZlZMR6kHO7lY 7vYEFbDRkec4O0eOC9Q9C iqtMcjo3fr0mb VLYpVFlmQ84qdRLja1G7F ADmxSW0KPUmdDrxVtFynV 93Oyc+WFSgaMwzi3VhMxc bd4xbm2imuXs3 VdBfHDHrmnEohEqjCFD0c 7TlXs13F83aVFttNOKrFN ZlOVZpSTZlaWeiel9pbI4 wIi8+PGNvbCB3 jSG1pE7gUDVlFkI7KMrtK 602ImTonYVhDpphz5nyh6 wbjWx0QvElZPCculKlgXr qCLH4q6GbVl80 K64uLSesHZQiIUCyAALuH YSplQtykh7tdO9yMk3+PC 0ts9rmub16pX98xSP+PHR gVIM0kUssBYbs POHfyB5rOGlyXmB2ODMcW kReuY81zDUcIMseUd5saM jfbQqtTF7cTJLtqcgqy35 9MmXxf0ytBGBk dZGqFLgeNZX2B47dx6R2W GZfVUWzFSS2fUV6cV9mzG lnbjogbGVmdDsgdmVydGl mXJgqYIsmU392 IHRvcDsnPlBhdGllbnQgT wGaDRn0B9HjOnf4DMJcyL bxTK2lbFKvJPjdWq4xfSw hnBciJV3oUIYt tgjaw578VuXkd0rwVSXua WOrRIedIWX1P84tt6A2TI HoIRKfDYY7iXC6aC2gpFp nbjogbGVmdDsg qmSxkMmtYHaoSGtlM589C HRvcDsnPkJpcnRoIERhdG Z7GZ36GG46xSIwc8B4cBL 2Z5InWYFqplue dnuvqWA3WKZjRHJpaO15X p2mjFwlPw3tUUBxGPK9OW LfrCMvL5YsyY4ePhUaWNO eGFGuA3WnrSQq YUlsS518BRqhNoN1SVCuu jLvR6QlCLUfiMmhGgM5b5 U4Yp9HR8U3RM19EB85tKC mq9H8mYE8E0Kc ELEvxnitypyrjTC9NCTrR BNruA37Iu7liBkmSm5iHU FcGUQ9XCPmwQLwC2NijX5 yOiAjMDAwMDAw P9WhyMDnEBqfR365BFauZ yG4VZFedoCjR2KkYJNniQ udFmG3w3N4Dr1OKIg2TJ9 6FY29wWAna6N5 fSY7S9ZuQEDceofqevlsw ZC6VYZsBWLzqN73Bp5vfX wuEh1rQOGnGAT7WSQkwDJ tL0XxtS9mYcPb KZQjISYfW5JvuOEvMGliM 051IHueWfA3ITMpboFcP1 XgWYEipJyxBvN8s7L3Oa6 GWUHvSG98WBZ3 tUU1WX44PW51D1CvJbbsl GFibGU+PHRhYmxlIHdpZH RoPScxMDAlJyBzdHlsZT0 mYu5jEVZqTNYx xZmtyFKzAmCcz1otWCHdT QkhRD4zwBpfC0BpiVK8LT Pri8z9Xh43T91tD5PkwAW +BLSuoQD2iVC9 oQ3tZzFoSzV2EKjkK489X rSnjUXnAwyrq9its1qrjV j6PpX1VOZyihOhrWqvVRU 3q0AqFq39Y13k IHdpZHRoPSIxNSUiIHZhb Ilrre0acI2pUj8+PGNvbC X4hWW4bV0oMaAuVcE2MSi qJ136RgYchIEv Sbqrl9plx3biwKv9ZrEqP BQymwDquLupDWH7n9DwDk 90C6JipBdop7GsQyw2uk3 8bZXzh4G7yCR6 C7YkBYRkbgqymZNlrHgtP O5lURJymkffIHTydH5qXI NgZ9y2QcInPzQ4VIudK8I jznF4AHIefKRx PGceXAL3D41wt9K2CHFlZ INsDIQ2wXH1bO8npXibvw ogbGVmdDsgdmVydGljYWw iDUxoS559UZHd zRstZOTyxN8hTMHqaWRwp CxaQC1jKXJooqmkOdgRGF xFUiwgVEFNQVJBIEpFQU4 5K6PfIps1HIPo xQakER5sjHBgPXizEs5em EakuCzfOA1aTUXyvgjwQO PnsC7rXZIhsURbfQpkAW6 aCWBnsrjta018 SeDuJUU5FTZtaYImS4Wfd X8qMgYdUGWzSPPcY2HhmJ GvNGrwW622KTfpGfG4TAA ywjPdF2MpHEAw pOfhRvD1z6N1Zq5sJB1rH Y5fXGQiKT34MK37rBKrb4 U4nEH2B7PmTBVtdemtlwp reEL2KNFuRMZi uV37lHOzVScbQh0wq8B2f 854JMAtTUJpmL17Kp0ecE elYBKmxISUcZ4wbraoo9x vcjogIzAwMDAw YJb9ERa8QUKnhPlcSeWeI QL8YzW7NGA3wDLnsU5uhC ommioofI1pXkm+NTggWWV fxtP0N0UzZnu6 PANqfHqjOP3arPNmIOndE j3wfSyfrOoaDG4vKJZsyf opQZStvD4dRQCkfJMwrTn nOP5yOAWybcqu y700CeXtUBY7KUOesMQjD 9RhhM1rYiYcQWRoMTPyT3 FbaNTxMGhtO850ORteUmN 0JITufoHbH4Fk OJXngCoiVeA2b7M1Ca8UD T2TZPF0N5SoKwf6PPIpxD qdPU7wjGDuPAadVw1ykKs poAylNJ9uTHVj csmaEOWawT1rMPIpuNDsy PrpLV4uTPLtprzwa846Ea HlUIW6BAVmpISyO2PciH5 yOiAjMDAwMDAw R9ZfmNEmZAikC571ACpsP wK7BAJyjfLfY4EqVYUztB fcMyJ2n8O2Mu0ZQTqovBX +AB63uh71R6Lz FtjqUah3IEAtETE5nYV4n K0hQDDqKCzvl8H1yYE0M6 DrsxNmva8wd0xpQTUoNQf fN14xjDTao3C7 DFSzkTW3JYIzqOiqKzNka G93Oyc+OUIzdRaxi4UoUe muz4nho2mcmDo7DbRqXCV gdmFsaWduPSJ0 d9FhBa73S31gBTvkTHMrV GIzYCWqCDMswEphnl0kwV 9wIi8+GYEpxMS7rJD8cT4 oDkYoNzF9PTct P120UqGryWRpGgryq5kpo 0qofCs8WnIuQOOsyjHvkG avIBN6s4BjIf13F7QnpAb cs2LkUzw0jk11 zEZtl7U4rCS3B6AcHPKre dhssUQuvAfyOD0pLULrwk zgEOCzwN8jYPIxM0k2NuQ bBlU9LYttJ0Kh sgG7QDJjdKVyCZFptBJAz D2znalnx4ofrjnaYcFrND QqHTp0KYn6BFApuMhbKaG hQDS9LtZ1ADB1 yGSxiL8voIxrocxfxP2fK yc+WAu6z2wfzHXkVP7cpM P3WI00YE35qOJjz4D2kTV 4G2BmFPMqwjrc cvxsaRI9URPoADAhzR21O m0nhBbcTs3cJIIeQWE7LL BkqKOrZ3OukR8yGzApSUH uNKQxL1IgzLAj QZhjG639KOucSfF4ANMal qZlT9ZzIRSthXsgRvW1j1 N9Hc1WVD92QH40NO63pWO cz9K5jTL7X8Zo NPDyjrlnkjbyhMD1PYVnL IVyqR24Ah4mvEjwMm9mQV NtSYS8QUWueKQeY4GzqL1 yOiAjMDAwMDAw C3KomMIzSFbkG330OIkgE vV7OUCqjjMmS9NdENPvlU rqRnR4q4U0Fm2THq44KW9 1WK91pJZmr9Y2 xAD5S5FyPEUdjtfhhgvro QP4GZWzARQhxH37Ax8ayN xmPg1rUZYeQHD2FIQmeNJ tW2FlbW5lBjGy CZNbOUYkY5JvyKDcHVqeS 041BOwqRrW8IQUoqsUrA2 AsLTGfmZimYcS8v5X0Vy0 HATlofqp7I8Md PjwvdHI+OK28IVWsLW66o MBhpOQpa3bbuZh4IdLwBE QvXQQ3lWfyNEtsd5GrUNA pI30xxCVjl1S1 IGN (more content not included)... Normal [facility] Mammo Screening 3D Bilate ral.on 09-10-2020 [place] Mammo Screening 3D Bilateral. MAMMOGRAM SCREENING 3-D [...] lymph nodes are noted bilaterally. [employer]2 [employer] Senior Net Engineer was utilized for this study. IMPRESSION: No [...] Bereket Bernard MD 09/12/20 8:37 am Technologist: [facility] Assessment: 2-Benign finding Recommendation: Normal interval follow-up Normal [facility] Provider Orderson 09-02-2020 Provider Orders [id number] Normal [facility] Vital Signs Date Time Vital Sign Value Performing Clinician Facility 01-29-2023 15:12-0400 [place] [facility] [place]23 15:12-0400 Diastolic blood pressure 78 mm[Hg] [place] [facility] [place]-29-2023 15:12-0400 Heart rate 72 /min [place] [facility] [place] 01-29-2023 15:12-0400 Respiratory rate 16 /min [place] [facility] [place] [facility] [place] 01-29-2023 15:12-0400 Systolic blood pressure 138 mm[Hg] [place] [place] 02-19-2022 08:45-0500 Diastolic blood pressure 81 mm[Hg] DO Fanny Petznick Work Phone: [facility] 02-19-2022 08:45-0500 Heart rate 77 /min DO Fanny Petznick Work Phone: [facility] 02-19-2022 08:45-0500 Respiratory rate 16 /min DO Fanny Petznick Work Phone: [facility] 02-19-2022 08:45-0500 SaO2% (BldA) [Mass fraction] 95 % DO Fanny Petznick Work Phone: [facility] 02-19-2022 08:45-0500 Systolic blood pressure 146 mm[Hg] DO Fanny Petznick Work Phone: [facility] 02-19-2022 08:11-0500 Body temperature 98.4 [degF] DO Fanny Petznick Work Phone: [facility] 02-19-2022 07:41-0500 Inhaled oxygen flow rate 8 L/min DO Fanny Petznick Work Phone: [facility] 02-19-2022 07:24-0500 Body height 175.26 cm DO Fanny Petznick Work Phone: [facility] 02-19-2022 07:24-0500 Body mass index (BMI) [Ratio] 28.6 kg/m2 DO Fanny Petznick Work Phone: [facility] 02-19-2022 07:24-0500 Body weight 87.99 kg DO Fanny Petznick Work Phone: [facility] 12-16-2021 11:50-0400 Body height 175.26 cm Mala Aguillon Other [employer] Other 12-16-2021 11:50-0400 Body mass index (BMI) [Ratio] 28.65 kg/m2 Mala Aguillon Other [employer] Other 12-16-2021 11:50-0400 Body temperature 97.6 [degF] Mala Aguillon Other [employer] Other 12-16-2021 11:50-0400 Body weight 88 kg Mala Aguillon Other [employer] Other 12-16-2021 11:50-0400 Diastolic blood pressure 79 mm[Hg] Mala Aguillon Other [employer] Other 12-16-2021 11:50-0400 Respiratory rate 18 /min Mala Aguillon Other [employer] Other 12-16-2021 11:50-0400 SaO2% (BldA) [Mass fraction] 99 % Mala Aguillon Other [employer] Other 12-16-2021 11:50-0400 Systolic blood pressure 145 mm[Hg] Mala Aguillon Other [facility] [employer] Other 10-19-2021 14:52-0400 Diastolic blood pressure 64 mm[Hg] DO Fanny Petznick Work Phone: [facility] 10-19-2021 14:52-0400 Heart rate 89 /min DO Fanny Petznick Work Phone: [facility] 10-19-2021 14:52-0400 Respiratory rate 18 /min DO Fanny Petznick Work Phone: [facility] 10-19-2021 14:52-0400 SaO2% (BldA) [Mass fraction] 94 % DO Fanny Petznick Work Phone: [facility] 10-19-2021 14:52-0400 Systolic blood pressure 144 mm[Hg] DO Fanny Petznick Work Phone: [facility] 10-19-2021 13:15-0400 Body temperature 98.4 [degF] DO Fanny Petznick Work Phone: [facility] 10-19-2021 12:40-0400 Inhaled oxygen flow rate 8 L/min DO Fanny Petznick Work Phone: [facility] 10-19-2021 11:15-0400 Body height 175.26 cm DO Fanny Petznick Work Phone: [facility] 10-19-2021 11:15-0400 Body mass index (BMI) [Ratio] 29.2 kg/m2 DO Fanny Petznick Work Phone: [facility] 10-19-2021 11:15-0400 Body weight 89.8 kg DO Afnny Petznick Work Phone: [facility] Encounters Encounter Date Encounter Type Care Provider Facility Start: 08-19-2023 End: 08-19-2023 ambulatory MARILU PATIÑO Not Available Start: 07-25-2023 End: 07-25-2023 ambulatory FANNY PRABHAKAR Not Available Start: 03-28-2023 End: 03-28-2023 ambulatory FANNY PRABHAKAR Not Available Start: 02-13-2023 End: 02-14-2023 ambulatory Colby De La Rosa KIET Facility:[id number] Start: 01-29-2023 End: 01-30-2023 ambulatory Colby De La Rosa TAWANDAL Facility: [facility] Start: 01-29-2023 End: 01-29-2023 Patient encounter procedure Colby De La Rosa KIET General Surgery [facility] Start: 01-03-2023 ambulatory Colby SANTA [facility] Start: 06-25-[address] FANNY PRABHAKAR Fac ility:[facility] Start: 06-03-2022 Encounter for genera l adult medical examination without abnormal findings DR FANNY PRABHAKAR [facility] Start: 05-30-2022 End: 05-31-[address] FANNY PRABHAKAR Facility:[facility] Start: 05-30-2022 End: 05-31-2022 Encounter for general adult medical examination without abnormal findings DR FANNY PRABHAKAR Facility:[facility] Start: 05-21-2022 ambulatory Fanny Prabhakar Facili ty:[facility] Start: 03-30-[address] FANNY PRABHAKAR Fac ility:[facility] Start: 02-19-2022 End: 02-19-2022 ambulatory Bharat Zelaya Jr Facility:[facility] Start: 02-19-2022 End: 02-19-2022 Admission to same day surgery center DO Fanny Prabhakar Work Phone: [facility] [place] Start: 02-19-2022 End: 02-19-2022 ambulatory DO Fanny Prabhakar Work Phone: [facility] Work Phone: Start: 02-16-2022 End: 02-16-2022 ambulatory Bharat Zelaya Jr Facility:[facility] Start: 02-16-2022 End: 02-16-2022 ambulatory DO Fanny Petznick Work Phone: [facility] Work Phone: Start: 02-16-2022 End: 02-16-2022 Patient encounter procedure DO Fanny Petznick Work Phone: [facility] Start: 12-16-2021 End: 12-16-2021 ambulatory Mala Aguillon Other [employer] Other Start: 12-16-2021 Office outpatient ne w 20 minutes Mala Aguillon [facility] Start: 11-06-2021 End: 03-16-2022 ambulatory MR ALBANIA CALLOWAY . Facility:[facility] Start: 10-19-2021 End: 10-19-2021 ambulatory Bharat Zelaya Facility:[facility] Start: 10-19-2021 End: 10-19-2021 Admission to same day surgery center DO Fanny Petznick Work Phone: [facility] [place] Start: 10-17-2021 End: 10-17-2021 [facility] Start: 10-17-2021 End: 10-17-2021 Patient encounter procedure DO Fanny Petznick Work Phone: [facility] Start: 10-10-2021 End: 10-11-[address] DOCTOR PACHECO Facility:[facility] Start: 09-12-2021 End: 09-13-[address] FANNY PRABHAKAR Facility:[facility] Start: 09-04-2021 End: 09-05-2021 ambulatory Fanny Prabhakar Facility:[facility] Procedures Date Procedure Procedure Detail Performing Clinician [...] Activity Detail Author Start: 02-19-2022 End: 02-19-2022 [facility] Start: 10-19-2021 [facility] Work Phone: Start: 10-19-2021 [facility] Work Phone: Immunizations Immunization Date Immunization Notes Care Provider Fa [facility] 12-30-2022 influenza virus vaccine, unspecified formulation Colby SANTA General Surgery [place] 07-15-2020 COVID-19 mRNA, Comirnaty (Pfizer) DO Fanny Prabhakar Work Phone: [facility] 06-24-2020 COVID-19 mRNA, Comirnaty (Pfizer) DO Fannysharmin Prabhakar Work Phone: [facility] Payers Date Payer Category Payer Self-pay [id number] 1960 Unknown [id number] 2.16.84 [id number] 1960 Unknown [id number] 2.16.84 [id number] 1962 Unknown [id number] 2.16.84 [id number] 1962 Unknown [id number] .[id number] [id number] 1962 Unknown [id number] 2.16.84 [id number] 1962 Unknown [id number] 2.16.84 0.1.150635.3.579.2.593 1962 Unknown [id number] 2.16.8 40.1.435751.3.579.2.727 1962 Unknown [id number] 2.16.8 40.1.539786.3.579.2.727 1962 Unknown [id number] 2.16.84 0.1.547379.3.579.2.1259 1962 Unknown [id number] 2.16.84 0.1.694093.3.579.2.1259 1962 Unknown [id number] 2.16.840 .[id number] 1957 Unknown [id number] 1957 Unknown [id number] Unknown [id number] 2.16.8 [id number] Unknown [id number] 2.16.8 [id number] Unknown [id number] 2.16.8 [id number] Unknown [id number] 2.16.8 [id number] Unknown [id number] 2.16.8 [id number] Unknown [id number] 2.16.8 [id number] Social History Date Type Detail Facility Start: 10-19-2021 End: 01-29-2023 Tobacco smoking status NHIS Never smoked tobacco (finding) [facility] Start: 1960 Sex Assigned At Female [facility] Sex Assigned At [facility] Tobacco smoking status Never Gener al Surgery [place] Medical Equipment Procedure Code Equipment Code Equipment Origin al Text Equipment Identifier Dates Arthroscopy, shoulder Tendon/ligament bone anchor, bioabsorbable ([id number] FDA Start: 10-19-2021 Arthroscopy, shoulder Tendon/ligament bone anchor, bioabsorbable ([id number] FDA Start: 10-19-2021 Goals Date Patient Goal [...] 1 tab(s), Oral, Daily Flonase 0.05 mg/inh [place], 1 spray(s), Nasal, BID gabapentin 300 mg [...] Father. Alcoholism: Broth (more content not included)... [facility] Comment on above: Result Comment: Elec tronically [...] understanding and is agreeable to treatment plan [facility] Other Evaluation + Plan note Note Date & Type Note Facility Evaluation + Plan note No data available for this section General Surgery [place] Evaluation note Note Date & Type Note Facility Evaluation note No assessment information availa [facility] Work Phone: History general Narrative - [...] shoulder surgery 2021 Hospitalization History see above [facility] Other Hospital Discharge instructions Note Date & Type Note Facility Hospital Discharge instructions Additional Instructions #1 ice left shoulder as needed for pain. #2 start physical therapy tomorrow. #3 10 wall walks 4 times a day. #4 may use left arm [facility] [employer] Work Phone: Hospital Discharge instructions Note Date & Type Note Facility Hospital Discharge instructions No data available for this section General Surgery [place] Progress note Note Date & Type Note Facility Progress note No data available for this section General Surgery [place] Summary Purpose Family History No Family History [...] section and content) DATE CREATED AUTHOR 08/02/2021 [facility] DATE CREATED AUTHOR AUTHOR'S ORGANIZ ATION 05/31/2022 [facility] DATE CREATED AUTHOR AUTHOR'S ORGANIZ ATION 06/27/2022 [facility] DATE CREATED AUTHOR AUTHOR'S ORGANIZ ATION 03/02/2023 [facility] DATE CREATED AUTHOR AUTHOR'S ORGANIZ ATION 08/21/2023 [facility] EPIC Care Teams (unrecognized [...] BE BASED ON THE PRIMARY CLINICAL RECORDS. [facility] [employer] [facility]. provides no warranty or guarantee of the accuracy or completeness of information in this document.
== END 2023-09-12 13:55 | disposition home or self-care (01) ==
LOC: RAD 13:54
PROVIDERS: PCP Family Medicine; Visit Provider Physician Assistant
DX: Z78.0 Asymptomatic menopausal state (principal)
CPT/HCPCS: 77080

== ENCOUNTER 2023-09-17 17:06 | Emergency (ER) | payer BC, SELFPAY ==
[2023-09-17 17:11] VITALS: BP 159/92; PULSE 94; TEMP 36.8; O2SAT 98; BMI 28.1
--- NOTE | 2023-09-17 17:31 | ED_ITS ---
HPI - Nausea/Vomiting/Diarrhea General Chief complaint: Nausea/Vomiting/Diarrhea Stated complaint: DIARRHEA Time Seen by Provider: 09/17/23 17:17 Source: patient Mode of arrival: walk-in Limitations: no limitations History of Present Illness HPI Narrative: This patient is here complaining of diarrhea. She says it has been about 5 days. She has been replacing fluids with plain water. She has not used any antibiotics recently. She has not had history of C. difficile. She has not visited any healthcare facilities or had exposure to anyone that has diarrhea. She said it started the day after she had sushi from a local [employer] store. No one else had sushi. She did not have any nausea or vomiting. She has not had fever. She has not had blood in her stool. She has not had any abdominal pain at all. She has not had travel history. She has had a colonoscopy that said diverticulosis but she did not have any history of diverticulitis. She has not had any urinary symptomatology such as frequency urgency hesitancy or dysuria. She says she has had normal urine output. She is on a medic patients. Because she has been afraid to eat she is cut back on her insulin usage appropriately. Related Data Home Medications ?Medication ?Instructions ?Recorded ?Confirmed celecoxib 200 mg capsule (Celebrex) 200 mg PO DAILY 02/06/23 02/13/23 cyanocobalamin (vitamin B-12) 1,000 mcg PO DAILY 02/06/23 02/13/23 1,000 mcg capsule empagliflozin 10 mg tablet 10 mg PO DAILY 02/06/23 02/13/23 (Jardiance) estradiol 0.5 mg tablet 0.5 mg PO DAILY 02/06/23 02/13/23 fluticasone propionate 50 1 spray intranasal Q12H 02/06/23 02/13/23 mcg/actuation nasal spray,suspension gabapentin 300 mg capsule 300 mg PO DAILY 02/06/23 02/13/23 insulin glargine 100 unit/mL 35 unit subcut QAM 02/06/23 02/13/23 subcutaneous solution (Lantus U-100 Insulin) metformin 1,000 mg tablet 1,000 mg PO BID 02/06/23 02/13/23 semaglutide 1 mg/dose (4 mg/3 mL) 1 mg subcut .weekly 02/06/23 02/13/23 subcutaneous pen injector (Ozempic) tizanidine 4 mg tablet 4 mg PO DAILY 02/06/23 02/13/23 Allergies Allergy/AdvReac Type Severity Reaction Status Date / Time cephalexin Allergy edema Verified 02/06/23 07:47 diphenhydramine Allergy itching Verified 02/06/23 07:47 [From Benadryl] acetaminophen [From Percocet] AdvReac itching Verified 02/06/23 07:47 atorvastatin AdvReac Joint Pain Verified 02/06/23 07:47 oxycodone [From Percocet] AdvReac itching Verified 02/06/23 07:47 rosuvastatin AdvReac Diarrhea Verified 02/06/23 07:47 PFSH PFS Medical History (Updated 09/17/23 @ 18:29 by Bg Vera MD) Rosacea ?L71.9 - Rosacea, unspecified (ICD-10) Retinopathy ?H35.00 - Unspecified background retinopathy (ICD-10) Peripheral neuropathy ?G62.9 - Polyneuropathy, unspecified (ICD-10) History of colon polyps ?Z86.010 - Personal history of colonic polyps (ICD-10) Diabetes ?E11.9 - Type 2 diabetes mellitus without complications (ICD-10) Anxiety ?F41.9 - Anxiety disorder, unspecified (ICD-10) Surgical History (Updated 02/06/23 @ 08:20 by Humera Venegas) History of vein stripping ?Z98.890 - Other specified postprocedural states (ICD-10) History of vaginal hysterectomy ?Z90.710 - Acquired absence of both cervix and uterus (ICD-10) History of repair of left rotator cuff ?Z98.890 - Other specified postprocedural states (ICD-10) History of colonoscopy ?Z98.890 - Other specified postprocedural states (ICD-10) Family History (Updated 02/06/23 @ 07:42 by Humera Vengeas) Brother Alcoholism Father Abdominal aortic aneurysm Mother Alzheimer disease Other Family history of COPD (chronic obstructive pulmonary disease) Family history of hypertension Social History (Updated 02/06/23 @ 08:21 by Humera Venegas) Within the past year, how often did you have a drink containing alcohol: never Score interpretation: A score less than 3 is consistent with normal alcohol consumption. Smoking status: Never smoker Non-prescribed substance use: denies use Highest level of school completed/degree received: Associate degree: occupational, technical, vocational program Exam Narrative Exam Narrative: Awake alert pleasant no apparent distress vital signs are noted. Her skin is warm and dry her mucous memories are moist and pink. She does not appear ill or toxic. Her Her abdomen is soft and supple with no tenderness guarding masses rebound rigidity or any peritoneal findings. Her rest examination is noncontributory she has no respiratory findings no cough congestion or chest pain. At this stage we will check some lab on her, rehydrate and try to do a C. difficile test. Constitutional Vital Signs, click to edit/add: Last Vital Signs Temp 98.2 F 09/17/23 17:11 Pulse 94 H 09/17/23 17:11 Resp 16 09/17/23 17:11 BP 159/92 H 09/17/23 17:11 Pulse Ox 98 09/17/23 17:11 O2 Del Method Room Air 09/17/23 17:11 Course Vital Signs Vital signs: Vital Signs Temperature 98.2 F 09/17/23 17:11 Pulse Rate 94 H 09/17/23 17:11 Respiratory Rate 16 09/17/23 17:11 Blood Pressure 159/92 H 09/17/23 17:11 Pulse Oximetry 98 09/17/23 17:11 Oxygen Delivery Method Room Air 09/17/23 17:11 Temperature 98.2 F 09/17/23 17:11 Pulse Rate 94 H 09/17/23 17:11 Respiratory Rate 16 09/17/23 17:11 Blood Pressure 159/92 H 09/17/23 17:11 Pulse Oximetry 98 09/17/23 17:11 Oxygen Delivery Method Room Air 09/17/23 17:11 MDM - Nausea/Vomiting/Diarrhea MDM Narrative Medical decision making narrative: This patient tolerated IV fluids well. Somewhat surprisingly her electrolytes/BUN and creatinine were both normal. She has done a very good job of staying hydrated. She was unable of course to provide a stool specimen here for C. difficile testing so we will send her home with the apparatus necessary to do that. I do not see indication of antibiotic use at this time this appears to be a noninvasive diarrheal illness. She is okay to use limited doses of yirw-pfi-[id number] antidiarrheal's and Lab Data Labs: Lab Results 09/17/23 Range/Units 17:32 WBC 4.4 (4.0-11.0) 10^3/uL RBC 5.39 (4.20-5.40) 10^6/uL Hgb 16.3 H (12.0-16.0) g/dL Hct 50.1 H (36.0-48.0) % MCV 92.9 (81.0-99.0) fL MCH 30.2 (26.7-34.0) pg MCHC 32.5 (29.9-35.2) g/dL RDW 13.4 (11.0-15.0) % Plt Count 181 (150-450) 10^3/uL MPV 12.0 (9.5-13.5) fL Neut % (Auto) 47.6 (43.0-75.0) % Lymph % (Auto) 29.2 (20.5-60.0) % [place] % (Auto) 20.7 H (1.7-12.0) % Eos % (Auto) 1.8 (0.9-7.0) % Baso % (Auto) 0.5 (0.2-2.0) % Neut # (Auto) 2.1 (1.4-6.5) 10^3/uL Lymph # (Auto) 1.3 (1.2-3.8) 10^3/uL [place] # (Auto) 0.9 H (0.3-0.8) 10^3/uL Eos # (Auto) 0.1 (0.0-0.7) 10^3/uL Baso # (Auto) 0.0 (0.0-0.1) 10^3/uL Abs Immat Gran (auto) 0.01 (0.00-0.03) 10^3/uL Imm/Tot Granulo (auto) 0.2 (0.0-0.5) % Sodium 138 (136-145) mmol/L Potassium 4.1 (3.5-5.1) mmol/L Chloride 104 (98-107) mmol/L Carbon Dioxide 26.5 (21.0-32.0) mmol/L Anion Gap 11.6 BUN 7.0 (7.0-18.0) mg/dL Creatinine 0.67 (0.55-1.02) mg/dL Est GFR ( Amer) >60 (>=60) Est GFR (Non-Af Amer) >60 (>=60) BUN/Creatinine Ratio 10.4 Glucose 116 H (74-106) mg/dL Lactate 1.5 (0.4-2.0) mmol/L Calcium 9.2 (8.5-10.1) mg/dL Discharge Plan Discharge Stand Alone Forms: Portal Instructions Chief Complaint: Nausea/Vomiting/Diarrhea Clinical Impression: Diarrhea Patient Disposition: Home, Self-Care Time of Disposition Decision: 18:28 Prescriptions / Home Meds: No Action metformin 1,000 mg tablet 1,000 mg PO BID Jardiance 10 mg tablet 10 mg PO DAILY gabapentin 300 mg capsule 300 mg PO DAILY estradiol 0.5 mg tablet 0.5 mg PO DAILY fluticasone propionate 50 mcg/actuation spray,suspension 1 spray INTRANASAL Q12H tizanidine 4 mg tablet 4 mg PO DAILY Ozempic 1 mg/dose (4 mg/3 mL) pen injector 1 mg SUBCUT .weekly insulin glargine [Lantus U-100 Insulin] 100 unit/mL solution 35 unit subcut QAM celecoxib [Celebrex] 200 mg capsule 200 mg PO DAILY cyanocobalamin (vitamin B-12) 1,000 mcg capsule 1,000 mcg PO DAILY Print Language: French Additional Instructions: Continue clear fluids/return stool specimen here to rule out C. difficile. May use [id number] antidiarrhea meds Referrals: JARETH PRABHAKAR [Primary Care Provider] - 1 week
[2023-09-17 17:42] LABS: Basophils Percent Auto 0.5 % (0.2-2.0); Eosinophils Absolute Auto 0.1 10^3/uL (0.0-0.7); Eosinophils Percent Auto 1.8 % (0.9-7.0); Hematocrit 50.1 % (36.0-48.0); Hemoglobin 16.3 g/dL (12.0-16.0); Immature Granulocytes Abs Auto 0.01 10^3/uL (0.00-0.03); Immature Granulocytes Pct Auto 0.2 % (0.0-0.5); Lymphocytes Absolute Auto 1.3 10^3/uL (1.2-3.8); Lymphocytes Percent Auto 29.2 % (20.5-60.0); Mean Corpuscular HGB Conc 32.5 g/dL (29.9-35.2); Mean Corpuscular Hemoglobin 30.2 pg (26.7-34.0); Mean Corpuscular Volume 92.9 fL (81.0-99.0); Monocytes Absolute Auto 0.9 10^3/uL (0.3-0.8); Monocytes Percent Auto 20.7 % (1.7-12.0); Neutrophils Absolute Auto 2.1 10^3/uL (1.4-6.5); Neutrophils Percent Auto 47.6 % (43.0-75.0); Platelet Count 181 10^3/uL (150-450); Red Blood Count 5.39 10^6/uL (4.20-5.40); Red Cell Distribution Width 13.4 % (11.0-15.0); White Blood Count 4.4 10^3/uL (4.0-11.0)
[2023-09-17] MEDS: 0.9 % SODIUM CHLORIDE 1,000 ML 999 ML IV (17:49)
[2023-09-17 17:54] LABS: Anion Gap 11.6; BUN Creatinine Ratio 10.4; Calcium 9.2 mg/dL (8.5-10.1); Carbon Dioxide 26.5 mmol/L (21.0-32.0); Chloride 104 mmol/L (98-107); Estimated GFR (African America >60 (>=60); Estimated GFR (Non-African Ame >60 (>=60); Glucose 116 mg/dL (74-106); Potassium 4.1 mmol/L (3.5-5.1); Sodium 138 mmol/L (136-145)
[2023-09-17 18:03] LABS: Lactate/Lactic Acid 1.5 mmol/L (0.4-2.0)
[2023-09-17 18:42] VITALS: BP 148/75; PULSE 78; O2SAT 98
== END 2023-09-17 18:43 | disposition home or self-care (01) ==
PROVIDERS: Emergency Provider Emergency Medicine Emergency Medical Services; PCP Family Medicine
DX: R19.7 Diarrhea, unspecified (principal); K57.90 Diverticulosis of intestine, part unspecified, without perforation or abscess without bleeding; Z90.710 Acquired absence of both cervix and uterus
CPT/HCPCS: 36415; 80048; 83605; 85025; 87493; 96360; 99284

== ENCOUNTER 2023-09-18 08:04 | Outpatient (REF) | payer BC, SELFPAY ==
--- OUTSIDE RECORDS SUMMARY | 2023-09-18 08:07 | XMS_ITS | CCD ---
Author Organization [facility] Care Team Providers Care Manager System Name Role Phone Aki, DO Escobedo Primary Care Provider [phone] DO Bharat Zelaya Jr Attending Provider Mala [...] [atorvastatin] Drug Allergy 2 Joint pain (finding) [facility] (7 sources) Cephalexin; Translations: [cephalexin] Drug Allergy 6 Swelling, Edema (finding) [facility] (6 sources) rosuvastatin; Translations: [rosuvastatin] Drug Allergy 2 Diarrhea (finding) [facility] (2 sources) Acetaminophen / oxyCODONE; Translations: [acetaminophen-ox ycodone] Drug Allergy Itching (finding) [facility] [place] (2 sources) diphenhydrAMINE; Translations: [diphenhydramine] Drug Allergy Itching (finding) General Surgery [facility] A (1 source) Hmg-Coa Reductase Inhibitors (Statins) Drug allergy aches/diarrhea [facility] Other (1 source) Acetaminophen / oxyCODONE; Translations: [Percocet] Drug Allergy [facility] Repository (1 source) diphenhydrAMINE; Translations: [Benadryl] Drug Allergy [facility] Repository Medications Current Medications Medication [...] Start: 10-19-2021 take 1 capsule by mo [facility] once daily Celecoxib (Celebrex) 200 mg [...] Corticosteroid Start: 01-29-2023 Flonase 0.05 m g/inh [place] 1 spray(s), Nasal, BID, Refill(s) 0 Start [...] Outside Colonoscopyon 2022 Outside Colonoscopy [id number]#1. 00TIFF Normal [facility] Reminderson 02-14-2023 Reminders - From: Eunice Davis LPN To: GSN - Clinical; Sent: 02/14/2023 14:19:54 EST Show up: 01/14/2028 07:00:00 EDT Subject: colonoscopy recall Due Date/Time: 02/14/2028 07:00:00 EST Reminder/Recall Patient due for surveillance colonoscopy 02/14/2028 due to remote history of colon polyps. Normal [facility] Lab Reportson 02-13-2023 Lab Reports [id number]#1. 00TIFF [facility] Insurance Correspondenceon 1 04-10-2022 Insurance Correspondence [id number]# 1.00TIFF [facility] Consent for Procedure/Surger yon 01-30-2023 Consent for Procedure/Surgery [id number]#1 .00TIFF [facility] Facesheeton 01-30-2023 Facesheet [id number]# 1.00TIFF [facility] Ambulatory Visit Summaryon 1 Ambulatory Visit Summary [...] mg Tab) fluticasone nasal (Flonase 0.05 mg/inh [place]) gabapentin (gabapentin 300 mg Cap) insulin glargine [...] Unchanged fluticasone nasal (Flonase 0.05 mg/ inh [place]) 1 Sprays Nasal Inhalation 2 times a [...] choosing us for your care. Normal [facility] CBC AUTO DIFFon 05-30-2022 BASO # 0.0 103/ul Normal 0.0-0.1 [facility] Comment on above: Performed By: #### C BC #### [facility] [address] [place] [address] Dr. Ian Sandra Basophils/100 WBC (Bld) 0.4 % Normal 0.2-2.[address] [facility] Comment on above: Performed By: #### C BC #### [facility] [address] [place] [address] Dr. Ian Sandra EO # 0.1 103/ul Normal 0.0-0.7 [facility] Comment on above: Performed By: #### C BC #### [facility] [address] [place] [address] Dr. Ian Sandra Eosinophils/100 WBC (Bld) 3.1 % Normal 0.9-7.0 [facility] Comment on above: Performed By: #### C BC #### [facility] [address] [place] [address] Dr. Ian Sandra Erythrocyte distribution width (RBC) [Ratio] 13.5 % Normal 11.0-15.0 [facility] Comment on above: Performed By: #### C BC #### [facility] [address] [place] [address] Dr. Ian Sandra Hematocrit (Bld) [Volume fraction] 48.9 % Critically high 36.0-48.0 [facility] Comment on above: Performed By: #### C BC #### [facility] [address] [place] [address] Dr. Ian Sandra Hemoglobin (Bld) [Mass/Vol] 16.0 g/dL Normal 12.0-16.0 [facility] Comment on above: Performed By: #### C BC #### [facility] [address] [place] [address] Dr. Ian Sandra IG # 0.01 10e3/ul Normal 0.00-0.03 [facility] Comment on above: Performed By: #### C BC #### [facility] [address] [place] [address] Dr. Ian Sandra IG % 0.2 % Normal 0.0-0.5 [facility] Comment on above: Performed By: #### C BC #### [facility] [address] [address] [address] Ian Sandra LYMPH # 1.4 103/ul Normal 1.2-3.8 [facility] Comment on above: Performed By: #### C BC #### [facility] [address] [address] [address] Ian Sandra Lymphocytes/100 WBC (Bld) 29.5 % Normal 20.5-60.0 [facility] Comment on above: Performed By: #### C BC #### [facility] [address] [place] [address] Dr. Ian Sandra MANUAL DIFF REQ NO Normal [facility] Comment on above: Performed By: #### C BC #### [facility] [address] [place] [address] Dr. Ian Sandra MCH (RBC) [Entitic mass] 29.9 pg Normal 26.7-34.0 [facility] Comment on above: Performed By: #### C BC #### [facility] [address] [place] [address] Dr. Ian Sandra MCHC (RBC) [Mass/Vol] 32.7 g/dL Normal 29.9-35.2 [facility] Comment on above: Performed By: #### C BC #### [facility] [address] [place] [address] Dr. Ian Sandra MCV (RBC) [Entitic vol] 91.4 fL Normal 81.0-99.[address] [facility] Comment on above: Performed By: #### C BC #### [facility] [address] [place] [address] Dr. Ian Sandra MONO # 0.4 103/ul Normal 0.3-0.8 [facility] Comment on above: Performed By: #### C BC #### [facility] [address] [place] [address] Dr. Ian Sandra Monocytes/100 WBC (Bld) 9.4 % Normal 1.7-12.[address] [facility] Comment on above: Performed By: #### C BC #### [facility] [address] [place] [address] Dr. Ian Sandra NEUT # 2.6 103/ul Normal 1.4-6.5 [facility] Comment on above: Performed By: #### C BC #### [facility] [address] [place] [address] Dr. Ian Sandra Neutrophils/100 WBC (Bld) 57.4 % Normal 43.0-75.0 [facility] Comment on above: Performed By: #### C BC #### [facility] [address] [place] [address] Dr. Ian Sandra Platelet mean volume (Bld) [Entitic vol] 11.2 fL Normal 9.5-13.5 [facility] Comment on above: Performed By: #### C BC #### [facility] [address] [place] [address] Dr. Ian Sandra PLT 176 103/ul Normal 150-450 [facility] Comment on above: Performed By: #### C BC #### [facility] [address] [place] [address] Dr. Ian Sandra RBC 5.35 106/ul Normal 4.20-5.40 [facility] Comment on above: Performed By: #### C BC #### [facility] [address] [place] [address] Dr. Ian Sandra WBC 4.6 103/ul Normal 4.0-11.0 [facility] Comment on above: Performed By: #### C BC #### [facility] [address] [place] [address] Dr. Ian Sandra LIPID PROFILEon 05-30-2022 CHOL-HDL RATIO NORM SEE BELOW Normal [facility] Comment on above: Result Comment: 3.3 - 4.4 LOW RISK 4.4 - 7.1 AVERAGE RISK 7.1 - 11.0 MODERATE RISK >11.0 HIGH RISK Performed By: #### C MP, LIPID #### [facility] [address] [place] [address] Dr. Ian Sandra Cholesterol [Mass/Vol] 218 mg/dL Critically high <=200 [facility] Comment on above: Performed By: #### C MP, LIPID #### [facility] [address] [address] [address] Ian Sandra Cholesterol in HDL [Mass/Vol] 46 mg/dL Normal 40-60 [facility] Comment on above: Performed By: #### C MP, LIPID #### [facility] [address] [address] [address] Ian Sandra Cholesterol in LDL [Mass/Vol] 136.4 mg/dL Normal [facility] Comment on above: Performed By: #### C MP, LIPID #### [facility] [address] [address] [address] Ian Sandra Cholesterol.total/Choles terol in HDL [Mass ratio] 4.7 {ratio} Normal [facility] Comment on above: Performed By: #### C MP, LIPID #### [facility] [address] [place] [address] Dr. Ian Sandra HDL NORMAL > or = 60 mg/dl - LO W CARDIOVASCULAR RISK <40 mg/dl - HIGH CARDIOVASCULAR RISK Normal [facility] Comment on above: Performed By: #### C MP, LIPID #### [facility] [address] [address] [address] Ian Sandra LDL CALC NORMAL SEE BELOW Normal [facility] Comment on above: Result Comment: <100 mg/dl OPTIMAL 100 - 129 mg/dl NEAR OR ABOVE OPTIMAL 130 - 159 mg/dl BORDERLINE HIGH 160 - 189 mg/dl HIGH >190 mg/dl VERY HIGH Performed By: #### C MP, LIPID #### [facility] [address] [address] [address] Ian Sandra Triglyceride [Mass/Vol] 178 mg/dL Critically high <=150 [facility] Comment on above: Performed By: #### C MP, LIPID #### [facility] [address] [address] [address] Ian Sandra VLDL CALC 35.6 mg/dL Normal [facility] Comment on above: Performed By: #### C MP, LIPID #### [facility] [address] [address] [address] Ian Sandra MICROALB CREAT RATIO RANDOMo n 03-01-2023 mALB <1.3 Normal <=30.0 [facility] Comment on above: Performed By: #### M CRR #### [facility] [address] [address] [address] Ian Sandra MALB CR RATIO RANGE SEE BELOW Normal [facility] Comment on above: Result Comment: NO M ICROALBUMINURIA 0-29 MG/G CLINICAL MICROALBUMINURIA 30-300 MG/G MACROALBUMINURIA >300 MG/G Performed By: #### M CRR #### [facility] [address] [address] [address] Ian Sandra URINE CREAT 45.83 mg/dL Normal 20.00-300.00 [facility] Comment on above: Performed By: #### M CRR #### [facility] [address] [address] [address] Ian Sandra PROF 14(COMP METB)on 023 Albumin [Mass/Vol] 4.4 g/dL Normal 3.4-5.0 [facility] Comment on above: Performed By: #### C MP, LIPID #### [facility] [address] [address] [address] Ian Sandra Albumin/Globulin [Mass ratio] 1.1 {ratio} Normal [facility] Comment on above: Performed By: #### C MP, LIPID #### [facility] [address] [address] [address] Ian Sandra ALP [Catalytic activity/Vol] 80 U/L Normal 46-116 [facility] Comment on above: Performed By: #### C MP, LIPID #### [facility] [address] [address] [address] Ian Sandra ALT [Catalytic activity/Vol] 45 U/L Normal 14-59 [facility] Comment on above: Performed By: #### C MP, LIPID #### [facility] [address] [address] [address] Ian Sandra Anion gap [Moles/Vol] 11.7 mmol/L Normal [facility] Comment on above: Performed By: #### C MP, LIPID #### [facility] [address] [address] [address] Ian Sandra AST [Catalytic activity/Vol] 31 U/L Normal 15-37 [facility] Comment on above: Performed By: #### C MP, LIPID #### [facility] [address] [address] [address] Ian Sandra Bilirubin [Mass/Vol] 0.4 mg/dL Normal 0.2-1.0 [facility] Comment on above: Performed By: #### C MP, LIPID #### [facility] [address] [address] [address] Ian Sandra Calcium [Mass/Vol] 9.3 mg/dL Normal 8.5-10.1 [facility] Comment on above: Performed By: #### C MP, LIPID #### [facility] [address] [place] [address] Dr. Ian Sandra Chloride [Moles/Vol] 104 mmol/L Normal 98-107 [facility] Comment on above: Performed By: #### C MP, LIPID #### [facility] [address] [address] [address] Ian Sandra CO2 [Moles/Vol] 29.1 mmol/L Normal 21.0-32.0 [facility] Comment on above: Performed By: #### C MP, LIPID #### [facility] [address] [address] [address] Ian Sandra Creatinine [Mass/Vol] 0.58 mg/dL Normal 0.55-1.02 [facility] Comment on above: Performed By: #### C MP, LIPID #### [facility] [address] [address] [address] Ian Sandra EGFR-AF SIERRA LEONEAN >60 Normal >=60 [facility] Comment on above: Performed By: #### C MP, LIPID #### [facility] [address] [address] [address] Ian Sandra EGFR-NON AF SIERRA LEONEAN >60 Normal >=60 [facility] Comment on above: Performed By: #### C MP, LIPID #### [facility] [address] [address] [address] Ian Sandra Globulin (S) [Mass/Vol] 3.9 g/dL Normal [facility] Comment on above: Performed By: #### C MP, LIPID #### [facility] [address] [address] [address] Ian Sandra Glucose [Mass/Vol] 171 mg/dL Critically high 74-[address] [facility] Comment on above: Performed By: #### C MP, LIPID #### [facility] [address] [address] [address] Ian Sandra Potassium [Moles/Vol] 3.8 mmol/L Normal 3.5-5.1 [facility] Comment on above: Performed By: #### C MP, LIPID #### [facility] [address] [place] [address] Dr. Ian Sandra Protein [Mass/Vol] 8.3 g/dL Critically high 6.4-8.[address] [facility] Comment on above: Performed By: #### C MP, LIPID #### [facility] [address] [place] [address] Dr. Ian Sandra Sodium [Moles/Vol] 141 mmol/L Normal 136-145 [facility] Comment on above: Performed By: #### C MP, LIPID #### [facility] [address] [place] [address] Dr. Ian Sandra Urea nitrogen [Mass/Vol] 14.0 mg/dL Normal 7.0-18.0 [facility] Comment on above: Performed By: #### C MP, LIPID #### [facility] [address] [place] [address] Dr. Ian Sandra Urea nitrogen/Creatinine [Mass ratio] 24.1 mg/mg Normal [facility] Comment on above: Performed By: #### C MP, LIPID #### [facility] [address] [place] [address] Dr. Ian Sandra Basic Metabolic Panelon 11-2 Anion gap [Moles/Vol] 12.6 mmol/L Normal 6.0-15.0 [facility] Comment on above: Performed By: #### B MP #### [facility] [address] Calcium [Mass/Vol] 9.5 mg/dL Normal 8.2-10.2 [facility] Comment on above: Performed By: #### B MP #### [facility] [address] Chloride [Moles/Vol] 104 mmol/L Normal 95-[address] [facility] Comment on above: Performed By: #### B MP #### [facility] [address] CO2 [Moles/Vol] 25.8 mmol/L Normal 22.0-30.0 [facility] Comment on above: Performed By: #### B MP #### [address] Creatinine [Mass/Vol] 0.59 mg/dL Normal 0.44-1.03 [facility] Comment on above: Performed By: #### B MP #### [place] [address] [place] Creatinine Clr Calc Pharmacy 121.43 [facility] Comment on above: Result Comment: PERF ORMED BY: [place] [address] PATHOLOGIST HISTORICAL GUIDE IGOR GUSTAFSON M.D. Performed By: #### B MP #### [address] Estimated GFR ( Jeannie > 60 [facility] Comment on above: Result Comment: GFR estimated reference range: According to KDOQI guidelines, <60 ml/min/1.73m2 is sufficient to diagnose a patient with chronic kidney disease. Performed By: #### B MP #### [address] Estimated GFR (Non- Am > 60 [facility] Comment on above: Performed By: #### B MP #### [place] [address] [place] Glucose [Mass/Vol] 194 mg/dL High 70-100 [facility] Comment on above: Result Comment: [place] om Glucose Reference Range is dependent on time and content of last meal. Glucose of more than 200 mg/dL in a nonstressed, ambulatory subject supports the diagnosis of Diabetes Mellitus. ADA recommended reference range Performed By: #### B MP #### [facility] [address] [id number] [place] Potassium [Moles/Vol] 4.4 mmol/L Normal 3.5-5.1 [facility] Comment on above: Performed By: #### B MP #### [facility] [address] [id number] [place] Sodium [Moles/Vol] 138 mmol/L Normal 136-146 [facility] Comment on above: Performed By: #### B MP #### [facility] [address] [place] [address] [place] Urea nitrogen [Mass/Vol] 12 mg/dL Normal 9-23 [facility] Comment on above: Performed By: #### B MP #### [facility] [address] [id number] [place] Creatinine and Glomerular fi ltration rate.predicted panel (S/P/Bld)Ordered By: Ga Field on 02-19-2022 Creatinine [Mass/Vol] 0.59 mg/dL 0.44-1.03 [facility] Estimated glomerular filtrat ion rate (GFR) non- AmericanOrdered By: Ga Field on 02-19-2022 GFR/1.73 sq M.predicted among non-blacks MDRD (S/P/Bld) [Vol rate/Area] > 60 mL/Min [facility] Glucose Glucometer (BldC) [M ass/Vol]Ordered By: Bharat Zelaya on 02-19-2022 Glucose [Mass/Vol] 163 mg/dL [facility] Comment on above: Random Glucose Refer ence Range is dependent on time and content of last meal. Glucose of more than 200 mg/dL in a nonstressed, ambulatory subject supports the diagnosis of Diabetes Mellitus. Glucose Poct Glucometerson 1 1-21-2022 Glucose [Mass/Vol] 163 mg/dL Normal [facility] Comment on above: Result Comment: [place] [facility] Glucose Reference Range is dependent on time and content of last meal. Glucose of more than 200 mg/dL in a nonstressed, ambulatory subject supports the diagnosis of Diabetes Mellitus. PERFORMED BY: [facility] [place] [address] PATHOLOGIST HISTORICAL GUIDE IGOR GUSTAFSON M.D. Performed By: #### G LURAIN #### Point of Care testing , No Panel InformationOrdered By: Ga Field on 02-19-2022 Estimated GFR () > 60 mL/Min [facility] Comment on above: GFR estimated refere nce range: According to KDOQI guidelines, <60 ml/min/1.73m2 is sufficient to diagnose a patient with chronic kidney disease. Pharmacy Creatinine Clearance (Chem 121.43 [facility] Serum or plasma anion gap de terminationOrdered By: Ga Field on 02-19-2022 Anion gap [Moles/Vol] 12.6 mmol/L 6.0-15.0 [facility] Serum or plasma calcium nava urement (mass/volume)Ordered By: Ga Field on 02-19-2022 Calcium [Mass/Vol] 9.5 mg/dL 8.2-10.2 [facility] Serum or plasma chloride eri surement (moles/volume)Ordered By: Ga Field on 02-19-2022 Chloride [Moles/Vol] 104 mmol/L 95-[address] [facility] Serum or plasma glucose nava urement (mass/volume)Ordered By: Ga Field on 02-19-2022 Glucose [Mass/Vol] 194 mg/dL 70-100 [facility] Comment on above: ADA recommended refe rence rangeRandom Glucose Reference Range is dependent on time and content of last meal. Glucose of more than 200 mg/dL in a nonstressed, ambulatory subject supports the diagnosis of Diabetes Mellitus. Serum or plasma potassium me asurement (moles/volume)Ordered By: Ga Field on 02-19-2022 Potassium [Moles/Vol] 4.4 mmol/L 3.5-5.1 [facility] Serum or plasma sodium measu rement (moles/volume)Ordered By: Ga Field on 02-19-2022 Sodium [Moles/Vol] 138 mmol/L 136-146 [facility] Serum or plasma total carbon dioxide measurement (moles/volume)Ordered By: Ga Field on 02-19-2022 CO2 [Moles/Vol] 25.8 mmol/L 22.0-30.0 [facility] Serum or plasma urea nitroge n measurement (mass/volume)Ordered By: Ga Field on 02-19-2022 Urea nitrogen [Mass/Vol] 12 mg/dL 12-22 [facility] COVID-19 Antigenon 2 COVID-19 Antigen Healthcare [...] developed and its performance characteristic determined by [employer] and validated at [facility]. This test has not been FDA [...] for SARS Antigen by [facility] PERFORMED BY: [place] [address] PATHOLOGIST HISTORICAL GUIDE IGOR GUSTAFSON M.D. Normal [facility] Comment on above: Performed By: #### C OVID-19 JESSICA, SOFIANEG #### [facility] [address] [place] [address] COVID-19 SOFIAOrdered By: Juni Zelaya on 02-16-2022 SARS-CoV+SARS-CoV-2 (COVID-19) Ag IA.rapid Ql (Resp) Negative Negative [facility] Comment on above: This is a duplicate Jessica SARS Antigen ([facility]) result to be used for statistical tracking purpose only. No Panel InformationOrdered By: Bharat Zelaya on 02-16-2022 SARS Antigen (LFIA) [facility] Jessica Ag Negativeon 02-17-20 Jessica Ag Negative Negative Normal Negative [facility] Comment on above: Result Comment: This is a duplicate Jessica SARS Antigen ([facility]) result to be used for statistical tracking purpose only. PERFORMED BY: [place] [address] PATHOLOGIST HISTORICAL GUIDE IGOR GUSTAFSON M.D. Performed By: #### C OVID-19 JESSICA, SOFIANEG #### [address] [address] [facility] Glucose Glucometer (BldC) [M ass/Vol]Ordered By: Bharat Zelaya on 10-19-2021 Glucose [Mass/Vol] 179 mg/dL [facility] Comment on above: Random Glucose Refer ence Range is dependent on time and content of last meal. Glucose of more than 200 mg/dL in a nonstressed, ambulatory subject supports the diagnosis of Diabetes Mellitus. Glucose Poct Glucometerson 0 10-19-2021 Glucose [Mass/Vol] 179 mg/dL Normal [facility] Comment on above: Result Comment: [place] [facility] Glucose Reference Range is dependent on time and content of last meal. Glucose of more than 200 mg/dL in a nonstressed, ambulatory subject supports the diagnosis of Diabetes Mellitus. PERFORMED BY: [address] [place] [address] PATHOLOGIST HISTORICAL GUIDE IGOR GUSTAFSON M.D. Performed By: #### G JANESSA #### Point of Care testing , Basic Metabolic Panelon 09-29 Estimated GFR ( Jeannie > 60 Normal [facility] Comment on above: Result Comment: GFR estimated reference range: According to KDOQI guidelines, <60 ml/min/1.73m2 is sufficient to diagnose a patient with chronic kidney disease. Performed By: #### B MP #### [address] Estimated GFR (Non- Am > 60 Normal [facility] Comment on above: Performed By: #### B MP #### [address] COVID-19 FRMCon 10-17-2021 SARS-CoV-2 (COVID-19) RNA ANTOINETTE+probe Ql (Unsp spec) Negative Normal Negative [facility] Comment on above: Order Comment: Healt hcare Worker?: N Result Comment: Testing for SARS-CoV-2 by RT-PCR This test was developed and its performance characteristics determined by [employer]) and validated at the [facility]. This test has not been FDA [...] is terminated or revoked sooner. PERFORMED BY: [address] [place] [address] PATHOLOGIST HISTORICAL GUIDE IGOR GUSTAFSON M.D. Performed By: #### C OVID [facility] #### [place] [id number] [facility] COVID-19 Positive/NegativeOr dered By: Bharat Zelaya on 10-17-2021 SARS-CoV-2 (COVID-19) N gene ANTOINETTE+probe Ql (Resp) Negative Negative [facility] Comment on above: Testing for SARS-CoV -2 by RT-PCR This test was developed and its performance characteristics determined by [employer]) and validated at the [facility]. This test has not been FDA [...] lead ECGon 10-17-2021 ECG 12 lead ECG [facility] Main [place] [address] [place], [place] [id number] Electrocardiograph Report Signed Patient: Zara Benedict MR#: [id number] : 1960 Acct:[id number] Age/Sex: 61 / F ADM Date: 10/17/21 Loc: Room: Type: [facility] Attending Dr: Bharat Zelaya Jr, [...] previous ECGs available Confirmed by ALTON [facility]MAN [id number] on 10/18/2021 4:41:03 PM Referred By: JAZMINE ZELAYA Electronically Signed By:EZRA DANG MD [facility] Transcribed By: MUS Signed By Gigi Dang MD 10/18/21 1641 Normal [facility] Estimated glomerular filtrat ion rate (GFR) non- AmericanOrdered By: Bharat Zelaya on 10-17-2021 GFR/1.73 sq M.predicted among non-blacks MDRD (S/P/Bld) [Vol rate/Area] > 60 mL/Min [facility] No Panel InformationOrdered By: Bharat Zelaya on 10-17-2021 Estimated GFR () > 60 mL/Min [facility] Comment on above: GFR estimated refere nce range: According to KDOQI guidelines, <60 ml/min/1.73m2 is sufficient to diagnose a patient with chronic kidney disease. Pharmacy Creatinine Clearance (Chem N/A [facility] Serum or plasma calcium nava urement (mass/volume)Ordered By: Bharat Zelaya on 10-17-2021 Calcium [Mass/Vol] 9.7 mg/dL Normal 8.2-10.2 [facility] Comment on above: Result Comment: PERF ORMED BY: [address] [place] [address] PATHOLOGIST HISTORICAL GUIDE IGOR GUSTAFSON M.D. Performed By: #### B MP #### [facility] [address] [place] [address] Serum or plasma chloride eri surement (moles/volume)Ordered By: Bharat Zelaya on 10-17-2021 Chloride [Moles/Vol] 102 mmol/L Normal 95-[address] [facility] Comment on above: Performed By: #### B MP #### [facility] [address] [place] [address] [place] Serum or plasma creatinine m easurement with calculation of estimated glomerular filtrOrdered By: Bharat Zelaya on 10-17-2021 Creatinine [Mass/Vol] 0.51 mg/dL Normal 0.44-1.03 [facility] Comment on above: Performed By: #### B MP #### [address] Serum or plasma glucose nava urement (mass/volume)Ordered By: Bharat Zelaya on 10-17-2021 Glucose [Mass/Vol] 134 mg/dL High 70-100 [facility] Comment on above: ADA recommended refe rence range Random Glucose Reference Range is dependent on time and content of last meal. Glucose of more than 200 mg/dL in a nonstressed, ambulatory subject supports the diagnosis of Diabetes Mellitus. Result Comment: [place] om Glucose Reference Range is dependent on time and content of last meal. Glucose of more than 200 mg/dL in a nonstressed, ambulatory subject supports the diagnosis of Diabetes Mellitus. ADA recommended reference range Performed By: #### B MP #### [address] Serum or plasma potassium me asurement (moles/volume)Ordered By: Bharat Zelaya on 10-17-2021 Potassium [Moles/Vol] 3.8 mmol/L Normal 3.5-5.1 [facility] Comment on above: Performed By: #### B MP #### [address] Serum or plasma sodium measu rement (moles/volume)Ordered By: Bharat Zelaya on 10-17-2021 Sodium [Moles/Vol] 137 mmol/L Normal 136-146 [facility] Comment on above: Performed By: #### B MP #### [address] Serum or plasma total carbon dioxide measurement (moles/volume)Ordered By: Bharat Zelaya on 10-17-2021 CO2 [Moles/Vol] 23.6 mmol/L Normal 22.0-30.0 [facility] Comment on above: Performed By: #### B MP #### [address] [place] [address] [facility] Serum or plasma urea nitroge n measurement (mass/volume)Ordered By: Bharat Zelaya on 10-17-2021 Urea nitrogen [Mass/Vol] 11 mg/dL Normal 9- [facility] Comment on above: Performed By: #### B MICHI #### [facility] [id number] [facility] MRI SHOULDER LT WO CONon MRI SHOULDER [...] Ordering : DR INES MEJIAS Admission #: [id number] Family : Order #: [id number] CLICK HERE TO VIEW EXAM RADIOLOGY REPORT [...] [facility] BREAST COMPOSITION: Almost entirely fatty. FINDINGS: DIAGNOSTIC [...] Toro M.D. on 09/13/2021 at 11:56 Normal [facility] Physical Therapy Noteon -2 Physical Therapy Note [id number] .00OTGTIFF Normal [facility] Provider [place] 01-13-2021 Provider Orders [id number] .00OTGTIFF [facility] Provider [place] 11-18-2020 Provider Orders [id number]#1 .00OTGTIFF [facility] Coding Summaryon 11-16-2020 Coding Summary HTMLBase 64 HyndsajrGPe7jAc+PGhlY WQ+JL1PSJIpX32dcPUqnT 2LY2sNLJ3MLKPHMHPWUM3 SQX6cjCA5OVplO7LprfPl XmsbmHXrJJ00VAr6QUY0q RsjDNatwH7skNKxE2f4Aj DjJV34jF82DUutEILcBrH 3LjZpbjsgbWFy R4ugGaPphBIwZtg+PHRhY mxlIHdpZHRoPScxMDAlJy DwzQgrMH0zPe7rTHCvPDF vbGxhcHNlOiBj u9omQUUyTGnhSE5vwDtyO 2OvkZG7GPSty1f6Oc23lH I+PTUvBRS9sZnyRKwvm08 0RoHjm4kcCBQ8 hPPxRRqjKTE2W05pd6T2W KJpNMZtLWM2yJZ7nD5vqN prndnqJ4CrcUEmMkJ8QGO 2lYUgdM9pwEgt jqpcwU0jLwx+B64QPY9ZP EXKRL9GKot2D8NmWvgekS I+YJ10MDAtED64dIHssDE ts4yehEi3GrKw RSVdAVM6hFwlWZxer5KuH TSiB17ghMBxx8M9NBGwoM sfzPZrRaAbeTK0mY1sEFx ioswjv3pdazil Awfey6eupy74bZ82E91hQ SwjMTMwQRR2MLAcOMSvvS kodp7eiB9zGe8+IKugh8u gr9taoRt8UnYb WCZoliWiuXmbRTW4m9UcY h17Y3XkkLylv4LuXud4yz 97nPFdq3K0sQR7SGsmIYV ceP0kCZzmLwK6 SOAjQxPinA17sNTrYHegW a0xaSuvcIsmUV1dJLMyka stKOFwgC0hOKHleWJjkJw uUU0eSFRquide q209LyUcRNR8MAXcyGXqG 8JdeG8lNzYsDHWmZAQyO0 YceMSdJPquT786RGhqZuO 4ZOQernGrW2Kq MKCtzJuwAxO5z1N3Ds8Cz 5BbkudlPLS1OMujCTL4Zf M5NoTzGqA3K6GcKdz0SNP ecHnmTA3vH4Pi XPTlswyjwiwhtPZ8LBZyB ZBidF51eFJgWMfdHw5ml2 C8o040HDZcLRYrzM22Oz8 udDogMTBwdCBU cX9sijeyy3lecapfDrUzE WHlKDm5ZHe0YDGbdSxqQq ZsXEZ8JsY6JFL2pKVzpA0 hxHnnrnjngB5s Oyc+L76esO5pUXN2FAI0p gpcULYpvwVeLF70UP80Q2 RyPjwvdGFibGU+PGRpdiB wjEqbIM3nSqDq l8bas3NkJVnzE7VjCGWeJ BxpPvb4KZFfOQP9dEQ7uC 2eHGFaUHczy3E8tJE8J0F eyuZgst6js4jb ZKVeTKlyC74ykEGdg5Q8R BBvyKW2SWQdbSmnRdXutS 93Oyc+KYMmsWwrf6QiHib wt4wam4nmmUt0 YlRxGAVwnoPfnHzrKXS7o 2ZiCa54F55lOHkcMDNwME FnXJLdZONsgRlqbp5ufM1 wIi8+PGNvbCB3 uHK6iN0rGWFyWlL7KXfnM 768GpZmvIQqVlzvz5bls7 mevEv3IoPcVWFuurXdmLc hNGT2m8DoEm51 S96rNWdfGAUmFXCgXMRmZ UGqqDygle0odE6vFd5+PC 1jn7rkaw82tZ21zWQ+PHR eQUZ6bZayKQqp TZEntU3rSIpdGtG2GDEoO oGttD49dKNvIRbyLz3qeX mhwBowWM8mCBYrxqdgz22 1WqGtp6unGHVu sANqHShaSCH8N59ke5Y1Y TYzXUOzGAP9zBQ5gA1bfH lnbjogbGVmdDsgdmVydGl fMDpzENfhP447 IHRvcDsnPlBhdGllbnQgT pBsRSx8Q0BbZzq8DMDtxZ bfBT9ttMOvPIwyKt1jzSk nwOmeTS7zZWUx xbwki874OaSpj7cfOBRzt WUvWZpkKTU2M37qa2P1FY ObJIDwEWF7wIU9pD3cnNv nbjogbGVmdDsg baDniHimKZnpZEzvN743X HRvcDsnPkJpcnRoIERhdG X9SH52JV82cAZta6Y7eXP 2N9VnLIPeukxv kylbyIO1KQReRXVqxM81O j4pcEfcLd1uTWTwBWS1YQ VewQOrI0QjlZ4uKdOxJER yRQDhS6OzqFKm UBgkN231MByjTzJ3CFFny sQlH0AuNCBriQzgLxU3l7 K8Is6HF9N7SL44PR16dUH xb0U8rZB4V6Uw BWQmiipnpyxkzED3DFKzA TGprR33Fn3xxGfySe0aIP NaPKF5UIQwtSHaQ6JihK1 yOiAjMDAwMDAw K3BcnGAqXXmjT987IArrP yX9CPZsnzThK0EmZNUtaS mkVbU2t4Y5Dz4YFYc2SM1 6UE04mCUkr7X2 lFO4V8TqMSMoeqqgdllbd EC5XIFqBCFxeQ05Tr9ypT wkPt2wUSSeTZI2LJHppPP oQ6TbwF0xWaRv GBOtGJAlW1QnnIYlPGgnD 190IMyeIrV7TYNrxxEiX5 UkDXTxfSdcElQ5n2P7Dt3 MCHUsFC38XTG2 hGZ5WO46EU07U9TdQjsde GFibGU+PHRhYmxlIHdpZH RoPScxMDAlJyBzdHlsZT0 tGq7rBNRvQWMu qWatwDXcCvOui7jrDSJuY LuzVL2opExfR6RlxSA3LV Yqs3l6Ek47P33hM4OqiCQ +TBToaHL9cFU9 iY9uRtQhMnG5ZCryW122R aGodWQnNcgji8tkn2pqxQ t3RcP7QHBkrvGgrRmcCJU 5i4PkSu28S86z IHdpZHRoPSIxNSUiIHZhb Wmkem3jqG1aMv8+PGNvbC V1qGL6rR9vDaGbKsR2NOe mS955IzWsoJJs Ckwnt2rlh9yisXw0PnUbS YMbxlSunEueTWI2h7OiYu 16P5OviLfka8XeVwu7na3 8bNUmb9D1dSY6 A7HgEECkiqqeiDYluInxG Q6qPMIfqjjiAOHorX5mIR DaX6e8BpGsKgA9PYwfG9Z nfiL6PSUmpMNt FHviHRF2U71tm9N4IRHlN MMiSTY4nCY4tN4lwCqwyq ogbGVmdDsgdmVydGljYWw xKPvlJ888BQLe mTamFHOwmC8tDTDyfCUzb FgxSL7qMJQptoukHxuTIM xFUiwgVEFNQVJBIEpFQU4 1D7ZbBar2EUXb zEehWR7pqANcJFxgIc5xd SztcQucAI4jDMSyxndtMP LhcM7fZXKgpLZyjDcjVV3 jBCOohknzv027 RzQuUDW9IHOhhRSnA3Ngi H0aEeGfEVLhHAXoL2BkbB GxTOgrW873JFtbGaK1KIA fyxMmL7AqMUDr zDheOcT3z0E7Qg8pCT9bY F5vBUOdND33KH05bKZmo9 B3lDI5N4LoOOOdphdgikb cgCX2ZWIyRGUh mC56qBGaSSikXi4bm9T7y 613IQRaXESeyJ08Vp4fsU idTURaaCAHsN6cwetai5d vcjogIzAwMDAw KAa7KTj2ZXNjsFucCpEcE YV1VrK5SCM7oXKrnV4zsC ecqualdN3iItj+NTggWWV tsaK3T5NhXmm8 YUMzaTslMV4tjCHlSJajP e1zoSmnbDznSY4sMEThyn zkOYDblO2wLRZmuHVjdXt fNE9lMCZuotkk a388XgGfSDD4VQAxbGZrP 7LybT7oSbKnXHOsYLIzQ2 MffCWdGFmeN218LRcxIwZ 4TEQynaVxO2Fl XUZgbZhoEeL3g7H1Nj9WZ O7VENY7C6XlCub5CYLioK qtHG6jtJDeEPskPv3jzLu hqHydGP7rOFQl thfxHTBivI4rEHXbcQSzp ZquNZ8nBZOttglew037Dn ZmFOT4UKHqcMYtC2ChiP3 yOiAjMDAwMDAw C5UrrSAnKRagA697GZujO gO8DNTkvfNaI7ByABQqyU xsLyZ0g0N7Sa6LHRW6kmL lsbdoE6J5uLX3 aWVudDwvdGQ+TR05yt83F 5NgPxxwFcc5LNOlVSC3wW H0qD9gTIRzLLgdi8A3uOY 4W8XxadKpgy0z t0aqJQErLCwjO52fhZYwa 3C1MQEiwKR9RHDhkJdhPr BdmR56Ggu+OZAkwQcrc2G oPmfte9sjb3io eXt0AeNzKXFsosRxvQjvO AL9f2CgQg28I97hUEtdXF RoPSIzMCUiIHZhbGlnbj0 vgC0oPl7+PGNv fSW5zZI8jQ5nPvKkVrP5S LtjR613FyXfsEKxXirfw2 abo7bwnUa1JmHkUNMthsS xdJlcYNS3d6Yj Yc22E1UfxSgmn0FcRba8w t94dGSje2W9gCJ6Y5ErIA LfugrqhAOseOucGF7kMJS ktgkiACJwrD6u HMVmO0a0HlBdXyM4SSobO 9SpceV8GOEbnDTqNMEcaC HBrU1xmrgta9lpxpakVyS cXTGeITw4KYy8 BIUodAymBkLjEML2DmS2Z BU0cYUifV7niIckqumruD 9wOyc+DFk2u7txsDAyVJ3 pcFZ1TL51NH93 eTTjr0N5sGZ7Y0KhOXHmk sbaqiibaSH4XQYaFRBnwI 31Wh5xxMguRa9dMWQgWNS 4VNNayCKoO5Oq nL8xJuEdLGGoQBDwU7Zsg GVtWXkeU967APkrEnP6MV MwliDwW1LzMNPpjEbxDpS 6r9C3Fu3PVA62 DW99EC70wDJkz1N9iEL9O 0CrXIHebcvvqwqszIK4RZ KmIDNysJ21Zx2bmFsfIc9 fEFIzHAT7TSAv lYXbI4OlpD4lZjNaDFEqN ZUwG2HquBFtEFamW495OG rdJwO0ZEAqkaFuU9ZdFGR rnGcqHtY0e9N0 Ix8CKl71TA02GB49ySVey 4R0kFG1G0OkGGOebwsapg iwoXP1NJAgYLQzyL14Wa3 zsFtyHn0cMNRg FIL3GWXcnHZpO7KjgE1iH dMaONAoUVYrC1KftKYwCS nlZ050ENnqZwW2STRqioJ dI1YtCMUlvLay RpG6a8W5Wu1ZZVgjyrl8Y 3RkPjwvdHI+OY91AJFdRC 83kGGyvJWmz6uujIs6BvR uAXTaBBH6rYnq PSd (more content not included)... [facility] Provider [place] 09-13-2020 Provider Orders [id number] .[id number] [facility] Coding Summaryon 09-12-2020 Coding Summary HTMLBase 64 DcqjqtbpVWr9sKr+PGhlY WQ+SG5PHDCnO80ceOHzlA 5NA9pJJY4TYZCHNBNKGL3 CAU7xoMW7RZguS7GsjuWp ZlmleFNyWO59UNu9TYG5q YvzNYzewX3pkTFkV9z9Wq XyNT78mK26VJqjPPVsYmE 3LjZpbjsgbWFy P0eaWfZncGMcZgb+PHRhY mxlIHdpZHRoPScxMDAlJy KxjZqxVE1rJv9aRMFvZUZ vbGxhcHNlOiBj u9foHVSoXSosJK2pkRjiT 8UrfRP4RVNtc5f2Eu15jU I+JYXgFVA0gPdiHCxew71 6AyZrh4suNOG6 pKDoQYkeNXB0K12iq7C9V KAhTDBeVQZ4hTS2sO1cmE savdnzP6NkiVIvRoU3ZLF 7rRYshV2ylTin rkqlyL1tAkt+X72JMY8ZB UEZLS3QIng7K1QmUsnacQ I+GJ14WOSqCC82gFOikEC ku8eqxVe0IaVy UUQfQAH6sIqaENnbz2DeD TYqI81xlUZir4Q4FOHzmS uvdOItIsHgzBM2qD8dWQt vhvpzh6vzufdr Nbuin3ubvi73xG18W91mB IdiJRTfGGO5DPRnTVEleW rloz7ezS3fVs6+IAexw2t uz1japCj2GxIo RLPmyvPsaVwoTYS6q5AnN y25D6PivPwjz4XrGlr4mu 05tXWew5K3wLI0DWzzJEX woK8wGLafFnD8 WFQuLzBuiT84kJNdLVtzP a9kyJdzwDwdFU4gGOOluj vmFLXpcE3gGSKoeZXxcOo vZH8jUDCjhccf d906XmPmVBR2XCSlzACpE 3EpmQ4eFtYfDDBmWBHyD2 MqkUZwOHmoG928CCxjEiZ 5SGKmphFcA4Rs HBQfeVnoCqP1t7J2Gp6Io 6TfqfpdDCS2OFxiUTD4Ym Q0TpEkNgV5H7YjXer1IAO fgNeiBS5mD5Ef RYVaubzylrmgeVS4OXHxR BYwrO19zZCbFUepLp8fu0 R5b696GFHiZTXabA96Zw5 udDogMTBwdCBU dS7fumqvr6lrszyuMrTaA QElSDw3FTo1VTHfiIgxHa JrTLW1GpX6ZOH6nSIedU5 pzBbdzrgwcM0r Oyc+H69doK1wLGD0HGW1l xwyKWUryaMmZB18CN79K3 RyPjwvdGFibGU+PGRpdiB jkDttPK2zMrYq r6pbi1GgMZkoR1XdEZUhF WqnSih7RCWsBNQ5nXN6hZ 3oBCMfBMhbb5Q8yLX6K9S kwcExvp7jv8my FSDeFCnmR69jdUFqw9D7F TIsjRZ6JJQvtDbpGhKanL 93Oyc+FGKavEhyb3VeYri nu5qhx5ngtYm2 QySqQWIpocQqtAyjDHG4h 3ZuOi39K11tXFusUSWbLV IkWNFlGDLmeVlfnc2pwG1 wIi8+PGNvbCB3 gAQ9pQ5eQIQnJeS9CLviT 136UlTneEQwWmgwm7zqn3 dcpPu6XrVgVGEbcgCkmTa wDYE6i7RhYx57 A71wUHljDPNtCLJkBIElP BSnfBevlh0unD6jKj1+PC 3cg5nsqf06pM87yZU+PHR rPWO5xHzbRHyg SVErvM1oQSmrRbD7ZSQfG cDiwW24pSMpPKbjFv3haX vdhIbwEG9wXHCtfwbfg65 2AxWad6brYIWi sZDpSVdfSWJ8O45uy3N9H FXzUBXmOQY7dVL8nM9esQ lnbjogbGVmdDsgdmVydGl cZRbbCOlwQ851 IHRvcDsnPlBhdGllbnQgT qWbNUh8X8AlJlq3AGHwgW ewDJ4fwWAvEJhxCw7hwVc ayDopQW1vUSTt gokxe201IiErr1dsEYBwh NMvKLjeYGS1W54pq2F4JT NzCYLsSYN2wML4fK2neLb nbjogbGVmdDsg kxQhfDgbCYtvVTkwZ288W HRvcDsnPkJpcnRoIERhdG C9BQ24WI56oOCwh0Y8xWW 0E8DtXMMcorrc sycgfGS9YDYmSHLdoA00K e1bjUnsRo1aOYNpOJU0YL IbgEQiK3RsoC5iPjIzFLM aSPVxO0AgcWPq EKkaA373ODbkGvY4DFPft xMvW4VcAFMxlIlsUnB2y9 C5Vp7HA9G3UW15OY03bGR ve1H5uDJ1I1Cx RWNtovqesdqmpHN5BQBvZ RTniR48Ho7jyEdzUf6nLT EwVCQ7NAAenBFcY5TiiD1 yOiAjMDAwMDAw W4SjbYSwOJmjJ639HPfkP eM4DPZwfeUmZ4DvQPTukV lvRfO0e5L1Be9GPAq2MS7 4SR83kUApk6O2 eHW0I5PrCRYtwhcoxdjbh YZ2XYLkDWFqzJ41Qd7bfU tbIk2hSNTkGWX0BVQbzXD pC9ZguV8eSbZv ZLAgXMQrT5IhtBMbSIevG 517AFlcLlE7KLDdmjFbW5 RmYFWdcHpdFzS9u7P2Ie5 OYKBgZZ39ONP9 mFO0FC96WM74E0HkRkodg GFibGU+PHRhYmxlIHdpZH RoPScxMDAlJyBzdHlsZT0 rNm1qAOEkCHAc eFkfjYDtZfUyz2pxHXQmY HshOS7mvFryA1CcuPW8FI Zot8n7Od25P95aA1ZzrWK +HWBwnTM4lLD6 wI4tYtOwWmB3IBxoY171J kHlhGWrJuynd2jpo6kvaZ l3IkE6EYHzawXijJcbRWP 8j8EdAx23S97k IHdpZHRoPSIxNSUiIHZhb Jlhxt6kvV6fPj1+PGNvbC C1bQE5yP0wDrDvKnS6PGi xW223TfZayFRc Nplfn1czl4eduYn8CoQoP SMdylRytUjbEJV3t2VhSx 94Z7UeeOhxo5EcUfj0rw5 8kUBfc5P0hSA2 R5XiWKOrwzunsBOibQwpQ Z4xYYKquyavCXNarR7gST FeB6n6WgCuHqZ1VJgzJ4T akpH3DRQugLJr YKqrJEO0F45fb8Q7NCIuT YJeRVV5yFH4kJ6crWnfmv ogbGVmdDsgdmVydGljYWw hBWysJ278ZNLj gAjpIGYqyA6aXPLsvZPwf MagKU2mAXDsqfjkOejBGX xFUiwgVEFNQVJBIEpFQU4 1W2WiHzt2XIOt uIwgEO4ugMNsOXleMr2iw CdswMobUZ2wQBKoxuqgZC SarH0kBMCtlLUscRphJW1 kLEXpdejuq693 TtQzZRV3VRItlGSnY7Oal J5qBuPlJVSnWFArT7JdkC UiUYvkZ419MVxrIsR7TLZ ldhOwO1AyZRRg aXtsVkC8h5C5Ty1aJP2eD Y4hQDVtRV13OU16bBYmk8 U3cUL4B3TxILUxhcivers gqHF2TXCgHTHv fT86pPBpSYqoZz7ls7X2h 638XNMsHFGriF70Ta0yfQ qkGDWcjXOMcL3mrcuaw7y vcjogIzAwMDAw QCq1HEt7FGVbdJglPkJeM HH2EmJ6ZTJ8tMGjqD6ppL lsqhjaqX0lOwy+NTggWWV dliH4H5PhUcn3 HFEfuGarLL2zhSOqIOvjI b8nhMpztVdfCC7qKXLlxk zpLGJzwJ6qLAGstBNsnPl vXA2lDCJocmft g277FiMbHMN4TBGghSBjT 7ZsaQ2nHmYfDSQtANEzG1 NvrXSiAPbaL097XOplUyG 0XQKqjqKwJ0Ys TGBfaRmaUbL6g6E8Uk1GI Z0GCUE7M9JjNnl0TYPjzQ szJZ0ysPSuAKztFk7gnTo ehXtkTC4pOUEj lvqpHOUsqK0wCUDhvKTdc ErhVZ8zOCYnceeqd019Hw VbUTD5BHPlfITaP4WflK7 yOiAjMDAwMDAw N1CbkQQhSUyhH426SHziC sB5UYJqsiBtU6JzVLJutV buHsS9q2B6Kg2BQDprmOL +NR79dc78P9On TpacGeu5ANBcSHL3iOK8d W5jOMJhNYucd7P3mEL7V9 RxepJznc0ie6keVRNyKQs qS93huXJed6Y2 FZMomYN5TXHupUfoMrYld G93Oyc+TKKtlTjjc8PbCz dlc6iau0bniRf3GcYnRRG gdmFsaWduPSJ0 w0RwBn21O09jIOunREYhD NZqZGHxDWIzsJplul5tlP 9wIi8+OJIpmXC1aMF1xO0 vVfIwCqC6EWax Q668XxRuzAIpHtoiq3jrz 4jsoQp7TfOtAKOflsJrxH auWSX5u9SqLi03E7RxfAl zz8HsJsl5kz97 vHWhb4X6bLK4M0YhIAIyw tgkaOVzlWerZR8qZCLngm byLYLsjC8nGIWyW2b0SkS aZyQ3IVntQ7Ub tfM0YCYexDJdBZUneQWBs T4kbdeoz3sdxpmvGtLoPA WiMPi9UMb5DEEqmSiwUcD cGLL7GrH4PCF9 dQWbbM4naTbypmosdL5tH yc+WGr1g8oleAVaYQ7lwU K1AC94LJ32rYIhu3W0nXT 7Y6ByTDOqhmvj aqsuiGX2ZMVeVWOuwB28L i7kfUhjMl9pDTMnNFE8GI KsjIFoU4QxtE4uTwAkFLC dBOVqL4ReiRNd POcgG467MYjdBxT5LFXxw wUoE1MfEJMrmLjzPhA0x6 M3Fz5RLK59TL24HL97yWL jm5I8uFZ9M3Ay TDJwvvlxrrflaQA1DXPgF VRfcN53Az0ozHzyIi0pQO MdUSA1FENcqCQuT3JqlC7 yOiAjMDAwMDAw I6XziDAlLDlyY389EVfpC pS7NSEbnaLdT7XpGYVyrL mzHsB2l5T4Os1GOu46IW6 5IS99fXKcw0I2 mNJ3T6IaVAXamnmhjqcky XZ5REVoVQPffY98Gt6bwW zfWt6mRMOoNWM9TTUzcDK nM5XeoG1mTaDh ZTGjWTJjK5PqfYCfYSyaO 788SPtwIwU7CKQqyhKhY6 DvKXTczOnwArD7l1G3Zs6 CERsulfr7B3Ru PjwvdHI+RJ41DZOtJS73f RIvmSIzu5keoGn0BqQrCP JzUZU9bXbxEVldw0BcGBW xV40plBSnq2X7 IGN (more content not included)... Normal [facility] Mammo Screening 3D Bilate ral.on 09-10-2020 [place] Mammo Screening 3D Bilateral. MAMMOGRAM SCREENING 3-D [...] lymph nodes are noted bilaterally. [employer] Environment Coordinator was utilized for this study. IMPRESSION: No [...] 2-Benign finding Recommendation: Normal interval follow-up Normal [facility] Provider Orderson 09-02-2020 Provider Orders [id number] Normal [facility] Vital Signs Date Time Vital Sign Value Performing Clinician Facility 01-29-2023 15:12-0400 Blood Pressure Location Col[facility] [employer] [facility] 01-29-2023 15:12-0400 Diastolic blood pressure 78 mm[Hg] Colby [employer] [facility] 01-29-2023 15:12-0400 Heart rate 72 /min Colby [employer] [facility] 01-29-2023 15:12-0400 Respiratory rate 16 /min Colby [employer] [facility] 01-29-2023 15:12-0400 Systolic blood pressure 138 mm[Hg] Colby [employer] [facility] 02-19-2022 08:45-0500 Diastolic blood pressure 81 mm[Hg] DO Fanny Petznick Work Phone: [facility] 02-19-2022 08:45-0500 Heart rate 77 /min DO Fanny Petznick Work Phone: [facility] 02-19-2022 08:45-0500 Respiratory rate 16 /min DO Fanny Petznick Work Phone: [facility] 02-19-2022 08:45-0500 SaO2% (BldA) [Mass fraction] 95 % DO Fanny Petznick Work Phone: [facility] 02-19-2022 08:45-0500 Systolic blood pressure 146 mm[Hg] DO Fanny Petznick Work Phone: [facility] 02-19-2022 08:11-0500 Body temperature 98.4 [degF] DO Fanny Petznick Work Phone: [facility] 02-19-2022 07:41-0500 Inhaled oxygen flow rate 8 L/min DO Fanny Petznick Work Phone: [facility] 02-19-2022 07:24-0500 Body height 175.26 cm DO Fanny Petznick Work Phone: [facility] 02-19-2022 07:24-0500 Body mass index (BMI) [Ratio] 28.6 kg/m2 DO Fanny Petznick Work Phone: [facility] 02-19-2022 07:24-0500 Body weight 87.99 kg DO Fanny Petznick Work Phone: [facility] 12-16-2021 11:50-0400 Body height 175.26 cm Mala Aguillon Other [employer] Other 12-16-2021 11:50-0400 Body mass index (BMI) [Ratio] 28.65 kg/m2 Mala Aguillon Other [employer] Other 12-16-2021 11:50-0400 Body temperature 97.6 [degF] Mala Aguillon Other [employer] Other 12-16-2021 11:50-0400 Body weight 88 kg Mala Aguillon Other [employer] Other 12-16-2021 11:50-0400 Diastolic blood pressure 79 mm[Hg] Mala Aguillon Other [employer] Other 12-16-2021 11:50-0400 Respiratory rate 18 /min Mala Aguillon Other [employer] Other 12-16-2021 11:50-0400 SaO2% (BldA) [Mass fraction] 99 % Mala Aguillon Other [employer] Other 12-16-2021 11:50-0400 Systolic blood pressure 145 mm[Hg] Mala Aguillon Other [facility] [employer] Other 10-19-2021 14:52-0400 Diastolic blood pressure 64 mm[Hg] DO Fanny Petznick Work Phone: [facility] 10-19-2021 14:52-0400 Heart rate 89 /min DO Fanny Petznick Work Phone: [facility] 10-19-2021 14:52-0400 Respiratory rate 18 /min DO Fanny Petznick Work Phone: [facility] 10-19-2021 14:52-0400 SaO2% (BldA) [Mass fraction] 94 % DO Fanny Petznick Work Phone: [facility] 10-19-2021 14:52-0400 Systolic blood pressure 144 mm[Hg] DO Fanny Petznick Work Phone: [facility] 10-19-2021 13:15-0400 Body temperature 98.4 [degF] DO Fanny Petznick Work Phone: [facility] 10-19-2021 12:40-0400 Inhaled oxygen flow rate 8 L/min DO Fanny Petznick Work Phone: [facility] 10-19-2021 11:15-0400 Body height 175.26 cm DO Fanny Petznick Work Phone: [facility] 10-19-2021 11:15-0400 Body mass index (BMI) [Ratio] 29.2 kg/m2 DO Fanny Petznick Work Phone: [facility] 10-19-2021 11:15-0400 Body weight 89.8 kg DO Fanny Petznick Work Phone: [facility] Encounters Encounter Date Encounter Type Care Provider Facility Start: 08-19-2023 End: 08-19-2023 ambulatory MARILU PATIÑO Not Available Start: 07-25-2023 End: 07-25-2023 ambulatory FANNY PRABHAKRA Not Available Start: 03-28-2023 End: 03-28-2023 ambulatory FANNY PRABHAKAR Not Available Start: 02-13-2023 End: 02-14-2023 ambulatory Colby De La Rosa KIET Facility:[id number] Start: 01-29-2023 End: 01-30-2023 ambulatory Colby De La Rosa TAWANDAL Facility: [facility] Start: 01-29-2023 End: 01-29-2023 Patient encounter procedure Colby De La Rosa KIET General Surgery [facility] Start: 01-03-2023 ambulatory Colby SANTA [facility] Start: 06-25-[address] FANNY PRABHAKAR Fac ility:[facility] Start: 06-03-2022 Encounter for genera l adult medical examination without abnormal findings DR FANNY PRABHAKAR [facility] Start: 05-30-2022 End: 05-31-[address] FANNY PRABHAKAR Facility:[facility] Start: 05-30-2022 End: 05-31-2022 Encounter for general adult medical examination without abnormal findings DR FANNY PRABHAKAR Facility:[facility] Start: 05-21-2022 ambulatory Fanny Prabhakar Facili ty:[facility] Start: 03-30-[address] FANNY PRABHAKAR Fac ility:[facility] Start: 02-19-2022 End: 02-19-2022 ambulatory Bharat Zelaya Jr Facility:[facility] Start: 02-19-2022 End: 02-19-2022 Admission to same day surgery center DO Fanny Prabhakar Work Phone: [facility] [place] Start: 02-19-2022 End: 02-19-2022 ambulatory DO Fanny Prabhakar Work Phone: [facility] Work Phone: Start: 02-16-2022 End: 02-16-2022 ambulatory Bharat Zelaya Jr Facility:[facility] Start: 02-16-2022 End: 02-16-2022 ambulatory DO Fanny Petznick Work Phone: [facility] Work Phone: Start: 02-16-2022 End: 02-16-2022 Patient encounter procedure DO Fanny Petznick Work Phone: [facility] Start: 12-16-2021 End: 12-16-2021 ambulatory Mala Aguillon Other [employer] Other Start: 12-16-2021 Office outpatient ne w 20 minutes Mala Aguillon [facility] Start: 11-06-2021 End: 03-16-2022 ambulatory MR ALBANIA CALLOWAY . Facility:[facility] Start: 10-19-2021 End: 10-19-2021 ambulatory Bharat Zelaya Facility:[facility] Start: 10-19-2021 End: 10-19-2021 Admission to same day surgery center DO Fanny Petznick Work Phone: [facility] [place] Start: 10-17-2021 End: 10-17-2021 [facility] Start: 10-17-2021 End: 10-17-2021 Patient encounter procedure DO Fanny Petznick Work Phone: [facility] Start: 10-10-2021 End: 10-11-[address] DOCTOR PACHECO Facility:[facility] Start: 09-12-2021 End: 09-13-[address] FANNY PRABHAKAR Facility:[facility] Start: 09-04-2021 End: 09-05-2021 ambulatory Fanny Prabhakar Facility:[facility] Procedures Date Procedure Procedure Detail Performing [...] Activity Detail Author Start: 02-19-2022 End: 02-19-2022 [facility] Start: 10-19-2021 [facility] Work Phone: Start: 10-19-2021 [facility] Work Phone: Immunizations Immunization Date Immunization Notes Care Provider Fa genesis [facility]2022 influenza virus vaccine, unspecified formulation [facility] 07-15-2020 COVID-19 mRNA, Comirnaty (Pfizer) DO Fanny Prabhakar Work Phone: [facility] 06-24-2020 COVID-19 mRNA, Comirnaty (Pfizer) DO Fannysharmin Prabhakar Work Phone: [facility] Payers Date Payer Category Payer Self-pay [id number] 1960 Unknown [id number] 2.16.84 0.1.219594.3.579.2.593 1962 Unknown [id number] 2.16.84 0.1.373602.3.579.2.593 1962 Unknown [id number] 2.16.84 0.1.329033.3.579.2.593 1962 Unknown [id number] .16.84 0.1.002835.3.579.2.593 1962 Unknown [id number] 2.16.84 0.1.457232.3.579.2.593 1962 Unknown [id number] 2.16.84 0.1.739412.3.579.2.593 1962 Unknown [id number] 2.16.8 40.1.835281.3.579.2.727 1962 Unknown [id number] 2.16.8 40.1.211516.3.579.2.727 1962 Unknown [id number] 2.16.84 0.1.369309.3.579.2.1259 1962 Unknown [id number] 2.16.84 0.1.263177.3.579.2.1259 1962 Unknown [id number] 2.16.840 .1.078279.3.579.2.1259 1959 Unknown [id number] 1959 Unknown [id number] Unknown [id number] 2.16.8 40.1.322567.3.579.2.531 Unknown [id number] 2.16.8 40.1.751394.3.579.2.531 Unknown [id number] 2.16.8 40.1.135814.3.579.2.531 Unknown [id number] 2.16.8 40.1.333802.3.579.2.531 Unknown [id number] 2.16.8 40.1.316274.3.579.2.531 Unknown [id number] 2.16.8 40.1.972924.3.579.2.531 Social History Date Type Detail Facility Start: 10-19-2021 End: 01-29-2023 Tobacco smoking status NHIS Never smoked tobacco (finding) [facility] Start: 1960 Sex Assigned At Female F [facility] Sex Assigned At [facility] Tobacco smoking status Never [facility] [place] Medical Equipment Procedure Code Equipment Code Equipment Origin al Text Equipment Identifier Dates Arthroscopy, shoulder Tendon/ligament bone anchor, bioabsorbable [id number] FDA Start: 10-19-2021 Arthroscopy, shoulder Tendon/ligament bone anchor, bioabsorbable ([id number] FDA Start: 10-19-2021 Goals Date Patient Goal [...] 1 tab(s), Oral, Daily Flonase 0.05 mg/inh [place], 1 spray(s), Nasal, BID gabapentin 300 mg [...] Father. Alcoholism: Broth (more content not included)... [facility] Comment on above: Result Comment: [...] understanding and is agreeable to treatment plan [facility] Other Evaluation + Plan note Note Date & Type Note Facility Evaluation + Plan note No data available for this section [facility] [place] Evaluation note Note Date & Type Note Facility Evaluation note No assessment information availa [facility] Work Phone: History general Narrative [...] shoulder surgery 2021 Hospitalization History see above [facility] Other Hospital Discharge instructions Note Date & Type Note Facility Hospital Discharge instructions Additional Instructions #1 ice left shoulder as needed for pain. #2 start physical therapy tomorrow. #3 10 wall walks 4 times a day. #4 may use left arm [facility] [employer] Work Phone: Hospital Discharge instructions Note Date & Type Note Facility Hospital Discharge instructions No data available for this section [facility] [place] Progress note Note Date & Type Note Facility Progress note No data available for this section [facility] [place] Summary Purpose Family History No Family History [...] section and content) DATE CREATED AUTHOR 08/02/2021 [facility] DATE CREATED AUTHOR AUTHOR'S ORGANIZ ATION 05/31/2022 [facility] DATE CREATED AUTHOR AUTHOR'S ORGANIZ ATION 06/27/2022 [facility] DATE CREATED AUTHOR AUTHOR'S ORGANIZ ATION 03/02/2023 [facility] DATE CREATED AUTHOR AUTHOR'S ORGANIZ ATION 08/21/2023 [facility] EPIC Care Teams (unrecognized [...] BE BASED ON THE PRIMARY CLINICAL RECORDS. [facility] [employer] [facility]. provides no warranty or guarantee of the accuracy or completeness of information in this document.
[2023-09-18 15:14] LABS: C. Difficile PCR NEGATIVE (NEGATIVE)
== END 2023-09-18 08:05 | disposition home or self-care (01) ==
LOC: LAB 08:04
PROVIDERS: PCP Family Medicine; Visit Provider Emergency Medicine Emergency Medical Services
DX: R19.7 Diarrhea, unspecified (principal)
CPT/HCPCS: 87493

== ENCOUNTER 2023-09-30 13:52 | Outpatient (OUT) | payer BC, SELFPAY ==
--- NOTE | 2023-09-30 13:57 | MM_ITS ---
Patient Name: ZARA BENEDICT MR#: [id number] : 1960 Exam Date: 09/30/2023 Ordering Doctor: DR Randal Gastelum . RADIOLOGY REPORT PROCEDURE: MM TOMOSYNTHESIS SCREENING BI COMPARISON: MM TOMOSYNTHESIS SCREENING BI, 09/27/2022. MG MAMM SCREEN 3D MELVINA CAD, 09/12/2021. MG MAMM SCREEN 3D MELVINA CAD, 09/10/2020. INDICATIONS: Screening Calculator Name NCI Breast Cancer Risk Assessment Tool 5 Year Breast Cancer Risk 1.30% Lifetime Breast Cancer Risk 6.40% Personal Breast Cancer No Personal Ovarian Cancer No Treatments None Family Cancers Father with bladder cancer at age 80. LOCATION: [facility] BREAST COMPOSITION: The breasts are almost entirely fatty. FINDINGS: DIAGNOSTIC CATEGORY 1--NEGATIVE. RIGHT BREAST: No significant suspicious finding. No significant change has occurred. LEFT BREAST: No significant suspicious finding. No significant change has occurred. RECOMMENDATIONS: ROUTINE MAMMOGRAM AND CLINICAL EVALUATION IN 12 MONTHS. PLEASE NOTE: A NORMAL MAMMOGRAM DOES NOT EXCLUDE THE POSSIBILITY OF BREAST CANCER. A CLINICALLY SUSPICIOUS PALPABLE LUMP SHOULD BE BIOPSIED. Dictated by: Johnson DelT oro M.D. on 10/01/2023 at 15:40 Approved by: Johnson Del Toro M.D. on 10/01/2023 at 15:49
== END 2023-09-30 13:53 | disposition home or self-care (01) ==
LOC: MAMMO 13:52
PROVIDERS: PCP Family Medicine; Visit Provider Obstetrics & Gynecology
DX: Z12.31 Encounter for screening mammogram for malignant neoplasm of breast (principal); Z80.52 Family history of malignant neoplasm of bladder
CPT/HCPCS: 77063; 77067

== ENCOUNTER 2024-08-10 11:22 | Outpatient (OUT) | payer MEDICAID, SELFPAY ==
--- OUTSIDE RECORDS SUMMARY | 2024-08-10 11:45 | XMS_ITS | CCD ---
Author Organization [facility] Care Team Providers Care Machine [place] Former Name Role Phone DO Fanny Prabhakar Primary Care Provider [phone] DO Bharat Zelaya Jr Attending Provider Mala Aguillon Unavailable DO Fanny Prabhakar Primary Care Provider [phone] DO Bharat Zelaya Jr Attending Provider AKI, DR ESCOBEDO Primary Care Unavailable VISCI, DR CARD Attending Unavailable VISCI, DR CARD Admitting Unavailable ZIEBER, DR ABIMBOLA De La Rosa Consulting Unavailable VISCI, DR CARD Consulting Unavailable PETZNICK, DR ESCOBEDO Attending Unavailable PETZNICK, DR ESCOBEDO Admitting Unavailable PETZNICK, DR ESCOBEDO Primary Care Unavailable PETZNICK, DR ESCOBEDO Consulting Unavailable MISC, DR MCMAHON Admitting Unavailable MISC, DR MCMAHON Consulting Unavailable STEPANIC, DR DIAZ Primary Care Unavailable MISC, DR MCMAHON Attending Unavailable KLIPPER, FLAVIA Consulting Unavailable PETZNICK, DR ESCOBEDO Attending Unavailable PETZNICK, DR ESCOBEDO Admitting Unavailable PETZNICK, DR ESCOBEDO Primary Care Unavailable CALLOWAY ., MR [place] Attending Unavailable PETZNICK, DR ESCOBEDO Primary Care Unavailable CALLOWAY ., MR [place] Admitting Unavailable PETZNICK, DR ESCOBEDO Attending Unavailable PETZNICK, DR ESCOBEDO Admitting Unavailable PETTUAN, DR ESCOBEDO Primary Care Unavailable FANNY PRABHAKAR Primary Care Physician Colby SANTA Attending Unavailable FANNY PRABHAKAR Referring Unavailable Colby SANTA Attending Unavailable PetDO Fanny dominguez Primary Care Provider [phone] Fibroscan, Temporary Attending Provider Unavaila ble Fanny Prabhakar DO Primary Care Provider [phone] VisciDO Card Attending Provider [phone] PetFanny dominguez Unavailable Visci DO, Ines Attending Provider Petznick , Fanny Primary Care Provider [phone] Dariusz Preciado MD Referring Provider DARIUSZ PRECIADO Attending Unavailable PETZNICK, FANNY PRATER Referring Unava ilable Visci, Ines Admitting Unavailable Visci, Ines Attending Unavailable Visci, Ines Admitting Unavailable Visci, Ines Attending Unavailable Linganna, Dariusz Referring Unavailable Petznick, Fanny Primary Care Unavailable Visci, Ines Admitting Unavailable Visci, Ines Attending Unavailable Petznick, Fanny Primary Care Unavailable Fibroscan, Temporary Admitting Unavailable Fibroscan, Temporary Attending Unavailable Petznick, Fanny Primary Care Unavailable PETZNICK, FANNY Combs Attending Unavailable HAROON, DANG Attending Unavailable PETZNICK, FANNY Combs Attending Unavailable PETZNICK, FANNY Combs Attending Unavailable VISCI, INES Duran Attending Unavailable VISCI, INES Duran Attending Unavailable PETZNICK, FANNY Combs Attending Unavailable VISCI, INES A Attending Unavailable VISCI, INES A Attending Unavailable VISCI, INES A Attending Unavailable Allergies Allergy Classification Reported Allergen(s) Allergy Type Date of Onset Reaction(s) Facility (20 sources) atorvastatin; Translations: [atorvastatin] Drug Allergy 10-20-19 22 Joint pain (finding) [facility] (20 sources) Cephalexin; Translations: [Cephalexin] Drug Allergy 07-27-19 16 Swelling, Edema (finding) [facility] (20 sources) rosuvastatin; Translations: [rosuvastatin] Drug Allergy 03-21-20 18 Diarrhea (finding), Diarrhea [facility] (2 sources) Acetaminophen / oxyCODONE; Translations: [acetaminophen-oxy codone] Drug Allergy Itching (finding) [facility] [place] (5 sources) diphenhydrAMINE; Translations: [diphenhydramine] Drug Allergy 12-17-19 22 Itching (finding) [facility] [place] (1 source) Hmg-Coa Reductase Inhibitors (Statins) Drug allergy aches/diarrhea [email or web address] Other (1 source) Acetaminophen / oxyCODONE; Translations: [Percocet] Drug Allergy [facility] (1 source) diphenhydrAMINE; Translations: [Benadryl] Drug Allergy [facility] (4 sources) Acetaminophen; Translations: [acetaminophen] Drug Allergy 12-17-19 itch [facility] (4 sources) oxyCODONE; Translations: [oxycodone] Drug Allergy 12-17-19 itch [facility] (4 sources) Holbigh-VHN-YrJ Reductase Inhibitor; Translations: [Htbajxt-XGX-NwV Reductase Inhibitor] Allergy to substance 12-17-19 aches/diarrhea [facility] (10 sources) Acetaminophen / oxyCODONE Drug Allergy 11-30-19 Itching [facility] (20 sources) diphenhydrAMINE Drug Allergy 11-30-19 Itching [facility] (1 source) diphenhydrAMINE Drug Allergy 06-10-19 [facility] (5 sources) HMG-CoA reductase inhibitor Drug Allergy 06-10-19 [facility] Medications Current Medications Medication Drug Class(es) Dates Sig (Normalized) Sig (Original) 3 ML semaglutide 1.34 MG/ML Pen Injector [Ozempic] (1 source) Start: 01-14-2023 inject 1 mg by subcutaneous injection every week Ozempic (1 mg dose) 4 mg/3 mL subcutaneous solution 1 mg, SubCutaneous, qWeek, Refills(s) 0 Start Date: 01/14/23 Status: Ordered acetaminophen 325 mg oral tablet (20 sources) take 2 tablets by mouth every twenty-four hours as needed acetaminophen (Tylenol) 325 MG tablet Take 650 mg by mouth Daily as needed. Active Acidophilus Probiotic Blend (1 source) Start: 01-29-2023 take 1 capsule by mouth once daily Acidophilus Probiotic Blend 1 cap(s), Oral, Daily, Refill(s) 0 Start Date: 01/29/23 Status: Ordered B-12 1000 mcg oral tablet (1 source) Start: 01-29-2023 take 1 tablet by mouth once daily B-12 1000 mcg oral tablet 1,000 mcg = 1 tab(s), Oral, Daily, Refills(s) 0 Start Date: 01/29/23 Status: Ordered bifidobacterium animalis [id number] unt / lactobacillus acidophilus [id number] unt oral capsule (20 sources) Probiotic Produc t (Probiotic & Acidophilus Ex St) capsule as directed Orally Active Blood Glucose Monitoring Suppl (True Metrix Meter) w/Device kit (20 sources) Start: 09-27-2023 Blood Glucose Monitoring Suppl (True Metrix Meter) w/Device kit Indications: Type 2 diabetes mellitus with peripheral neuropathy (CMS/HCC) Checking bg levels 3 times a day 1 kit 09/27/2023 Active celecoxib 200 mg oral capsule (20 sources) Nonsteroidal Anti-inflammatory Drug Start: 07-20-2024 take 1 capsule by mouth once daily celecoxib (CeleBREX) 200 MG capsule Indications: Anxiety Take 1 capsule (200 mg) by mouth Daily 90 capsule 1 07/20/2024 Active Start: 07-20-2024 take 1 capsule by mo [facility] once daily celecoxib (CeleBREX) 200 MG capsule Indications: Anxiety Take 1 capsule (200 mg) by mouth Daily 90 capsule 1 07/20/2024 Active Start: 10-19-2021 End: 07-20-2024 take 1 capsule by mouth once daily at mealtime celecoxib (CeleBREX) 200 MG capsule Indications: Anxiety TAKE 1 CAPSULE BY MOUTH DAILY WITH FOOD 90 capsule 3 08/12/2023 07/20/2024 Discontinued (Reorder) CeleBREX Active Cymbalta 30 mg Cap-DR (1 source) Start: 01-14-2023 take 1 capsule by mouth once daily Cymbalta 30 mg Cap-DR = 1 cap(s), Oral, Daily, Refills(s) 0 Start Date: 01/14/23 Status: Ordered dicyclomine hydrochloride 20 mg oral tablet (20 sources) Anticholinergic Start: 07-20-2024 take 1 tablet by mouth in the morning dicyclomine (Bentyl) 20 MG tablet Indications: Irritable bowel syndrome with diarrhea Take 1 tablet (20 mg) by mouth in the morning and 1 tablet (20 mg) before bedtime. 180 tablet 3 07/20/2024 Active Start: 07-20-2024 take 1 tablet by nicole in the morning dicyclomine (Bentyl) 20 MG tablet Indications: Irritable bowel syndrome with diarrhea Take 1 tablet (20 mg) by mouth in the morning and 1 tablet (20 mg) before bedtime. 180 tablet 3 07/20/2024 Active Start: 10-17-2021 take 1 tablet by nicole twice daily dicyclomine (Bentyl) 20 MG tablet Indications: Irritable bowel syndrome with diarrhea TAKE 1 TABLET BY MOUTH TWICE DAILY 180 tablet 3 08/12/2023 Active Dicyclomine HCl Active docosahexaenoic acid 120 mg / eicosapentaenoic acid 180 mg oral capsule (20 sources) take 1 capsule by mouth in the morning omega-3 (fish oil) 1000 MG capsule Take 1 capsule by mouth in the morning. Active docusate sodium 100 mg oral capsule (5 sources) Start: 2024 Docusate Sodium (DSS) 100 MG capsule Take 100 mg by mouth if needed 06/10/2024 Active Dulaglutide (Trulicity) 3 mg/0.5 mL pen injector (1 source) Start: 2024 Dulaglutide (Trulicity) 3 mg/0.5 mL pen injector Active 3 MG SUBCUT every week May 28, 2024 12:00am Dulaglutide (Trulicity) 3 MG/0.5ML solution auto-injector (5 sources) Start: 2024 End: 2025 inject 3 mg by subcutaneous injection every week Dulaglutide (Trulicity) 3 MG/0.5ML solution auto-injector Indications: Type 2 diabetes mellitus with peripheral neuropathy (CMS/HCC) Inject 3 mg under the skin 1 (one) time per week 6 mL 1 04/14/2024 04/14/2025 Active DULoxetine 60 mg delayed release oral capsule (20 sources) Serotonin and Norepinephrine Reuptake Inhibitor Start: 2024 take 1 capsule by mouth once daily DULoxetine (Cymbalta) [address] capsule Indications: Generalized anxiety disorder (CMS/HCC) Take 1 capsule (60 mg) by mouth Daily 90 capsule 1 06/08/2024 Active Start: 06-13-2023 take 1 capsule by mo [facility] once daily at bedtime Duloxetine 60 mg capsule,delayed release(DR/EC) Active 60 MG PO Daily at bedtime May 28, 2024 12:00am Start: 10-17-2021 End: 05-28-2024 take 1 capsule by mouth once daily at bedtime Duloxetine 30 mg Capsule,Delayed Release(Dr/Ec) Discontinued 30 MG PO Daily at bedtime October 16, 2021 11:00pm May 28, 2024 10:45am empagliflozin 10 mg oral tablet (20 sources) Sodium-Glucose Cotransporter 2 Inhibitor Start: 07-20-2024 End: 07-20-2025 take 1 tablet by mouth once daily empagliflozin (Jardiance) 10 MG Indications: Type 2 diabetes mellitus with peripheral neuropathy (CMS/HCC) Take 1 tablet (10 mg) by mouth Daily 90 tablet 1 07/20/2024 07/20/2025 Active Start: 07-09-2023 End: 07-08-2024 take 1 tablet by mouth once daily empagliflozin (Jardiance) 10 MG Indications: Type 2 diabetes mellitus with peripheral neuropathy (CMS/HCC) Take 1 tablet (10 mg) by mouth Daily 90 tablet 3 07/09/2023 Active Start: 01-29-2023 take 1 tablet by nicole th once daily in the morning Jardiance 10 mg oral tablet 10 mg = 1 tab(s), Oral, qAM, Refills(s) 0 Start Date: 01/29/23 Status: Ordered Escitalopram (1 source) Serotonin Reuptake Inhibitor Escitalopram Oxalate Active esomeprazole 20 mg delayed release oral capsule (6 sources) Proton Pump Inhibitor Start: take 1 capsule by mouth once daily at bedtime Esomeprazole Magnesium (Nexium) 20 mg Capsule,Delayed Release(Dr/Ec) Active 20 MG PO Daily at bedtime October 18, 2021 11:00pm Start: 10-19-2021 take 10 mg by mouth once daily Esomeprazole Magnesium (Nexium) 20 mg Capsule,Delayed Release(Dr/Ec) Active 10 MG PO Daily October 19, 2021 12:00am estradiol 0.5 mg oral tablet (20 sources) Estrogen Start: 05-28-2024 Estradiol (Est race) 0.01 % (0.1 mg/gram) cream Active 1 APPLICATOR VAGINAL 3 Times a week May 28, 2024 12:00am Start: 01-16-2024 End: 01-15-2025 estradiol (Estrace) 0.1 MG/G M vaginal cream Indications: Vaginal atrophy Insert 1 g into the vagina 2 (two) times a week 42.5 g 2 01/16/2024 01/15/2025 Active Start: 10-17-2021 End: 07-31-2025 take 1 tablet by mouth once daily estradiol (Estrace) 0.5 MG tablet Indications: Hot flashes due to menopause Take 1 tablet (0.5 mg) by mouth Daily 90 tablet 3 09/27/2023 07/31/2024 Discontinued (Reorder) Estradiol Active fluconazole 150 mg oral tablet (20 sources) Azole Antifungal Start: 05-28-2024 take 1 tablet by mouth once daily as needed Fluconazole 150 mg tablet Active 150 MG PO Daily as needed for yeast May 28, 2024 12:00am Start: 08-19-2023 End: 02-07-2024 take 1 tablet by mouth once daily fluconazole (Diflucan) 150 MG tablet Indications: Yeast infection TAKE 1 TABLET BY MOUTH DAILY, repeat in 3 (THREE) days if SYMPTOMS persist 4 tablet 3 02/07/2024 Active Start: 10-17-2021 End: 10-19-2021 take 1 tablet by mouth once daily as needed Fluconazole (Diflucan) 100 mg Tablet Discontinued 100 MG PO Daily as needed for yeast infection October 16, 2021 11:00pm October 19, 2021 6:59am Up to 4 days fluticasone propionate 0.05 mg/actuat metered dose nasal spray (20 sources) Corticosteroid Start: 06-08-2024 take 1 spray(s) nasal route once daily fluticasone (Flonase) 50 MCG/ACT nasal spray Indications: Acute seasonal allergic rhinitis Administer 1 spray into each nostril Daily Shake gently. Before first use, prime pump. After use, clean tip and replace cap. 48 g 3 06/08/2024 Active Start: 05-28-2024 take 1 spray(s) nasa l route once daily as needed Fluticasone Propionate (Flonase Allergy Relief) 50 mcg/actuation spray,suspension Active 1 SPRAY INTRANASAL Daily as needed for allergy symptoms May 28, 2024 12:00am administer into each nostril Start: 05-07-2023 take 1 spray(s) nasa l route once daily fluticasone (Flonase) 50 MCG/ACT nasal spray Indications: Acute seasonal allergic rhinitis instill 1 (ONE) spray IN EACH NOSTRIL DAILY 48 g 3 05/07/2023 Active Start: 01-29-2023 Flonase 0.05 m g/inh [place] 1 spray(s), Nasal, BID, Refill(s) 0 Start Date: 01/29/23 Status: Ordered Start: 10-17-2021 End: 10-19-2021 Fluticasone Propionate 50 mcg/actuation [place],Suspension Discontinued 1 SPRAY INTRANASAL Daily October 16, 2021 11:00pm October 19, 2021 6:59am gabapentin 300 mg oral capsule (20 sources) Anti-epileptic Agent Start: 07-20-2024 take 1 capsule by mouth once daily gabapentin (Neurontin) 300 MG capsule Indications: Type 2 diabetes mellitus with peripheral neuropathy (CMS/HCC) , Chronic bilateral low back pain without sciatica Take 1 capsule (300 mg) by mouth Daily 90 capsule 1 07/20/2024 Active Start: 07-20-2024 take 1 capsule by mo uth once daily gabapentin (Neurontin) 300 MG capsule Indications: Type 2 diabetes mellitus with peripheral neuropathy (CMS/HCC) , Chronic bilateral low back pain without sciatica Take 1 capsule (300 mg) by mouth Daily 90 capsule 1 07/20/2024 Active Start: 10-17-2021 take 1 capsule by mo uth once daily gabapentin (Neurontin) 300 MG capsule Indications: Type 2 diabetes mellitus with peripheral neuropathy (CMS/HCC) , Chronic bilateral low back pain without sciatica TAKE 1 CAPSULE BY MOUTH DAILY 90 capsule 3 08/12/2023 Active Gabapentin Activ e hydrOXYzine hydrochloride 25 mg oral tablet (1 [...] SUBCUT Every morning October 16, 2021 11:00pm 3 ml insulin glargine 100 unt/ml pen injector (20 sources) Insulin Analog Start: 06-22-2024 inject 22 [IU] by subcutaneous injection in the morning insulin glargine (Lantus) 100 UNIT/ML pen Indications: Type 2 diabetes mellitus with peripheral neuropathy (CMS/HCC) Inject 22 Units under the skin in the morning. 30 mL 1 06/22/2024 Active Start: 05-28-2024 Insulin Glargi ne (Lantus Solostar U-100 Insulin) 100 unit/mL (3 mL) insulin pen Active 30 UNIT SUBCUT Every morning May 28, 2024 12:00am Start: 12-17-2023 inject 22 [IU] by oswald bcutaneous injection in the morning insulin glargine (Lantus) 100 UNIT/ML pen Indications: Type 2 diabetes mellitus with peripheral neuropathy (CMS/HCC) Inject 22 Units under the skin in the morning. 30 mL 12/17/2023 Active Start: 09-27-2023 End: 09-26-2024 inject 30 [IU] by subcutaneous injection in the morning insulin glargine (Lantus) 100 UNIT/ML pen Indications: Type 2 diabetes mellitus with peripheral neuropathy (CMS/HCC) Inject 30 Units under the skin in the morning. 30 mL 12/11/2023 12/17/2023 Discontinued (Dose adjustment) Start: 01-14-2023 inject 35 [IU] by oswald bcutaneous injection once daily Lantus 100 units/mL Injection-Insulin 35 unit(s), SubCutaneous, Daily, Refills(s) 0 Start Date: 01/14/23 Status: Ordered krill oil 500 mg oral capsule (6 sources) Start: 10-17-2021 take 1 capsule by mouth twice daily Krill Oil 500 mg Capsule Active 500 MG PO Twice daily October 16, 2021 11:00pm L.Acidop-L.Pardeep-B.Bifid -B.Long (Probiotic Colon Support) 70 mg (5 billion cell) Tablet,Delayed Release (Dr/Ec) (6 sources) Start: 10-17-2021 take 1 tablet by mouth once daily in the morning L.Acidop-L.Pardeep-B.Bif id-B.Long (Probiotic Colon Support) 70 mg (5 billion cell) Tablet,Delayed Release (Dr/Ec) Active 1 TAB PO Every morning October 16, 2021 11:00pm Start: 10-17-2021 take 1 tablet by nicole th once daily L.Acidop-L.Pardeep-B.Bifid-B.Long (Probioti c Colon Support) 70 mg (5 billion cell) Tablet,Delayed Release (Dr/Ec) Active 1 TAB PO Daily October 16, 2021 11:00pm Start: 10-17-2021 take 1 tablet by nicole th once daily Marilee-Thiago-B.Bifid-B.Long (Probioti c Colon Support) 70 mg (5 billion cell) Tablet,Delayed Release (Dr/Ec) Active 1 TAB PO Daily October 17, 2021 12:00am levocetirizine dihydrochloride 5 mg oral tablet (20 sources) Histamine-1 Receptor Antagonist Start: 05-28-2024 take 1 tablet by mouth once daily at bedtime Levocetirizine (Allergy Relief (Levocetirizin)) 5 mg tablet Active 5 MG PO Daily at bedtime May 28, 2024 12:00am LORazepam 0.5 mg oral tablet (11 sources) Benzodiazepine Start: 04-21-2024 End: 05-01-2024 take 1 tablet by mouth every six hours as needed for anxiety and anxiety and anxiety LORazepam (Ativan) 0.5 MG tablet Indications: Anxiety Take 1 tablet (0.5 mg) by mouth every 6 (six) hours if needed for anxiety for up to 10 days 30 tablet 04/21/2024 Active metFORMIN hydrochloride 1000 mg oral tablet (20 sources) Biguanide Start: 10-17-2021 End: 07-31-2025 take 1 tablet by mouth in the morning metFORMIN (Glucophage) 1000 MG tablet Indications: Type 2 diabetes mellitus with peripheral neuropathy (CMS/HCC) Take 1 tablet (1,000 mg) by mouth in the morning and 1 tablet (1,000 mg) in the evening. Take with meals. 180 tablet 1 07/31/2024 07/31/2025 Active metFORMIN HCl Ac tive 24 hr oxybutynin chloride 10 mg extended release oral tablet (13 sources) Cholinergic Muscarinic Antagonist Start: 01-17-2024 End: 01-16-2025 take 1 tablet by mouth once daily oxybutynin XL (Ditropan-XL) 10 MG 24 hr tablet Indications: Urinary urgency Take 1 tablet (10 mg) by mouth Daily Do not crush, chew, or split. 30 tablet 11 01/17/2024 01/16/2025 Active Ozempic (1 source) Ozempic Active predniSONE 10 mg oral tablet (1 source) Start: 12-16-2021 prednisone 10 MG as directed with food Orally 5 tablet x 2 days, 4 tablet x2 days, 3 tablet x2 days, 2 tablet x 2 days, 1 tablet x 2 days for 10 days Nov, Active propylene glycol 6 mg/ml ophthalmic solution (20 sources) Propylene Glycol 0.6 % solution Active semaglutide (Ozempic, 1 MG/DOSE,) 4 MG/3ML solution pen-injector (15 sources) Start: 07-07-2024 End: 07-07-2025 inject 1 mg by subcutaneous injection every week semaglutide (Ozempic, 1 MG/DOSE,) 4 MG/3ML solution pen-injector Indications: Type 2 diabetes mellitus with peripheral neuropathy (CMS/HCC) Inject 1 mg under the skin 1 (one) time per week 9 mL 3 07/07/2024 07/07/2025 Active Start: 07-09-2023 inject 1 mg by subcu taneous injection every week semaglutide (Ozempic, 1 MG/DOSE,) 4 MG/3ML solution pen-injector Indications: Type 2 diabetes mellitus with peripheral neuropathy (CMS/HCC) Inject 1 mg under the skin 1 (one) time per week 9 mL 3 07/09/2023 Active terconazole 8 mg/ml vaginal cream (2 sources) Azole Antifungal Start: 01-14-2024 End: 01-17-2024 terconazole (Terazol 3) 0.8 % vaginal cream Indications: Vaginal yeast infection Insert 1 applicator into the vagina at bedtime for 3 days 20 g 01/14/2024 01/17/2024 Active tiZANidine 4 mg oral tablet (20 sources) Central alpha-2 Adrenergic Agonist Start: 07-20-2024 take 1 tablet by mouth once daily as needed for muscle spasms tiZANidine (Zanaflex) 4 MG tablet Indications: Chronic bilateral low back pain without sciatica Take 1 tablet (4 mg) by mouth Daily as needed for muscle spasms 90 tablet 1 07/20/2024 Active Start: 10-17-2021 End: 07-20-2024 take 1 tablet by mouth once daily as needed tiZANidine (Zanaflex) 4 MG tablet Indications: Chronic bilateral low back pain without sciatica TAKE 1 TABLET BY MOUTH DAILY NEEDED 90 tablet 3 08/12/2023 07/20/2024 Discontinued (Reorder) tiZANidine HCl A ctive Tresiba FlexTouch (1 source) Tresiba FlexTouc h Active 24 hr trospium chloride 60 mg extended release oral capsule (2 sources) Cholinergic Muscarinic Antagonist Start: 4 End: 4 take 1 capsule by mouth once daily trospium (Sanctura XR) 60 MG 24 hour capsule Indications: Urinary urgency Take 1 capsule (60 mg) by mouth Daily 30 capsule 11 01/14/2024 02/13/2024 Active vitamin b12 1 mg oral tablet (20 sources) Vitamin B12 Start: 2 take 1 tablet by mouth once daily at bedtime Cyanocobalamin (Vitamin B-12) (Vitamin B-12) 1,000 mcg Tablet Active 1000 MCG PO Daily at bedtime October 18, 2021 11:00pm Start: 10-17-2021 End: 10-19-2021 take 1 tablet by mouth once daily Cyanocobalamin (Vitamin B-12) (Vitamin B-12) 2,500 mcg Tablet, Sublingual Discontinued 2500 MCG PO Daily October 16, 2021 11:00pm October 19, 2021 6:58am Cyanocobalamin ( Vitamin B12) 1000 MCG tablet controlled-release 1 (one) time each day at the same time. Active Completed/Discontinued Medications Medication Drug Class(es) Dates Sig (Normalized) Sig (Original) acetaminophen 325 mg / oxyCODONE hydrochloride 5 mg oral tablet (6 sources) Opioid Agonist Start: 10-19-2021 End: 02-19-2022 take 1 tablet by mouth every six hours as needed for pain Oxycodone-Acetamin ophen (Percocet) 5-325 mg tablet Discontinued 1 TAB PO Q6H as needed for left hip pain 26 10October 19, 2021 February 19, 2022 6:12am atorvastatin (1 source) HMG-CoA Reductase Inhibitor Atorvastatin Calcium Not-Taking cetirizine hydrochloride 10 mg oral tablet (7 sources) Histamine-1 Receptor Antagonist Start: 10-17-2021 End: 05-28-2024 take 1 tablet by mouth once daily in the morning Cetirizine (Zyrtec) 10 mg Tablet Discontinued 10 MG PO Every morning October 16, 2021 11:00pm May 28, 2024 10:43am dapagliflozin 5 mg oral tablet (7 sources) Sodium-Glucose Cotransporter 2 Inhibitor Start: 10-17-2021 End: 05-28-2024 take 1 tablet by mouth once daily Dapagliflozin Propanediol (Farxiga) 5 mg tablet Discontinued 5 MG PO Daily October 16, 2021 11:00pm May 28, 2024 10:43am Farxiga Active glimepiride 1 mg oral tablet (7 sources) Sulfonylurea Start: 10-17-2021 End: 05-28-2024 take 2 tablets by mouth once daily in the morning Glimepiride 1 mg Tablet Discontinued 2 MG PO Every morning October 16, 2021 11:00pm May 28, 2024 10:43am Start: 10-17-2021 take 2 mg by mouth o nce daily in the morning Glimepiride Active 2 MG PO Every morning October 17, 2021 12:00am Glimepiride Acti ve Insulin Degludec (Tresiba Flextouch U-100) 100 unit/mL (3 mL) insulin pen (4 sources) Start: 10-17-2021 End: 05-28-2024 Insulin Degludec (Tresiba Flextouch U-100) 100 unit/mL (3 mL) insulin pen Discontinued 25 UNIT SUBCUT Every morning October 16, 2021 11:00pm May 28, 2024 10:44am Start: 10-17-2021 Insulin Deglud ec (Tresiba Flextouch U-100) 100 unit/mL (3 mL) insulin pen Active 25 UNIT SUBCUT Every morning October 17, 2021 12:00am Start: 10-17-2021 Insulin Deglud ec (Tresiba Flextouch U-100) 100 unit/mL (3 mL) insulin pen Active 25 UNIT SUBCUT Every morning October 16, 2021 11:00pm Ivermectin (20 sources) Antiparasitic, Pediculicide Start: 10-17-2021 End: 10-19-2021 Ivermectin (Soolantra) 1 % Cream Discontinued 1 APPLIC TOPICAL Daily October 16, 2021 11:00pm October 19, 2021 6:59am Start: 10-17-2021 End: 10-19-2021 Ivermectin (Soolantra) 1 % C ream Discontinued 1 APPLIC TOPICAL Daily October 17, 2021 12:00am October 19, 2021 7:59am Ivermectin (Sool antra) 1 % cream 1 application 1 (one) time each day at the same time Active Pravastatin (1 source) HMG-CoA Reductase Inhibitor Pravastatin Sodium Not-Taking Semaglutide (6 sources) Start: 10-17-2021 End: 05-28-2024 inject 1 mg by subcutaneous injection every week at bedtime Semaglutide (Ozempic) 1 mg/dose (4 mg/3 mL) pen injector Discontinued 1 MG SUBCUT every week October 16, 2021 11:00pm May 28, 2024 10:44am Takes q Saturday @ HS Start: 10-17-2021 [...] 2021 12:00am Takes q Saturday @ HS Triamcinolone (1 source) Corticosteroid Start: 11-12-2016 KENALOG - 10 m g Oct, 20 mg Zinc (6 sources) Start: 10-17-2021 End: 05-28-2024 take 1 tablet by mouth once daily Zinc 50 mg Tablet Discontinued 50 MG PO Daily October 16, 2021 11:00pm May 28, 2024 10:44am Start: 10-17-2021 take 50 mg by mouth once daily Zinc Active 50 MG PO Daily October 16, 2021 11:00pm Start: 10-17-2021 take 50 mg by mouth once daily Zinc Active 50 MG PO Daily October 17, 2021 12:00am Problems Active Problems Problem Classification Problem Date Documented Da te Episodic/Chronic Anxiety disorders (20 sources) Anxiety; Translations: [Anxiety disorder, unspecified] Onset: 11-29-2022 01-14-2023 Chronic Diabetes mellitus with complications (20 sources) Peripheral neuropathy due to type 2 diabetes mellitus; Translations: [Type 2 diabetes mellitus with diabetic polyneuropathy] Onset: 05-11-2020 Resolved: 11-30-2022 11-29-2022 Chronic Diabetes mellitus without complication (1 source) Diabetes mellitus 01-14-2023 Chronic Disorders of lipid metabolism (20 sources) Hyperlipidemia; Translations: [Hyperlipidemia, unspecified] Onset: 09-20-2023 09-20-2023 Chronic Genitourinary symptoms and ill-defined conditions (4 sources) Genuine stress incontinence; Translations: [Stress incontinence (female) (male)] Onset: 06-09-2024 01-14-2024 Chronic Headache; including migraine (4 sources) Headache; including migraine; Translations: [HEADACHE UNSPECIFIED] Onset: 06-25-2022 Menopausal disorders (20 sources) Menopausal flushing; Translations: [Menopausal and female climacteric states] Onset: 11-29-2022 11-29-2022 Chronic Mycoses (2 sources) Candidiasis of vagina; Translations: [Vaginal yeast infection] 01-14-2024 Episodic Osteoarthritis (20 sources) Degenerative joint disease involving multiple joints; Translations: [Primary generalized (osteo)arthritis] Onset: 08-20-2020 Resolved: 11-30-2022 11-29-2022 Chronic Other aftercare (2 sources) Postoperative visit; Translations: [Encounter for other specified surgical aftercare] 07-02-2024 Episodic Other diseases of bladder and urethra (12 sources) Spasm of bladder; Translations: [Other specified disorders of bladder] Onset: 04-21-2024 04-21-2024 Chronic Other diseases of bladder and urethra (1 source) Urethral hypermobility; Translations: [Hypermobility of urethra] 05-06-2024 Episodic Other female genital disorders (2 sources) Vaginal discharge; Translations: [Other specified noninflammatory disorders of vagina] 01-14-2024 Episodic Other gastrointestinal disorders (20 sources) Irritable bowel syndrome with diarrhea; Translations: [Irritable bowel syndrome with diarrhea] Onset: 11-29-2022 11-29-2022 Chronic Other inflammatory condition of skin (20 sources) Rosacea; Translations: [Rosacea, unspecified] Onset: 11-29-2022 01-14-2023 Chronic Other liver diseases (20 sources) Fatty (change of) liver, not elsewhere classified; Translations: [Other chronic nonalcoholic liver disease] Onset: 12-17-2023 12-17-2023 Chronic Other liver diseases (4 sources) Steatosis of liver; Translations: [Fatty (change of) liver, not elsewhere classified] Onset: 05-08-2024 05-08-2024 Chronic Other liver diseases (1 source) Disease of liver; Translations: [Liver disease, unspecified] 05-08-2024 Chronic Other nervous system disorders (1 source) 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 Other nervous system disorders (20 sources) Disorder of muscle; Translations: [Myopathy, unspecified] Onset: 11-29-2022 11-29-2022 Chronic Other nervous system disorders (1 source) Other acute postprocedural pain; Translations: [Other acute postprocedural pain] Onset: 06-09-2024 Episodic Other non-traumatic joint disorders (4 sources) Other specific joint derangements of left shoulder, not elsewhere classified; Translations: [OTH SPEC JOINT DERANG LT SHLDR NEC] Onset: 10-10-2021 Chronic Other non-traumatic joint disorders (20 sources) Derangement of left shoulder joint; Translations: [Other specific joint derangements of left shoulder, not elsewhere classified] Onset: 11-29-2022 11-29-2022 Chronic Other non-traumatic joint disorders (3 sources) Shoulder pain; Translations: [Pain in left shoulder] 10-19-2021 Episodic Other non-traumatic joint disorders (3 sources) Pain in left shoulder; Translations: [Left shoulder pain] 03-13-2023 Episodic Other nutritional; endocrine; and metabolic disorders (1 source) Overweight 01-29-2023 Episodic Other nutritional; endocrine; and metabolic disorders (1 source) Overweight in adulthood with body mass index of 25 or more but less than 30 01-29-2023 Episodic Prolapse of female genital organs (20 sources) Cystocele; Translations: [Cystocele, unspecified] Onset: 11-29-2022 01-10-2024 Chronic Rehabilitation care; fitting of prostheses; and adjustment of devices (2 sources) Patient encounter status; Translations: [Encounter for fitting and adjustment of other specified devices] 01-13-2024 Chronic Retinal detachments; defects; vascular occlusion; and retinopathy (1 source) 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 Past or Other Problems Problem Classification Problem Date Documented Date Episodic/Chronic Essential hypertension (20 sources) Hypertensive disorder; Translations: [Essential hypertension] Onset: 11-29-2022 Resolved: 12-17-2023 01-14-2023 Chronic Genitourinary symptoms and ill-defined conditions (5 sources) Increased frequency of urination; Translations: [Frequency of micturition] Onset: 01-16-2024 01-10-2024 Episodic Other and unspecified benign neoplasm (20 sources) History of polyp of colon; Translations: [Personal history of colonic polyps] Onset: 01-29-2023 Episodic Other liver diseases (1 source) Hepatomegaly, not elsewhere classified; Translations: [Hepatomegaly, not elsewhere classified] Onset: 09-19-2023 Episodic Other screening for suspected conditions (not [...] HX MALIGNANT NEOPLASM BLADDER] Onset: 09-14-2021 Episodic Spondylosis; intervertebral disc disorders; other back problems (20 sources) Cervical radiculopathy; Translations: [Radiculopathy, cervical region] Onset: 11-29-2022 11-29-2022 Episodic Results Test Name Value Interpretation Reference Range Facility Complete Blood Count Auto Di ffon 06-10-2024 Basophils (Bld) [#/Vol] 0.0 10*3/uL Normal 0.0-0.2 [facility] Comment on above: Result Comment: PERF ORMED BY: [place] [address] PATHOLOGIST [employer] DAMION NUÑEZ M.D. Performed By: #### P T #### [address] #### HAABT, HBSAG, HBSAB, HBCAB, HCV RX PCR #### [facility] , Basophils/100 WBC (Bld) 0.3 % Normal . [facility] Comment on above: Performed By: #### P T #### [address] #### HAABT, HBSAG, HBSAB, HBCAB, HCV RX PCR #### [facility] , Eosinophils (Bld) [#/Vol] 0.1 10*3/uL Normal 0.0-0.45 [facility] Comment on above: Performed By: #### P T #### [address] #### HAABT, HBSAG, HBSAB, HBCAB, HCV RX PCR #### [facility] , Eosinophils/100 WBC (Bld) 0.8 % Normal . [facility] Comment on above: Performed By: #### P T #### [address] #### HAABT, HBSAG, HBSAB, HBCAB, HCV RX PCR #### [facility] , Erythrocyte distribution width (RBC) [Ratio] 13.7 % Normal 11.9-15.3 [facility] Comment on above: Performed By: #### P T #### [place] [address] [place] #### HAABT, HBSAG, HBSAB, HBCAB, HCV RX PCR #### [facility] , Hematocrit (Bld) [Volume fraction] 39.0 % Normal 34.0-46.4 [facility] Comment on above: Performed By: #### P T #### [address] #### HAABT, HBSAG, HBSAB, HBCAB, HCV RX PCR #### [facility] , Hemoglobin (Bld) [Mass/Vol] 13.0 g/dL Normal 11.8-15.4 [facility] Comment on above: Performed By: #### P T #### [address] #### HAABT, HBSAG, HBSAB, HBCAB, HCV RX PCR #### [facility] , Lymphocytes (Bld) [#/Vol] 0.9 10*3/uL Low 1.00-4.8 [facility] Comment on above: Performed By: #### P T #### [address] #### HAABT, HBSAG, HBSAB, HBCAB, HCV RX PCR #### [facility] , Lymphocytes/100 WBC (Bld) 12.7 % Normal . [facility] Comment on above: Performed By: #### P T #### [address] #### HAABT, HBSAG, HBSAB, HBCAB, HCV RX PCR #### [facility] , MCH (RBC) [Entitic mass] 30.8 pg Normal 24.7-34.3 [facility] Comment on above: Performed By: #### P T #### [address] #### HAABT, HBSAG, HBSAB, HBCAB, HCV RX PCR #### [facility] , MCV (RBC) [Entitic vol] 92.4 fL Normal 80-100 [facility] Comment on above: Performed By: #### P T #### [place] [address] [place] #### HAABT, HBSAG, HBSAB, HBCAB, HCV RX PCR #### [facility] , Mean Corpuscular HGB Conc 33.4 g/dL Normal 32.0-35.0 [facility] Comment on above: Performed By: #### P T #### [address] #### HAABT, HBSAG, HBSAB, HBCAB, HCV RX PCR #### [facility] , Monocytes (Bld) [#/Vol] 0.6 10*3/uL Normal 0.0-0.8 [facility] Comment on above: Performed By: #### P T #### [address] #### HAABT, HBSAG, HBSAB, HBCAB, HCV RX PCR #### [facility] , Monocytes/100 WBC (Bld) 8.0 % Normal . [facility] Comment on above: Performed By: #### P T #### [address] #### HAABT, HBSAG, HBSAB, HBCAB, HCV RX PCR #### [facility] , Neutrophils (Bld) [#/Vol] 5.5 10*3/uL Normal 1.8-7.7 [facility] Comment on above: Performed By: #### P T #### [address] #### HAABT, HBSAG, HBSAB, HBCAB, HCV RX PCR #### [facility] , Neutrophils/100 WBC (Bld) 78.2 % Normal . [facility] Comment on above: Performed By: #### P T #### [address] #### HAABT, HBSAG, HBSAB, HBCAB, HCV RX PCR #### [facility] , NRBC% 0.1 /100{WBC} Normal 0-0.5 [facility] Comment on above: Performed By: #### P T #### [address] #### HAABT, HBSAG, HBSAB, HBCAB, HCV RX PCR #### [facility] , Platelet mean volume (Bld) [Entitic vol] 10.1 fL Normal 6.3-10.7 [facility] Comment on above: Performed By: #### P T #### [address] #### HAABT, HBSAG, HBSAB, HBCAB, HCV RX PCR #### [facility] , Platelets (Bld) [#/Vol] 125 10*3/uL Low 150-450 [facility] Comment on above: Performed By: #### P T #### [address] #### HAABT, HBSAG, HBSAB, HBCAB, HCV RX PCR #### [facility] , RBC (Bld) [#/Vol] 4.22 10*6/uL Normal 3.60-5.00 [facility] Comment on above: Performed By: #### P T #### [address] #### HAABT, HBSAG, HBSAB, HBCAB, HCV RX PCR #### [facility] , WBC (Bld) [#/Vol] 7.1 10*3/uL Normal 3.8-11.6 [facility] Comment on above: Performed By: #### P T #### [address] #### HAABT, HBSAG, HBSAB, HBCAB, HCV RX PCR #### [facility] , Glucose Poct Glucometerson 0 06-10-2024 Glucose [Mass/Vol] 246 mg/dL Normal [facility] Comment on above: Result Comment: [facility] Glucose Reference Range is dependent on time and content of last meal. Glucose of more than 200 mg/dL in a nonstressed, ambulatory subject supports the diagnosis of Diabetes Mellitus. PERFORMED BY: [place] [address] PATHOLOGIST [employer] DAMION NUÑEZ M.D. Performed By: #### P T #### [place] [address] [place] #### HAABT, HBSAG, HBSAB, HBCAB, HCV RX PCR #### [facility] , Glucose Poct Glucometerson 0 06-09-2024 Commemt1 Glu2: Cleaned Meter Normal [facility] Comment on above: Result Comment: PERF ORMED BY: [place] [address] PATHOLOGIST [employer] DAMION NUÑEZ M.D. Performed By: #### G LULS #### Point of Care testing , Glucose [Mass/Vol] 253 mg/dL Normal [facility] Comment on above: Result Comment: [facility] Glucose Reference Range is dependent on time and content of last meal. Glucose of more than 200 mg/dL in a nonstressed, ambulatory subject supports the diagnosis of Diabetes Mellitus. Performed By: #### G LULS #### Point of Care testing , Commemt1 Glu2: Cleaned Meter Normal [facility] Comment on above: Result Comment: PERF ORMED BY: [place] [address] PATHOLOGIST [employer] DAMION NUÑEZ M.D. Performed By: #### G LULS #### Point of Care testing , Glucose [Mass/Vol] 156 mg/dL Normal [facility] Comment on above: Result Comment: [facility] Glucose Reference Range is dependent on time and content of last meal. Glucose of more than 200 mg/dL in a nonstressed, ambulatory subject supports the diagnosis of Diabetes Mellitus. Performed By: #### G LULS #### Point of Care testing , Alex 06-09-2024 L ------ Specimen: [id number] Received: 06/09/24 Status: WICHO Franco Num: [id number] Spec Type: Surgical Subm Dr: Ines Mejias DO Tissues: A Vaginal mucosa-other than incidental (RECTOCELE, CYSTOCELE, VAGINA) Procedures: TAMMY Gross/Micro L4 Age/ Patient Sex Location Account Attending Physician Zara Benedict 64/F 3S [id number] Ines Mejias DO SPEC NUM: [id number] RECD: 06/09/24 STATUS: WICHO CUETOPorfirio NUM: [id number] HIGINIO: 06/09/[address] [facility] [address]: Ines Mejias DO ENTERED: 06/09/24 [facility] DR: YASH TYPE: Surgical DEPT: S ENTERED BY: [id number] RECV BY: [id number] ORDERED: TAMMY Gross/Micro L4 ORDERED: Jillian MUNOZ/Micro L4 Pathological Diagnosis Vaginal mucosa: Anterior and posterior repair excision: -Multiple fragments of redundant hypertrophic vaginal squamous mucosa with mildly to moderately associated vascular congestions in stroma without atypia Clinical Information Rectocele, cystocele, vaginal mucosa Gross Description Part A is received in formalin labeled with the patients name, date of , and vaginal mucosa are strips of charlton-aviles to pink mucosal lined tissue, 6.5 x 3.5 x 1 cm in aggregate. The mucosal surfaces range from smooth and glistening to wrinkled and dull. Serial sections reveal charlton-aviles to pink, glistening and uniform cut surfaces. [employer] sections are submitted in a single cassette. (1, , [id number] A) Microscopic Description Microscopic examinations are performed supporting the above interpretation Specimen: [id number] Received: 06/09/24 Status: WICHO Franco Num: [id number] Spec Type: Surgical Subm Dr: Ines Mejias DO Tissues: A Vaginal mucosa-other than incidental (RECTOCELE, CYSTOCELE, VAGINA) Procedures: Jillian MUNOZ/Jeff L4 Patient: Zara Benedict [id number] (Continued) Specimen: Received: 06/09/24 (Continued) Signed (signature on file) Matthias Sandra MD 06/10/24 1829 Specimen: Received: 06/09/24 Status: WICHO Joan Num: [id number] Spec Type: Surgical Subm Dr: Ines Mejias, Tissues: A Vaginal mucosa-other than incidental (RECTOCELE, CYSTOCELE, VAGINA) Procedures: Jillian MUNOZ/Jeff Irizarry Patient: Zara Benedict [id number] (Continued) Specimen: Received: 06/09/24 (Continued) CPT Codes 49121 Specimen: [id number] Received: 06/09/24 Status: WICHO Joan Num: [id number] Spec Type: Surgical Subm Dr: Ines Mejias DO Tissues: A Vaginal mucosa-other than incidental (RECTOCELE, CYSTOCELE, VAGINA) Procedures: Jillian MUNOZ/Jeff L4 Patient: Zara Benedict [id number] (Continued) Signed (signature on file) Matthias Sandra MD 06/10/24 1829 Normal [facility] [place] 05-29-2024 TJ Telephone (GASTA5) -- ZARA BENEDICT ([id number]) 1960 F Date Time Provider Department 05/29/24 DARIUSZ PRECIADO GASTA5 During your visit today, we recorded the following information about you: Jeny Heck 05/29/2024 8:31 AM Signed [facility] Recent lab results are scanned in under external labs/chemistry Jeny Heck Latrine Cleaner ll Allergies As of Date: 05/29/2024 (Not on File) Date Reviewed: Never Reviewed Reason for Visit: Outside Labs Results [437] Cmt: chemistry Problem List As Of Date 05/29/2024 Noted Resolved Metabolic dysfunction-associated steatotic live*05/08/2024 Encounter Status:Closed by JENY HECK on 05/29/24 Normal [facility] Alanine aminotransferase [En zymatic activity/volume] in Serum or PlasmaOrdered By: Ines Mejias on 05-28-2024 ALT [Catalytic activity/Vol] Alanine aminotransferase [Enzymatic activity/volume] in Serum or Plasma 7-52 [facility] Albumin [Mass/volume] in Ser um or Plasma by Bromocresol green (BCG) dye binding methoOrdered By: Ines Mejias on 05-28-2024 Albumin BCG dye [Mass/Vol] Albumin [Mass/volume] in Serum or Plasma by Bromocresol green (BCG) dye binding metho 3.5-5.7 [facility] Alkaline phosphatase [Enzyma tic activity/volume] in Serum or PlasmaOrdered By: Ines Mejias on 05-28-2024 ALP [Catalytic activity/Vol] Alkaline phosphatase [Enzymatic activity/volume] in Serum or Plasma 34-104 [facility] Aspartate aminotransferase [ Enzymatic activity/volume] in Serum or PlasmaOrdered By: Ines Mejias on 05-28-2024 AST [Catalytic activity/Vol] Aspartate aminotransferase [Enzymatic activity/volume] in Serum or Plasma 13-39 [facility] Basophils Auto (Bld) [#/Vol] Ordered By: Ines Mejias on 05-28-2024 Basophils (Bld) [#/Vol] Automated basophil count 0.0-0.2 [facility] Basophils/100 WBC Auto (Bld) Ordered By: Ines Mejias on 05-28-2024 Basophils/100 WBC (Bld) Automated basophil % . [facility] Bilirubin.direct [Mass/volum e] in Serum or PlasmaOrdered By: Ines Mejias on 05-28-2024 Bilirubin.direct [Mass/Vol] Bilirubin.direct [Mass/volume] in Serum or Plasma 0.03-0.18 [facility] Bilirubin.total [Mass/volume ] in Serum or PlasmaOrdered By: Ines Mejias on 05-28-2024 Bilirubin [Mass/Vol] Bilirubin.total [Mass/volume] in Serum or Plasma 0.3-1.0 [facility] CBC W Auto Differential pane l (Bld)on 05-28-2024 Basophils (Bld) [#/Vol] 0 10*3/uL 0.0 - 0.2 10*3/uL [facility] Basophils/100 WBC Manual cnt (Syn fld) 0.6 % . [facility] Eosinophils/100 WBC Manual cnt (Syn fld) 2.9 % . [facility] Hemoglobin (Bld) [Mass/Vol] 16 g/dL High 11.8 - 15.4 g/dL [facility] Interpretation and review of laboratory results Abnormal [facility] Lymphocytes/100 WBC Manual cnt (Syn fld) 19.6 % . [facility] MCHC (RBC) [Mass/Vol] 33 g/dL 32.0 - 35.0 g/dL [facility] Monocytes+Macrophages/ 100 WBC Manual cnt (Syn fld) 7.9 % . [facility] Neutrophils/100 WBC Manual cnt (Syn fld) 69 % . [facility] NRBC 0.1 /100{WBC} 0 - 0.5 /100{WBC} [facility] RBC LM.HPF (Urine sed) [#/Area] 5.25 10*6/uL High 3.60 - 5.00 10*6/uL [facility] WBC (Bld) [#/Vol] 4 10*3/uL 3.8 - 11.6 10*3/uL [facility] WBC LM.HPF (Urine sed) [#/Area] 4 10*3/uL 3.8 - 11.6 10*3/uL [facility] [place] 05-28-2024 CNPN Telephone (GASTA5) -- ZARA BENEDICT ([id number]) 1960 F Date Time Provider Department 05/28/24 DARIUSZ PRECIADO GASTA5 During your visit today, we recorded the following information about you: Acacia Gonzalez 05/28/2024 3:51 PM Signed Patient's external hematology labs received and scanned. Allergies As of Date: 05/28/2024 (Not on File) Date Reviewed: Never Reviewed Reason for Visit: Results, Lab [1201] Problem List As Of Date 05/28/2024 Noted Resolved Metabolic dysfunction-associated steatotic live*05/08/2024 Encounter Status:Closed by ACACIA GONZALEZ on 05/28/24 Normal [facility] Calcium [Mass/volume] in Ser um or PlasmaOrdered By: Ines Mejias on 05-28-2024 Calcium [Mass/Vol] Calcium [Mass/volume ] in Serum or Plasma 8.6-10.3 [facility] Carbon dioxide, total [Moles /volume] in Serum or PlasmaOrdered By: Ines Mejias on 05-28-2024 CO2 [Moles/Vol] Carbon dioxide, tota l [Moles/volume] in Serum or Plasma 21.0-31.0 [facility] Chloride [Moles/volume] in S cinthya or PlasmaOrdered By: Ines Mejias on 05-28-2024 Chloride [Moles/Vol] Chloride [Moles/vol ume] in Serum or Plasma 98-107 [facility] Complete Blood Count Auto Di ffon 05-28-2024 Eosinophils (Bld) [#/Vol] 0.1 10*3/uL Normal 0.0-0.45 [facility] Comment on above: Performed By: #### P T #### [address] #### HAABT, HBSAG, HBSAB, HBCAB, HCV RX PCR #### [facility] , Erythrocyte distribution width (RBC) [Ratio] 13.5 % Normal 11.9-15.3 [facility] Comment on above: Performed By: #### P T #### [address] #### HAABT, HBSAG, HBSAB, HBCAB, HCV RX PCR #### [facility] , Hematocrit (Bld) [Volume fraction] 48.5 % High 34.0-46.4 [facility] Comment on above: Performed By: #### P T #### [address] #### HAABT, HBSAG, HBSAB, HBCAB, HCV RX PCR #### [facility] , Lymphocytes (Bld) [#/Vol] 0.8 10*3/uL Low 1.00-4.8 [facility] Comment on above: Performed By: #### P T #### [address] #### HAABT, HBSAG, HBSAB, HBCAB, HCV RX PCR #### [facility] , MCH (RBC) [Entitic mass] 30.5 pg Normal 24.7-34.3 [facility] Comment on above: Performed By: #### P T #### [address] #### HAABT, HBSAG, HBSAB, HBCAB, HCV RX PCR #### [facility] , MCV (RBC) [Entitic vol] 92.4 fL Normal 80-100 [facility] Comment on above: Performed By: #### P T #### [address] #### HAABT, HBSAG, HBSAB, HBCAB, HCV RX PCR #### [facility] , Monocytes (Bld) [#/Vol] 0.3 10*3/uL Normal 0.0-0.8 [facility] Comment on above: Performed By: #### P T #### [address] #### HAABT, HBSAG, HBSAB, HBCAB, HCV RX PCR #### [facility] , Neutrophils (Bld) [#/Vol] 2.8 10*3/uL Normal 1.8-7.7 [facility] Comment on above: Performed By: #### P T #### [address] #### HAABT, HBSAG, HBSAB, HBCAB, HCV RX PCR #### [facility] , Platelet mean volume (Bld) [Entitic vol] 10.2 fL Normal 6.3-10.7 [facility] Comment on above: Performed By: #### P T #### [address] #### HAABT, HBSAG, HBSAB, HBCAB, HCV RX PCR #### [facility] , Platelets (Bld) [#/Vol] 152 10*3/uL Normal 150-450 [facility] Comment on above: Performed By: #### P T #### [address] #### HAABT, HBSAG, HBSAB, HBCAB, HCV RX PCR #### [facility] , Basophils (Bld) [#/Vol] 0.0 10*3/uL Normal 0.0-0.2 [facility] Comment on above: Result Comment: PERF ORMED BY: [place] [address] PATHOLOGIST [employer] DAMION NUÑEZ M.D. Performed By: #### P T #### [facility] [address] [place] [address] [place] #### HAABT, HBSAG, HBSAB, HBCAB, HCV RX PCR #### [facility] , Basophils/100 WBC (Bld) 0.6 % Normal . [facility] Comment on above: Performed By: #### P T #### [address] #### HAABT, HBSAG, HBSAB, HBCAB, HCV RX PCR #### [facility] , Eosinophils/100 WBC (Bld) 2.9 % Normal . [facility] Comment on above: Performed By: #### P T #### [address] #### HAABT, HBSAG, HBSAB, HBCAB, HCV RX PCR #### [facility] , Hemoglobin (Bld) [Mass/Vol] 16.0 g/dL High 11.8-15.4 [facility] Comment on above: Performed By: #### P T #### [address] #### HAABT, HBSAG, HBSAB, HBCAB, HCV RX PCR #### [facility] , Lymphocytes/100 WBC (Bld) 19.6 % Normal . [facility] Comment on above: Performed By: #### P T #### [place] [address] [place] #### HAABT, HBSAG, HBSAB, HBCAB, HCV RX PCR #### [facility] , Mean Corpuscular HGB Conc 33.0 g/dL Normal 32.0-35.0 [facility] Comment on above: Performed By: #### P T #### [place] [address] [place] #### HAABT, HBSAG, HBSAB, HBCAB, HCV RX PCR #### [facility] , Monocytes/100 WBC (Bld) 7.9 % Normal . [facility] Comment on above: Performed By: #### P T #### [address] #### HAABT, HBSAG, HBSAB, HBCAB, HCV RX PCR #### [facility] , Neutrophils/100 WBC (Bld) 69.0 % Normal . [facility] Comment on above: Performed By: #### P T #### [facility] [address] [place] [address] #### HAABT, HBSAG, HBSAB, HBCAB, HCV RX PCR #### [facility] , NRBC% 0.1 /100{WBC} Normal 0-0.5 [facility] Comment on above: Performed By: #### P T #### [address] #### HAABT, HBSAG, HBSAB, HBCAB, HCV RX PCR #### [facility] , RBC (Bld) [#/Vol] 5.25 10*6/uL High 3.60-5.00 [facility] Comment on above: Performed By: #### P T #### [address] #### HAABT, HBSAG, HBSAB, HBCAB, HCV RX PCR #### [facility] , WBC (Bld) [#/Vol] 4.0 10*3/uL Normal 3.8-11.6 [facility] Comment on above: Performed By: #### P T #### [address] #### HAABT, HBSAG, HBSAB, HBCAB, HCV RX PCR #### [facility] , Comprehensive Metabolic Pane alex 05-28-2024 Albumin [Mass/Vol] 4.9 g/dL Normal 3.5-5.7 [facility] Comment on above: Performed By: #### P T #### [address] #### HAABT, HBSAG, HBSAB, HBCAB, HCV RX PCR #### [facility] , Albumin/Globulin [Mass ratio] 2.0 {ratio} Normal [facility] Comment on above: Performed By: #### P T #### [address] #### HAABT, HBSAG, HBSAB, HBCAB, HCV RX PCR #### [facility] , ALP [Catalytic activity/Vol] 66 U/L Normal 34-104 [facility] Comment on above: Performed By: #### P T #### [facility] [address] [place] [address] #### HAABT, HBSAG, HBSAB, HBCAB, HCV RX PCR #### [facility] , ALT [Catalytic activity/Vol] 21 U/L Normal 7-52 [facility] Comment on above: Performed By: #### P T #### [address] #### HAABT, HBSAG, HBSAB, HBCAB, HCV RX PCR #### [facility] , Anion gap [Moles/Vol] 11.7 mmol/L Normal 6.0-15.0 [facility] Comment on above: Performed By: #### P T #### [facility] [address] [place] [address] #### HAABT, HBSAG, HBSAB, HBCAB, HCV RX PCR #### [facility] , AST [Catalytic activity/Vol] 15 U/L Normal 13-39 [facility] Comment on above: Performed By: #### P T #### [facility] [address] [place] [address] #### HAABT, HBSAG, HBSAB, HBCAB, HCV RX PCR #### [facility] , Bilirubin [Mass/Vol] 0.4 mg/dL Normal 0.3-1.0 [facility] Comment on above: Performed By: #### P T #### [address] #### HAABT, HBSAG, HBSAB, HBCAB, HCV RX PCR #### [facility] , Calcium [Mass/Vol] 9.5 mg/dL Normal 8.6-10.3 [facility] Comment on above: Performed By: #### P T #### [facility] [address] [place] [address] #### HAABT, HBSAG, HBSAB, HBCAB, HCV RX PCR #### [facility] , Chloride [Moles/Vol] 103 mmol/L Normal 98-107 [facility] Comment on above: Performed By: #### P T #### [address] #### HAABT, HBSAG, HBSAB, HBCAB, HCV RX PCR #### [facility] , CO2 [Moles/Vol] 28.5 mmol/L Normal 21.0-31.0 [facility] Comment on above: Performed By: #### P T #### [address] #### HAABT, HBSAG, HBSAB, HBCAB, HCV RX PCR #### [facility] , Creatinine [Mass/Vol] 0.61 mg/dL Normal 0.60-1.20 [facility] Comment on above: Performed By: #### P T #### [place] [address] [place] #### HAABT, HBSAG, HBSAB, HBCAB, HCV RX PCR #### [facility] , GFR/1.73 sq M.predicted MDRD (S/P/Bld) [Vol rate/Area] mL/min/{1.73_m2} Normal [facility] Comment on above: Performed By: #### P T #### [place] [address] [place] #### HAABT, HBSAG, HBSAB, HBCAB, HCV RX PCR #### [facility] , Globulin (S) [Mass/Vol] 2.5 g/dL Normal [facility] Comment on above: Performed By: #### P T #### [place] [address] [place] #### HAABT, HBSAG, HBSAB, HBCAB, HCV RX PCR #### [facility] , Glucose [Mass/Vol] 139 mg/dL High 70-100 [facility] Comment on above: Result Comment: [facility] Glucose Reference Range is dependent on time and content of last meal. Glucose of more than 200 mg/dL in a nonstressed, ambulatory subject supports the diagnosis of Diabetes Mellitus. ADA recommended reference range Performed By: #### P T #### [place] [address] [place] #### HAABT, HBSAG, HBSAB, HBCAB, HCV RX PCR #### [facility] , Potassium [Moles/Vol] 4.2 mmol/L Normal 3.5-5.1 [facility] Comment on above: Performed By: #### P T #### [place] [address] [place] #### HAABT, HBSAG, HBSAB, HBCAB, HCV RX PCR #### [facility] , Protein [Mass/Vol] 7.4 g/dL Normal 6.4-8.9 [facility] Comment on above: Performed By: #### P T #### [place] [address] [place] #### HAABT, HBSAG, HBSAB, HBCAB, HCV RX PCR #### [facility] , Sodium [Moles/Vol] 139 mmol/L Normal 136-145 [facility] Comment on above: Performed By: #### P T #### [place] [address] [place] #### HAABT, HBSAG, HBSAB, HBCAB, HCV RX PCR #### [facility] , Urea nitrogen [Mass/Vol] 10 mg/dL Normal 7-25 [facility] Comment on above: Performed By: #### P T #### [facility] [address] #### HAABT, HBSAG, HBSAB, HBCAB, HCV RX PCR #### [facility] , Comprehensive metabolic pane alex 05-28-2024 Albumin [Mass/Vol] 4.9 g/dL 3.5 - 5.7 g/dL [facility] Albumin/Globulin [Mass ratio] 2 {ratio} [facility] ALP [Catalytic activity/Vol] 66 U/L 34 - 104 U/L [facility] ALT [Catalytic activity/Vol] 21 U/L 7 - 52 U/L [facility] Anion gap [Moles/Vol] 11.7 mmol/L 6.0 - 15.0 meq/L [facility] AST [Catalytic activity/Vol] 15 U/L 13 - 39 U/L [facility] Bilirubin [Mass/Vol] 0.4 mg/dL 0.3 - 1 .0 mg/dL [facility] Calcium [Mass/Vol] 9.5 mg/dL 8.6 - 10. 3 mg/dL [facility] Chloride [Moles/Vol] 103 mmol/L 98 - 10 7 mmol/L [facility] CO2 [Moles/Vol] 28.5 mmol/L 21.0 - 31.0 mmol/L [facility] Creatinine (U) [Mass/Vol] 0.61 mg/dL 0.60 - 1.20 mg/dL [facility] ESTIMATED GFR mL/Min [facility] Globulin (S) [Mass/Vol] 2.5 g/dL [facility] Glucose [Mass/Vol] 139 mg/dL High 70 - 100 mg/dL [facility] Comment on above: Random Glucose Refer ence Range is dependent on time and content of last meal. Glucose of more than 200 mg/dL in a nonstressed, ambulatory subject supports the diagnosis of Diabetes Mellitus. ADA recommended reference range Interpretation and review of laboratory results Abnormal [facility] Potassium [Moles/Vol] 4.2 mmol/L 3.5 - 5.1 mmol/L [facility] Protein [Mass/Vol] 7.4 g/dL 6.4 - 8.9 g/dL [facility] Sodium [Moles/Vol] 139 mmol/L 136 - 145 mmol/L [facility] Urea nitrogen [Mass/Vol] 10 mg/dL 7 - 25 mg/dL [facility] Creatinine [Mass/volume] in Serum or PlasmaOrdered By: Ines Mejias on 05-28-2024 Creatinine [Mass/Vol] Creatinine [Mass/v olume] in Serum or Plasma 0.60-1.20 [facility] ECG 12 lead ECGon 05-28-2024 ECG 12 lead ECG [facility] Main [place] [address] [place] [address] Electrocardiograph Report Signed Patient: Zara Benedict MR#: [id number] : 1960 Acct:[id number] Age/Sex: 64 / F ADM Date: 05/28/24 Loc: Room: Type: [facility] Attending Dr: Ines Mejias DO Ordering Provider: Ines Mejias DO Date of Service: 05/28/24 ECG/ECG 12 lead ECG: pst Copies to: Test Reason : Blood Pressure : */* mmHG Vent. Rate : 78 BPM Atrial Rate : 78 BPM P-R Int : 160 ms QRS Dur : 96 ms QT Int : 380 ms P-R-T Axes : 55 -14 67 degrees QTcB Int : 433 ms Normal sinus rhythm Normal ECG When compared with ECG of 17-Oct-2021 15:16, No significant change was found Confirmed by Bharat Youssef ([id number]) on 05/29/2024 9:00:16 AM Referred By: Dariusz Preciado Electronically Signed By: Bharat Youssef Transcribed By: MUS Signed By Bharat Youssef MD 05/29/24 0900 Normal [facility] Eosinophils Auto (Bld) [#/Vo l]Ordered By: Ines Mejias on 05-28-2024 Eosinophils (Bld) [#/Vol] Automated eosinophil count 0.0-0.45 [facility] Eosinophils/100 WBC Auto (Bl d)Ordered By: Ines Mejias on 05-28-2024 Eosinophils/100 WBC (Bld) Automated eosinophil % . [facility] Erythrocyte distribution wid th Auto (RBC) [Ratio]Ordered By: Ines Mejias on 05-28-2024 Erythrocyte distribution width (RBC) [Ratio] Erythrocyte distribution width [Ratio] by Automated count 11.9-15.3 [facility] Globulin Calc (S) [Mass/Vol] Ordered By: Ines Mejias on 05-28-2024 Globulin (S) [Mass/Vol] Serum globulin measurement by calculation (mass/volume) [facility] Glucose [Mass/volume] in Ser um or PlasmaOrdered By: Ines Mejias on 05-28-2024 Glucose [Mass/Vol] Glucose [Mass/volume ] in Serum or Plasma High 70-100 [facility] Comment on above: ADA recommended refe rence rangeRandom Glucose Reference Range is dependent on time and content of last meal. Glucose of more than 200 mg/dL in a nonstressed, ambulatory subject supports the diagnosis of Diabetes Mellitus. Hematocrit Auto (Bld) [Volum e fraction]Ordered By: Ines Mejias on 05-28-2024 Hematocrit (Bld) [Volume fraction] Hematocrit [Volume Fraction] of Blood by Automated count High 34.0-46.4 [facility] Hemoglobin [Mass/volume] in BloodOrdered By: Ines Mejias on 05-28-2024 Hemoglobin (Bld) [Mass/Vol] Hemoglobin [Mass/volume] in Blood High 11.8-15.4 [facility] Hep C Ab wRfx to Qnt PCRon 0 05-28-2024 Hepatitis C Virus Antibody Non-Reactive Normal Non Reactive [facility] Comment on above: Performed By: #### P T #### [facility] [address] [place] [address] #### HAABT, HBSAG, HBSAB, HBCAB, HCV RX PCR #### [facility] , Interpretation Hepatitis C Comment Normal . [facility] Comment on above: Result Comment: Not infected with HCV unless early or acute infection is suspected (which may be delayed in an immunocompromised individual), or other evidence exists to indicate HCV infection. Performed By: #### P T #### [facility] [address] #### HAABT, HBSAG, HBSAB, HBCAB, HCV RX PCR #### [facility] , Hepatic Panelon 05-28-2024 Bilirubin,Indirect 0.3 mg/dL Normal [facility] Comment on above: Result Comment: PERF ORMED BY: [place] [address] PATHOLOGIST [employer] DAMION NUÑEZ M.D. Performed By: #### P T #### [address] #### HAABT, HBSAG, HBSAB, HBCAB, HCV RX PCR #### [facility] , Bilirubin.indirect [Mass/Vol] 0.10 mg/dL Normal 0.03-0.18 [facility] Comment on above: Performed By: #### P T #### [address] #### HAABT, HBSAG, HBSAB, HBCAB, HCV RX PCR #### [facility] , Hepatic function 2000 panelo n 05-28-2024 Bilirubin.indirect [Mass/Vol] 0.1 mg/dL 0.03 - 0.18 mg/dL [facility] Magnesium [Mass/Vol] 0.3 mg/dL [facility] Hepatitis A Antibody Totalon 05-28-2024 Hepatitis A Antibody Total Negative Normal Negative [facility] Comment on above: Result Comment: Comm ent: The HAV total antibody assay detects both IgG and IgM but does not differentiate between them. A negative result suggests susceptibility to infection. A positive result could be due to vaccination, previously resolved infection or active infection. Testing for HAV IgM should be performed if active HAV infection is suspected. [facility] offers profiles that will automatically reflex positive HAV total antibody results to IgM (e.g., panel #[id number] HAV Antibody w/ Rfx). Performed at: [address] [id number] [employer] Helper: Jarrell Russell PhD, Phone: [phone] Performed By: #### P T #### [place] [address] [place] #### HAABT, HBSAG, HBSAB, HBCAB, HCV RX PCR #### [facility] , Hepatitis B Core Antibodyon 05-28-2024 Hepatitis B Core Antibody Negative Normal Negative [facility] Comment on above: Performed By: #### P T #### [facility] [address] [place] [address] [place] #### HAABT, HBSAG, HBSAB, HBCAB, HCV RX PCR #### [facility] , Hepatitis B Surface Antibody on 05-28-2024 Hepatitis B Surface Antibody Reactive Normal . [facility] Comment on above: Result Comment: Non Reactive: Not immune to HBV infection. Equivocal: Unable to determine if anti-HBs is present at levels consistent with immunity. Reactive: Anti-HBs concentration detected at greater than 10 mIU/mL. Individual is considered to be immune to infection with HBV. Performed By: #### P T #### [address] #### HAABT, HBSAG, HBSAB, HBCAB, HCV RX PCR #### [facility] , Hepatitis B Surface Antigeno n 05-28-2024 HBsAg Screen Negative Normal Negative [facility] Comment on above: Result Comment: PERF ORMED BY: [place] [address] PATHOLOGIST [employer] DAMION NUÑEZ M.D. Performed By: #### P T #### [address] #### HAABT, HBSAG, HBSAB, HBCAB, HCV RX PCR #### [facility] , INR in Platelet poor plasma by Coagulation assayOrdered By: Dariusz Preciado on 05-28-2024 INR Coag (PPP) [Relative time] INR in Platelet poor plasma by Coagulation assay [facility] Comment on above: INR Therapeutic Rang e A) Pre- and Peroperative OAT started two weeks before surgery. NOT HIP SURGERY: 1.5 - 2.5 HIP SURGERY: 2 - 3B) Primary and secondary prevention of venous THROMBOSIS: 2 - 3C) Active venous thrombosis, pulmonary embolismand prevention of recurrent venous thrombosis: 2 - 3D) Prevention of arterial thromboembolismincluding patients with mechanical heart valves: 3 - 4.5 Leukocytes [#/volume] correc mirta for nucleated erythrocytes in Blood by Automated counOrdered By: Ines Mejias on 05-28-2024 WBC corrected for nucl RBC Auto (Bld) [#/Vol] Leukocytes [#/volume] corrected for nucleated erythrocytes in Blood by Automated coun 3.8-11.6 [facility] Lymphocytes Auto (Bld) [#/Vo l]Ordered By: Ines Mejias on 05-28-2024 Lymphocytes (Bld) [#/Vol] Lymphocytes [#/volume] in Blood by Automated count Low 1.00-4.8 [facility] Lymphocytes/100 WBC Auto (Bl d)Ordered By: Ines Mejias on 05-28-2024 Lymphocytes/100 WBC (Bld) Lymphocytes/100 leukocytes in Blood by Automated count . [facility] MCH Auto (RBC) [Entitic mass ]Ordered By: Ines Mejias on 05-28-2024 MCH (RBC) [Entitic mass] MCH [Entitic mass] by Automated count 24.7-34.3 [facility] MCHC Auto (RBC) [Mass/Vol]Or dered By: Ines Mejias on 05-28-2024 MCHC (RBC) [Mass/Vol] MCHC [Mass/volume] by Automated count 32.0-35.0 [facility] MCV Auto (RBC) [Entitic vol] Ordered By: Ines Mejias on 05-28-2024 MCV (RBC) [Entitic vol] MCV [Entitic volume] by Automated count 80-100 [facility] Monocytes Auto (Bld) [#/Vol] Ordered By: Ines Mejias on 05-28-2024 Monocytes (Bld) [#/Vol] Automated blood monocyte count 0.0-0.8 [facility] Monocytes/100 WBC Auto (Bld) Ordered By: Ines Mejias on 05-28-2024 Monocytes/100 WBC (Bld) Automated monocyte % . [facility] Neutrophils Auto (Bld) [#/Vo l]Ordered By: Ines Mejias on 05-28-2024 Neutrophils (Bld) [#/Vol] Neutrophils [#/volume] in Blood by Automated count 1.8-7.7 [facility] Neutrophils/100 WBC Auto (Bl d)Ordered By: Ines Mejias on 05-28-2024 Neutrophils/100 WBC (Bld) Automated neutrophil % . [facility] No Panel Informationon 05-28 [facility] No Panel InformationOrdered By: Ines Mejias on 05-28-2024 Estimated GFR (CKD-EPI) > 60.0 mL/Min [facility] Creatinine Clearance (Chem N/A [facility] Nucleated erythrocytes [Pres ence] in Blood by Automated countOrdered By: Ines Mejias on 05-28-2024 Nucleated RBC Auto Ql (Bld) Nucleated erythrocytes [Presence] in Blood by Automated count 0-0.5 [facility] Platelet mean volume Auto (B ld) [Entitic vol]Ordered By: Ines Mejias on 05-28-2024 Platelet mean volume (Bld) [Entitic vol] Platelet mean volume [Entitic volume] in Blood by Automated count 6.3-10.7 [facility] Platelets Auto (Bld) [#/Vol] Ordered By: Ines Mejias on 05-28-2024 Platelets (Bld) [#/Vol] Platelets [#/volume] in Blood by Automated count 150-450 [facility] Potassium [Moles/volume] in Serum or PlasmaOrdered By: Ines Mejias on 05-28-2024 Potassium [Moles/Vol] Potassium [Moles/v olume] in Serum or Plasma 3.5-5.1 [facility] Protein [Mass/volume] in Ser um or PlasmaOrdered By: Ines Mejias on 05-28-2024 Protein [Mass/Vol] Protein [Mass/volume ] in Serum or Plasma 6.4-8.9 [facility] Prothrombin Time INRon 05-28 INR Coag (PPP) [Relative time] 1.0 {INR} Normal [facility] Comment on above: Result Comment: INR Therapeutic Range A) Pre- and Peroperative OAT started two weeks before surgery. NOT HIP SURGERY: 1.5 - 2.5 HIP SURGERY: 2 - 3 B) Primary and secondary prevention of venous THROMBOSIS: 2 - 3 C) Active venous thrombosis, pulmonary embolism and prevention of recurrent venous thrombosis: 2 - 3 D) Prevention of arterial thromboembolism including patients with mechanical heart valves: 3 - 4.5 PERFORMED BY: [place] [address] PATHOLOGIST [employer] DAMION NUÑEZ M.D. Performed By: #### P T #### [address] #### HAABT, HBSAG, HBSAB, HBCAB, HCV RX PCR #### [facility] , PT Coag (PPP) [Time] 11.9 s Normal 9.0-12.9 [facility] Comment on above: Result Comment: A he matocrit value greater than 55% may lead to inaccurate results in coagulation testing. Patients having hematocrit values >55% require a special collection tube for coagulation studies. Please contact the laboratory at [phone] for redraw instructions. Performed By: #### P T #### [facility] [address] [place] [address] #### HAABT, HBSAG, HBSAB, HBCAB, HCV RX PCR #### [facility] , Prothrombin time (PT)Ordered By: Dariusz Preciado on 05-28-2024 PT Coag (PPP) [Time] Prothrombin time (PT) 9.0- 12.9 [facility] Comment on above: A hematocrit value g reater than 55% may lead to inaccurate results in coagulation testing. Patients having hematocrit values >55% require a special collection tube for coagulation studies. Please contact the laboratory at [phone] for redraw instructions. RBC Auto (Bld) [#/Vol]Ordere d By: Ines Mejias on 05-28-2024 RBC (Bld) [#/Vol] Erythrocytes [#/volu me] in Blood by Automated count High 3.60-5.00 [facility] Serum or plasma albumin/glob ulin mass ratioOrdered By: Ines Mejias on 05-28-2024 Albumin/Globulin [Mass ratio] Serum or plasma albumin/globulin mass ratio [facility] Serum or plasma anion gap de terminationOrdered By: Ines Mejias on 05-28-2024 Anion gap [Moles/Vol] Serum or plasma an ion gap determination 6.0-15.0 [facility] Serum or plasma non-glucuron idated bilirubin measurement (mass/volume)Ordered By: Ines Mejias on 05-28-2024 Bilirubin.indirect [Mass/Vol] Serum or plasma non-glucuronidated bilirubin measurement (mass/volume) [facility] Sodium [Moles/volume] in Ser um or PlasmaOrdered By: Ines Mejias on 05-28-2024 Sodium [Moles/Vol] Sodium [Moles/volume ] in Serum or Plasma 136-145 [facility] Urea nitrogen [Mass/volume] in Serum or PlasmaOrdered By: Ines Mejias on 05-28-2024 Urea nitrogen [Mass/Vol] Urea nitrogen [Mass/volume] in Serum or Plasma 7-25 [facility] WBC Auto (Bld) [#/Vol]Ordere d By: Ines Mejias on 05-28-2024 WBC (Bld) [#/Vol] Leukocytes [#/volume ] in Blood by Automated count 3.8-11.6 [facility] CNPNon 04-24-2024 CNPN Telephone (GASTA5) -- ZARA BENEDICT ([id number]) 1960 F Date Time Provider Department 04/24/24 DARIUSZ PRCEIADO [id number] During your visit today, we recorded the following information about you: Acacia Gonzaelz 04/24/2024 9:13 AM Signed External fibroscan results received and scanned. Allergies As of Date: 04/24/2024 (Not on File) Date Reviewed: Never Reviewed Reason for Visit: Results [95] Received Outside Medical Records [3576] Problem List As Of Date: 04/24/2024 (None) Encounter Status:Closed by ACACIA GONZALEZ on 04/24/24 Normal [facility] HbA1c (Bld) [Mass fraction]o n 04-21-2024 Interpretation and review of laboratory results Normal [facility] - Hematology and Cell countson 04-21-2024 HbA1c (Bld) [Mass fraction] 7 % [facility] Urine Cultureon 01-16-2024 Bacteria identified Cx Nom (U) No Growth 2 Days PERFORMED BY: [place] [address] PATHOLOGIST [employer] IGOR GUSTAFSON M.D. Normal [facility] Comment on above: Performed By: #### P T #### [place] [address] [place] #### HAABT, HBSAG, HBSAB, HBCAB, HCV RX PCR #### [facility] , Laboratory - Microbiology an d Antimicrobial susceptibilityon 01-14-2024 Bacterial vaginosis and vaginitis DNA panel Probe+sig amp (Vag fld) Negative [facility] No Panel Informationon 01-13 Interpretation and review of laboratory results Abnormal [facility] Trichomonas, UA Negative [facility] Yeast Positive [facility] Comment on above: parabasal cells [facility] Ines Mejias DO 01/14/2024 10:01 PM Bladder Catheterization Date/Time: 01/14/2024 1:16 PM Performed by: Ines Mejias DO Authorized by: Ines Mejias DO Consent: Consent obtained: Verbal Consent given by: Patient Risks, benefits, and alternatives were discussed: yes Risks discussed: Infection and pain Procedure details: Catheter insertion: Non-indwelling Catheter size: 8 Fr (mini cath) Bladder irrigation: no Number of attempts: 1 Urine characteristics: Clear Post-procedure details: Procedure completion: Tolerated well, no immediate complications [facility] Ines Mejias DO 01/14/2024 10:01 PM Pessary Date/Time: 01/14/2024 1:09 PM Performed by: Ines Mejias DO Authorized by: Ines Mejias DO Consent: Procedural risks discussed: yes Relevant documents present and verified: yes Patient agrees, verbalizes understanding, and wants to proceed: yes Consent given by: Patient Indication: Indication for pessary: cystocele and rectocele Procedure: Pessaries tried: 5 ring with support Pessary type: Ring w/ support Pessary size: 4 Outcomes: Patient tolerance of procedure: Tolerated well, no immediate complications [facility] HbA1c (Bld) [Mass fraction]o n 12-17-2023 Interpretation and review of laboratory results Normal [facility] - Hematology and Cell countson 12-17-2023 HbA1c (Bld) [Mass fraction] 6.2 % [facility] Outside Colonoscopyon 2022 Outside Colonoscopy [id number]#1.00TIFF [facility] Reminderson 02-14-2023 Reminders - From: Eunice Davis LPN To: N - Clinical; Sent: 02/14/2023 14:19:54 EST Show up: 01/14/2028 07:00:00 EDT Subject: colonoscopy recall Due Date/Time: 02/14/2028 07:00:00 EST Reminder/Recall Patient due for surveillance colonoscopy 02/14/2028 due to remote history of colon polyps. Normal [facility] Lab Reportson 02-13-2023 Lab Reports [id number]#1.00TIFF [facility] Insurance Correspondenceon 1 04-10-2022 Insurance Correspondence [id number]#1.00TIFF [facility] Consent for Procedure/Surger yon 01-30-2023 Consent for Procedure/Surgery [id number]#1.00TIFF [facility] Facesheeton 01-30-2023 Facesheet [id number]#1.00TIFF [facility] Ambulatory Visit Summaryon Ambulatory Visit Summary ISELA BENEDICT :1960 Visit [...] mg Tab) fluticasone nasal (Flonase 0.05 mg/inh [place]) gabapentin (gabapentin 300 mg Cap) insulin glargine [...] Unchanged fluticasone nasal (Flonase 0.05 mg/ inh [place]) 1 Sprays Nasal Inhalation 2 times a [...] for choosing us for your care. Normal [facility] CBC AUTO DIFFon 05-30-2022 BASO # 0.0 103/ul Normal 0.0-0.1 [facility] Comment on above: Performed By: #### C BC #### [facility] [address] [address] [address] Ian Sandra Basophils/100 WBC (Bld) 0.4 % Normal 0.2-2.0 [facility] Comment on above: Performed By: #### C BC #### [facility] [address] [address] [address] Ian Sandra EO # 0.1 103/ul Normal 0.0-0.7 [facility] Comment on above: Performed By: #### C BC #### [facility] [address] [address] [address] Ian Sandra Eosinophils/100 WBC (Bld) 3.1 % Normal 0.9-7.0 [facility] Comment on above: Performed By: #### C BC #### [facility] [address] [place] [address] Dr. Ian Sandra Erythrocyte distribution width (RBC) [Ratio] 13.5 % Normal 11.0-15.0 [facility] Comment on above: Performed By: #### C BC #### [facility] [address] [place] [address] Dr. Ian Sandra Hematocrit (Bld) [Volume fraction] 48.9 % Critically high 36.0-48.0 [facility] Comment on above: Performed By: #### C BC #### [facility] [address] [place] [address] Dr. Ian Sandra Hemoglobin (Bld) [Mass/Vol] 16.0 g/dL Normal 12.0-16.0 [facility] Comment on above: Performed By: #### C BC #### [facility] [address] [place] [address] Dr. Ian Sandra IG # 0.01 10e3/ul Normal 0.00-0.03 [facility] Comment on above: Performed By: #### C BC #### [facility] [address] [place] [address] Dr. Ian Sandra IG % 0.2 % Normal 0.0-0.5 [facility] Comment on above: Performed By: #### C BC #### [facility] [address] [place] [address] Dr. Ian Sandra LYMPH # 1.4 103/ul Normal 1.2-3.8 [facility] Comment on above: Performed By: #### C BC #### [facility] [address] [place] [address] Dr. Ian Sandra Lymphocytes/100 WBC (Bld) 29.5 % Normal 20.5-60.0 [facility] Comment on above: Performed By: #### C BC #### [facility] [address] [place] [address] Dr. Ian Sandra MANUAL DIFF REQ NO Normal [facility] Comment on above: Performed By: #### C BC #### [facility] [address] [place] [address] Dr. Ian Sandra MCH (RBC) [Entitic mass] 29.9 pg Normal 26.7-34.0 [facility] Comment on above: Performed By: #### C BC #### [facility] [address] [place] [address] Dr. Ian Sandra MCHC (RBC) [Mass/Vol] 32.7 g/dL Normal 29.9-35.2 [facility] Comment on above: Performed By: #### C BC #### [facility] [address] [place] [address] Dr. Ian Sandra MCV (RBC) [Entitic vol] 91.4 fL Normal 81.0-99.0 [facility] Comment on above: Performed By: #### C BC #### [facility] [address] [place] [address] Dr. Ian Sandra MONO # 0.4 103/ul Normal 0.3-0.8 [facility] Comment on above: Performed By: #### C BC #### [facility] [address] [place] [address] Dr. Ian Sandra Monocytes/100 WBC (Bld) 9.4 % Normal 1.7-12.0 [facility] Comment on above: Performed By: #### C BC #### [facility] [address] [place] [address] Dr. Ian Sandra NEUT # 2.6 103/ul Normal 1.4-6.5 [facility] Comment on above: Performed By: #### C BC #### [facility] [address] [place] [address] Dr. Ian Sandra Neutrophils/100 WBC (Bld) 57.4 % Normal 43.0-75.0 [facility] Comment on above: Performed By: #### C BC #### [facility] [address] [place] [address] Dr. Ian Sandra Platelet mean volume (Bld) [Entitic vol] 11.2 fL Normal 9.5-13.5 [facility] Comment on above: Performed By: #### C BC #### [facility] [address] [address] [address] Ian Sandra PLT 176 103/ul Normal 150-450 [facility] Comment on above: Performed By: #### C BC #### [facility] [address] [address] [address] Ian Sandra RBC 5.35 106/ul Normal 4.20-5.40 [facility] Comment on above: Performed By: #### C BC #### [facility] [address] [place] [address] Dr. Ian Sandra WBC 4.6 103/ul Normal 4.0-11.0 [facility] Comment on above: Performed By: #### C BC #### [facility] [address] [place] [address] Dr. Ian Sandra LIPID PROFILEon 05-30-2022 CHOL-HDL RATIO NORM SEE BELOW Normal [facility] Comment on above: Result Comment: 3.3 - 4.4 LOW RISK 4.4 - 7.1 AVERAGE RISK 7.1 - 11.0 MODERATE RISK >11.0 HIGH RISK Performed By: #### C MP, LIPID #### [facility] [address] [place] [address] Dr. Ian Sandra Cholesterol [Mass/Vol] 218 mg/dL Critically high <=200 [facility] Comment on above: Performed By: #### C MP, LIPID #### [facility] [address] [place] [address] Dr. Ian Sandra Cholesterol in HDL [Mass/Vol] 46 mg/dL Normal 40-60 [facility] Comment on above: Performed By: #### C MP, LIPID #### [facility] [address] [place] [address] Dr. Ian Sandra Cholesterol in LDL [Mass/Vol] 136.4 mg/dL Normal [facility] Comment on above: Performed By: #### C MP, LIPID #### [facility] [address] [place] [address] Dr. Ian Sandra Cholesterol.total/Chol esterol in HDL [Mass ratio] 4.7 {ratio} Normal [facility] Comment on above: Performed By: #### C MP, LIPID #### [facility] [address] [address] [address] Ian Sandra HDL NORMAL > or = 60 mg/dl - LO W CARDIOVASCULAR RISK <40 mg/dl - HIGH CARDIOVASCULAR RISK Normal [facility] Comment on above: Performed By: #### C MP, LIPID #### [facility] [address] [address] [address] Ian Sandra LDL CALC NORMAL SEE BELOW Normal [facility] Comment on above: Result Comment: <100 mg/dl OPTIMAL 100 - 129 mg/dl NEAR OR ABOVE OPTIMAL 130 - 159 mg/dl BORDERLINE HIGH 160 - 189 mg/dl HIGH >190 mg/dl VERY HIGH Performed By: #### C MP, LIPID #### [facility] [address] [place] [address] Dr. Ian Sandra Triglyceride [Mass/Vol] 178 mg/dL Critically high <=150 [facility] Comment on above: Performed By: #### C MP, LIPID #### [facility] [address] [place] [address] Dr. Ian Sandra VLDL CALC 35.6 mg/dL Normal [facility] Comment on above: Performed By: #### C MP, LIPID #### [facility] [address] [place] [address] Dr. Ian Sandra MICROALB CREAT RATIO RANDOMo n 05-30-2022 mALB <1.3 Normal <=30.0 [facility] Comment on above: Performed By: #### M CRR #### [facility] [address] [place] [address] Dr. Ian Sandra MALB CR RATIO RANGE SEE BELOW Normal [facility] Comment on above: Result Comment: NO M ICROALBUMINURIA 0-29 MG/G CLINICAL MICROALBUMINURIA 30-300 MG/G MACROALBUMINURIA >300 MG/G Performed By: #### M CRR #### [facility] [address] [place] [address] Dr. Ian Sandra URINE CREAT 45.83 mg/dL Normal 20.00-300. 00 [facility] Comment on above: Performed By: #### M CRR #### [facility] [address] [address] [address] Ian Sandra PROF 14(COMP METB)on 023 Albumin [Mass/Vol] 4.4 g/dL Normal 3.4-5.0 [facility] Comment on above: Performed By: #### C MP, LIPID #### [facility] [address] [address] [address] Ian Sandra Albumin/Globulin [Mass ratio] 1.1 {ratio} Normal [facility] Comment on above: Performed By: #### C MP, LIPID #### [facility] [address] [address] [address] Ian Sandra ALP [Catalytic activity/Vol] 80 U/L Normal 46-116 [facility] Comment on above: Performed By: #### C MP, LIPID #### [facility] [address] [place] [address] Dr. Ian Sandra ALT [Catalytic activity/Vol] 45 U/L Normal 14-59 [facility] Comment on above: Performed By: #### C MP, LIPID #### [facility] [address] [place] [address] Dr. Ian Sandra Anion gap [Moles/Vol] 11.7 mmol/L Normal [facility] Comment on above: Performed By: #### C MP, LIPID #### [facility] [address] [place] [address] Dr. Ian Sandra AST [Catalytic activity/Vol] 31 U/L Normal 15-37 [facility] Comment on above: Performed By: #### C MP, LIPID #### [facility] [address] [place] [address] Dr. Ian Sandra Bilirubin [Mass/Vol] 0.4 mg/dL Normal 0.2-1.0 [facility] Comment on above: Performed By: #### C MP, LIPID #### [facility] [address] [place] [address] Dr. Ian Sandra Calcium [Mass/Vol] 9.3 mg/dL Normal 8.5-10.1 [facility] Comment on above: Performed By: #### C MP, LIPID #### [facility] [address] [address] [address] Ian Sandra Chloride [Moles/Vol] 104 mmol/L Normal 98-107 [facility] Comment on above: Performed By: #### C MP, LIPID #### [facility] [address] [address] [address] Ian Sandra CO2 [Moles/Vol] 29.1 mmol/L Normal 21.0-32.0 [facility] Comment on above: Performed By: #### C MP, LIPID #### [facility] [address] [address] [address] Ian Sandra Creatinine [Mass/Vol] 0.58 mg/dL Normal 0.55-1.02 [facility] Comment on above: Performed By: #### C MP, LIPID #### [facility] [address] [place] [address] Dr. Ian Sandra EGFR-AF NORTH [place]OREAN >60 Normal >=60 [facility] Comment on above: Performed By: #### C MP, LIPID #### [facility] [address] [place] [address] Dr. Ian Sandra EGFR-NON AF [place]TH [place]OREAN >60 Normal >=60 [facility] Comment on above: Performed By: #### C MP, LIPID #### [facility] [address] [place] [address] Dr. Ian Sandra Globulin (S) [Mass/Vol] 3.9 g/dL Normal [facility] Comment on above: Performed By: #### C MP, LIPID #### [facility] [address] [address] [address] Ian Sandra Glucose [Mass/Vol] 171 mg/dL Critically high 74-106 [facility] Comment on above: Performed By: #### C MP, LIPID #### [facility] [address] [address] [address] Ian Sandra Potassium [Moles/Vol] 3.8 mmol/L Normal 3.5-5.1 [facility] Comment on above: Performed By: #### C MP, LIPID #### [facility] [address] [address] [address] Ian Sandra Protein [Mass/Vol] 8.3 g/dL Critically high 6.4-8.2 [facility] Comment on above: Performed By: #### C MP, LIPID #### [facility] [address] [address] [address] Ian Sandra Sodium [Moles/Vol] 141 mmol/L Normal 136-145 [facility] Comment on above: Performed By: #### C MP, LIPID #### [facility] [address] [address] [address] Ian Sandra Urea nitrogen [Mass/Vol] 14.0 mg/dL Normal 7.0-18.0 [facility] Comment on above: Performed By: #### C MP, LIPID #### [facility] [address] [address] [address] Ian Sandra Urea nitrogen/Creatinine [Mass ratio] 24.1 mg/mg Normal [facility] Comment on above: Performed By: #### C MP, LIPID #### [facility] [address] [address] [address] Ian Sandra Creatinine and Glomerular fi ltration rate.predicted panel (S/P/Bld)Ordered By: Ga Field on 02-19-2022 Creatinine [Mass/Vol] 0.59 mg/dL 0.44-1.03 [facility] Estimated glomerular filtrat ion rate (GFR) non- AmericanOrdered By: Ga Field on 02-19-2022 GFR/1.73 sq M.predicted among non-blacks MDRD (S/P/Bld) [Vol rate/Area] > 60 mL/Min [facility] Glucose Glucometer (BldC) [M ass/Vol]Ordered By: Bharat Zelaya on 02-19-2022 Glucose [Mass/Vol] 163 mg/dL [facility] Comment on above: Random Glucose Refer ence Range is dependent on time and content of last meal. Glucose of more than 200 mg/dL in a nonstressed, ambulatory subject supports the diagnosis of Diabetes Mellitus. No Panel InformationOrdered By: Ga Field on 02-19-2022 Estimated GFR () > 60 mL/Min [facility] Comment on above: GFR estimated refere nce range: According to KDOQI guidelines, <60 ml/min/1.73m2 is sufficient to diagnose a patient with chronic kidney disease. Pharmacy Creatinine Clearance (Chem 121.43 [facility] Serum or plasma anion gap de terminationOrdered By: Ga Field on 02-19-2022 Anion gap [Moles/Vol] 12.6 mmol/L 6.0-15.0 [facility] Serum or plasma calcium nava urement (mass/volume)Ordered By: Ga Field on 02-19-2022 Calcium [Mass/Vol] 9.5 mg/dL 8.2-10.2 [facility] Serum or plasma chloride eri surement (moles/volume)Ordered By: Ga Field on 02-19-2022 Chloride [Moles/Vol] 104 mmol/L 95-114 [facility] Serum or plasma glucose nava urement (mass/volume)Ordered By: Ga Field on 02-19-2022 Glucose [Mass/Vol] 194 mg/dL 70-100 [facility] Comment on above: ADA recommended refe rence rangeRandom Glucose Reference Range is dependent on time and content of last meal. Glucose of more than 200 mg/dL in a nonstressed, ambulatory subject supports the diagnosis of Diabetes Mellitus. Serum or plasma potassium me asurement (moles/volume)Ordered By: Ga Field on 02-19-2022 Potassium [Moles/Vol] 4.4 mmol/L 3.5-5.1 [facility] Serum or plasma sodium measu rement (moles/volume)Ordered By: Ga Field on 02-19-2022 Sodium [Moles/Vol] 138 mmol/L 136-146 [facility] Serum or plasma total carbon dioxide measurement (moles/volume)Ordered By: Ga Field on 02-19-2022 CO2 [Moles/Vol] 25.8 mmol/L 22.0-30.0 [facility] Serum or plasma urea nitroge n measurement (mass/volume)Ordered By: Ga Field on 11-21-2022 Urea nitrogen [Mass/Vol] 12 mg/dL 12-22 [facility] COVID-19 SOFIAOrdered By: Juni Zelaya on 02-16-2022 SARS-CoV+SARS-CoV-2 (COVID-19) Ag IA.rapid Ql (Resp) Negative Negative [facility] Comment on above: This is a duplicate Katelynn SARS Antigen (SAMIR) result to be used for statistical tracking purpose only. No Panel InformationOrdered By: Bharat Zelaya on 02-16-2022 SARS Antigen (LFIA) [facility] Glucose Glucometer (BldC) [M ass/Vol]Ordered By: Bharat Zelaya on 10-19-2021 Glucose [Mass/Vol] 179 mg/dL [facility] Comment on above: Random Glucose Refer ence Range is dependent on time and content of last meal. Glucose of more than 200 mg/dL in a nonstressed, ambulatory subject supports the diagnosis of Diabetes Mellitus. COVID-19 Positive/NegativeOr dered By: Bharat Zelaya on 10-17-2021 SARS-CoV-2 (COVID-19) N gene ANTOINETTE+probe Ql (Resp) Negative Negative [facility] Comment on above: Testing for SARS-CoV -2 by RT-PCR This test was developed and its performance characteristics determined by [employer] ([employer]) and validated at the [facility]. This test has not been [...] the authorization is terminated or revoked sooner. Creatinine and Glomerular fi ltration rate.predicted panel (S/P/Bld)Ordered By: Bharat Zelaya on 10-17-2021 Creatinine [Mass/Vol] 0.51 mg/dL 0.44-1.03 [facility] Estimated glomerular filtrat ion rate (GFR) non- AmericanOrdered By: Bharat Zelaya on 10-17-2021 GFR/1.73 sq M.predicted among non-blacks MDRD (S/P/Bld) [Vol rate/Area] > 60 mL/Min [facility] No Panel InformationOrdered By: Bharat Zelaya on 10-17-2021 Estimated GFR () > 60 mL/Min [facility] Comment on above: GFR estimated refere nce range: According to KDOQI guidelines, <60 ml/min/1.73m2 is sufficient to diagnose a patient with chronic kidney disease. Pharmacy Creatinine Clearance (Chem N/A [facility] Serum or plasma calcium nava urement (mass/volume)Ordered By: Bharat Zelaya on 10-17-2021 Calcium [Mass/Vol] 9.7 mg/dL 8.2-10.2 [facility] Serum or plasma chloride eri surement (moles/volume)Ordered By: Bharat Zelaya on 10-17-2021 Chloride [Moles/Vol] 102 mmol/L 95-114 [facility] Serum or plasma glucose nava urement (mass/volume)Ordered By: Bharat eZlaya on 10-17-2021 Glucose [Mass/Vol] 134 mg/dL 70-100 [facility] Comment on above: ADA recommended refe rence range Random Glucose Reference Range is dependent on time and content of last meal. Glucose of more than 200 mg/dL in a nonstressed, ambulatory subject supports the diagnosis of Diabetes Mellitus. Serum or plasma potassium me asurement (moles/volume)Ordered By: Bharat Zelaya on 10-17-2021 Potassium [Moles/Vol] 3.8 mmol/L 3.5-5.1 [facility] Serum or plasma sodium measu rement (moles/volume)Ordered By: Bharat Zelaya on 10-17-2021 Sodium [Moles/Vol] 137 mmol/L 136-146 [facility] Serum or plasma total carbon dioxide measurement (moles/volume)Ordered By: Bharat Zelaya on 10-17-2021 CO2 [Moles/Vol] 23.6 mmol/L 22.0-30.0 [facility] Serum or plasma urea nitroge n measurement (mass/volume)Ordered By: Bharat Zelaya on 10-17-2021 Urea nitrogen [Mass/Vol] 11 mg/dL 9-23 [facility] MRI SHOULDER LT WO CONon MRI SHOULDER [...] Moderate amount of reactive fluid within the subacromial-subdeltoid bursal space. No glenohumeral joint effusion. The [...] sided tear. 2. Moderate amount of reactive subacromial-subdeltoid bursal fluid. 3. Age-related fraying of the posterior superior aspect of the glenoid labrum. 4. Questionable tearing of the insertional fibers of the coracohumeral ligament Electronically authenticated by: LFAVIA MELVIN Date: 2021-10-10 19:39 Normal [facility] MAMM SCREEN 3D MELVINA CADon 09-12-2021 MG MAMM SCREEN 3D MELVINA CAD Patient: ZARA BENEDICT Exam Date: 09/12/2021 : 1960 Gender:F Ordering : DR INES MEJIAS Admission #: [id number] Family : Order #: [id number] CLICK HERE TO VIEW EXAM RADIOLOGY REPORT [...] bladder cancer at age 82. LOCATION: [facility] BREAST COMPOSITION: Almost entirely fatty. FINDINGS: DIAGNOSTIC [...] PALPABLE LUMP SHOULD BE BIOPSIED. Dictated by: Abimbola Del Toro M.D. on 09/13/2021 at 10:39 Approved by: Abimbola Del Toro M.D. on 09/13/2021 at 11:56 Normal [facility] Physical Therapy Noteon 12-2 Physical Therapy Note [id number][facility]13-2021 Provider Orders [id number][facility]-2020 Provider Orders [id number][facility] Summaryon 08-18-2021 Coding Summary HTMLBase 64 AguspicdHXv4bWm+PGhlYWQ+PE 0GRCTaF65spJXmqX1BN2pTGM9O XGZNGESHKN0GGW7dpAJ6WNrmW2 VybiAv AknviYQgMA21BPe7IEB0wRmzNM mmeJ7nlDAzR4j0TbVyVC33uI44 VKvuVORdJqK9CcKtauoivZMp Y0zcDhFpjBRxBfr+PHRhYmxlIH sdIOJzEHwfGVXoXzHscMmbEW1q As2pBYYdIAUukQvhoOSiQcZx l2ijZXYwKCtfWE9wsOfuZ1XjgF Q9DLYnp8b4Tl22qIT+PHRkIHN0 vXwjBRecu789VkWxb5suSKO0 bFDnOAkaAAK7P99cb1C7ILXbMY NgYOX4kVH2xM1reWfasrlrQ8Du kLReAnF2EFV5qSBgyA2yyVwp cmqekP1aNyj+P76VNW6FZOOKHT 7PRqd9W9FvUliyyJY+MZ82DFOq EB98cHMtvNNjs3tunDb9DmEu BIBwCUB5cWxqKTscr9HnYEFjF8 4mdQTsl2A7EKNiqWsisLEuRhUq lYI5uQ8gYDgpgjrdu2pedtzv Qohpp2rvrl80yC80P60gXWatRP QyODA4BXEoUUEljQbiqr0tjZ9e Ii8+AEvwb2cmz3aofCi4CbRd JBOugmYmwKojXWZ2l2XhIm82D9 VbbCsfy6RnZjx4mh27cIZyv2O6 sAD1CTofKASiqT7mAGhjQiF0 KVAtLcPukK50kFBjNVkjQx8zrV sbjPmdQW4mOVVlbrsuXIVowI3n XPSlaWNlgXwlQG3iFKOuzvlx v993XzJxNZQ2FAPaqOLzJ3QszM 5pZtFmZPDkGMWfQ2TrlPBsXHqb O224QPmyLyO2DRUnieHnJ2Fw YHCdqGgzSoN1l6L9Xh5Td1Oxze naZET7TBoiSUB3FzR4WnEbUsU7 X6YlJfc8MMQjnEgoQE0pP4Xu IXAiqltfewzqlVG0RRCaWBTqhM 15mSZtHRpaAe7ia5Z8q005IXNi QNBygW54Ae6pzDhbZUBleMSX sF6wklfxo4stkqgyNeLzQAGjKC f3OEw3DRMmtOpvBwIcDSH5FkS2 SEW7pARkpH8ltAjpmsenqO5a Oyc+A94qoX2jWGU8MKL3aetkQP IfmmWfGO40VO10W1ZlGaimcIZy bGU+UHMvmySqjTulOJ9fBnUp i4aca9UoSGopZ9XrBFCgMAvbGy u6HRTdKUW1sON0hH4eGYYtCHeh q0V1vYZ8M6XnofJifb4hu7fd EMMhOVgrY46evERgg0E7ROOhvH Q1PMOibIlxWhShdQ35Wrm+PGNv nTfwj6FwZxhsk0frx2gtmZl5 QzXsFPWvvlUsuYllMJI8z6VhQc 49O90bZUlnLFOfXQPoPWDtONAl zUsewf0snZ8mPg7+PGNvbCB3 oDZ9jQ6xPOSoLrU1BEbwR922Ng PkqZFpUcinx2xat9blhUb3UxBm CRLagfPdoAavWFZ5n8NxBo53 E29vUXgwDLDdNNNpQNGyJDXcfS otxs5xiE2fNf4+SV3tl3uerm60 kV33iMN+HBViMAB6hPdzTFvb RARtpS6sWIzrXuR6ZGEdMjEprA 23jRSfXSynHp2yuFutvXlpMY5n MCBrzmeoi828WwZpx8amGXSm vZQkYQhlXFJ1H61ly2V7NCUtDL FjMBF3rDV0kY8bcRtdkfrqeYGi rVwdzoDhdIoaCAluMYmkG899 IHRvcDsnPlBhdGllbnQgTmFtZT q6N8UaNsm8AJAvhMvwBR3lbRFn TRhrSa7tkXzpbVkhRN6eUMSc ukbfe506QzNbu3alIJOycRZtWN rmAWI8X54on1S6ZLJoGNJeRCL7 gDZ5lS9srWqznxmvjBDrvUfa rqSraMxiMQfrKAdrY851IAOarW qdUfDcihZiLFSbnPQ5GG32PM30 eKPua6X4zED8F4QlJPXrmtzj kvcjsTK6UEKkKNKvbB80Ll6rmO miAv5hVFUfPZU5HJSipXLaJ9Xd qA9yYuYoQVIgHQQeH1TcuQZm EPouJ486DPojEiS8TNSuutFeI0 ZaJVEvlOddJbP4k8X8Lz6OI5W0 AC88NN50gHSyf9Y1aBL1S1Qx NYYcfbgwzitxvUI3JVHcVZUzuS 28Nt5vtJsdUo7zNFKgWRZ7MLLi lXPnI8HeeL4dNkHiPEWyEBLw V0LodMDgYAscC818QOaaAoM6SN QrdbMpE0GmARIpdWjuUaO9e1A8 Hx4XNDy6OC19DM30wTApp9S5 xEH1Q1HvJQNlujpoirpdxHE0ID WtHRIwwH85Di5fmYvgWu4vJINv RVF9HPGxdZOlZ3GcmX5hVuIa MLDbXCBdK7UvlELjIYydD727KT lyQbV3KRHctkDsO9OoPIWcyWcx WjF7b3B4On7BPJAkSN76TIP2 zIO6KH73BD78R3PkEpgixOBiwY U+PHRhYmxlIHdpZHRoPScxMDAl WiAhcVjqEF0tJi6yGAWfWEVp bHrjoPBqRwVjt1mvTBPsTKqoAX 6jnChdO9BayQB9KPDcw7i2Ar30 X50lV7QorMQ+KOPvbXR1mXK1 mJ5gZqJrUrI1PRbnR495FuTslK WeHwgyu1rdv0zjcYs9RaG3AISv meMnhZpnGAG4z4NbVl34S05f IHdpZHRoPSIxNSUiIHZhbGlnbj 3nhJ6zAh8+AIFllXR4rRF7tP8d RhOwYhB2TDfvC309AlQjdZPb Cbemb1kce7begYn2RxDkTDNvrv PtuAgwDSD1x9ReVq52Z3PmgInh k9XhItz8zc89wISaf3E1yGP8 Z9GnLAGypajjvUBziFytQE3bZM IdkggeWOEkxG5nMHBnM9w7TwYi JtN7DYmcT0ScbyR9GJLijZXm AJgjMWM0Z46uq0D3RHXfZSWtTA B0xZA7tJ6yoFaeuuthxCYmnDzz vuHshJdaBWsgKBofC374VSAd kRtoKTItfD4iGKIlxKZxhSygBN 4wNTBpbjsnPkhPTUxFUiwgVEFN LGYAKJlDSM29Z7YjGxx3FKQu yRexUX6yjZItGAmtOh5plQzzjL azWF2zYNCozieoYWWctM0dQERc vEDqeBimKZ3zUUGjppgcd002 HlZjWFG4EIMoqUBwG0GkhS0eQw ZiVUDvDDRxK7TtvRCvMWwzA599 OEpuPgY6IXGqjjOxL0UsTYJl mVrgCqK0p6A3Cb4eSC4dNG9sFB EmPS18AC98mHEif6M9jGD5J1Mq SWLjknuxrkgypSJ0BSHgJHYr cU60dZMpFYzjCn7ig3M4l296EW XsWOUyfB05Tn1krRhkPHCwxGOL jP8gvcgbz8thenfzKfDdJLIl EFv5QDs5TMYfnEieYqUbYDA2Vq M9NLM3pHEmdS0huEflxfznlY4q Oyc+ZOprWKZzjiF0B3RxUys7 QYTeuLplIY8zdHNkSUcyVu8vgT vemWsxWS1yXDBixpqwVVHtkI6q PIWjxRHbjPteTR6dPPUonzhs l136NwZhYCM2EYWqtQKuM2TypB 4iAmYpMGUrYGGkV5ZgdOBsVFcn J969YWifPnB5MFRhmbDlN5If VGBalCewIlX8j9Z2Ir3PXP2SMQ N0M6AvDof8OKGixCudCR5nwBEs ZYcgCu9cuKpmwFxnCK7oWNXw ylpbTFNviS8rOWVsgULheDsqFH 9rUYPbhppgn229QcWwVRY5TQMg tFQiE0CrwJ7xCdAbEKJrTTBl Y2IgxENxCWiuA359LGdjCsJ3BW YhrfEgU4VzYKRkvIxlArZ3l9H7 Nt6GPZX9noUuiiitQ3U2hQG8 aWVudDwvdGQ+XK20fk42M9SpKv myQdo5NKIjWVN9fTY8eA4bNHKr RNfza7M0pFG1Y4OxcaGupn3z m7giJHIpBGroY94mnFErp3R2IW HjdAF5YOOulJuwPeEslX40Uuf+ ZTTgiHjoa2ShCwyhw8pds7hi cVy3ZxTkUJYvguOmbIbsPYH4d8 OeUc26E00yRDjlSOIdYSBmUTCk WKBcoFfbcz3mxJ0vJz9+PGNv yZW4cDV6sN2eTkZkUzZ1VBhcP1 00JxQwjKPuHuict2qlp0afhJw3 XmJrHJEmwcOonMctWNQ8i3Xw Qi02D4JadXkip0QyPno1zn21vJ Lda0J6rSZ0M4SsQVXnsbajhDNh kRoxUP1sFDRngfamVYZafN4b RHLwQ3p1BaUfMoL8DFfrF8Xsrk W1ABLhaGGmOQChrFTOiU3llcfp b1bukwcqTrYnAERtODu9DRg9 UKDqqLtkXoWxNAI5CwM9HHK6iL ApfF0xiZtqdpxcaK2gLpy+UGh5 s3iwbRGmGS7jlZP4GF51AN46 iKHuj5R4aXP1V8LfMOZbpmhbml vmfAP8TSJfELKdnZ95El1qaNtf Px5oTOHtCZX5IRBjhKEpL2Lh sM4nZzFtVCEwNZDhY0CtyUSuZM puS406QQmxZjB6XVEwwxPkW9Fz LWMifObtZzA6n5L9Lo6HGT23 XG34OK56kZOwf0H4uDO4X6WfZH SttcitebgigOZ8OUHvINSnwR74 Br1nlGdlSd7dDWBxEJA2NOFw eCPbR9CfxU8zCuFkSXJgJIXuG0 SfiATvKOeqH799DXtfWnT7ZDWl hhWzR7InSFQonCjeLpE6w9Z1 Mv5VIt78NR24TM50aDMym9K0vM L3D8GjXCMrthdaqfzrbQG0MSUk RUJmgK66Nd2qvEbvTb8rNEAe VEA1COFocNQxO4UflY1xMqPiHP FhFVSxZ6LvzEVnJDtuL421YWej ThP3DYMfibVuZ0QgYEOpbNao CjV5k8K4Zd9SUXnylor6X2TlYq wvdHI+OM26VRRcSN86lVDpdLLh q7aggWf9CeWmZOCrHSA3cTnx PSd (more content not included)... [facility] Provider Orderson 09-13-2020 Provider Orders [id number] [facility] Coding Summaryon 09-12-2020 Coding Summary HTMLBase 64 TnqejpqdGJw1kTz+PGhlYWQ+PE 1OODSbS51qfTAqjG5XY3bMPU0Q TSPXVEIVBK5DRH4jdBI2QFdtU5 VybiAv WusgiJLcAZ94JGt2TZO9rLezAN dygK5ddZCpM3y0KgAwER82yX08 HCenFJNnPpQ0FsZjnsxwuFZv C8izPgXpdQWzSwk+PHRhYmxlIH usKUZnZBsgUSNtKfUcsLldVI6l Ku6yGDFvSAWxrBuuvNXsPzXo f8cyINHmOLnqBL4qfXxuS9TseB M7FZNdv8s8Je21tIY+PHRkIHN0 eKuzYAczt954WmFcz9xjPEU2 eXYoHUeqZIG8R44py7M5EQPgBI YnRKL1yBF9eW8jrRlusclkS9Xk mQAmFwL8TMX5cMQegC2zbJmc yvyifE1bEym+V51NIH0YZYMDQC 5MWqp5M4MaBsxpiXB+MI02ANFi BS49eGLlwCBbc5gicDj7TsHt UEDwHYZ3bTqaSYpqp6RhNQTgK1 3viUClp2H3HCJmdGuogDNpJtYu wSR2vM4yQUgujbqal9hmalbc Lvzha2tsgf78zZ20Z82fDDlgKP LkIJR7DAUtVBOclQenyu7lmH4y Ii8+NXkcf4peh2gmfVj4YuEo YIJzknUntNbdQHJ6x4DoSa91B8 XibDsyz7WlVpl4nv67gKMxy9M5 tGL9CEbhFPQrlP4yZZwhWfS0 BJQvSdKxlS94cGNzYDdvLm1npN pyvDjvKL4fUSEpwehqIODnrI1z BDZthVGwrLwyZZ6tLZQimsrc r238AaYcDYT5TYCdyFDgT9JftT 4nSwFwORZkYIPkA8TaqDKnUVab S859LFeqEjA1ISChcrVjI5Td FYAxdJrpZiU1n4T9Xe9Qh4Xqec ufVQJ7VKwdGZP4BxM2EbPsPaC2 I3QqZxs9CXMjvQymNU2yQ8Xg RIXoyblvcljibZE9OPXsYGWheP 19yYBzCOjkOy5uw4U7c107CFZf HAPlpW05Pn7mrVqzDICthNZU hY9zqdruq7umfisuVpBeDQRiVT c0TFs1BLBznMwcBsCtWBI5UyL2 TDM0iILblN8voWbkjphtrZ5d Oyc+F93yqC7uRVU7TQG3gsfzDS MacwWcTL12XZ95V9RoVpfweMJo bGU+QYNchfYchQliFL4gTtMc u9jwm5RrKGkaJ6CjRKFiLTcwRu h8PVJpMNS4aHG7lU7gFIGvEFsq y9F9lVL3Y4CbpiGowl8jl3pe YSIdCJjdC93dfDFle2Y5PIAtuY N6VVSmcZdqXlWavI44Dbe+PGNv hRjjy8GnBvmit6jzz0hjoJh2 OkOhQGDkflDciRtwBRI2n0UbKv 61F41fTXwlDJTgBCVwHUCjUGHh hFfgzf4spF1vDs8+PGNvbCB3 oJA0yM4wQDBgGoE4XWagT759Wy LwtLBcLatzn8aru3rslVt5NrVy TXRnoiWwmLpmRLQ5j4JsCc74 W18pKAnkHLFnCZLcRCScZZZoaX klzw5kqT6fIq1+OR5gg0qgbs32 xL61sUB+MKTnONL9lPeuOEel OWMhkA8yZEefXtG6ZFQdWpGxxU 16hWQrIHkuFt2ayEeqyKbhCC1l NOMsfsuzp261FiHqh8faXNNh jFPeOVltYFU6Y58fv6K4JWDsWM NiFWT9sNM0zX9yoLdkngpgmRSe eGnsosRvrBroXZjrLDlxE456 IHRvcDsnPlBhdGllbnQgTmFtZT x8G3LcUwn0ZCRofTeiIC3deDWt BWqbPd4ioCwubIgdFH5dMIBs pxcly368SxKvk1cjNKXvkOThPW tiBPU1Q31hz4A2PJWdTUQuWAB4 pUV0dL3clAipipbqrJJkgXdh fiMcvVuaCDgoMLczJ060VIKbiW agOqYimdHsKIAmsYH0YC47JZ96 wLRid7F0mBV4B2DyNCSrfwqn bhcpcLD5MGXzTXAdcD61Ok8lbU ysVf6qZYTwQPV9IFXjvFXjU0Jw yB3jZuOlOEAoVFDuK1FpvEJk IIjcM701HChuMyO6RBWnfzAbY7 KlAEBnzJfwKzA5q2J9Hx2UJ1F5 ZR47RG04wJVjf8F3qWQ2Q2Ul JSHdfpdofpijcRI6ZHWbNJOirJ 11Wz1mfTjuMn9kKMEwIXD7JJXd xEXzA4ShhF0oToXmRCUuOFQv C8CmlKBzNIioL033KNbnTuU0BK JevhZsC9LiVTIglWecOsD4d8E4 Dp3GJOm0OB37JO27fZKpr9K4 tAC0B1BpRPEakqdxloojtWV6CC AdWESknE98Rd1pyClvHs6oQQZv VNZ1FGFhcZSrD5TyaE5dPjSo TIQrUYJbW5XqmHYdBEnpD654PP vaZfM3AKYulrOgZ6FxYEMtbXxn ZhD7h3E5Po9GUEDiDW78TFA8 fIW3DQ70XU86H9CcZvlfiXQloW U+PHRhYmxlIHdpZHRoPScxMDAl CkKluSzaNR1mFh8fKFBfWUTn tQwztGOyEbOti9lgDHRvQDtwBS 6clNweK7ZgaWT7DPWqv2j8Zo45 N76tA6QpmQL+BNNmqOA1aVP5 jI9nUeFqYiE2NDuhR712JbXfkT RzMjawr2rqe3fvoIe9UnU0IYJq lnPtbBgcHDI4b4SjXz25V23a IHdpZHRoPSIxNSUiIHZhbGlnbj 9jsU6tHv3+WLBrqPE4kXZ4yQ8i AmGjUwO7KSoqT395JuZihCNb Ngymu7tpb4uavBy7GaZwSGDoml VprHzqCEV2h6NzBf27N3HqtYly p0IxBca4ou58hOZzz5X2kFV5 L1PmHGLdfohlcLOkgRbuYJ3eQF FkrtxmIDKepC7uABDzY6i1IwSp MpQ5HXztJ9MuxyM2YBYjyWNu SYhqBMT3I31qo5F9ENFnWEEzQY X1iWE3tB6urVdziscegSXtaJig eeEiuBvtVDpjGTkkP655GTVy tXgcXKYwaW5tDOKukMKdtVbdQD 4wNTBpbjsnPkhPTUxFUiwgVEFN SLNJNFgYHJ09C1ScIng5WSCq hKxfUL1qdOFgBCikCp0cuUaplS gsCS1iACXdtcxvDIUctJ7hMZLc nPDlcUqyUX1qAPNlrvjyw900 FbNbZLG6COChvYWtA3GmfZ2rWh EbNRPpUEBpO9AitSMdJJgvE389 WUgpGaV0UPXowlTaP5FwHSOy eGbiPyE8j7J1Qo4kUT2sHE4pWT CpCZ87NB21vAUmx8V1oPN9N4Yo MORxtmxxicqxlPW3LSFfLXBd qJ84nKOoTZlvDa4me8W7f047KN OoZXNpsO06Jg4rlFvyQMJkuFSF eH2ykwryh1rfmdskTsLnXUSi YEr5RTh7EISbkFzzRiGoELU0Ix R0PMM2aGKmdK7frKpcyavorQ7a Oyc+DXsjYNBnciR8B6GcUxn1 UVJhaLrtCJ8bcQTyPQicBm5onX seaFlsDQ7vFCBcrubjWHUazG9i OEJlzNMzwOckPZ8tPLZvkfxf m283DgSbIKE1AENpjNGsY9QtfR 0sSmUwLMIfRAVdT1OckFTyILku V496QZiiQhZ2CHOqieDpG5Dw WZYkjXciWpA7j9G3Fv7RBI4SMD W3M2LzSrm2IXBlmErbZB7qxLOh FSbfSg2llKmwhUqfJW4vWMBr kcowFGEcxS5uIEHkyWObaLhxLG 6kSGDrezwpn916NzRmCLB6EJDd nVVzW2HseL6nPqTgGFBmMDUd Z6YxpGCzTYggI004WBbdGvJ4UV TiwfZyK0GfOMHewArzLnD0u0F7 Kw8CZGxngXO+IW81yx98E3Xq ErkdGeg8SAEqDFT3hDC1xI9eUX ZeUQdkk7X9rGC9K7QvpwWhnv6d i6evONHfQHinC87uwXTvq0S1 OUDfaEK3RHSpmElqHhSoqH79Eu c+BIFrxXscj9ZmHobuo9uob7ye iXf8TzKhQEKgxyUxsSzlJQX4 m3DfFr33B44dHUtaPXBzSVPbTR XaDNMmkKnskh7rcG7xTm8+PGNv xSY0nKI2yD3eNgRyZeS8EMey R259BjBsxIMxMrjka6gyg4omwR g6OcRqAUXathZooNjwJND8x6Wp Nl72G4PqlEbkn9RcRvb2xo26 cKXza1G0bOG9H9TrHKQzvqillN VbkNzeOV4aMGNvgmdsFUPagW4l MEKeX1a2CiDzZcG8XGqqU9Ho fyI8AMYyrAFsWAVbhSZOoN5krv vmg2qphgwfZmZbDTXjIVs0OTy5 TGAqbVouQdCmIKE4RyP3XYG3 zFTqbX4tdAfxjkyrjU7dSww+UG j4v8anbAIsWX2kqZV7HT52CJ33 xQBzz9I2aOI7G5XsOTUcuwvk dapcqTK9ZRPzIMKjjW31Ut6bhL kvDy1fJNDtNQC1ESVasFHrK7Nh gZ2rJpDdQYAxBBZbX9IseLOo TCexJ605SWgsVxZ3TROkksHoK0 HuHDYeeCuqBrT8s0U2Iv0NQT45 ML10XY69yTXix6D6pVL3E5Eo BHTvdfqojkxbkMY4XFLqRYImmM 07Bx5jyYwgMz2xUFVhEXE7AAYm bVNuI2XtbU0vCvJvGUOpJNQi X2OqlQOuDTvfM205ILytDuJ6QS VekfCkW7SwQZZgoTwxXkC9d8J8 Jl4AZv15CP80BS52bYFzx1E0 aFY4D3WeVPBrvlvoraxwyBA0TG QcYOQobQ16Jf5ffUvuKd6dSWQq PGU5RKSmlKZhH5FmzP4vMaMc ZSRhPYRjN1ErcZPdEPkpT693GK wjGhN1JIQcbfNyQ0EpIMGtlSaf MhK5y8Z3Fl1PGFmkaep2R0Vh PjwvdHI+VO23EHTsLP21iUOefL Gbp9cddOl9EeFqVSWgMJL3dDwb OYrrw7XeOTOpA72jiUOdl6P8 IGN (more content not included)... [facility] Mammo Screening 3D Bilate ral.on 09-10-2020 DC Mammo Screening 3D Bilateral. MAMMOGRAM SCREENING 3-D [...] lymph nodes are noted bilaterally. [employer] Inspector was utilized for this study. IMPRESSION: No [...] Assessment: 2-Benign finding Recommendation: Normal interval follow-up [facility] Provider Orderson 09-02-2020 Provider Orders [id number] [facility] Vital Signs Date Time Vital Sign Value Performing Clinician Facility 07-13-2024 13:55-0400 Body mass index (BMI) [Ratio] 25.4 kg/m2 Ines Visci DO Work Phone: [facility] 07-13-2024 13:55-0400 Body weight 78.02 kg Ines Visci DO Work Phone: [facility] 07-13-2024 13:55-0400 Diastolic blood pressure 64 mm[Hg] Ines Visci DO Work Phone: [facility] 07-13-2024 13:55-0400 Systolic blood pressure 118 mm[Hg] Ines Visci DO Work Phone: [facility] 05-06-2024 09:19-0500 Body mass index (BMI) [Ratio] 25.55 kg/m2 Ines Visci DO Work Phone: [facility] 05-06-2024 09:19-0500 Body weight 78.47 kg Ines Visci DO Work Phone: [facility] 05-06-2024 09:19-0500 Diastolic blood pressure 80 mm[Hg] Ines Visci DO Work Phone: [facility] 05-06-2024 09:19-0500 Systolic blood pressure 138 mm[Hg] Ines Visci DO Work Phone: [facility] 04-21-2024 14:02-0500 Body height 175.3 cm Fanny Petznick DO Work Phone: [facility] 04-21-2024 14:02-0500 Body mass index (BMI) [Ratio] 25.1 kg/m2 Fanny Petznick DO Work Phone: [facility] 04-21-2024 14:02-0500 Body temperature 97.3 [degF] Fanny Petznick DO Work Phone: [facility] 04-21-2024 14:02-0500 Body weight 77.11 kg Fanny Petznick DO Work Phone: [facility] 04-21-2024 14:02-0500 Diastolic blood pressure 78 mm[Hg] Fanny Petznick DO Work Phone: [facility] 04-21-2024 14:02-0500 Heart rate 78 /min Fanny Petznick DO Work Phone: [facility] 04-21-2024 14:02-0500 SaO2% (BldA) [Mass fraction] 99 % Fanny Petznick DO Work Phone: [facility] 04-21-2024 14:02-0500 Systolic blood pressure 128 mm[Hg] Fanny Petznick DO Work Phone: [facility] 01-14-2024 12:45-0400 Body mass index (BMI) [Ratio] 25.81 kg/m2 Ines Visci DO Work Phone: [facility] 01-14-2024 12:45-0400 Body weight 79.29 kg Ines Visci DO Work Phone: [facility] 01-14-2024 12:45-0400 Diastolic blood pressure 74 mm[Hg] Ines Visci DO Work Phone: [facility] 01-14-2024 12:45-0400 Systolic blood pressure 124 mm[Hg] Ines Visci DO Work Phone: [facility] 01-10-2024 08:55-0400 Body mass index (BMI) [Ratio] 25.78 kg/m2 Ines Visci DO Work Phone: [facility] 01-10-2024 08:55-0400 Body weight 79.2 kg Ines Visci DO Work Phone: [facility] 01-10-2024 08:55-0400 Diastolic blood pressure 86 mm[Hg] Ines Visci DO Work Phone: [facility] 01-10-2024 08:55-0400 Systolic blood pressure 132 mm[Hg] Ines Visci DO Work Phone: [facility] 12-17-2023 14:20-0400 Body height 175.3 cm Fanny Petznick DO Work Phone: [facility] 12-17-2023 14:20-0400 Body mass index (BMI) [Ratio] 26.02 kg/m2 Fanny Petznick DO Work Phone: [facility] 12-17-2023 14:20-0400 Body temperature 96.8 [degF] Fanny Petznick DO Work Phone: [facility] 12-17-2023 14:20-0400 Body weight 79.92 kg Fanny Petznick DO Work Phone: [facility] 12-17-2023 14:20-0400 Diastolic blood pressure 82 mm[Hg] Fanny Petznick DO Work Phone: [facility] 12-17-2023 14:20-0400 Systolic blood pressure 134 mm[Hg] Fanny Petznick DO Work Phone: [facility] 01-29-2023 15:12-0400 Blood Pressure Location Colby NILL [facility] [place] 01-29-2023 15:12-0400 Diastolic blood pressure 78 mm[Hg] Colby NILL [facility] [place] 01-29-2023 15:12-0400 Heart rate 72 /min Colby NILL [facility] [place] 01-29-2023 15:12-0400 Respiratory rate 16 /min Colby NILL [facility] [place] 01-29-2023 15:12-0400 Systolic blood pressure 138 mm[Hg] Colby NILL [facility] [place] 02-19-2022 08:45-0500 Diastolic blood pressure 81 mm[Hg] DO Fanny Petznick Work Phone: [facility] 02-19-2022 08:45-0500 Heart rate 77 /min DO Fanny Petznick Work Phone: [facility] 02-19-2022 08:45-0500 Respiratory rate 16 /min DO Fanny Petznick Work Phone: [facility] 02-19-2022 08:45-0500 SaO2% (BldA) [Mass fraction] 95 % DO Fanny Petznick Work Phone: [facility] 02-19-2022 08:45-0500 Systolic blood pressure 146 mm[Hg] DO Fanny Petznick Work Phone: [facility] 02-19-2022 08:11-0500 Body temperature 98.4 [degF] DO Fanny Petznick Work Phone: [facility] 02-19-2022 07:41-0500 Inhaled oxygen flow rate 8 L/min DO Fanny Petznick Work Phone: [facility] 02-19-2022 07:24-0500 Body height 175.26 cm DO Fanny Petznick Work Phone: [facility] 02-19-2022 07:24-0500 Body mass index (BMI) [Ratio] 28.6 kg/m2 DO Fanny Petznick Work Phone: [facility] 02-19-2022 07:24-0500 Body weight 87.99 kg DO Fanny Petznick Work Phone: [facility] 12-16-2021 11:50-0400 Body height 175.26 cm Mala Aguillon Other [email or web address] Other 12-16-2021 11:50-0400 Body mass index (BMI) [Ratio] 28.65 kg/m2 Mala Aguillon Other [email or web address] Other 12-16-2021 11:50-0400 Body temperature 97.6 [degF] Mala Aguillon Other [email or web address] Other 12-16-2021 11:50-0400 Body weight 88 kg Mala Aguillon Other [email or web address] Other 12-16-2021 11:50-0400 Diastolic blood pressure 79 mm[Hg] Mala Aguillon Other [email or web address] Other 12-16-2021 11:50-0400 Respiratory rate 18 /min Mala Aguillon Other [email or web address] Other 12-16-2021 11:50-0400 SaO2% (BldA) [Mass fraction] 99 % Mala Aguillon Other [email or web address] Other 12-16-2021 11:50-0400 Systolic blood pressure 145 mm[Hg] Mala Aguillon Other [employer] Other 10-19-2021 14:52-0400 Diastolic blood pressure 64 mm[Hg] DO Fanny Petznick Work Phone: [facility] 10-19-2021 14:52-0400 Heart rate 89 /min DO Fanny Petznick Work Phone: [facility] 10-19-2021 14:52-0400 Respiratory rate 18 /min DO Fanny Petznick Work Phone: [facility] 10-19-2021 14:52-0400 SaO2% (BldA) [Mass fraction] 94 % DO Fanny Petznick Work Phone: [facility] 10-19-2021 14:52-0400 Systolic blood pressure 144 mm[Hg] DO Fanny Petznick Work Phone: [facility] 10-19-2021 13:15-0400 Body temperature 98.4 [degF] DO Fanny Petznick Work Phone: [facility] 10-19-2021 12:40-0400 Inhaled oxygen flow rate 8 L/min DO Fanny Petznick Work Phone: [facility] 10-19-2021 11:15-0400 Body height 175.26 cm DO Fanny Petznick Work Phone: [facility] 10-19-2021 11:15-0400 Body mass index (BMI) [Ratio] 29.2 kg/m2 DO Fanny Petznick Work Phone: [facility] 10-19-2021 11:15-0400 Body weight 89.8 kg DO Fanny Petznick Work Phone: [facility] Encounters Encounter Date Encounter Type Care Provider Facility Start: 07-31-2024 End: 07-31-2024 Refill Fanny M Petznick DO Work Phone: [facility] FM 230 Comment on above: Hot flashes due to m enopause Start: 07-20-2024 End: 07-20-2024 Refill Fanny M Petznick DO Work Phone: [facility] 230 Comment on above: Anxiety Chronic bilateral lo w back pain without sciatica Start: 07-13-2024 End: 07-13-2024 Postop follow up visit related to original px Ines A Visci DO Work Phone: [facility] OB Comment on above: Encounter for postop erative care Start: 07-13-2024 End: 07-13-2024 ambulatory INES A VISCI Not Available Start: 06-15-2024 End: 06-15-2024 ambulatory INES A VISCI Not Available Start: 06-09-2024 End: 06-10-2024 ambulatory Ines Visci Facility:[facility] Start: 05-29-2024 End: 05-29-2024 Telephone encounter Dariusz Preciado MD Work Phone: Gastroenterology Comment on above: Outside Labs Results (chemistry) Start: 05-28-2024 End: 05-28-2024 External Result Encounter Ines A Visci DO Work Phone: [facility] External Department Unsolicited Start: 05-28-2024 End: 05-28-2024 External Result Encounter Ines Mejias DO Work Phone: [facility] External Department Unsolicited Start: 05-28-2024 End: 05-28-2024 Telephone encounter Dariusz Preciado MD Work Phone: Gastroenterology Comment on above: Results, Lab Start: 05-28-2024 End: 05-28-2024 ambulatory Fanny Prabhakar DO Work Phone: [facility] Work Phone: Start: 05-28-2024 Encounter for prepro cedural laboratory examination Ines Mejias [facility] Start: 05-28-2024 End: 05-28-2024 Patient encounter procedure Fanny Prabhakar DO Work Phone: [facility] Work Phone: Start: 05-08-2024 End: 05-08-2024 ambulatory Dariusz Preciado MD Work Phone: Gastroenterology Comment on above: Metabolic dysfunctio n-associated steatotic liver disease (MASLD) (Primary Dx); Liver disease Start: 05-08-2024 End: 05-08-2024 Telemedicine consultation with patient Dariusz Preciado MD Work Phone: Gastroenterology Start: 05-06-2024 End: 05-06-2024 Office outpatient visit 25 minutes Ines Mejias DO Work Phone: [facility] Comment on above: Cystocele with recto moy; Stress incontinence; Urethral hypermobility Start: 05-06-2024 End: 05-06-2024 ambulatory INES Duran VISCI Not Available Start: 04-24-2024 End: 04-24-2024 Telephone encounter Dariusz Preciado MD Work Phone: Gastroenterology Comment on above: Results; Received [facility] Start: 04-21-2024 End: 04-21-2024 Office outpatient visit 25 minutes Fanny Prabhakar DO Work Phone: [facility] 230 Comment on above: NAFLD (nonalcoholic fatty liver disease) (Primary Dx); Type 2 diabetes mellitus with peripheral neuropathy ([facility]/HCC); 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, with long-term current use of insulin (CMS/HCC); Anxiety; Pure hypercholesterolemia (CMS/HCC); Bladder spasms Start: 04-21-2024 End: 04-21-2024 ambulatory FANNY PRABHAKAR Not Available Start: 03-27-2024 End: 03-27-2024 Telephone encounter Fanny Prabhakar DO Work Phone: [facility] 230 Start: 01-27-2024 End: 03-09-2024 Telephone encounter Ines A Visci DO Work Phone: [facility] Start: 01-16-2024 End: 01-16-2024 ambulatory Ines Visci [facility] Work Phone: Start: 01-16-2024 End: 01-16-2024 Departed Referred DO Ines Visci Work Phone: [facility] [place] Work Phone: Start: 01-14-2024 End: 01-14-2024 Bamboo flowsheet Ines A Visci DO Work Phone: [facility] Start: 01-14-2024 End: 01-14-2024 Bamboo flowsheet Ines A Visci DO Work Phone: [facility] Start: 01-14-2024 End: 01-14-2024 Office outpatient visit 25 minutes Ines A Visci DO Work Phone: [facility] Comment on above: Cystocele with recto moy; Pessary maintenance; Stress incontinence; Vaginal discharge; Urinary urgency; Vaginal yeast infection; Vaginal atrophy Start: 01-14-2024 End: 01-14-2024 ambulatory INES A VISCI Not Available Start: 01-10-2024 End: 01-10-2024 Office outpatient visit 25 minutes Ines A Visci DO Work Phone: [facility] Comment on above: Cystocele with recto moy (Primary Dx); Urinary frequency Start: 01-10-2024 End: 01-10-2024 ambulatory INES MEJIAS Not Available Start: 12-17-2023 End: 12-17-2023 Office outpatient visit 25 minutes Fanny Prabhakar DO Work Phone: [facility] 230 Comment on above: Primary osteoarthrit is involving multiple joints (Primary Dx); Type 2 diabetes mellitus with peripheral neuropathy (CMS/HCC); NAFLD (nonalcoholic fatty liver disease); Type 2 diabetes mellitus with both eyes affected by severe nonproliferative retinopathy and macular edema, with long-term current use of insulin (CMS/HCC); Anxiety; Pure hypercholesterolemia (CMS/HCC); Rosacea Start: 12-17-2023 End: 12-17-2023 ambulatory FANNY ROMANOICK Not Available Start: 12-11-2023 End: 12-11-2023 Telephone encounter Fanny Prabhakar DO Work Phone: [facility] 230 Start: 09-20-2023 End: 09-20-2023 ambulatory FANNY PRABHAKAR Not Available Start: 09-19-2023 End: 09-19-2023 Patient encounter procedure DO Fanny Gunnznick Work Phone: [facility] Work Phone: Start: 09-19-2023 End: 09-19-2023 ambulatory DO Fanny Romanoick Work Phone: [facility] Work Phone: Start: 08-19-2023 End: 08-19-2023 ambulatory DANG PATIÑO Not Available Start: 07-25-2023 End: 07-25-2023 ambulatory FANNY ROMANOICK Not Available Start: 02-13-2023 End: 02-14-2023 ambulatory Colby SANTA Facility:[id number] Start: 01-29-2023 End: 01-30-2023 ambulatory Colby SANTA Facility:[facility] Start: 01-29-2023 End: 01-29-2023 Patient encounter procedure Colby SANTA General Surgery [facility] Start: 01-03-2023 ambulatory Colby KIET Facility:[facility] Start: 06-25-[address] FANNY PRABHAKAR Facility:[facility] Start: 06-03-2022 Encounter for genera l adult medical examination without abnormal findings DR FANNY PRABHAKAR [facility] Start: 05-30-2022 End: 05-31-[address] FANNY PRABHAKAR Facility:[facility] Start: 05-30-2022 End: 05-31-2022 Encounter for general adult medical examination without abnormal findings DR FANNY PRABHAKAR Facility:[facility] Start: 03-30-[address] FANNY PRABHAKAR Facility:[facility] Start: 02-19-2022 End: 02-19-2022 Admission to same day surgery center DO Fanny Petznick Work Phone: [facility] [place] [facility] [place] Start: 02-19-2022 End: 02-19-2022 ambulatory DO Fanny Petznick Work Phone: [facility] Work Phone: Start: 02-16-2022 End: 02-16-2022 ambulatory DO Fanny Petznick Work Phone: [facility] Work Phone: Start: 02-16-2022 End: 02-16-2022 Patient encounter procedure DO Fanny Petznick Work Phone: [facility] [facility] Start: 12-16-2021 End: 12-16-2021 ambulatory Maal Aguillon Other [email or web address] Other Start: 12-16-2021 Office outpatient ne w 20 minutes Mala Aguillon [facility] Start: 11-06-2021 End: 03-16-2022 ambulatory MR ALBANIA CALLOWAY . Facility:[facility] Start: 10-19-2021 End: 10-19-2021 Admission to same day surgery center DO Fanny Petznick Work Phone: [facility] [address] [place] Start: 10-17-2021 End: 10-17-2021 Patient encounter procedure DO Fanny Petznick Work Phone: [facility] [employer] [facility] Start: 10-10-2021 End: 10-11-[address] DOCTOR PACHECO Facility:[facility] Start: 09-12-2021 End: 09-13-[address] FANNY PRABHAKAR Facility:[facility] Procedures Date Procedure Procedure Detail Performing Clinician Start: 05-28-2024 Comprehensive metabo lic panel Ines Duran Visci DO Work Phone: Start: 05-28-2024 Hepatic function panel Ines Duran Visci DO Work Phone: Start: 05-28-2024 Complete blood count with white cell differential, automated Ines Duran Visci DO Work Phone: Start: 04-21-2024 Hemoglobin glycosyla mirta a1c Fanny Combs Petznick DO Work Phone: Start: 01-14-2024 Smr prim src wet nicole nt nfct agt Ines Duran Visci DO Work Phone: Start: 01-14-2024 Insj non-ndwellg jaimee dder catheter Ines Duran Visci DO Work Phone: Start: 01-14-2024 TRACK REPAIR SUPERVISOR 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 Ines Duran Visci DO Work Phone: Start: 12-17-2023 Hemoglobin glycosyla mirta a1c Fanny Combs Petznick DO Work Phone: Start: 10-01-2023 Mammography Fanny Pe tznick DO Work Phone: Start: 09-19-2023 Ultrasound elastogra phy of liver DO Fanny Petznick Work Phone: Start: 11-29-2022 H/O: hysterectomy History of hysterectomy Fanny Petznick DO Work Phone: Start: 02-19-2022 Reduction procedure DO Fanny Petznick Work Phone: Start: 10-19-2021 Procedure on shoulde r joint DO Fanny Petznick Work Phone: Start: 08-01-2015 Colonoscopy Fanny Pe tznick DO Work Phone: Start: 08-01-2015 Colonoscopy [facility] Colonoscopy [facility] Repair of musculoten dinous cuff of shoulder [facility] SARS Antigen (LFIA) DO Allis on Aki Work Phone: Stripping of vein [facility] Comment on above: x 2 Vaginal hysterectomy [facility] Plan of Treatment Date Care Activity Detail Author Start: 2037 RSV Vaccine (1 - 1-dose 75+ series) RSV Vaccine (1 - 1-dose 75+ series) [facility] Start: 05-28-2027 Diabetes Screening Diabetes Screening [facility] Start: 04-21-2027 Diabetes Screening Diabetes Screening [facility] Start: 11-09-2026 Urine microalbumin profile DTaP,Tdap,Td Vaccine (2 - Td or Tdap) [facility] Start: 07-31-2025 Screening for malignant neoplasm of colon [facility] Start: 01-08-2025 Glaucoma screening Diabetes: Retinopathy Screening [facility] Start: 09-30-2024 Screening for malignant neoplasm of breast Mammogram [facility] Start: 09-28-2024 End: 09-28-2024 Patient encounter procedure 09/28/2024 1:00 PM EDT Office Visit [facility] [address] [place] [id number] Fanny Prabhakar, DO [address] [place], [place] [id number] [facility] [address] Start: 09-21-2024 End: 09-21-2024 Patient encounter procedure 09/21/2024 9:30 AM EDT Office Visit [facility] [address] [place] [phone] Ines Mejias, DO [address] [place] [address] [facility] Start: 08-28-2024 End: 08-28-2024 Patient encounter procedure 08/28/2024 11:00 AM EDT Office Visit [facility] [address] [facility] [place] [address] Ines Mejias, DO [address] [place] [address] [facility] Start: 08-27-2024 End: 08-27-2024 Patient encounter procedure 08/27/2024 3:00 PM EDT Office Visit [facility] [address] [place] [id number] Dang Patiño PA [address] [place] [address] [facility] Start: 08-25-2024 End: 08-25-2024 Patient encounter procedure 08/25/2024 11:15 AM EDT Office Visit [facility] [address] [place] [phone] Fanny Prabhakar, DO [address] [place] [address] [facility] [address] Start: 08-20-2024 Urine screening for protein Diabetes: Urine Protein Screening [facility] Start: 07-20-2024 Hemoglobin A1c measurement Diabetes: Hemoglobin A1C [facility] Start: 05-28-2024 Hepatitis B core antibody measurement [facility] Start: 05-28-2024 [facility] Start: 05-08-2024 End: 05-08-2025 Basic metabolic 2000 panel - Serum or Plasma BASIC METABOLIC PANEL Lab Routine Metabolic dysfunction-associated steatotic liver disease (MASLD) Expected: 05/08/2024, Expires: 05/08/2025 [facility] Comment on above: Expected: 05/08/2024, Expires: Start: 05-08-2024 End: 05-08-2025 CBC W Auto Differential panel - Blood COMPLETE BLOOD COUNT AND DIFFERENTIAL Lab Routine Metabolic dysfunction-associated steatotic liver disease (MASLD) Expected: 05/08/2024, Expires: 05/08/2025 [facility] Comment on above: Expected: 05/08/2024, Expires: Start: 05-08-2024 End: 05-08-2025 Hepatic function 2000 panel - Serum or Plasma HEPATIC FUNCTION PNL Lab Routine Metabolic dysfunction-associated steatotic liver disease (MASLD) Expected: 05/08/2024, Expires: 05/08/2025 [facility] Comment on above: Expected: 05/08/2024, Expires: Start: 05-08-2024 End: 08-07-2024 HEPATITIS A ANTIBODY, IGG HEPATITIS A ANTIBODY, IGG Lab Routine Metabolic dysfunction-associated steatotic liver disease (MASLD) Expected: 05/08/2024, Expires: 08/07/2024 [facility] Comment on above: Expected: 05/08/2024, Expires: Start: 05-08-2024 End: 08-07-2024 Hepatitis B virus core Ab [Presence] in Serum HEPATITIS B CORE ANTIBODY TOTAL Lab Routine Metabolic dysfunction-associated steatotic liver disease (MASLD) Expected: 05/08/2024, Expires: 08/07/2024 [facility] Comment on above: Expected: 05/08/2024, Expires: Start: 05-08-2024 End: 08-07-2024 Hepatitis B virus surface Ab [Presence] in Serum HEPATITIS B SURFACE ANTIBODY Lab Routine Metabolic dysfunction-associated steatotic liver disease (MASLD) Expected: 05/08/2024, Expires: 08/07/2024 [facility] Work Phone: Comment on above: Expected: 05/08/2024, Expires: Start: 05-08-2024 End: 08-07-2024 Hepatitis B virus surface Ag [Presence] in Serum HEPATITIS B SURFACE ANTIGEN Lab Routine Metabolic dysfunction-associated steatotic liver disease (MASLD) Expected: 05/08/2024, Expires: 08/07/2024 [facility] Comment on above: Expected: 05/08/2024, Expires: Start: 05-08-2024 End: 08-07-2024 Hepatitis C virus Ab [Presence] in Serum HEPATITIS C ANTIBODY IA WITH CONFIRMATION Lab Routine Metabolic dysfunction-associated steatotic liver disease (MASLD) Expected: 05/08/2024, Expires: 08/07/2024 [facility] Comment on above: Expected: 05/08/2024, Expires: 5 Start: 05-08-2024 End: 05-08-2025 PT panel - Platelet poor plasma by Coagulation assay PROTHROMBIN TIME Lab Routine Metabolic dysfunction-associated steatotic liver disease (MASLD) Expected: 05/08/2024, Expires: 05/08/2025 [facility] Comment on above: Expected: 05/08/2024, Expires: Start: 05-06-2024 End: 05-06-2024 Patient encounter procedure 05/06/2024 9:30 AM EST Consult [facility] [address] [place] [address] Ines Mejias, DO [address] [place] [address] [facility] Start: 04-29-2024 End: 04-29-2024 ambulatory 04/29/2024 1:00 PM EST [facility] Gastroenterology [address] [address] Dariusz Preciado MD [address] [place], [place] [id number] Non alcoholic fatty liver disease NAFLD. Patient is requesting a phone call. She doesn't have a microphone on her computer. Gastroenterology Comment on above: Non alcoholic fatty liver disease NAFLD. Patient is requesting a phone call. She doesn't have a microphone on her computer. Start: 04-21-2024 End: 04-21-2024 Patient encounter procedure 04/21/2024 2:30 PM EST Office Visit [facility] FM [address] [place] [address] Fanny Prabhakar, DO [address] [place] [address] [facility] [address] Start: 03-17-2024 Hemoglobin A1c measurement Diabetes: Hemoglobin A1C [facility] Start: 02-14-2024 End: 02-14-2024 Patient encounter procedure 02/14/2024 9:45 AM EST Office Visit [facility] [address] [place] [address] Ines Mejias, DO [address] [place] [address] [facility] Start: 01-16-2024 Bacteria identified in Urine by Culture Urine Culture [facility] Start: 01-14-2024 End: 01-14-2024 Patient encounter procedure [facility] Comment on above: Cystocele with rectocele; Pessary maintenance Start: 12-17-2023 End: 12-17-2023 Patient encounter procedure 12/17/2023 2:30 PM EDT Office Visit [facility] [address] [place] [address] Fanny Prabhakar, DO [address] [place] [address] [facility] [address] Start: 12-01-2023 Covid-19 Vaccine ( season) Covid-19 Vaccine ( season) [facility] Start: 12-01-2023 Covid-19 Vaccine ( season) Covid-19 Vaccine ( season) [facility] Start: 12-01-2023 Influenza vaccination Influenza Vaccine (#1) [facility] Start: 10-24-2023 Hemoglobin A1c measurement Diabetes: Hemoglobin A1C [facility] Start: 09-19-2023 [facility] Start: 04-11-2023 Glaucoma screening Diabetes: Retinopathy Screening [facility] Start: 09-12-2022 Screening for malignant neoplasm of breast Mammogram Screening [facility] Start: 02-19-2022 End: 02-19-2022 [facility] Start: 10-19-2021 [facility] Work Phone: Start: 10-19-2021 [facility] Work Phone: Start: 07-31-2016 Screening for malignant neoplasm of colon [facility] Start: 2012 Pneumococcal Vaccine: 50+ (1 of 1 - PCV) Pneumococcal Vaccine: 50+ (1 of 1 - PCV) [facility] Start: 2012 Shingrix Vaccine (1 of 2) Shingrix Vaccine (1 of 2) [facility] Start: 2007 Lipid panel Lipid Screening [facility] Start: 2007 Screening for malignant neoplasm of colon [facility] Start: 1983 Screening for malignant neoplasm of cervix Cervical Cancer Screening [facility] Start: 1980 Anxiety Screening Anxiety Screening [facility] Start: 1980 Depression Screening Depression Screening [facility] Start: 1980 Hepatitis C screening Hepatitis C Screening [facility] Start: 1980 HIV screening HIV Screening [facility] Start: 1962 Screening for malignant neoplasm of colon [facility] Bacteria identified in Urine by Culture Urine culture Microbiology Routine Urinary urgency Ordered: 01/14/2024 [facility] Work Phone: Comment on above: Ordered: 01/14/2024 Hepatitis A virus Ab [Presence] in Serum by Immunoassay [facility] Hepatitis B virus surface Ab [Presence] in Serum [facility] Hepatitis B virus surface Ag [Presence] in Serum or Plasma by Immunoassay [facility] Hepatitis C virus Ig G Ab [Presence] in Serum or Plasma by Immunoassay [facility] End: 06-07-2025 MR Liver WO contrast MRI LIVER IRON/FAT ELAST WO IVCON Radiology Routine Liver disease 1 Occurrences starting 05/08/2024 until 06/07/2025 [facility] Comment on above: 1 Occurrences starting 05/08/2024 until 06/07/2025 End: 06-07-2025 Unlisted magnetic resonance procedure MRI ELASTOGRAPHY Radiology Routine Liver disease 1 Occurrences starting 05/08/2024 until 06/07/2025 [facility] Comment on above: 1 Occurrences starting 05/08/2024 until 06/07/2025 Urine culture [facility] Immunizations Immunization Date Immunization Notes Care Provider Caitlyn ramirez 01-14-2023 influenza, seasonal, injectable Fanny Petznick DO Work Phone: [facility] 01-14-2023 influenza virus vaccine, unspecified formulation Fanny Petznick DO Work Phone: [facility] 12-30-2022 influenza virus vaccine, unspecified formulation [facility] [place] 01-14-2022 influenza, injectabl e, quadrivalent, preservative free Fanny Petznick DO Work Phone: [facility] 01-06-2021 influenza, injectabl e, quadrivalent, preservative free Fanny Petznick DO Work Phone: [facility] 12-30-2020 influenza, injectabl e, quadrivalent, preservative free Fanny Petznick DO Work Phone: [facility] 07-15-2020 COVID-19 mRNA, Comirnaty (Pfizer) DO Fanny Petznick Work Phone: [facility] 06-24-2020 COVID-19 mRNA, Comirnaty (Pfizer) DO Fanny Petznick Work Phone: [facility] 02-03-2020 influenza, seasonal, injectable, preservative free Fanny Petznick DO Work Phone: [facility] 12-30-2018 influenza, injectabl e, madin candy canine kidney, preservative free Fanny Petznick DO Work Phone: [facility] 05-11-2017 hepatitis B vaccine, adult dosage Fanny Petznick DO Work Phone: [facility] 12-30-2016 influenza, injectabl e, quadrivalent, contains preservative Fanny Petznick DO Work Phone: [facility] 12-14-2016 hepatitis B vaccine, adult dosage Fanny Petznick DO Work Phone: [facility] 12-14-2016 varicella virus vaccine Perez son Petznick DO Work Phone: [facility] 11-30-2016 influenza, injectabl e, quadrivalent, preservative free Fannysharmin Prabhakar DO Work Phone: [facility] 11-09-2016 hepatitis B vaccine, adult dosage Fanny Pettuan DO Work Phone: [facility] 11-09-2016 measles, mumps and rubella virus vaccine Fanny Petznick DO Work Phone: [facility] 11-09-2016 tetanus toxoid, redu sherif diphtheria toxoid, and acellular pertussis vaccine, adsorbed Fanny Pettuan DO Work Phone: [facility] 11-09-2016 varicella virus vaccine Perez son Pettuan DO Work Phone: [facility] Payers Date Payer Category Payer Medicaid [id number] 2024 Medicaid [id number] 2023 Private Health Insurance [id number] 2023 Unknown [id number] 2023 Self-pay [id number] 1962 Unknown [id number] 2.16.840.1.217236.3.579.2.5 1962 Unknown [id number] .16.840.1.482663.3.579.2.5 1962 Unknown [id number] 2.16.840.1.837524.3.579.2.5 93 1962 Unknown [id number] 2.16.840.1.759891.3.579.2.5 93 1962 Unknown [id number] 2.16.840.1.811220.3.579.2.5 93 1962 Unknown [id number] 2.16.840.1.765060.3.579.2.5 93 1962 Unknown [id number] 2.16.840.1.525278.3.579.2.7 1962 Unknown [id number] 2.16.840.1.337471.3.579.2.7 1962 Unknown [id number] 2.16.840.1.877869.3.579.2.1 259 1962 Unknown [id number] 2.16.840.1.386450.3.579.2.1 1962 Unknown [id number] 2.16.840.1.008253.3.579.2.1 1962 Unknown [id number] 2.16.840.1.346857.3.579.2.1 1962 Unknown [id number] 2.16.840.1.283036.3.579.2.1 1962 Unknown [id number] 2.16.840.1.573277.3.579.2.1 1962 Unknown [id number] 2.16.840.1.935656.3.579.2.1 1962 Unknown [id number] 2.16.840.1.274187.3.579.2.1 1962 Unknown [id number] 2.16.840.1.287612.3.579.2.1 1962 Unknown [id number] 2.16.840.1.291277.3.579.2.1 1959 Unknown [id number] 1959 Unknown [id number] Unknown Regular Auto/Liability [id number] Unknown [id number] 2.16.840.1.109012.3.579.2.5 31 Unknown [id number] 2.16.840.1.157001.3.579.2.5 31 Unknown [id number] 2.16.840.1.950909.3.579.2.5 31 Unknown [id number] 2.16.840.1.729900.3.579.2.5 31 Social History Date Type Detail Facility Start: 10-19-2021 End: 11-28-2022 Tobacco smoking status NHIS Never smoked tobacco (finding) [facility] Start: 1960 Sex Assigned At Female F [facility] Start: 10-09-2022 End: 04-16-2024 Sex Assigned At [facility] Tobacco smoking status Never [facility] [place] Start: 11-28-2022 Tobacco use and exposure Smokeless tobacco non-user [facility] Start: 01-10-2024 End: 07-13-2024 Alcoholic beverage intake Ex-drinker (finding) [facility] Start: 10-09-2022 End: 04-16-2024 History of Social function [facility] Within the last year , have you been afraid of your partner or ex-partner? No [facility] Are you now , , , , never or living with a partner? Living with partner [facility] How often to you hav e a drink containing alcohol? Never [facility] Do you feel stress - tense, restless, nervous, or anxious, or unable to sleep at night because your mind is troubled all the time - these days [OSQ] Not at all [facility] (I/We) worried wheth er (my/our) food would run out before (I/we) got money to buy more. Never true [facility] Start: 10-09-2022 Gender identity Identifies as female gender (finding) [facility] Do you feel stress - tense, restless, nervous, or anxious, or unable to sleep at night because your mind is troubled all the time - these days [OSQ] Only a little [facility] consumption unknown [facility] Start: 02-28-2025 Sex Female (finding) [facility] Medical Equipment Procedure Code Equipment Code Equipment Origin al Text Equipment Identifier Dates Arthroscopy, shoulder Tendon/ligament bone anchor, bioabsorbable [id number] [facility] Start: 10-19-2021 Arthroscopy, shoulder Tendon/ligament bone anchor, bioabsorbable [id number] Start: 10-19-2021 Testing 3 times a day [id number] Sta rt: 09-20-2023 End: 04-21-2024 Checking bg leve ls 3 times a day [id number] Start: 09-27-2023 Injections once a day [id number] Sta rt: 09-20-2023 Checking bg leve ls 3 times a day [id number] Start: 09-27-2023 Goals Date Patient Goal Desired Activity /State Functional Status Date Assessment Result Facility 01-29-2023 Functional Status N/A [facility] Clinical Notes 12-16-2021 to 07-13-2024 Ines Mejias, DO - 07/13/2024 1:45 PM EDTTelephone Encounter - Jeny Heck - 05/29/2024 8:26 AM ESTTelephone Encounter - Jeny Heck - 05/29/2024 8:26 AM EST Note Date & Type Note Facility 07-13-2024 History of Presen t illness Narrative Images from the original note were not included. Subjective Isela Benedict is a 64 y.o. female Chief Complaint Patient presents with Post-op Visit Pt presents for post op visit History of Present Illness Current Outpatient Medications: Docusate Sodium (DSS) 100 MG capsule, Take 100 mg by mouth if needed, Disp: , Rfl: acetaminophen (Tylenol) 325 MG tablet, Take 650 mg by mouth Daily as needed., Disp: , Rfl: Blood Glucose Monitoring Suppl (True Metrix Meter) w/Device kit, Checking bg levels 3 times a day, Disp: 1 kit, Rfl: 0 celecoxib (CeleBREX) 200 MG capsule, TAKE 1 CAPSULE BY MOUTH DAILY WITH FOOD, Disp: 90 capsule, Rfl: 3 Cyanocobalamin (Vitamin B12) 1000 MCG tablet controlled-release, 1 (one) time each day at the same time., Disp: , Rfl: dicyclomine (Bentyl) 20 MG tablet, TAKE 1 TABLET BY MOUTH TWICE DAILY, Disp: 180 tablet, Rfl: 3 DULoxetine (Cymbalta) [address] capsule, Take 1 capsule (60 mg) by mouth Daily, Disp: 90 capsule, Rfl: 1 empagliflozin (Jardiance) 10 MG, Take 1 tablet (10 mg) by mouth Daily, Disp: 90 tablet, Rfl: 3 estradiol (Estrace) 0.1 MG/GM vaginal cream, Insert 1 g into the vagina 2 (two) times a week, Disp: 42.5 g, Rfl: 2 estradiol (Estrace) 0.5 MG tablet, Take 1 tablet (0.5 mg) by mouth Daily, Disp: 90 tablet, Rfl: 3 fluticasone (Flonase) 50 MCG/ACT nasal spray, Administer 1 spray into each nostril Daily Shake gently. Before first use, prime pump. After use, clean tip and replace cap., Disp: 48 g, Rfl: 3 gabapentin (Neurontin) 300 MG capsule, TAKE 1 CAPSULE BY MOUTH DAILY, Disp: 90 capsule, Rfl: 3 glucose blood (True Metrix Blood Glucose Test) test strip, Checking bg levels 3 times a day, Disp: 300 strip, Rfl: 3 insulin glargine (Lantus) 100 UNIT/ML pen, Inject 22 Units under the skin in the morning., Disp: 30 mL, Rfl: 1 insulin pen needle (Sure Comfort Pen Arden) 32G x 4 mm misc, Injections once a day, Disp: 100 each, Rfl: 3 Ivermectin (Soolantra) 1 % cream, 1 application 1 (one) time each day at the same time, Disp: , Rfl: Lancets 33G misc, Checking bg levels 3 times a day, Disp: 300 each, Rfl: 3 levocetirizine (Xyzal) 5 MG tablet, Take by mouth in the evening, Disp: , Rfl: LORazepam (Ativan) 0.5 MG tablet, Take 1 tablet (0.5 mg) by mouth every 6 (six) hours if needed for anxiety for up to 10 days, Disp: 30 tablet, Rfl: 0 metFORMIN (Glucophage) 1000 MG tablet, Take 1 tablet (1,000 mg) by mouth in the morning and 1 tablet (1,000 mg) in the evening. Take with meals., Disp: 180 tablet, Rfl: 3 omega-3 (fish oil) 1000 MG capsule, Take 1 capsule by mouth in the morning., Disp: , Rfl: oxybutynin XL (Ditropan-XL) 10 MG 24 hr tablet, Take 1 tablet (10 mg) by mouth Daily Do not crush, chew, or split., Disp: 30 tablet, Rfl: 11 Probiotic Product (Probiotic & Acidophilus Ex St) capsule, as directed Orally, Disp: , Rfl: Propylene Glycol 0.6 % solution, , Disp: , Rfl: semaglutide (Ozempic, 1 MG/DOSE,) 4 MG/3ML solution pen-injector, Inject 1 mg under the skin 1 (one) time per week, Disp: 9 mL, Rfl: 3 tiZANidine (Zanaflex) 4 MG tablet, TAKE 1 TABLET BY MOUTH DAILY NEEDED, Disp: 90 tablet, Rfl: 3 Past Medical History: Diagnosis Date Allergic Anxiety Arthritis Obesity 1983, 1984, 1992, 1995 Proliferative diabetic retinopathy (CMS/HCC) Visual impairment Past Surgical History: Procedure Laterality Date COLONOSCOPY 2004 COLONOSCOPY 07/2015 2 polyps COLPORRHAPHY 06/09/2024 A&P repair, TVT-O HYSTERECTOMY 10/1999 TVH REFRACTIVE SURGERY Bilateral laser sx for retinopathy both eyes ROTATOR CUFF REPAIR Left 09/2021 TUBAL LIGATION 1995 VEIN LIGATION AND STRIPPING Right leg Family History Problem Relation Name Age of Onset Hypertension Mother Beti Maria De Jesus Ruelas Dementia Mother Beti Ruelas Hypertension Father Filipe Joinerart Sr. Other (bladder cancer) Father Filipe Joinerart Sr. Skin cancer Father Filipe Joinerart Sr. Other (abdominal aortic aneurysm) Father Filipe Joinerart Sr. Alcohol abuse Father Filipe Joinerart Sr. Cancer Father Filipe Joinerart Sr. COPD Father Filipe Joinerart Sr. Diabetes Maternal Grandmother Maryanne Momin Diabetes Paternal Grandmother Maryanne A Deak Alcohol abuse Brother Rodrigo Momin Jr. Alcohol abuse Brother Elliot Merrill Diabetes Son Sahil Benedict OB History Para Term AB Living 3 2 2 0 1 2 SAB IAB Ectopic Multiple Live Births 0 0 0 0 2 # Outcome Date GA Lbr Antonio/2nd Weight Sex Type Anes PTL Lv 3 AB 2 Term 1 Term Obstetric Comments Pap 08/19/23- Neg, HPV Neg Mammogram 09/30/23- neg ([place]) Dexa 09/12/23- Normal Colonoscopy 02/13/23- repeat 5 years ([place]) TV Review of Systems All negative unless documented in treatment Objective Visit Vitals BP 118/64 Wt 172 lb LMP (LMP Unknown) BMI 25.40 kg/m OB Status Hysterectomy Smoking Status Never BSA 1.95 m Allergies Allergen Reactions Atorvastatin Other Reaction(s): gas and joint aches Cephalexin Swelling KEFLEX allergy Diphenhydramine Itching Rosuvastatin Diarrhea Statins Other Reaction(s): aches/diarrhea Physical Exam Genitourinary: Vulva, bladder and urethral meatus normal. Right Labia: tenderness. Right Labia: No rash, lesions, skin changes or Bartholin's cyst. Left Labia: No tenderness, lesions, skin changes, Bartholin's cyst or rash. Vulva exam comments: Inner thigh incisions are well healed.. Perineal sutures intact. No vaginal discharge, tenderness, granulation tissue or cuff induration. No vaginal prolapse present. No vaginal atrophy present. Vaginal exam comments: Sutures dissolving, vaginal opening tight. Right Adnexa: not tender, not full and no mass present. Left Adnexa: not tender, not full and no mass present. Cervix is absent. Uterus is absent. HENT: Head: Normocephalic and atraumatic. Neck: Thyroid: No thyroid mass. Pulmonary: Effort: Pulmonary effort is normal. Abdominal: General: There is no distension. Palpations: Abdomen is soft. There is no mass. Comments: Surgical incisions healing well, no signs of infection Musculoskeletal: Right lower leg: No edema. Left lower leg: No edema. Neurological: Mental Status: She is alert and oriented to person, place, and time. Skin: General: Skin is warm and dry. Findings: No rash. Exam conducted with a sales strategy manager present. Procedures ICD-10-CM 1. Encounter for postoperative care Z48.89 Patient here for routine postop: 06/09/24- A&P, TVT-O. Denies nausea, vomiting, fever or chills. Denies any bladder issues or bowel issues- taking stool softener as needed. Denies any abnormal vaginal discharge or foul odor. Reviewed operative report and benign pathology report. Sutures are dissolving. No signs of infection. Can increase activity as tolerated. No intercourse for 2 more weeks, advised to go slowly, use Estradiol vaginal cream and may need dilators. Continue on Oxybutynin. She will return for annual exam. Entered by Aminah Gillespie LPN acting as scribe for Dr. Ines Mejias. Signature: Aminah Gillespie LPN The documentation recorded by the scribe accurately reflects the service(s) I personally performed and the decisions I made. Signature: Ines Mejias DO Assessment & Plan documented in this encounter [facility] 05-29-2024 Telephone encounter Note [facility] Recent lab results are scanned in under external labs/chemistry Jeny Heck Latrine Cleaner ll [facility] 05-29-2024 Miscellaneous Notes [facility] Recent lab results are scanned in under external labs/chemistry Jeny Heck Latrine Cleaner ll documented in this encounter [facility] 05-28-2024 Telephone encounter Note Patient's external hematology labs received and scanned. [facility] 05-28-2024 Miscellaneous Notes Patient's external hematology labs received and scanned. 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 Fibroscan was done and reportedly had moderate fatty liver with severe fibrosis but not cirrhosis. Platelets low normal (158) No recent liver tests in system but historically have been normal With respect to her liver risk factors- Long-standing diabetes Was on ozempic, had lost 26 lbs since last September (on purpose). Now on trulicity due to insurance issues Walks every day, has been focusing on eating better. No ETOH Review of Systems: See note Past Medical History: No past medical history on file. Past Surgical History: No past surgical history on file. Family History: No family history on file. Social History: Employment status: Living situation: Tobacco: EtOH: Drugs: I have confirmed and edited as necessary, the PFSH and ROS obtained by others. Outpatient medications: No current outpatient medications on file prior to visit. No current facility-administered medications on file prior to visit. Vitals: There were no vitals taken for this visit. Physical Exam: Well appearing In NAD No jaundice Laboratory: Endoscopy: Colonoscopy 01/2024: no polyps, repeat 5-6 years (history of polyps) Imaging: RUQ US 2023 Liver is upper normal in size right lobe 15.8 cm. Increased echogenicity, coarsened echotexture, decreased acoustic penetration noted. Visualized portal vein patent, antegrade flow, normal velocity. Common bile duct 0.5 cm. Multiple echogenic foci are present near the expected location of the gallbladder. There is suggestion of wall echo pattern. Contracted gallbladder with extensive cholelithiasis favored. Localized pain, wall thickening is not seen. 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 Dariusz Preciado MD Associate Staff, Department of Gastroenterology and Hepatology [facility] [place] -- I have communicated my name and active licensure. The patient's identity and physical location were verified at the time of this visit. Either the patient or their legal loss prevention representative has been informed of the risks and benefits of -- and alternatives to -- treatment through a remote evaluation and consents to proceed with the evaluation remotely. documented in this encounter [facility] 05-08-2024 Note HNO ID: [id number] Author: DARIUSZ PRECIADO MD Service: ? 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 Fibroscan was done and reportedly had moderate fatty liver with severe fibrosis but not cirrhosis. Platelets low normal (158) No recent liver tests in system but historically have been normal With respect to her liver risk factors- Long-standing diabetes Was on ozempic, had lost 26 lbs since last September (on purpose). Now on trulicity due to insurance issues Walks every day, has been focusing on eating better. No ETOH Review of Systems: See note Past Medical History: No past medical history on file. Past Surgical History: No past surgical history on file. Family History: No family history on file. Social History: Employment status: Living situation: Tobacco: EtOH: Drugs: I have confirmed and edited as necessary, the PFSH and ROS obtained by others. Outpatient medications: No current outpatient medications on file prior to visit. No current facility-administered medications on file prior to visit. Vitals: There were no vitals taken for this visit. Physical Exam: Well appearing In NAD No jaundice Laboratory: Endoscopy: Colonoscopy 01/2024: no polyps, repeat 5-6 years (history of polyps) Imaging: RUQ US 2023 Liver is upper normal in size right lobe 15.8 cm. Increased echogenicity, coarsened echotexture, decreased acoustic penetration noted. Visualized portal vein patent, antegrade flow, normal velocity. Common bile duct 0.5 cm. Multiple echogenic foci are present near the expected location of the gallbladder. There is suggestion of wall echo pattern. Contracted gallbladder with extensive cholelithiasis favored. Localized pain, wall thickening is not seen. 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 Dariusz Preciado MD Associate Staff, Department of Gastroenterology and Hepatology [facility] [place] -- I have communicated my name and active licensure. The patient's identity and physical location were verified at the time of this visit. Either the patient or their legal loss prevention representative has been informed of the risks and benefits of -- and alternatives to -- treatment through a remote evaluation and consents to proceed with the evaluation remotely. [facility] 05-06-2024 History of Presen t illness Narrative Images from the original note were not included. Subjective Isela Benedict is a 64 y.o. female Chief Complaint Patient presents with Pre-op Visit Pt presents for surgery consult for bladder. History of Present Illness Current Outpatient Medications: acetaminophen (Tylenol) 325 MG tablet, Take 650 mg by mouth Daily as needed., Disp: , Rfl: Blood Glucose Monitoring Suppl (True Metrix Meter) w/Device kit, Checking bg levels 3 times a day, Disp: 1 kit, Rfl: 0 celecoxib (CeleBREX) 200 MG capsule, TAKE 1 CAPSULE BY MOUTH DAILY WITH FOOD, Disp: 90 capsule, Rfl: 3 Cyanocobalamin (Vitamin B12) 1000 MCG tablet controlled-release, 1 (one) time each day at the same time., Disp: , Rfl: dicyclomine (Bentyl) 20 MG tablet, TAKE 1 TABLET BY MOUTH TWICE DAILY, Disp: 180 tablet, Rfl: 3 Dulaglutide (Trulicity) 3 MG/0.5ML solution auto-injector, Inject 3 mg under the skin 1 (one) time per week, Disp: 6 mL, Rfl: 1 DULoxetine (Cymbalta) [address] capsule, Take 1 capsule (60 mg) by mouth Daily, Disp: 90 capsule, Rfl: 3 empagliflozin (Jardiance) 10 MG, Take 1 tablet (10 mg) by mouth Daily, Disp: 90 tablet, Rfl: 3 estradiol (Estrace) 0.1 MG/GM vaginal cream, Insert 1 g into the vagina 2 (two) times a week, Disp: 42.5 g, Rfl: 2 estradiol (Estrace) 0.5 MG tablet, Take 1 tablet (0.5 mg) by mouth Daily, Disp: 90 tablet, Rfl: 3 fluconazole (Diflucan) 150 MG tablet, TAKE 1 TABLET BY MOUTH DAILY, repeat in 3 (THREE) days if SYMPTOMS persist (Patient taking differently: Daily as needed), Disp: 4 tablet, Rfl: 3 fluticasone (Flonase) 50 MCG/ACT nasal spray, instill 1 (ONE) spray IN EACH NOSTRIL DAILY, Disp: 48 g, Rfl: 3 gabapentin (Neurontin) 300 MG capsule, TAKE 1 CAPSULE BY MOUTH DAILY, Disp: 90 capsule, Rfl: 3 glucose blood (True Metrix Blood Glucose Test) test strip, Checking bg levels 3 times a day, Disp: 300 strip, Rfl: 3 insulin glargine (Lantus) 100 UNIT/ML pen, Inject 22 Units under the skin in the morning., Disp: 30 mL, Rfl: 0 insulin pen needle (Sure Comfort Pen [place]) 32G x 4 mm misc, Injections once a day, Disp: 100 each, Rfl: 3 Ivermectin (Soolantra) 1 % cream, 1 application 1 (one) time each day at the same time, Disp: , Rfl: Lancets 33G misc, Checking bg levels 3 times a day, Disp: 300 each, Rfl: 3 levocetirizine (Xyzal) 5 MG tablet, Take by mouth in the evening, Disp: , Rfl: LORazepam (Ativan) 0.5 MG tablet, Take 1 tablet (0.5 mg) by mouth every 6 (six) hours if needed for anxiety for up to 10 days, Disp: 30 tablet, Rfl: 0 metFORMIN (Glucophage) 1000 MG tablet, Take 1 tablet (1,000 mg) by mouth in the morning and 1 tablet (1,000 mg) in the evening. Take with meals., Disp: 180 tablet, Rfl: 3 omega-3 (fish oil) 1000 MG capsule, Take 1 capsule by mouth in the morning., Disp: , Rfl: oxybutynin XL (Ditropan-XL) 10 MG 24 hr tablet, Take 1 tablet (10 mg) by mouth Daily Do not crush, chew, or split., Disp: 30 tablet, Rfl: 11 Probiotic Product (Probiotic & Acidophilus Ex St) capsule, as directed Orally, Disp: , Rfl: Propylene Glycol 0.6 % solution, , Disp: , Rfl: tiZANidine (Zanaflex) 4 MG tablet, TAKE 1 TABLET BY MOUTH DAILY NEEDED, Disp: 90 tablet, Rfl: 3 Past Medical History: Diagnosis Date 1983, 1984, 1992, 1995 Proliferative diabetic retinopathy (CMS/HCC) Past Surgical History: Procedure Laterality Date COLONOSCOPY 2003 COLONOSCOPY 07/2015 2 polyps HYSTERECTOMY 10/1999 TV REFRACTIVE SURGERY Bilateral laser sx for retinopathy both eyes ROTATOR CUFF REPAIR Left 09/2021 TUBAL LIGATION 1995 VEIN LIGATION AND STRIPPING Right leg Family History Problem Relation Name Age of Onset Hypertension Mother Beti Maria De Jesus Ruelas Dementia Mother Beti Maria De Jesus Ruelas Hypertension Father Filipe Momin Sr. Other (bladder cancer) Father Filipe Momin Sr. Skin cancer Father Filipe Momin Sr. Other (abdominal aortic aneurysm) Father Filipe Momin Sr. Diabetes Maternal Grandmother Nishi Alas Diabetes Paternal Grandmother Maryanne Momin OB History Para Term AB Living 3 2 2 0 1 2 SAB IAB Ectopic Multiple Live Births 0 0 0 0 2 # Outcome Date GA Lbr Antonio/2nd Weight Sex Type Anes PTL Lv 3 AB 2 Term 1 Term Obstetric Comments Pap 08/19/23- Neg, HPV Neg Mammogram 09/30/23- neg ([place]) Dexa 09/12/23- Normal Colonoscopy 02/13/23- repeat 5 years ([place]) TV Review of Systems All negative unless documented in treatment Objective Visit Vitals BP 138/80 Wt 173 lb LMP (LMP Unknown) BMI 25.55 kg/m OB Status Hysterectomy Smoking Status Never BSA 1.96 m Allergies Allergen Reactions Atorvastatin Other Reaction(s): gas and joint aches Cephalexin Swelling KEFLEX allergy Diphenhydramine Itching Rosuvastatin Diarrhea Physical Exam Constitutional: Appearance: Normal appearance. Genitourinary: Vulva, bladder, rectum and urethral meatus normal. Genitourinary Comments: Grade 4 cystocele, grade 2 rectocele Right Labia: No lesions or skin changes. Left Labia: No lesions or skin changes. No vaginal discharge. Moderate vaginal atrophy present. Right Adnexa: no mass present. Left Adnexa: no mass present. Cervix is absent. Uterus is absent. Urethral hypermobility and stress urinary incontinence with cough stress test present. HENT: Head: Normocephalic and atraumatic. Cardiovascular: Rate and Rhythm: Normal rate and regular rhythm. Heart sounds: Normal heart sounds. Pulmonary: Effort: Pulmonary effort is normal. Breath sounds: Normal breath sounds. Abdominal: General: There is no distension. Palpations: Abdomen is soft. There is no mass. Hernia: No hernia is present. Musculoskeletal: Right lower leg: No edema. Left lower leg: No edema. Neurological: Mental Status: She is alert and oriented to person, place, and time. Skin: General: Skin is warm and dry. Findings: No rash. Procedures ICD-10-CM 1. Cystocele with rectocele N81.10 N81.6 Tried pessary #5 and #4 ring but did not tolerate well. She continues with pelvic pressure She is not currently sexually active as her partner is not able to have IC anymore. She would like to proceed with surgery to repair bulging. Admits to some leaking with coughing, laughing and sneezing. She has been using Estradiol vaginal cream. Continues using Oxybutynin but she is unsure if medication is helping her symptoms. Will plan to stay on medication at least until 4wk postop then she can stop and re-evaluate her symptoms. Plan Anterior and posterior colporrhaphy with TVT-O: The procedure, alternative and risks- possible risk of damage to bowel, bladder, and ureters; bleeding and infection, dyspareunia and the possible need for vaginal dilators reviewed. In regards to the sling we talked about the possibility of urinary retention and mesh erosion. Will stay over night and go home with a catheter after surgery. No heavy lifting or straining for at least 2 weeks. No tub bathing for 4 weeks. No IC 6-8 wks. Advised even after surgery patient will always need to be aware of heavy lifting/straining d/t possible prolapse recurrence. All questions and concerns addressed, consent form signed. Entered by Aminah Gillespie LPN acting as scribe for Dr. Ines Mejias. Signature: Aminah Gillespie LPN The documentation recorded by the scribe accurately reflects the service(s) I personally performed and the decisions I made. Signature: Ines Mejias DO Assessment & Plan documented in this encounter [facility] 04-24-2024 Telephone encounter Note External fibroscan results received and scanned. [facility] 04-24-2024 Miscellaneous Notes External fibroscan results received and scanned. documented in this encounter [facility] 04-22-2024 History of Presen t illness Narrative Associated Problem(s): Anxiety Discussed options for her while being a passenger in a car. Ok to take ativan as needed for this trip but would not drive while using ativan. Associated Problem(s): NAFLD (nonalcoholic fatty liver disease) She has done a nice job with lifestyle modifications and weight loss to help with his. Has an appt with the liver specialist coming up. Associated Problem(s): Type 2 diabetes mellitus with peripheral neuropathy (CMS/HCC) During the appointment today all pertinent labs, imaging, health maintenance, and glucose readings were reviewed. Encouraged to check blood glucose throughout the day with some fasting and some PP readings. They are to bring their glucose meter/cgm in to all appointments. All of the patients questions, treatment options, and current care plan and goals were discussed. A copy of this along with pertinent instructions were given to the patient at the end of the appointment. The patient voices understanding of all of this and is to call in between appointments if they have any problems or questions. Zara Benedict is doing very well and encouraged on this. , Will stay on current medications. Images from the original note were not included. Zara Benedict is a 63 y.o. female presents with chief complaint of Diabetes HPI: Diabetes Mellitus Follow-up: Zara Benedict is here for follow-up evaluation of diabetes mellitus. The initial diagnosis of diabetes was made in 1992 Diabetes complications: retinopathy and peripheral neuropathy She has been checking her blood glucose once a day in the morning. Bg running 80-110's Last A1c: 6.2 on 12/17/2023 Last eye exam: 01/09/2024 Annual labs: 08/21/2023 Current concerns include: Finished ozempic a week ago, insurance made her switch to trulicity and she has not started it yet. Bg levels: similar to last visit. Diet: portion control, limiting carbs Drinks: water, Gatorade zero, coffee with sugar free creamer Exercise: working out 5 days a week with resistance bands, gazelle and walking the digs Hypoglycemia: none She has a lot of anxiety when she is a passenger in the car. They are planning a road trip out [place] in [place]. She is asking if there is something you can give her to calm her nerves. 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, with long-term current use of insulin (CMS/HCC) Osteoarthritis of right hip History of colonic polyps Hyperlipidemia (CMS/HCC) NAFLD (nonalcoholic fatty liver disease) Bladder spasms Social History Tobacco Use Smoking status: Never Smokeless tobacco: Never Substance Use Topics Alcohol use: Not Currently Drug use: Never Allergies Allergen Reactions Atorvastatin Other Reaction(s): gas and joint aches Cephalexin Swelling KEFLEX allergy Diphenhydramine Itching Rosuvastatin Diarrhea Synopsis [facility] 04/21/2024 14:38 04/14/2024 Antidiabetic medications Dulaglutide 3 mg Weekly SC (3 MG/0.5ML SOAJ) 3 mg Weekly SC (3 MG/0.5ML SOAJ) Empagliflozin 10 mg Daily PO 10 mg Daily PO Insulin Glargine 22 Units q AM SC 22 Units q AM SC metFORMIN HCl 1,000 mg BID with meals PO 1,000 mg BID with meals PO Semaglutide 1 mg Weekly SC -Discontinued Labs MHPT A1C 7.0 Outpatient prescription Medication marked as long-term The 10-year ASCVD risk score (Lindy SALINAS, et al., 2019) is: 8.3%* Values used to calculate the score: Age: 63 years Sex: Female Is Non- : No Diabetic: Yes Tobacco smoker: No Systolic Blood Pressure: 128 mmHg Is BP treated: No HDL Cholesterol: 46 mg/dL* Total Cholesterol: 218 mg/dL* * - Cholesterol units were assumed for this score calculation REVIEW OF SYMPTOMS: Review of Systems Constitutional: Negative for appetite change, fatigue and unexpected weight change. Eyes: Negative for visual disturbance. Respiratory: Negative for cough, shortness of breath and wheezing. Cardiovascular: Negative for chest pain, palpitations and leg swelling. Neurological: Negative for numbness. Psychiatric/Behavioral: Positive for sleep disturbance. The patient is nervous/anxious. Endocrine: Negative for polydipsia, polyphagia and polyuria. OBJECTIVE: 04/21/2024 2:02 PM 01/14/2024 12:45 PM 01/10/2024 8:55 AM Vitals BMI 25.1 kg/m2 25.81 kg/m2 25.78 kg/m2 Systolic 128 124 132 Diastolic 78 74 86 Heart Rate 78 Temp 97.3 F Height (in) 5' 9 Weight (lb) 170 174.8 174.6 Visit Report Report Report Report Physical Exam Constitutional: General: She is not in acute distress. Appearance: Normal appearance. Cardiovascular: Rate and Rhythm: Normal rate and regular rhythm. Heart sounds: No murmur heard. No friction rub. No gallop. Pulmonary: Breath sounds: Normal breath sounds. No wheezing, rhonchi or rales. Musculoskeletal: General: No swelling. Neurological: Mental Status: She is alert. ASSESSMENT AND PLAN: Problem List Items Addressed This Visit Anxiety Discussed options for her while being a passenger in a car. Ok to take ativan as needed for this trip but would not drive while using ativan. Relevant Medications LORazepam (Ativan) 0.5 MG tablet Type 2 diabetes mellitus with peripheral neuropathy (CMS/HCC) During the appointment today all pertinent labs, imaging, health maintenance, and glucose readings were reviewed. Encouraged to check blood glucose throughout the day with some fasting and some PP readings. They are to bring their glucose meter/cgm in to all appointments. All of the patients questions, treatment options, and current care plan and goals were discussed. A copy of this along with pertinent instructions were given to the patient at the end of the appointment. The patient voices understanding of all of this and is to call in between appointments if they have any problems or questions. Zara Pretty Genevievejean claude is doing very well and encouraged on this. , Will stay on current medications. 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 Has an appt with the liver specialist coming up. Bladder spasms Follow up in about 6 months (around 10/19/2024) for Recheck. Patient's Medications New Prescriptions LORAZEPAM (ATIVAN) 0.5 MG TABLET Take 1 tablet (0.5 mg) by mouth every 6 (six) hours if needed for anxiety for up to 10 days Previous Medications ACETAMINOPHEN (TYLENOL) 325 MG TABLET Take 650 mg by mouth Daily as needed. BLOOD GLUCOSE MONITORING SUPPL (TRUE METRIX METER) W/DEVICE KIT Checking bg levels 3 times a day CELECOXIB (CELEBREX) 200 MG CAPSULE TAKE 1 CAPSULE BY MOUTH DAILY WITH FOOD CYANOCOBALAMIN (VITAMIN B12) 1000 MCG TABLET CONTROLLED-RELEASE 1 (one) time each day at the same time. DICYCLOMINE (BENTYL) 20 MG TABLET TAKE 1 TABLET BY MOUTH TWICE DAILY DULAGLUTIDE (TRULICITY) 3 MG/0.5ML SOLUTION AUTO-INJECTOR Inject 3 mg under the skin 1 (one) time per week DULOXETINE (CYMBALTA) [address] CAPSULE Take 1 capsule (60 mg) by mouth Daily EMPAGLIFLOZIN (JARDIANCE) 10 MG Take 1 tablet (10 mg) by mouth Daily ESTRADIOL (ESTRACE) 0.1 MG/GM VAGINAL CREAM Insert 1 g into the vagina 2 (two) times a week ESTRADIOL (ESTRACE) 0.5 MG TABLET Take 1 tablet (0.5 mg) by mouth Daily FLUCONAZOLE (DIFLUCAN) 150 MG TABLET TAKE 1 TABLET BY MOUTH DAILY, repeat in 3 (THREE) days if SYMPTOMS persist FLUTICASONE (FLONASE) 50 MCG/ACT NASAL SPRAY instill 1 (ONE) spray IN EACH NOSTRIL DAILY GABAPENTIN (NEURONTIN) 300 MG CAPSULE TAKE 1 CAPSULE BY MOUTH DAILY GLUCOSE BLOOD (TRUE METRIX BLOOD GLUCOSE TEST) TEST STRIP Checking bg levels 3 times a day INSULIN GLARGINE (LANTUS) 100 UNIT/ML PEN Inject 22 Units under the skin in the morning. INSULIN PEN NEEDLE (SURE COMFORT PEN NEEDLES) 32G X 4 MM MISC Injections once a day IVERMECTIN (SOOLANTRA) 1 % CREAM 1 application 1 (one) time each day at the same time LANCETS 33G MISC Checking bg levels 3 times a day LEVOCETIRIZINE (XYZAL) 5 MG TABLET Take by mouth in the evening METFORMIN (GLUCOPHAGE) 1000 MG TABLET Take 1 tablet (1,000 mg) by mouth in the morning and 1 tablet (1,000 mg) in the evening. Take with meals. OMEGA-3 (FISH OIL) 1000 MG CAPSULE Take 1 capsule by mouth in the morning. OXYBUTYNIN XL (DITROPAN-XL) 10 MG 24 HR TABLET Take 1 tablet (10 mg) by mouth Daily Do not crush, chew, or split. PROBIOTIC PRODUCT (PROBIOTIC & ACIDOPHILUS EX ST) CAPSULE as directed Orally PROPYLENE GLYCOL 0.6 % SOLUTION TIZANIDINE (ZANAFLEX) 4 MG TABLET TAKE 1 TABLET BY MOUTH DAILY NEEDED Modified Medications No medications on file Discontinued Medications GLUCOSE BLOOD (ONETOUCH VERIO) TEST STRIP Testing 3 times a day I have reviewed and reconciled the history and medication list with the patient today. documented in this encounter [facility] 03-27-2024 Telephone encounter Note Pt is switching insurances and wants to make sure Dr. Escobedo will take her new insurance. [place] BC/[place] medicaid [facility] Or any other medicaid plans? I told her no to [employer]. Wasn't sure about others. [facility] 03-27-2024 Miscellaneous Notes Pt is switching insurances and wants to make sure Dr. Escobedo will take her new insurance. [place] JARRETT/JEFFRY medicaid [facility] Or any other medicaid plans? I told her no to [employer]. Wasn't sure about others. documented in this encounter [facility] 01-28-2024 Telephone encounter Note Per Aminah :the second visit we charged her for: the pessary, pessary fitting and he did a bladder catheterization. The first visit he charged for: the consult then pessary and pessary fitting. Once they leave the office with a pessary they are billed for it and it can't be returned. The second visit we didnt even charge her as an office visit just the procedure. Called patient explained what she was billed for. She was under the impression that you knew the size 5 would be to big on Saturday so she could follow up Saturday if needed she wasn't aware she would get recharged for the new pessary. She has a follow up in January she doesn't want to get another 600 bill. [facility] 01-28-2024 Miscellaneous Notes Per Aminah :the second visit we charged her for: the pessary, pessary fitting and he did a bladder catheterization. The first visit he charged for: the consult then pessary and pessary fitting. Once they leave the office with a pessary they are billed for it and it can't be returned. The second visit we didnt even charge her as an office visit just the procedure. Called patient explained what she was billed for. She was under the impression that you knew the size 5 would be to big on Saturday so she could follow up Saturday if needed she wasn't aware she would get recharged for the new pessary. She has a follow up in January she doesn't want to get another 600 bill. Are you able to talk to the patient about her charges? Or we can discuss and I can call patient back with explanation? Patient called and said she had talk to someone after hours this past Saturday and was told to call the office in regards to her balance from two apts. The patient originally seen on 01/10/24 in . She was given a pessary that said he only had one size but suggested she should try it and to come back the following week if it didn't feel correct. The patient came back on Saturday01/14/24 for a new pessary fitting. The patient stated she was charged around $500 through her insurance for the first visit and around $600 for the second. The patient is wondering why the amount is so large between the two visits. I did give the patient central vannesa number and told her if they couldn't help to give us a call back . documented in this encounter [facility] 01-27-2024 Telephone encounter Note Are you able to talk to the patient about her charges? Or we can discuss and I can call patient back with explanation? [facility] 01-27-2024 Telephone encounter Note Patient called and said she had talk to someone after hours this past Saturday and was told to call the office in regards to her balance from two apts. The patient originally seen on 01/10/24 in . She was given a pessary that said he only had one size but suggested she should try it and to come back the following week if it didn't feel correct. The patient came back on Saturday01/14/24 for a new pessary fitting. The patient stated she was charged around $500 through her insurance for the first visit and around $600 for the second. The patient is wondering why the amount is so large between the two visits. I did give the patient central vannesa number and told her if they couldn't help to give us a call back fyi. [facility] 01-14-2024 History of Presen t illness Narrative Associated Order(s): Pessary; Bladder Catheterization Post-Procedure Diagnose(s): Cystocele with rectocele; Urinary urgency Images from the original note were not included. Subjective Isela Benedict is a 63 y.o. female Chief Complaint Patient presents with Pessary Check History of Present Illness Current Outpatient Medications: acetaminophen (Tylenol) 325 MG tablet, Take 650 mg by mouth Daily as needed., Disp: , Rfl: Blood Glucose Monitoring Suppl (True Metrix Meter) w/Device kit, Checking bg levels 3 times a day, Disp: 1 kit, Rfl: 0 celecoxib (CeleBREX) 200 MG capsule, TAKE 1 CAPSULE BY MOUTH DAILY WITH FOOD, Disp: 90 capsule, Rfl: 3 Cyanocobalamin (Vitamin B12) 1000 MCG tablet controlled-release, 1 (one) time each day at the same time., Disp: , Rfl: dicyclomine (Bentyl) 20 MG tablet, TAKE 1 TABLET BY MOUTH TWICE DAILY, Disp: 180 tablet, Rfl: 3 DULoxetine (Cymbalta) [address] capsule, Take 1 capsule (60 mg) by mouth Daily, Disp: 90 capsule, Rfl: 3 empagliflozin (Jardiance) 10 MG, Take 1 tablet (10 mg) by mouth Daily, Disp: 90 tablet, Rfl: 3 [START ON 01/16/2024] estradiol (Estrace) 0.1 MG/GM vaginal cream, Insert 1 g into the vagina 2 (two) times a week, Disp: 42.5 g, Rfl: 2 estradiol (Estrace) 0.5 MG tablet, Take 1 tablet (0.5 mg) by mouth Daily, Disp: 90 tablet, Rfl: 3 fluconazole (Diflucan) 150 MG tablet, Take 1 tablet (150 mg) by mouth Daily Repeat in 3 days if symptoms persist., Disp: 4 tablet, Rfl: 3 fluticasone (Flonase) 50 MCG/ACT nasal spray, instill 1 (ONE) spray IN EACH NOSTRIL DAILY, Disp: 48 g, Rfl: 3 gabapentin (Neurontin) 300 MG capsule, TAKE 1 CAPSULE BY MOUTH DAILY, Disp: 90 capsule, Rfl: 3 glucose blood (OneTouch Verio) test strip, Testing 3 times a day, Disp: 300 each, Rfl: 3 glucose blood (True Metrix Blood Glucose Test) test strip, Checking bg levels 3 times a day, Disp: 300 strip, Rfl: 3 insulin glargine (Lantus) 100 UNIT/ML pen, Inject 22 Units under the skin in the morning., Disp: 30 mL, Rfl: 0 insulin pen needle (Sure Comfort Pen Arden) 32G x 4 mm misc, Injections once a day, Disp: 100 each, Rfl: 3 Ivermectin (Soolantra) 1 % cream, 1 application 1 (one) time each day at the same time, Disp: , Rfl: Lancets 33G misc, Checking bg levels 3 times a day, Disp: 300 each, Rfl: 3 levocetirizine (Xyzal) 5 MG tablet, Take by mouth in the evening, Disp: , Rfl: metFORMIN (Glucophage) 1000 MG tablet, Take 1 tablet (1,000 mg) by mouth in the morning and 1 tablet (1,000 mg) in the evening. Take with meals., Disp: 180 tablet, Rfl: 3 omega-3 (fish oil) 1000 MG capsule, Take 1 capsule by mouth in the morning., Disp: , Rfl: Probiotic Product (Probiotic & Acidophilus Ex St) capsule, as directed Orally, Disp: , Rfl: Propylene Glycol 0.6 % solution, , Disp: , Rfl: semaglutide (Ozempic, 1 MG/DOSE,) 4 MG/3ML solution pen-injector, Inject 1 mg under the skin 1 (one) time per week, Disp: 9 mL, Rfl: 3 terconazole (Terazol 3) 0.8 % vaginal cream, Insert 1 applicator into the vagina at bedtime for 3 days, Disp: 20 g, Rfl: 0 tiZANidine (Zanaflex) 4 MG tablet, TAKE 1 TABLET BY MOUTH DAILY NEEDED, Disp: 90 tablet, Rfl: 3 trospium (Sanctura XR) 60 MG 24 hour capsule, Take 1 capsule (60 mg) by mouth Daily, Disp: 30 capsule, Rfl: 11 Past Medical History: Diagnosis Date 1983, 1984, 1992, 1995 Proliferative diabetic retinopathy (CMS/HCC) Past Surgical History: Procedure Laterality Date COLONOSCOPY 2003 COLONOSCOPY 07/2015 2 polyps HYSTERECTOMY 10/1999 [facility] REFRACTIVE SURGERY Bilateral laser sx for retinopathy both eyes ROTATOR CUFF REPAIR Left 09/2021 TUBAL LIGATION 1995 VEIN LIGATION AND STRIPPING Right leg Family History Problem Relation Name Age of Onset Hypertension Mother Beti J Suraj Dementia Mother Beti J Suraj Hypertension Father Filipe Merrill Parham. Other (bladder cancer) Father Filipe Merrill Parham. Skin cancer Father Filipe Merrill Parham. Other (abdominal aortic aneurysm) Father Filipe Merrill Sr. Diabetes Maternal Grandmother Nishi Alas Diabetes Paternal Grandmother Maryanne Roger Momin OB History Para Term AB Living 3 2 2 0 1 2 SAB IAB Ectopic Multiple Live Births 0 0 0 0 2 # Outcome Date GA Lbr Antonio/2nd Weight Sex Type Anes PTL Lv 3 AB 2 Term 1 Term Obstetric Comments Pap 08/19/23- Neg, HPV Neg Mammogram 09/30/23- neg ([place]) Dexa 09/12/23- Normal Colonoscopy 02/13/23- repeat 5 years ([place]) x2 LVD 8#13oz. Review of Systems All negative unless documented in treatment Objective Visit Vitals BP 124/74 (BP Location: Right arm) Wt 174 lb 12.8 oz LMP (LMP Unknown) BMI 25.81 kg/m Smoking Status Never BSA 1.97 m Allergies Allergen Reactions Atorvastatin Other Reaction(s): gas and joint aches Cephalexin Swelling KEFLEX allergy Diphenhydramine Itching Oxycodone-Acetaminophen Itching Percocet Rosuvastatin Diarrhea Physical Exam Constitutional: Appearance: Normal appearance. Genitourinary: Vulva, bladder, rectum and urethral meatus normal. Right Labia: No rash, tenderness, lesions, skin changes or Bartholin's cyst. Left Labia: No tenderness, lesions, skin changes, Bartholin's cyst or rash. Vaginal granulation tissue (Slight granulation b/l vaginal fornices) present. No vaginal erythema or ulceration. Anterior and posterior vaginal prolapse present. Moderate vaginal atrophy present. Vaginal exam comments: Grade 4 cystocele, grade 2 rectocele. Right Adnexa: no mass present. Left Adnexa: no mass present. Cervix is absent. Uterus is absent. HENT: Head: Normocephalic and atraumatic. Pulmonary: Effort: Pulmonary effort is normal. Abdominal: General: There is no distension. Palpations: Abdomen is soft. There is no mass. Hernia: No hernia is present. Musculoskeletal: Right lower leg: No edema. Left lower leg: No edema. Neurological: Mental Status: She is alert and oriented to person, place, and time. Skin: General: Skin is warm and dry. Findings: No rash. Pessary Date/Time: 01/14/2024 1:09 PM Performed by: Ines Mejias DO Authorized by: Ines Mejias DO Consent: Procedural risks discussed: yes Relevant documents present and verified: yes Patient agrees, verbalizes understanding, and wants to proceed: yes Consent given by: Patient Indication: Indication for pessary: cystocele and rectocele Procedure: Pessaries tried: 5 ring with support Pessary type: Ring w/ support Pessary size: 4 Outcomes: Patient tolerance of procedure: Tolerated well, no immediate complications Bladder Catheterization Date/Time: 01/14/2024 1:16 PM Performed by: Ines Mejias DO Authorized by: Ines Mejias DO Consent: Consent obtained: Verbal Consent given by: Patient Risks, benefits, and alternatives were discussed: yes Risks discussed: Infection and pain Procedure details: Catheter insertion: Non-indwelling Catheter size: 8 Fr (mini cath) Bladder irrigation: no Number of attempts: 1 Urine characteristics: Clear Post-procedure details: Procedure completion: Tolerated well, no immediate complications ICD-10-CM 1. Cystocele with rectocele N81.10 N81.6 2. Pessary maintenance Z46.89 3. Stress incontinence N39.3 4. Vaginal discharge N89.8 POCT trichomonas manually resulted 5. Urinary urgency R39.15 Urine culture trospium (Sanctura XR) 60 MG 24 hour capsule 6. Vaginal yeast infection B37.31 terconazole (Terazol 3) 0.8 % vaginal cream 7. Vaginal atrophy N95.2 estradiol (Estrace) 0.1 MG/GM vaginal cream Here for pessary follow up, has size #5 ring. She admits to some pressure and rubbing sensation but pessary did not fall out. She has c/o stress incontinence and now feels like she always has to urinate. Symptoms started before pessary was inserted. Changed to size #4 ring and tolerated well. Small area of granulation tissue treated with silver nitrate. Urine cx obtained by mini cath. Vaginal discharge noted on exam. Wet prep- yeast and parabasal cells. She took Diflucan this weekend and has some on hand. Will rx Terazol 3 and Estradiol vaginal cream. She will plan to start Estradiol after she completes Terazol. She will return in 4 weeks for follow up and re-evaluation. Entered by Aminah Gillespie LPN acting as scribe for Dr. Ines Mejias. Signature: Aminah Gillespie LPN The documentation recorded by the scribe accurately reflects the service(s) I personally performed and the decisions I made. Signature: Ines Mejias DO Assessment & Plan documented in this encounter [facility] 01-10-2024 History of Presen t illness Narrative Images from the original note were not included. Subjective Isela Benedict is a 63 y.o. female No chief complaint on file. History of Present Illness The patient presents for evaluation of a bulge in her vagina. She first noticed the bulge a week ago, following a day of lifting heavy boxes at work. She does not engage in strenuous exercise but walks her dogs regularly. She has two children and experienced one miscarriage. Her largest baby weighed 8 pounds and 13 ounces and measured 21 inches. Both deliveries were vaginal. She underwent a hysterectomy in October 1999 due to severe bleeding. She reports no bladder issues such as leakage or difficulty urinating but notes an increase in frequency and occasional minor leakage. She feels she empties her bladder completely each time and does not frequently wake up at night to urinate. She reports no changes in bowel movements, blood in stool, or constipation. She is currently taking estradiol 0.5 mg. She is not sexually active due to her partner's health issues. She is up-to-date with her Pap smear, mammogram, and DEXA scan. Current Outpatient Medications: acetaminophen (Tylenol) 325 MG tablet, Take 650 mg by mouth Daily as needed., Disp: , Rfl: Blood Glucose Monitoring Suppl (True Metrix Meter) w/Device kit, Checking bg levels 3 times a day, Disp: 1 kit, Rfl: 0 celecoxib (CeleBREX) 200 MG capsule, TAKE 1 CAPSULE BY MOUTH DAILY WITH FOOD, Disp: 90 capsule, Rfl: 3 Cyanocobalamin (Vitamin B12) 1000 MCG tablet controlled-release, 1 (one) time each day at the same time., Disp: , Rfl: dicyclomine (Bentyl) 20 MG tablet, TAKE 1 TABLET BY MOUTH TWICE DAILY, Disp: 180 tablet, Rfl: 3 DULoxetine (Cymbalta) [address] capsule, Take 1 capsule (60 mg) by mouth Daily, Disp: 90 capsule, Rfl: 3 empagliflozin (Jardiance) 10 MG, Take 1 tablet (10 mg) by mouth Daily, Disp: 90 tablet, Rfl: 3 estradiol (Estrace) 0.5 MG tablet, Take 1 tablet (0.5 mg) by mouth Daily, Disp: 90 tablet, Rfl: 3 fluconazole (Diflucan) 150 MG tablet, Take 1 tablet (150 mg) by mouth Daily Repeat in 3 days if symptoms persist., Disp: 4 tablet, Rfl: 3 fluticasone (Flonase) 50 MCG/ACT nasal spray, instill 1 (ONE) spray IN EACH NOSTRIL DAILY, Disp: 48 g, Rfl: 3 gabapentin (Neurontin) 300 MG capsule, TAKE 1 CAPSULE BY MOUTH DAILY, Disp: 90 capsule, Rfl: 3 glucose blood (OneTouch Verio) test strip, Testing 3 times a day, Disp: 300 each, Rfl: 3 glucose blood (True Metrix Blood Glucose Test) test strip, Checking bg levels 3 times a day, Disp: 300 strip, Rfl: 3 insulin glargine (Lantus) 100 UNIT/ML pen, Inject 22 Units under the skin in the morning., Disp: 30 mL, Rfl: 0 insulin pen needle (Sure Comfort Pen Arden) 32G x 4 mm misc, Injections once a day, Disp: 100 each, Rfl: 3 Ivermectin (Soolantra) 1 % cream, 1 application 1 (one) time each day at the same time, Disp: , Rfl: Lancets 33G misc, Checking bg levels 3 times a day, Disp: 300 each, Rfl: 3 levocetirizine (Xyzal) 5 MG tablet, Take by mouth in the evening, Disp: , Rfl: metFORMIN (Glucophage) 1000 MG tablet, Take 1 tablet (1,000 mg) by mouth in the morning and 1 tablet (1,000 mg) in the evening. Take with meals., Disp: 180 tablet, Rfl: 3 omega-3 (fish oil) 1000 MG capsule, Take 1 capsule by mouth in the morning., Disp: , Rfl: Probiotic Product (Probiotic & Acidophilus Ex St) capsule, as directed Orally, Disp: , Rfl: Propylene Glycol 0.6 % solution, , Disp: , Rfl: semaglutide (Ozempic, 1 MG/DOSE,) 4 MG/3ML solution pen-injector, Inject 1 mg under the skin 1 (one) time per week, Disp: 9 mL, Rfl: 3 tiZANidine (Zanaflex) 4 MG tablet, TAKE 1 TABLET BY MOUTH DAILY NEEDED, Disp: 90 tablet, Rfl: 3 Past Medical History: Diagnosis Date History of vein stripping 2008 right leg 1983, 1984, 1992, 1995 Proliferative diabetic retinopathy (CMS/HCC) Past Surgical History: Procedure Laterality Date COLONOSCOPY 2004 COLONOSCOPY 07/2015 2 polyps HYSTERECTOMY 10/1999 TV[facility] REFRACTIVE SURGERY Bilateral laser sx for retinopathy both eyes ROTATOR CUFF REPAIR Left 09/2021 TUBAL LIGATION 1995 VEIN LIGATION AND STRIPPING Right leg Family History Problem Relation Name Age of Onset Hypertension Mother Beti Maria De Jesus Ruelas Dementia Mother Beti Ruelas Hypertension Father Filipe Momin Sr. Other (bladder cancer) Father Filipe Momin Sr. Skin cancer Father Filipe Momin Sr. Other (abdominal aortic aneurysm) Father Filipe Momin Sr. Diabetes Maternal Grandmother Nishi Alas Diabetes Paternal Grandmother Maryanne A Deak OB History Para Term AB Living 3 3 3 0 0 3 SAB IAB Ectopic Multiple Live Births 0 0 0 0 3 # Outcome Date GA Lbr Antonio/2nd Weight Sex Type Anes PTL Lv 3 Term 2 Term 1 Term Obstetric Comments Pap 08/19/23- Neg, HPV Neg Mammogram 09/30/23- neg ([place]) Dexa 09/12/23- Normal Colonoscopy 02/13/23- repeat 5 years ([place]) Review of Systems All negative unless documented in treatment Objective Visit Vitals Smoking Status Never Allergies Allergen Reactions Atorvastatin Other Reaction(s): gas and joint aches Cephalexin Swelling KEFLEX allergy Diphenhydramine Itching Oxycodone-Acetaminophen Itching Percocet Rosuvastatin Diarrhea Physical Exam Constitutional: Appearance: Normal appearance. Genitourinary: Vulva, bladder, rectum and urethral meatus normal. Right Labia: No rash, tenderness, lesions, skin changes or Bartholin's cyst. Left Labia: No tenderness, lesions, skin changes, Bartholin's cyst or rash. No vaginal discharge, erythema, ulceration or granulation tissue. Anterior and posterior vaginal prolapse present. No vaginal atrophy present. Vaginal exam comments: Grade 4 cystocele, grade 2 rectocele. Right Adnexa: no mass present. Left Adnexa: no mass present. Cervix is absent. Uterus is absent. HENT: Head: Normocephalic and atraumatic. Cardiovascular: Rate and Rhythm: Normal rate and regular rhythm. Heart sounds: Normal heart sounds. Pulmonary: Effort: Pulmonary effort is normal. Breath sounds: Normal breath sounds. Abdominal: General: There is no distension. Palpations: Abdomen is soft. There is no mass. Hernia: No hernia is present. Musculoskeletal: Right lower leg: No edema. Left lower leg: No edema. Neurological: Mental Status: She is alert and oriented to person, place, and time. Skin: General: Skin is warm and dry. Findings: No rash. Procedures No diagnosis found. Assessment & Plan 1. Bladder prolapse. The patient's symptoms and physical examination findings are consistent with bladder prolapse. Three treatment options were discussed: conservative management with avoidance of heavy lifting and straining, pessary placement, and surgical intervention. A pessary was inserted during the visit, and she was instructed on its removal and reinsertion using a water-based lubricant. She was also advised to avoid heavy lifting and straining. If the pessary causes discomfort, a smaller size will be considered. 2. Rectal prolapse. A slight rectal bulge was noted during the examination. The same treatment options as for bladder prolapse were discussed, including conservative management, pessary placement, and surgical intervention. The pessary inserted for bladder prolapse may also help support the rectal area. 3. Increased urinary frequency. The patient reports increased urinary frequency and occasional leakage. This may be related to the bladder prolapse. She was advised to monitor her symptoms and report any significant changes. 4. Hormone replacement therapy. The patient is currently using 0.5 mg estradiol. She should continue this medication as prescribed. Follow-up I would like to see her back next week to see how she is doing with the pessary. She will make an appointment in [place] so that if we need a different pessary we will have more options. If she is any difficulties or problems before she can remove it on her own or if she cannot I can see her sooner. documented in this encounter [facility] 12-17-2023 History of Presen t illness Narrative Associated Problem(s): Hyperlipidemia (CMS/HCC) Unable to tolerate statins Associated Problem(s): NAFLD (nonalcoholic fatty liver disease) She has moderate fatty liver with severe fibrosis. No signs of liver cirrhosis on the fibroscan test. Discussed continued work on weight loss which she is doing well with. Discussed options of high dose Vitamin E as well as Rezdiffra but would defer this to GI. Will put in referral to GI Associated Problem(s): Type 2 diabetes mellitus with peripheral neuropathy (CMS/HCC) During the appointment today all pertinent labs, imaging, health maintenance, and glucose readings were reviewed. Encouraged to check blood glucose throughout the day with some fasting and some PP readings. They are to bring their glucose meter/cgm in to all appointments. All of the patients questions, treatment options, and current care plan and goals were discussed. A copy of this along with pertinent instructions were given to the patient at the end of the appointment. The patient voices understanding of all of this and is to call in between appointments if they have any problems or questions. Zara Benedict is doing very well and encouraged on this. , Will stay on current medications. Images from the original note were not included. Zara Benedict is a 63 y.o. female presents with chief complaint of Diabetes HPI: Diabetes Mellitus Follow-up: Zara Benedict is here for follow-up evaluation of diabetes mellitus. The initial diagnosis of diabetes was made in 1992 Diabetes complications: retinopathy and peripheral neuropathy She has been checking her blood glucose once a day in the morning Last A1c: 6.6 (07/25/23) Last eye exam: 09/2023; retina specialist next month (At [facility]'s office) Current concerns include: States her bg levels are fine - forgot meter today Mornings: 88-120 Has been out of Ozempic x 2 weeks d/t insurance coverage. Ozempic needs PA (PA approved). Would like sample until she is able to get RX Diet: portion control Drinks: water, Gatorade zero, coffee with sugar free creamer Exercise: walking dogs daily Hypoglycemia: None -Would like handicap placard. Pt states her arthritis pain has increased, d/t being on her feet all day at work. 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 Diabetes Associated symptoms include fatigue. Pertinent negatives for diabetes include no chest pain, no polydipsia, no polyphagia and no polyuria. SUBJECTIVE: PROBLEM LIST SOCIAL ALLERGIES: Patient Active Problem List Diagnosis Anxiety Cervical radiculopathy Cystocele, unspecified History of hysterectomy Hot flashes due to menopause Internal derangement of left shoulder Irritable bowel syndrome with diarrhea Myopathy Primary osteoarthritis involving multiple joints Rosacea Type 2 diabetes mellitus with peripheral neuropathy (CMS/HCC) Type 2 diabetes mellitus with severe nonproliferative diabetic retinopathy with macular edema, bilateral (CMS/HCC) Osteoarthritis of right hip History of colonic polyps Hyperlipidemia (CMS/HCC) NAFLD (nonalcoholic fatty liver disease) Social History Tobacco Use Smoking status: Never Smokeless tobacco: Never Substance Use Topics Alcohol use: Not Currently Drug use: Never Allergies Allergen Reactions Atorvastatin Other Reaction(s): gas and joint aches Cephalexin Swelling KEFLEX allergy Diphenhydramine Itching Oxycodone-Acetaminophen Itching Percocet Rosuvastatin Diarrhea Synopsis [facility] 12/17/2023 09/20/2023 23:59 Antidiabetic medications Empagliflozin 10 mg Daily PO 10 mg Daily PO No sig Glimepiride 2 mg q AM PO (2 MG TABS) -Discontinued No sig Insulin Glargine 30 Units q AM SC-Discontinued (Dose adjustm) 30 Units q AM SC No sig Insulin Glargine 22 Units q AM SC metFORMIN HCl 1,000 mg BID with meals PO 1,000 mg BID with meals PO No sig Semaglutide 1 mg Weekly SC 1 mg Weekly SC No sig Labs MHPT A1C 6.2 Outpatient prescription Medication marked as long-term Patient-reported medication REVIEW OF SYMPTOMS: Review of Systems Constitutional: Positive for fatigue. Negative for appetite change and unexpected weight change. Eyes: Negative for visual disturbance. Respiratory: Negative for cough, shortness of breath and wheezing. Cardiovascular: Negative for chest pain, palpitations and leg swelling. Musculoskeletal: Positive for arthralgias, back pain and myalgias. Neurological: Negative for numbness. Endocrine: Negative for polydipsia, polyphagia and polyuria. OBJECTIVE: 12/17/2023 2:20 PM 09/20/2023 8:42 AM 08/19/2023 3:31 PM Vitals BMI 26.02 kg/m2 26.73 kg/m2 28.17 kg/m2 Systolic 134 122 132 Diastolic 82 64 82 Heart Rate 86 Temp 96.8 F 98 F Height (in) 5' 9 5' 9 5' 9 Weight (lb) 176.2 181 190.75 Visit Report Report Report Report Physical Exam Constitutional: General: She is not in acute distress. Appearance: Normal appearance. Cardiovascular: Rate and Rhythm: Normal rate and regular rhythm. Heart sounds: No murmur heard. No friction rub. No gallop. Pulmonary: Breath sounds: Normal breath sounds. No wheezing, rhonchi or rales. Musculoskeletal: General: No swelling. Neurological: Mental Status: She is alert. ASSESSMENT AND PLAN: Problem List Items Addressed This Visit Anxiety Primary osteoarthritis involving multiple joints - Primary Relevant Orders Handicap Aixa 1 Year Rosacea Type 2 diabetes mellitus with peripheral neuropathy (CMS/HCC) During the appointment today all pertinent labs, imaging, health maintenance, and glucose readings were reviewed. Encouraged to check blood glucose throughout the day with some fasting and some PP readings. They are to bring their glucose meter/cgm in to all appointments. All of the patients questions, treatment options, and current care plan and goals were discussed. A copy of this along with pertinent instructions were given to the patient at the end of the appointment. The patient voices understanding of all of this and is to call in between appointments if they have any problems or questions. Zara Benedict is doing very well and encouraged on this. , Will stay on current medications. Relevant Medications insulin glargine (Lantus) 100 UNIT/ML pen Other Relevant Orders POCT glycosylated hemoglobin (Hb A1C) docked device (Completed) Type 2 diabetes mellitus with severe nonproliferative diabetic retinopathy with macular edema, bilateral (CMS/HCC) Hyperlipidemia (CMS/HCC) Unable to tolerate statins NAFLD (nonalcoholic fatty liver disease) She has moderate fatty liver with severe fibrosis. No signs of liver cirrhosis on the fibroscan test. Discussed continued work on weight loss which she is doing well with. Discussed options of high dose Vitamin E as well as Rezdiffra but would defer this to GI. Will put in referral to GI Relevant Orders Ambulatory referral to Gastroenterology Follow up in about 4 months (around 04/17/2024) for Recheck. Patient's Medications New Prescriptions No medications on file Previous Medications ACETAMINOPHEN (TYLENOL) 325 MG TABLET Take 650 mg by mouth Daily as needed. BLOOD GLUCOSE MONITORING SUPPL (TRUE METRIX METER) W/DEVICE KIT Checking bg levels 3 times a day CELECOXIB (CELEBREX) 200 MG CAPSULE TAKE 1 CAPSULE BY MOUTH DAILY WITH FOOD CYANOCOBALAMIN (VITAMIN B12) 1000 MCG TABLET CONTROLLED-RELEASE 1 (one) time each day at the same time. DICYCLOMINE (BENTYL) 20 MG TABLET TAKE 1 TABLET BY MOUTH TWICE DAILY DULOXETINE (CYMBALTA) [address] CAPSULE Take 1 capsule (60 mg) by mouth Daily EMPAGLIFLOZIN (JARDIANCE) 10 MG Take 1 tablet (10 mg) by mouth Daily ESTRADIOL (ESTRACE) 0.5 MG TABLET Take 1 tablet (0.5 mg) by mouth Daily FLUCONAZOLE (DIFLUCAN) 150 MG TABLET Take 1 tablet (150 mg) by mouth Daily Repeat in 3 days if symptoms persist. FLUTICASONE (FLONASE) 50 MCG/ACT NASAL SPRAY instill 1 (ONE) spray IN EACH NOSTRIL DAILY GABAPENTIN (NEURONTIN) 300 MG CAPSULE TAKE 1 CAPSULE BY MOUTH DAILY GLUCOSE BLOOD (ONETOUCH VERIO) TEST STRIP Testing 3 times a day GLUCOSE BLOOD (TRUE METRIX BLOOD GLUCOSE TEST) TEST STRIP Checking bg levels 3 times a day INSULIN PEN NEEDLE (SURE COMFORT PEN NEEDLES) 32G X 4 MM MISC Injections once a day IVERMECTIN (SOOLANTRA) 1 % CREAM 1 application 1 (one) time each day at the same time LANCETS 33G MISC Checking bg levels 3 times a day LEVOCETIRIZINE (XYZAL) 5 MG TABLET Take by mouth in the evening METFORMIN (GLUCOPHAGE) 1000 MG TABLET Take 1 tablet (1,000 mg) by mouth in the morning and 1 tablet (1,000 mg) in the evening. Take with meals. OMEGA-3 (FISH OIL) 1000 MG CAPSULE Take 1 capsule by mouth in the morning. PROBIOTIC PRODUCT (PROBIOTIC & ACIDOPHILUS EX ST) CAPSULE as directed Orally PROPYLENE GLYCOL 0.6 % SOLUTION SEMAGLUTIDE (OZEMPIC, 1 MG/DOSE,) 4 MG/3ML SOLUTION PEN-INJECTOR Inject 1 mg under the skin 1 (one) time per week TIZANIDINE (ZANAFLEX) 4 MG TABLET TAKE 1 TABLET BY MOUTH DAILY NEEDED Modified Medications Modified Medication Previous Medication INSULIN GLARGINE (LANTUS) 100 UNIT/ML PEN insulin glargine (Lantus) 100 UNIT/ML pen Inject 22 Units under the skin in the morning. Inject 30 Units under the skin in the morning. Discontinued Medications No medications on file I have reviewed and reconciled the history and medication list with the patient today. documented in this encounter [facility] 12-11-2023 Telephone encounter Note Pt called requesting refill for her insulin be sent to [facility] in [place]. Also could you check on a PA for the ozempic, [facility] 12-11-2023 Miscellaneous Notes Pt called requesting refill for her insulin be sent to [facility] in [place]. Also could you check on a PA for the ozempic, documented in this encounter [facility] 01-29-2023 Note Chief Complaint consultation for colonoscopy [...] 1 tab(s), Oral, Daily Flonase 0.05 mg/inh [place], 1 spray(s), Nasal, BID gabapentin 300 mg [...] Father. Alcoholism: Broth (more content not included)... [facility] Comment on above: Result Comment: Elec tronically Signed By: KIET GUZMAN, Colby Kaur.marleny\Date and Time Signed: 01/29/23 15:50 EDT 12-16-2021 Evaluation note Encounter Date Diagnosis Assessment [...] understanding and is agreeable to treatment plan [email or web address] Other Evaluation + Plan note No data available for this section General Surgery [facility] Evaluation noteNo assessment information available [facility] Work Phone: Evaluation note* Diagnosis Cystocele with rectocele- Primary Urinary frequency documented in this encounter [facility]* Diagnosis Other fatigue- Primary Type 2 diabetes mellitus with peripheral neuropathy (CMS/HCC) Screening for colon cancer Special screening for malignant neoplasms, colon Essential hypertension (CMS/HCC) Unspecified essential hypertension 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, with long-term current use of insulin (CMS/HCC) Rosacea Generalized anxiety disorder (CMS/HCC) Generalized anxiety disorder Type 2 diabetes mellitus with peripheral neuropathy (CMS/HCC)- Primary Essential hypertension (CMS/HCC) Unspecified essential hypertension Type 2 diabetes mellitus with both eyes affected by severe nonproliferative retinopathy and macular edema, with long-term current use of insulin (CMS/HCC) Anxiety Anxiety state, unspecified Chronic bilateral low back pain without sciatica RUQ abdominal pain- Primary Abdominal pain, right upper quadrant Type 2 diabetes mellitus with peripheral neuropathy (CMS/HCC) Preventative health care Routine general medical examination at a health care facility Essential hypertension (CMS/HCC) Unspecified essential hypertension Type 2 diabetes mellitus with both eyes affected by severe nonproliferative retinopathy and macular edema, with long-term current use of insulin (CMS/HCC) Anxiety Anxiety state, unspecified Primary osteoarthritis involving multiple joints- Primary Type 2 diabetes mellitus with peripheral neuropathy (CMS/HCC) NAFLD (nonalcoholic fatty liver disease) Type 2 diabetes mellitus with both eyes affected by severe nonproliferative retinopathy and macular edema, with long-term current use of insulin (CMS/HCC) Anxiety Anxiety state, unspecified Pure hypercholesterolemia (CMS/HCC) Pure hypercholesterolemia Rosacea Cystocele with rectocele Pessary maintenance Fitting and adjustment of other device Stress incontinence Female stress incontinence Vaginal discharge Leukorrhea, not specified as infective Urinary urgency Urgency of urination Vaginal yeast infection Candidiasis of vulva and vagina Vaginal atrophy Postmenopausal atrophic vaginitis documented in this encounter [facility]* Diagnosis Primary osteoarthritis involving multiple joints- Primary Type 2 diabetes mellitus with peripheral neuropathy (CMS/HCC) NAFLD (nonalcoholic fatty liver disease) Type 2 diabetes mellitus with both eyes affected by severe nonproliferative retinopathy and macular edema, with long-term current use of insulin (CMS/HCC) Anxiety Anxiety state, unspecified Pure hypercholesterolemia (CMS/HCC) Pure hypercholesterolemia Rosacea documented in this encounter [facility]* Diagnosis Other fatigue- Primary Type 2 diabetes mellitus with peripheral neuropathy (CMS/HCC) Screening for colon cancer Special screening for malignant neoplasms, colon Essential hypertension (CMS/HCC) Unspecified essential hypertension 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, with long-term current use of insulin (CMS/HCC) Rosacea Generalized anxiety disorder (CMS/HCC) Generalized anxiety disorder Type 2 diabetes mellitus with peripheral neuropathy (CMS/HCC)- Primary Essential hypertension (CMS/HCC) Unspecified essential hypertension Type 2 diabetes mellitus with both eyes affected by severe nonproliferative retinopathy and macular edema, with long-term current use of insulin (CMS/HCC) Anxiety Anxiety state, unspecified Chronic bilateral low back pain without sciatica RUQ abdominal pain- Primary Abdominal pain, right upper quadrant Type 2 diabetes mellitus with peripheral neuropathy (CMS/HCC) Preventative health care Routine general medical examination at a health care facility Essential hypertension (CMS/HCC) Unspecified essential hypertension Type 2 diabetes mellitus with both eyes affected by severe nonproliferative retinopathy and macular edema, with long-term current use of insulin (CMS/HCC) Anxiety Anxiety state, unspecified Primary osteoarthritis involving multiple joints- Primary Type 2 diabetes mellitus with peripheral neuropathy (CMS/HCC) NAFLD (nonalcoholic fatty liver disease) Type 2 diabetes mellitus with both eyes affected by severe nonproliferative retinopathy and macular edema, with long-term current use of insulin (CMS/HCC) Anxiety Anxiety state, unspecified Pure hypercholesterolemia (CMS/HCC) Pure hypercholesterolemia Rosacea NAFLD (nonalcoholic fatty liver disease)- Primary Type 2 diabetes mellitus with peripheral neuropathy (CMS/HCC) 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, with long-term current use of insulin (CMS/HCC) Anxiety Anxiety state, unspecified Pure hypercholesterolemia (CMS/HCC) Pure hypercholesterolemia Bladder spasms Hypertonicity of bladder documented in this encounter [facility] Diagnosis Other fatigue- Primary Type 2 diabetes mellitus with peripheral neuropathy (CMS/HCC) Screening for colon cancer Special screening for malignant neoplasms, colon Essential hypertension (CMS/HCC) Unspecified essential hypertension 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, with long-term current use of insulin (CMS/HCC) Rosacea Generalized anxiety disorder (CMS/HCC) Generalized anxiety disorder Type 2 diabetes mellitus with peripheral neuropathy (CMS/HCC)- Primary Essential hypertension (CMS/HCC) Unspecified essential hypertension Type 2 diabetes mellitus with both eyes affected by severe nonproliferative retinopathy and macular edema, with long-term current use of insulin (CMS/HCC) Anxiety Anxiety state, unspecified Chronic bilateral low back pain without sciatica RUQ abdominal pain- Primary Abdominal pain, right upper quadrant Type 2 diabetes mellitus with peripheral neuropathy (CMS/HCC) Preventative health care Routine general medical examination at a health care facility Essential hypertension (CMS/HCC) Unspecified essential hypertension Type 2 diabetes mellitus with both eyes affected by severe nonproliferative retinopathy and macular edema, with long-term current use of insulin (CMS/HCC) Anxiety Anxiety state, unspecified Primary osteoarthritis involving multiple joints- Primary Type 2 diabetes mellitus with peripheral neuropathy (CMS/HCC) NAFLD (nonalcoholic fatty liver disease) Type 2 diabetes mellitus with both eyes affected by severe nonproliferative retinopathy and macular edema, with long-term current use of insulin (CMS/HCC) Anxiety Anxiety state, unspecified Pure hypercholesterolemia (CMS/HCC) Pure hypercholesterolemia Rosacea NAFLD (nonalcoholic fatty liver disease)- Primary Type 2 diabetes mellitus with peripheral neuropathy (CMS/HCC) 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, with long-term current use of insulin (CMS/HCC) Anxiety Anxiety state, unspecified Pure hypercholesterolemia (CMS/HCC) Pure hypercholesterolemia Bladder spasms Hypertonicity of bladder Cystocele with rectocele Stress incontinence Female stress incontinence Urethral hypermobility documented in this encounter [facility] HealthcareEvaluation note* Diagnosis Metabolic dysfunction-associated steatotic liver disease (MASLD)- Primary Liver disease Unspecified disorder of liver [facility] Other fatigue- Primary Type 2 diabetes mellitus with peripheral neuropathy (CMS/HCC) Screening for colon cancer Special screening for malignant neoplasms, colon Essential hypertension (CMS/HCC) Unspecified essential hypertension 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, with long-term current use of insulin (CMS/HCC) Rosacea Generalized anxiety disorder (CMS/HCC) Generalized anxiety disorder Type 2 diabetes mellitus with peripheral neuropathy (CMS/HCC)- Primary Essential hypertension (CMS/HCC) Unspecified essential hypertension Type 2 diabetes mellitus with both eyes affected by severe nonproliferative retinopathy and macular edema, with long-term current use of insulin (CMS/HCC) Anxiety Anxiety state, unspecified Chronic bilateral low back pain without sciatica RUQ abdominal pain- Primary Abdominal pain, right upper quadrant Type 2 diabetes mellitus with peripheral neuropathy (CMS/HCC) Preventative health care Routine general medical examination at a health care facility Essential hypertension (CMS/HCC) Unspecified essential hypertension Type 2 diabetes mellitus with both eyes affected by severe nonproliferative retinopathy and macular edema, with long-term current use of insulin (CMS/HCC) Anxiety Anxiety state, unspecified Primary osteoarthritis involving multiple joints- Primary Type 2 diabetes mellitus with peripheral neuropathy (CMS/HCC) NAFLD (nonalcoholic fatty liver disease) Type 2 diabetes mellitus with both eyes affected by severe nonproliferative retinopathy and macular edema, with long-term current use of insulin (CMS/HCC) Anxiety Anxiety state, unspecified Pure hypercholesterolemia (CMS/HCC) Pure hypercholesterolemia Rosacea NAFLD (nonalcoholic fatty liver disease)- Primary Type 2 diabetes mellitus with peripheral neuropathy (CMS/HCC) 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, with long-term current use of insulin (CMS/HCC) Anxiety Anxiety state, unspecified Pure hypercholesterolemia (CMS/HCC) Pure hypercholesterolemia Bladder spasms Hypertonicity of bladder Encounter for postoperative care documented in this encounter [facility] HealthcareEvaluation note* Diagnosis Other fatigue- Primary Type 2 diabetes mellitus with peripheral neuropathy (CMS/HCC) Screening for colon cancer Special screening for malignant neoplasms, colon Essential hypertension (CMS/HCC) Unspecified essential hypertension 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, with long-term current use of insulin (CMS/HCC) Rosacea Generalized anxiety disorder (CMS/HCC) Generalized anxiety disorder Type 2 diabetes mellitus with peripheral neuropathy (CMS/HCC)- Primary Essential hypertension (CMS/HCC) Unspecified essential hypertension Type 2 diabetes mellitus with both eyes affected by severe nonproliferative retinopathy and macular edema, with long-term current use of insulin (CMS/HCC) Anxiety Anxiety state, unspecified Chronic bilateral low back pain without sciatica RUQ abdominal pain- Primary Abdominal pain, right upper quadrant Type 2 diabetes mellitus with peripheral neuropathy (CMS/HCC) Preventative health care Routine general medical examination at a health care facility Essential hypertension (CMS/HCC) Unspecified essential hypertension Type 2 diabetes mellitus with both eyes affected by severe nonproliferative retinopathy and macular edema, with long-term current use of insulin (CMS/HCC) Anxiety Anxiety state, unspecified Primary osteoarthritis involving multiple joints- Primary Type 2 diabetes mellitus with peripheral neuropathy (CMS/HCC) NAFLD (nonalcoholic fatty liver disease) Type 2 diabetes mellitus with both eyes affected by severe nonproliferative retinopathy and macular edema, with long-term current use of insulin (CMS/HCC) Anxiety Anxiety state, unspecified Pure hypercholesterolemia (CMS/HCC) Pure hypercholesterolemia Rosacea NAFLD (nonalcoholic fatty liver disease)- Primary Type 2 diabetes mellitus with peripheral neuropathy (CMS/HCC) 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, with long-term current use of insulin (CMS/HCC) Anxiety Anxiety state, unspecified Pure hypercholesterolemia (CMS/HCC) Pure hypercholesterolemia Bladder spasms Hypertonicity of bladder Anxiety Anxiety state, unspecified documented in this encounter [facility]* Diagnosis Other fatigue- Primary Type 2 diabetes mellitus with peripheral neuropathy (CMS/HCC) Screening for colon cancer Special screening for malignant neoplasms, colon Essential hypertension (CMS/HCC) Unspecified essential hypertension 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, with long-term current use of insulin (CMS/HCC) Rosacea Generalized anxiety disorder (CMS/HCC) Generalized anxiety disorder Type 2 diabetes mellitus with peripheral neuropathy (CMS/HCC)- Primary Essential hypertension (CMS/HCC) Unspecified essential hypertension Type 2 diabetes mellitus with both eyes affected by severe nonproliferative retinopathy and macular edema, with long-term current use of insulin (CMS/HCC) Anxiety Anxiety state, unspecified Chronic bilateral low back pain without sciatica RUQ abdominal pain- Primary Abdominal pain, right upper quadrant Type 2 diabetes mellitus with peripheral neuropathy (CMS/HCC) Preventative health care Routine general medical examination at a health care facility Essential hypertension (CMS/HCC) Unspecified essential hypertension Type 2 diabetes mellitus with both eyes affected by severe nonproliferative retinopathy and macular edema, with long-term current use of insulin (CMS/HCC) Anxiety Anxiety state, unspecified Primary osteoarthritis involving multiple joints- Primary Type 2 diabetes mellitus with peripheral neuropathy (CMS/HCC) NAFLD (nonalcoholic fatty liver disease) Type 2 diabetes mellitus with both eyes affected by severe nonproliferative retinopathy and macular edema, with long-term current use of insulin (CMS/HCC) Anxiety Anxiety state, unspecified Pure hypercholesterolemia (CMS/HCC) Pure hypercholesterolemia Rosacea NAFLD (nonalcoholic fatty liver disease)- Primary Type 2 diabetes mellitus with peripheral neuropathy (CMS/HCC) 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, with long-term current use of insulin (CMS/HCC) Anxiety Anxiety state, unspecified Pure hypercholesterolemia (CMS/HCC) Pure hypercholesterolemia Bladder spasms Hypertonicity of bladder Chronic bilateral low back pain without sciatica documented in this encounter [facility]* Diagnosis Other fatigue- Primary Type 2 diabetes mellitus with peripheral neuropathy (CMS/HCC) Screening for colon cancer Special screening for malignant neoplasms, colon Essential hypertension (CMS/HCC) Unspecified essential hypertension 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, with long-term current use of insulin (CMS/HCC) Rosacea Generalized anxiety disorder (CMS/HCC) Generalized anxiety disorder Type 2 diabetes mellitus with peripheral neuropathy (CMS/HCC)- Primary Essential hypertension (CMS/HCC) Unspecified essential hypertension Type 2 diabetes mellitus with both eyes affected by severe nonproliferative retinopathy and macular edema, with long-term current use of insulin (CMS/HCC) Anxiety Anxiety state, unspecified Chronic bilateral low back pain without sciatica RUQ abdominal pain- Primary Abdominal pain, right upper quadrant Type 2 diabetes mellitus with peripheral neuropathy (CMS/HCC) Preventative health care Routine general medical examination at a health care facility Essential hypertension (CMS/HCC) Unspecified essential hypertension Type 2 diabetes mellitus with both eyes affected by severe nonproliferative retinopathy and macular edema, with long-term current use of insulin (CMS/HCC) Anxiety Anxiety state, unspecified Primary osteoarthritis involving multiple joints- Primary Type 2 diabetes mellitus with peripheral neuropathy (CMS/HCC) NAFLD (nonalcoholic fatty liver disease) Type 2 diabetes mellitus with both eyes affected by severe nonproliferative retinopathy and macular edema, with long-term current use of insulin (CMS/HCC) Anxiety Anxiety state, unspecified Pure hypercholesterolemia (CMS/HCC) Pure hypercholesterolemia Rosacea NAFLD (nonalcoholic fatty liver disease)- Primary Type 2 diabetes mellitus with peripheral neuropathy (CMS/HCC) 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 #2 start physical therapy tomorrow. #3 10 wall walks 4 times a day. #4 may use [facility] Work Phone: Hospital Discharge instructions No data available for this section General Surgery [place] Progress note No data available for this section General Surgery [place] Reason for referral (narrative)* Consultation (Routine) - Pending Review Specialty Diagnoses / Procedures Referred By Melony centeno Referred To Contact Gastroenterology Diagnoses NAFLD (nonalcoholic fatty liver disease) Procedures [place] OFFICE/OUTPATIENT [facility] 60 MINUTES Fanny Prabhakar DO [address] [place] [address] Flavia Cates MD [address] [place] [address] Referral ID Status Reason Start Date Expiration Date Visits Requested Visits Authorized [id number] Pending Review Specialty Services Required 12/17/2023 06/14/2024 1 1 [facility] Summary Purpose Family History Relationship Condition Age at Onset Recorded Date/T kacy Not Specified Alzheimer's dementia Unknown Hypertension Unknown father Malignant neoplasm of urinary bladder Unk nown Chronic obstructive pulmonary disease Unk nown brother Hypertension Unknown Relationship Condition Age at Onset Recorded Date/T kacy Not Specified Alzheimer's dementia Unknown Hypertension Unknown father Malignant neoplasm of urinary bladder Unk nown Chronic obstructive pulmonary disease Unk nown brother Hypertension Unknown father Unknown Malignant neoplasm Unknown Not Specified Family history of mental disorder Unknow n Alzheimer's dementia Unknown Relationship Condition Age at Onset Recorded Date/T kacy mother Alzheimer's dementia Unknown Hypertension Unknown father Malignant neoplasm of urinary bladder Unk nown Chronic obstructive pulmonary disease Unk nown brother Hypertension Unknown father Unknown Malignant neoplasm Unknown mother Family history of mental disorder Unknown Alzheimer's dementia Unknown Relationship Condition Age at Onset Recorded Date/T kacy mother Alzheimer's dementia Unknown Hypertension Unknown father Malignant neoplasm of urinary bladder Unk nown Chronic obstructive pulmonary disease Unk nown Unknown Alcohol abuse Unknown brother Hypertension Unknown brother Alcohol abuse Unknown Advance Directives Advance Directive Response Recorded Date/ Time Advance Directives No July 05 11:51am Advance Directive Response Recorded Date/ Time Advance Directives No July 05 10:51am Chief Complaint and Reason for Visit Chief Complaint Internal Derangement Internal Derangement Chief Complaint 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 Chief Complaint fatty liver Chief Complaint Admit Date cystocele and rectocele May 28, 025 9:46am Reason for Referral Specialty Diagnoses / Procedures Referred By Melony centeno Referred To Contact MR IMAGING Diagnoses Liver disease Procedures MRI ELASTOGRAPHY MAGNETIC RESONANCE ELASTOGRAPHY Dariusz Preciado MD [address] [place] [address] [facility] [place] [address] Referral ID Status Reason Start Date Expiration Date Visits Requested Visits Authorized [id number] New Request Auto-Generat ed Referral 05/08/2024 06/07/2025 1 1 Specialty Diagnoses / Procedures Referred By Melony centeno Referred To Contact MR IMAGING Diagnoses Liver disease Procedures MRI LIVER IRON/FAT ELAST WO IVCON MRI, ABDOMEN (MRI) MAGNETIC RESONANCE ELASTOGRAPHY Dariusz Preciado MD [address] [place] [id number] [facility] [place] [address] Referral ID Status Reason Start Date Expiration Date Visits Requested Visits Authorized [id number] New Request Auto-Generat ed Referral 05/08/2024 06/07/2025 1 1 Additional Source Comments INFORMATION SOURCE (unrecogn ized section and content) DATE CREATED AUTHOR 08/02/2021 [facility] DATE CREATED AUTHOR AUTHOR'S ORGANIZ ATION 06/27/2022 [facility] DATE CREATED AUTHOR AUTHOR'S ORGANIZ ATION [facility] DATE CREATED AUTHOR AUTHOR'S ORGANIZ ATION 05/30/2024 [facility] DATE CREATED AUTHOR AUTHOR'S ORGANIZ ATION 06/19/2024 [facility] DATE CREATED AUTHOR AUTHOR'S ORGANIZ ATION 07/14/2024 [facility] EPIC Care Teams (unrecognized sec tion and content) Team Status: Inactive Member Role Status Dates Fanny Prabhakar DO Primary Care Provider Active Bharat Zelaya Jr, DO Attending Provider Active Team Status: Active Member Role Status Dates Fanny Prabhakar DO Primary Care Provider Active Team Status: Inactive Member Role Status Dates Fanny Prabhakar DO Primary Care Provider Active Start: September 19, 2023 End: September 19, 2023 Temporary Fibroscan Attending Provider Active St art: September 19, 2023 End: September 19, 2023 [place] Former Relationship Specialty Start Date End Date Fanny Prabhakar DO [address] [place] [address] PCP - General Family Medicine 08/07/22 [employer] [place] Former Relationship Specialty Start Date End Date Fanny Prabhakar DO [address] [place] [address] PCP - General Family Medicine 08/07/22 [employer] [place] Former Relationship Specialty Start Date End Date Fanny Prabhakar DO [address] [place] [address] PCP - General Family Medicine 08/07/22 Team Status: Inactive Member Role Status Dates Ines Mejias DO Attending Provider Active Sta rt: January 16, 2024 End: January 16, 2024 [employer] [place] Former Relationship Specialty Start Date End Date Fanny Prabhakar DO [address] [place] [address] PCP - General Family Medicine 08/07/22 [employer] Former Relationship Specialty Start Date End Date Fanny Prabhakar DO [address] [place] [address] PCP - General Family Medicine 08/07/22 [employer] [place] Former Relationship Specialty Start Date End Date Fanny Prabhakar DO [address] [place] [address] PCP - General Family Medicine 08/07/22 [employer] [place] Former Relationship Specialty Start Date End Date Fanny Prabhakar DO [address] [place] [address] PCP - General Family Medicine 08/07/22 Machine [place] Former Relationship Specialty Start Date End Date Fanny Prabhakar DO [address] [place] [address] PCP - General Family Medicine 08/07/22 Machine [place] Former Relationship Specialty Start Date End Date Fanny Prabhakar [address] [place] [phone] Referring Family Medicine 12/18/23 Machine [place] Former Relationship Specialty Start Date End Date Fanny Prabhakar [address] [place] [phone] Referring Family Medicine 12/18/23 Machine [place] Former Relationship Specialty Start Date End Date Fanny Prabhakar DO [address] [place] [address] PCP - General Family Medicine 08/07/22 Machine [place] Former Relationship Specialty Start Date End Date Fanny Prabhakar DO [address] [place] [address] PCP - General Family Medicine 08/07/22 Team Status: Inactive Member Role Status Dates Ines Mejias DO Attending Provider Active Sta rt: May 28, 2024 End: May 28, 2024 Fanny Prabhakar DO Primary Care Provider Active Start: May 28, 2024 End: May 28, 2024 Dariusz Preciado MD Referring Provider Active Start: May 28, 2024 End: May 28, 2024 [employer] [place] Former Relationship Specialty Start Date End Date Fanny Prabhakar [address] [place] [address] PCP - General Family Medicine 08/07/22 REASON FOR VISIT (unrecogniz ed section and content) Reason Comments Vaginal Bulge Reason Comments Pessary Check Reason Comments Diabetes Reason Comments Diabetes Reason Comments Results Received Outside Medical Records Reason Comments Pre-op Visit Pt presents for surg sujata consult for bladder. Reason Comments Non Alcoholic Fatty Liver Disease Reason Comments Results, Lab Reason Comments Outside Labs Results chemistry Reason Comments Post-op Visit Pt presents for post op visit Reason Onset Date Comments Med Refill 07/20/2024 Reason Onset Date Comments Med Refill 07/31/2024 Goals (unrecognized section and content) Goals may be documented in a n alternate section Source Comments (unrecognize d section and content) In the event this informatio n is protected by the Federal Confidentiality of Alcohol and Drug Abuse Patient Records regulations: The Federal rules restrict any use of the information to criminally investigate or prosecute any alcohol or drug abuse patient.[facility] the event this information is protected by the Federal Confidentiality of Alcohol and Drug Abuse Patient Records regulations: The Federal rules restrict any use of the information to criminally investigate or prosecute any alcohol or drug abuse patient.[facility] the event this information is protected by the Federal Confidentiality of Alcohol and Drug Abuse Patient Records regulations: The Federal rules restrict any use of the information to criminally investigate or prosecute any alcohol or drug abuse patient.[facility] the event this information is protected by the Federal Confidentiality of Alcohol and Drug Abuse Patient Records regulations: The Federal rules restrict any use of the information to criminally investigate or prosecute any alcohol or drug abuse patient.[facility] FOR RECORDS PERTAINING TO PATIENTS WHO ARE [...] BE BASED ON THE PRIMARY CLINICAL RECORDS. [facility]. provides no warranty or guarantee of the accuracy or completeness of information in this document.
== END 2024-08-10 11:23 | disposition home or self-care (01) ==
LOC: LAB 11:22
PROVIDERS: PCP Family Medicine; Visit Provider Obstetrics & Gynecology
DX: R10.2 Pelvic and perineal pain (principal); R30.0 Dysuria
CPT/HCPCS: 87086

== ENCOUNTER 2024-10-13 09:50 | Outpatient (OUT) | payer MEDICAID, SELFPAY ==
--- OUTSIDE RECORDS SUMMARY | 2024-07-06 09:10 | XMS_ITS | Continuity of Care Document ---
Author Organization [facility] Address [address] [place] [phone] Phone Care Team Providers Care Pollution Control Chemist Name Role Phone Rileylaura OMAR Delmi Unavailable Unavailable Allergies, Adverse Reactions, Alerts Substance Reaction Status Criticality CEPHALEXIN MONOHYDRATE Swelling around eyes Active No Information Medications Medication Instructions Dosage Effective Dates (start - stop) Status Comments gabapentin 300 mg capsule - Active celecoxib 200 mg capsule - A ctive dicyclomine 20 mg tablet - A ctive Jardiance 10 mg tablet - Act damon tizanidine 4 mg tablet - Act damon estradiol 0.01% (0.1 mg/gram) vaginal cream - Active Lantus Solostar U-100 Insulin 100 unit/mL (3 mL) subcutaneous pen - Active oxybutynin chloride ER 10 mg tablet,extended release 24 hr - Active metformin 1,000 mg tablet - Active docusate sodium 100 mg capsule - Active ibuprofen 600 mg tablet - Ac tive ondansetron HCl 4 mg tablet - Active sulfamethoxazole 800 mg-trimethoprim 160 mg tablet - Active duloxetine 60 mg capsule,delayed release - Active fluticasone propionate 50 mcg/actuation nasal spray,suspension - Active Trulicity 3 mg/0.5 mL subcutaneous pen injector - Active fluconazole 150 mg tablet - Active lorazepam 0.5 mg tablet - Ac tive estradiol 0.5 mg tablet - Ac tive Procedures Procedure Date Intraoral-periapical 1st Film Bitewig-single Film Limited Oral Eval Extract; Erupted Th/exposted Rt 025 Oral Hygiene Instruction Advance Directives Directive Yes / No Effective Date File Name No Information Encounters Encounter Description Practice Location Reason(s) For Visit Diagnoses Date Provider Providers Copied on Encounter [facility], [address] [place] [address], [place], [place], [id number], tel:[phone] [facility] (chief complaint) Body mass index [BMI] 25.0-25.9, adultEncounter for screening for dental disorders Rileylaura MARTINEZNora Delmi. . tel:[phone] Family History Family Member Type Diagnosis Age At Onset No Information Payers Payer name Insurance type Covered democrat ID Authoriza jeffery(s) D [employer] Medicaid [employer] [facility] [id number] D Medicaid Wrap - [facility] [id number] Social History Type Description Quantity Date Captured Comments Alcohol Use Details Unknown Caffeine Use Details Unknown Tobacco Use Status Current non-smoker Smoking Status Never smoker Non-Smoking Tobacco Use Details : No Details Available : No Details Available Sex Female Vital Signs Date / Time: Height Weight BMI Pulse Rate Blood Pressure Temperature Respiratory Rate Body Surface Area Head Circumference Head Circ. Percentile Wt./Antonio. Percentile BMI percentile Pulse Ox Inhaled Ox 1:36 PM 69.00 in 79.379 kg (175.00 lbs) 25.8 4 kg/m eter (2) 75 /min 158/89 mm[Hg] 98.90 F 1.97 meter(2) Chief Complaint And Reason For Visit From encounter dated '07/06/2024 13:10'. DN (chief complaint). Description: Dental new Reason For Referral Reason For Referral No Information Plan Of Treatment Date Type Action Status Goal Mammogram. Due on due Goal Hep A. Due on du e Goal PRAPARE ASSESSMENT. Due on A due Goal Zoster vaccine (). Due on due Goal HPV. Due on due Goal Colonoscopy. Due on due Goal Tdap. Due on due Goal Unhealthy drug use screening . Due on due Goal Lipid panel. Due on due Goal FIT-DNA. Due on due Goal FOBT. Due on due Goal Depression screening. Due on due Goal Tdap Vaccine. Due on 2024 due Goal FIT. Due on due Goal Hepatitis C screening. Due o n due Goal CT-Colonography. Due on due Goal Influenza vaccine. Due on Ap due Goal Dietary management education , guidance, and counseling completed History Of Present Illness Encounter Date Complaint History Of Prese nt Illness DN Dental new Functional Status Date Functional Assessmen t No Information Instructions Date Instruction Additional Infor mation Dietary management e ducation, guidance, and counseling Related to Body mass index [BMI] 25.0-25.9, adult Assessments Type Assessment Date assessment Body mass index [BMI] 25.0-25.9, adult Patient Care Teams Name Effective Dates (start - stop) Status Members No Information
--- OUTSIDE RECORDS SUMMARY | 2024-10-13 09:54 | XMS_ITS | Encounter Summary ---
Author Organization [facility] Address [address] [place] [address] Care Team Providers Care Pot Fluxer Name Role Phone Fanny Tejada DO Primary Care Provider +1- [phone] Encounter Details Date Type Department Care Team (Late st Contact Info) Description 05/28/2024 External Result Encounter [facility] External Department Unsolicited Kyaw Chance DO [address] [place] [address] Social History Tobacco Use Types Packs/Day Years Used Date Smoking Tobacco: Never Smokeless Tobacco: Never Alcohol Use Standard Drinks/Week Comments Not Currently 0 (1 standard drink = 0.6 oz pur e alcohol) B1300 Health Literacy Answer Date Recor ded How often do you need to hav e someone help you when you read instructions, pamphlets, or other written material from your doctor or pharmacy? Never 04/16/2024 Humiliation, Afraid, Rape, and Kick questionnair e Answer Date Recorded Within the last year, have y ou been afraid of your partner or ex-partner? No 10/09/2022 Within the last year, have y ou been humiliated or emotionally abused in other ways by your partner or ex-partner? No Within the last year, have y ou been kicked, hit, slapped, or otherwise physically hurt by your partner or ex-partner? No 10/09/2022 Within the last year, have y ou been raped or forced to have any kind of sexual activity by your partner or ex-partner? No 10/09/2022 Social Connection and Isolat ion Panel [NHANES] Answer Date Recorded In a typical week, how many times do you talk on the phone with family, friends, or neighbors? More than three times a week 04/16/2024 How often do you get togethe r with friends or relatives? Once a week 04/16/2024 How often do you attend chur ch or episcopal services? Patient declined 04/16/2024 Do you belong to any clubs o r organizations such as orthodoxy groups, unions, fraternal or athletic groups, or school groups? No 04/16/2024 How often do you attend meet ings of the clubs or organizations you belong to? Never 04/16/2024 Are you , , di vorced, , never , or living with a partner? Living with partner 04/16/2024 AUDIT-C Answer Date Recorded Q1: How often do you have a drink containing alcohol? Never 04/16/2024 Q2: How many drinks containi ng alcohol do you have on a typical day when you are drinking? Patient does not drink Q3: How often do you have si x or more drinks on one occasion? Never 04/16/2024 Overall Financial Resource Strain (CARDIA) Answe r Date Recorded How hard is it for you to pa y for the very basics like food, housing, medical care, and heating? Patient declined 04/16/2024 PHQ-2 Answer Date Recorded Patient Health Questionnaire-2 Score 0 04/21/2024 [facility] Questionnaire Answer Date Recorded Do you feel stress - tense, restless, nervous, or anxious, or unable to sleep at night because your mind is troubled all the time - these days? Only a little 04/16/2024 Exercise Vital Sign Answer Date Recorde d On average, how many days pe r week do you engage in moderate to strenuous exercise (like a brisk walk)? 5 days 04/16/2024 On average, how many minutes do you engage in exercise at this level? 30 min 04/16/2024 Hunger Vital Sign Answer Date Recorded Within the past 12 months, y ou worried that your food would run out before you got the money to buy more. Never true 04/16/19 25 Within the past 12 months, t he food you bought just didn't last and you didn't have money to get more. Never true 04/16/2024 PRAPARE - Transportation Answer Date Re corded In the past 12 months, has l ack of transportation kept you from medical appointments or from getting medications? No 04/01 In the past 12 months, has l ack of transportation kept you from meetings, work, or from getting things needed for daily living? No 04/16/2024 Housing Stability Vital Sign Answer Edwin e Recorded In the last 12 months, was t here a time when you were not able to pay the mortgage or rent on time? No 10/09/2022 In the last 12 months, how many places have you lived? 1 10/09/2022 In the last 12 months, was t here a time when you did not have a steady place to sleep or slept in a custodial (including now)? No 10/09/2022 Housing Stability Vital Sign Answer Edwin e Recorded In the last 12 months, was t here a time when you were not able to pay the mortgage or rent on time? No 04/16/2024 Number of Times Moved in the Last Year Not on fi le 04/16/2024 At any time in the past [address] [facility], were you homeless or living in a custodial (including now)? No 04/16/2024 Comments No Sex and Gender Information Value Date Recorded Sex Assigned at Female 10/09/2022 4:47 PM EDT Legal Sex Female 7:20 PM EDT Gender Identity Female 10/09/2022 4:47 PM EDT Sexual Orientation Not on file documented as of this encounter Plan of Treatment Upcoming Encounters Date Type Department Care Team (Late st Contact Info) Description 01/28/2025 1:15 PM EDT Office Visit [facility] [address] [place] [address] Fanny Tejada DO [address] [place] [address] 09/06/2025 11:30 AM EDT Office Visit [facility] [address] [place] [address] Kyaw Chance DO [address] [place] [id number] documented as of this encounter Procedures Procedure Name Priority Date/Time Associated Diagnosis Comments ECG 12-LEAD 05/28/2024 10:23 AM EST documented in this encounter Results * ECG 12 lead (05/28/2024 10:23 AM EST) 05/28/2024 10:2 3 AM EST Narrative [facility] - 05/29/2024 9:00 AM EST [facility] Main [place] [id number] Electrocardiograph Report Signed Patient: Rosangela Parekh MR#: [id number] : 1960 Acct:[id number] Age/Sex: 64 / F ADM Date: 05/28/24 Loc: Room: Type: [facility] Attending Dr: Kyaw Chance DO Ordering Provider: Kyaw Chance DO Date of Service: 05/28/24 ECG/ECG 12 [...] change was found Confirmed by Bharat Youssef ([id number]) on 05/29/2024 9:00:16 AM Referred By: Joanna London Electronically Signed By: Bharat Youssef Transcribed By: MUS Signed By Bharat Youssef MD 05/29/24 0900 Procedure Note Marianne Youssef MD - 05/29/2024 [facility] Main [address] [address] Electrocardiograph Report Signed Patient: Rosangela Parekh JMR#: [id number] : 1960Acct:[id number] Age/Sex: 64 / FADM Date: 05/28/24 Loc: PS Room:Type: [facility] Attending Dr: Kyaw Chance DO Ordering Provider: Kyaw Chance DO Date of Service: 05/28/24 ECG/ECG 12 [...] significant change was found Confirmed by Bharat oYussef ([id number]) on 05/29/2024 9:00:16 AM Referred By: Joanna London Electronically Signed By: Maude Transcribed By: MUS Signed By Bharat Youssef MD 05/29/24 0900 us Kyaw Chance DO ECG ORDERABLES Final Result Performing Organization Address City/State/[facility] Co de Phone Number [facility] [address] [facility], [place] [address], documented in this encounter Visit Diagnoses Not on filedocumented in this encounter Care Teams Pot Fluxer Relationship Specialty Start Date End Date Fanny Tejada DO [address] [place] [address] PCP - General Family Medicine 08/07/22 documented as of this encounter
--- OUTSIDE RECORDS SUMMARY | 2024-10-13 09:54 | XMS_ITS | Encounter Summary ---
Author Organization [facility] Address [address] [place] [address] Care Team Providers Care Orthopaedic General Name Role Phone Fanny Tejada DO Unavailable [phone] Fanny Tejada DO Primary Care Provider [phone] Encounter Details Date Type Department Care Team (Late st Contact Info) Description 12/04/2022 Orders Only [facility] [address] [place] [address] A, Unknown Practice [address] [id number] Social History Tobacco Use Types Packs/Day Years Used Date Smoking Tobacco: Never Smokeless Tobacco: Never Alcohol Use Standard Drinks/Week Comments Yes 0 (1 standard drink = 0.6 oz pur e alcohol) monthly or less Humiliation, Afraid, Rape, and Kick questionnair e [...] or ex-partner? No 10/09/2022 Social Connection and Isolation Panel [NHANES] A nswer Date Recorded In a typical week, how many times do you talk on the phone with family, friends, or neighbors? Once a week 10/10/19 How often do you get togethe r with friends or relatives? Twice a week 10/09/2022 How often do you attend chur or islam services? Patient declined 10/09/2022 Do you belong to any clubs o r organizations such as presybeterian groups, unions, fraternal or athletic groups, or school groups? No 10/09/2022 How often do you attend meet ings of the clubs or organizations you belong to? Never 10/09/2022 Are you , , di vorced, , never , or living with a partner? Living with partner 10/09/2022 AUDIT-C Answer Date Recorded Q1: How often do you have a drink containing alcohol? Never 10/09/2022 Q2: How many drinks containi ng alcohol do you have on a typical day when you are drinking? Patient does not drink Q3: How often do you have si x or more drinks on one occasion? Never 10/09/2022 Overall Financial Resource Strain (CARDIA) Answe r Date Recorded How hard is it for you to pa y for the very basics like food, housing, medical care, and heating? Not hard at all 10/09/2022 PHQ-2 Answer Date Recorded Patient Health Questionnaire-2 Score 0 11/29/2022 [facility] - Occupational Stress Questionnaire Answer Date Recorded Do you feel stress - tense, restless, nervous, or anxious, or unable to sleep at night because your mind is troubled all the time - these days? Not at all 10/09/2022 Exercise Vital Sign Answer Date Recorde d On average, how many days pe r week do you engage in moderate to strenuous exercise (like a brisk walk)? 4 days 10/09/2022 On average, how many minutes do you engage in exercise at this level? 30 min 10/09/2022 Hunger Vital Sign Answer Date Recorded Within the past 12 months, y ou worried that your food would run out before you got the money to buy more. Never true 10/10/19 23 Within the past 12 months, t he food you bought just didn't last and you didn't have money to get more. Never true 10/09/2022 PRAPARE - Transportation Answer Date Re corded In the past 12 months, has l ack of transportation kept you from medical appointments or from getting medications? No 09/29 In the past 12 months, has l ack of transportation kept you from meetings, work, or from getting things needed for daily living? No 10/09/2022 Housing Stability Vital Sign Answer [...] place to sleep or slept in a fci (including now)? No 10/09/2022 Comments Unknown Sex and Gender Information Value Date Recorded Sex Assigned at Female 10/09/2022 4:47 PM EDT Legal Sex Female 7:20 PM EDT Gender Identity Female 10/09/2022 4:47 PM EDT Sexual Orientation Not on file COVID-19 Exposure Response Date Recorded In the last 10 days, have yo u been in contact with someone who was confirmed or suspected to have Coronavirus/COVID-19? No / Unsure 11/28/2022 3:27 PM EDT documented as of this encounter Plan of Treatment Upcoming Encounters Date Type Department Care Team (Late st Contact Info) Description 01/28/2025 1:15 PM EDT Office Visit [facility] [address] [place] [address] Fanny Tejada, DO [address] [place], [place] [phone] 09/06/2025 11:30 AM EDT Office Visit [facility] OB [address] [place] [address] Kyaw Chance, DO [address] [place], [place] [id number] documented as of this encounter Procedures Procedure Name Priority Date/Time Associated Diagnosis Comments SCANNED LABS Routine 11/30/2022 3:03 PM EDT documented in this encounter Results * SCANNED LABS (11/30/2022 3:03 PM EDT) us Unknown Practice A LAB CHG PERFORMABLES Final Re sult documented in this encounter Visit Diagnoses Not on filedocumented in this encounter Care Teams Orthopaedic General Relationship Specialty Start Date End Date Fanny Tejada DO [address] [place] [address] PCP - [employer] 07/30/22 Fanny Tejada DO [address] [place] [address] PCP - General Family Medicine 08/07/22 documented as of this encounter
--- OUTSIDE RECORDS SUMMARY | 2024-10-13 09:54 | XMS_ITS | Encounter Summary ---
Author Organization [facility] Address [address] [place] [address] Care Team Providers Care Berry Picker Name Role Phone Fanny Tejada DO Unavailable Fanny Tejada DO Primary Care Provider [phone]- [phone] Encounter Details Date Type Department Care Team (Late st Contact Info) Description 02/15/2023 Abstract [facility] [address] [place] [phone] Fanny Tejada DO [address] [place] [address] Social History Tobacco Use Types Packs/Day Years [...] 10/09/2022 How often do you attend chur ch or adventism services? Patient declined 10/09/2022 Do you belong to any clubs o r organizations such as moravian groups, unions, fraternal or athletic groups, or [...] Date Recorded Patient Health Questionnaire-2 Score 0 12/21/2022 [facility] - Occupational Stress Questionnaire Answer [...] in a custodial (including now)? No 10/09/2022 Comments Unknown Sex [...] 01/28/2025 1:15 PM EDT Office Visit [facility] [address] [place] [address] Fanny Tejada DO [address] [place] [address] 09/06/2025 11:30 AM EDT Office Visit [facility] OB [address] [place] [address] Kyaw Chance, DO [address] [place] [address] documented as of this encounter Visit Diagnoses Not on filedocumented in this encounter Care Teams Berry Picker Relationship Specialty Start Date End Date Fanny Tejada, [address] [place] [address] PCP - [employer]a [employer] 07/30/22 Fanny Tejada, [address] [facility] [address] [place] [address] PCP - General Family Medicine 08/07/22 documented as of this encounter
--- OUTSIDE RECORDS SUMMARY | 2024-10-13 09:54 | XMS_ITS | Encounter Summary ---
Author Organization [facility] Address [address] [place] [address] Care Team Providers Care Extractor Operator Name Role Phone Fanny Tejada DO Primary Care Provider [phone]- [phone] Encounter Details Date Type Department Care Team (Late st Contact Info) Description 06/11/2024 Abstract [facility] [address] [facility] [address] [place] [address] Fanny Tejada DO [address] [facility] [address] [place] [address] Social History Tobacco Use Types Packs/Day Years [...] 04/16/2024 How often do you attend chur or samaritan services? Patient declined 04/16/2024 Do you belong to any clubs o r organizations such as sabianist groups, unions, fraternal or athletic groups, or [...] Recorded Patient Health Questionnaire-2 Score 0 04/21/2024 [facility] - Occupational Stress [...] place to sleep or slept in a correction (including now)? No 10/09/2022 Housing Stability Vital Sign Answer Edwin e Recorded In the last 12 months, was t here a time when you were not able to pay the mortgage or rent on time? No 04/16/2024 Number of Times Moved in the Last Year Not on fi le 04/16/2024 At any time in the past [address] [facility], were you homeless or living in a correction (including now)? No 04/16/2024 Comments No Sex [...] [address] [place] [phone] Fanny Tejada DO [address] [place] [address] 09/06/2025 11:30 AM EDT Office Visit [facility] [address] [place] [address] Kyaw Chance, [address] [facility] [address] [place] [address] documented as of this encounter Visit Diagnoses Not on filedocumented in this encounter Care Teams Extractor Operator Relationship Specialty Start Date End Date Fanny Tejada DO [address] [facility] [address] [place] [address] PCP - General Family Medicine 08/07/22 documented as of this encounter
--- OUTSIDE RECORDS SUMMARY | 2024-10-13 09:54 | XMS_ITS | Encounter Summary ---
Author Organization [facility] Address [address] [place] [address] Care Team Providers Care Body Mechanic Apprentice Name Role Phone Fanny Tejada DO Primary Care Provider +1- [phone] Encounter Details Date Type Department Care Team (Late st Contact Info) Description 06/10/2024 Abstract [facility] [address] [facility] [address] [place] [address] Fanny Tejada DO [address] [facility] [address] [place] [address] Social History Tobacco Use Types Packs/Day Years [...] How often do you attend chur or alevism services? Patient declined 04/16/2024 Do you belong to any clubs o r organizations such as anabaptist groups, unions, fraternal or athletic groups, or [...] Recorded Patient Health Questionnaire-2 Score 0 04/21/2024 [facility] ional [facility] - Occupational [...] place to sleep or slept in a group home (including now)? No 10/09/2022 Housing Stability Vital Sign Answer Edwin e Recorded In the last 12 months, was t here a time when you were not able to pay the mortgage or rent on time? No 04/16/2024 Number of Times Moved in the Last Year Not on fi le 04/16/2024 At any time in the past 12 m [facility], were you homeless or living in a group home (including now)? No 04/16/2024 Comments No Sex [...] [address] [place] [phone] Fanny Tejada DO [address] [place] [address] 09/06/2025 11:30 AM EDT Office Visit [facility] [address] [place] [address] Kyaw Chance, [address] [facility] [address] [place] [address] documented as of this encounter Visit Diagnoses Not on filedocumented in this encounter Care Teams Body Mechanic Apprentice Relationship Specialty Start Date End Date Fanny Tejada DO [address] [facility] [address] [place] [address] PCP - General Family Medicine 08/07/22 documented as of this encounter
--- OUTSIDE RECORDS SUMMARY | 2024-10-13 09:54 | XMS_ITS | Clinical Summary ---
Author Organization [facility] Address [address] [place] [address] Care Team Providers Care Joy Operator Name Role Phone Fanny Tejada DO Primary Care Provider [phone] Allergies Active Allergy Reactions Criticality Noted Date Comments Atorvastatin 11/29/2022 Other Reaction(s): gas and joint aches Cephalexin Swelling 11/29/2022 KEFLEX allergy Diphenhydramine Itching 11/29/2022 Rosuvastatin Diarrhea 03/21/2018 Statins 06/09/2024 Other Reaction(s): aches/diarrhea Medications acetaminophen (Tylenol) 325 MG tablet Take 650 mg by mouth Daily as needed. Active Cyanocobalamin (Vitamin B12) 1000 MCG tablet controlled-rel ease 1 (one) time each day at the same time. Active Probiotic Product (Probiotic & Acidophilus Ex St) capsule as directed Orally Active levocetirizine (Xyzal) 5 MG tablet Take by mouth in the evening Active Propylene Glycol 0.6 % solution Active insulin pen needle (Sure Comfort Pen [place]) 32G x 4 mm miscIndication s:Type 2 diabetes mellitus with peripheral neuropathy (HCC) Injections once a day 100 each 3 09/20/19 24 Active Lancets 33G miscIndication s:Type 2 diabetes mellitus with peripheral neuropathy (HCC) Checking bg levels 3 times a day 300 each 3 09/27/19 24 Active Blood Glucose Monitoring Suppl (True Metrix Meter) w/Device kitIndications :Type 2 diabetes mellitus with peripheral neuropathy (HCC) Checking bg levels 3 times a day 1 kit 09/27/19 24 Active glucose blood (True Metrix Blood Glucose Test) test stripIndicatio ns:Type 2 diabetes mellitus with peripheral neuropathy (HCC) Checking bg levels 3 times a day 300 strip 3 09/27/19 24 Active Ivermectin (Soolantra) 1 % cream 1 application 1 (one) time each day at the same time Active LORazepam (Ativan) 0.5 MG tabletIndicati ons:Anxiety Take 1 tablet (0.5 mg) by mouth every 6 (six) hours if needed for anxiety for up to 10 days 30 tablet 04/21/19 25 Active fluticasone (Flonase) 50 MCG/ACT nasal sprayIndicatio ns:Acute seasonal allergic rhinitis Administer 1 spray into each nostril Daily Shake gently. Before first use, prime pump. After use, clean tip and replace cap. 48 g 3 06/09/19 25 Active insulin glargine (Lantus) 100 UNIT/ML penIndications :Type 2 diabetes mellitus with peripheral neuropathy (HCC) Inject 22 Units under the skin in the morning. 30 mL 1 06/23/19 25 Active semaglutide (Ozempic, 1 MG/DOSE,) 4 MG/3ML solution pen-injectorIn dications:Type 2 diabetes mellitus with peripheral neuropathy (HCC) Inject 1 mg under the skin 1 (one) time per week 9 mL 3 07/08/19 25 026 Active Docusate Sodium (DSS) 100 MG capsule Take 100 mg by mouth if needed 06/11/19 25 Active dicyclomine (Bentyl) 20 MG tabletIndicati ons:Irritable bowel syndrome with diarrhea Take 1 tablet (20 mg) by mouth in the morning and 1 tablet (20 mg) before bedtime. 180 tablet 3 07/21/19 25 Active estradiol (Estrace) 0.5 MG tabletIndicati ons:Hot flashes due to menopause Take 1 tablet (0.5 mg) by mouth Daily 90 tablet 3 08/01/19 25 026 Active metFORMIN (Glucophage) 1000 MG tabletIndicati ons:Type 2 diabetes mellitus with peripheral neuropathy (HCC) Take 1 tablet (1,000 mg) by mouth in the morning and 1 tablet (1,000 mg) in the evening. Take with meals. 180 tablet 1 08/01/19 25 026 Active estradiol (Estrace) 0.1 MG/GM vaginal creamIndicatio ns:Vaginal atrophy Insert 1 g into the vagina 2 (two) times a week 42.5 g 2 08/28/19 25 026 Active fluconazole (Diflucan) 150 MG tablet Take 150 mg by mouth if needed 08/20/19 25 Active oxybutynin XL (Ditropan-XL) 10 MG 24 hr tabletIndicati ons:Urinary urgency Take 1 tablet (10 mg) by mouth Daily Do not crush, chew, or split. 90 tablet 3 08/29/19 25 026 Active gabapentin (Neurontin) 600 MG tabletIndicati ons:Type 2 diabetes mellitus with peripheral neuropathy (HCC) Take 1 tablet (600 mg) by mouth at bedtime 90 tablet 1 09/29/19 25 025 Active DULoxetine (Cymbalta) [address] capsuleIndicat ions:Generaliz ed anxiety disorder Take 1 capsule (60 mg) by mouth Daily 90 capsule 1 10/06/19 25 Active tiZANidine (Zanaflex) 4 MG tabletIndicati ons:Chronic bilateral low back pain without sciatica Take 1 tablet (4 mg) by mouth Daily as needed for muscle spasms 90 tablet 1 10/06/19 25 Active celecoxib (CeleBREX) 200 MG capsuleIndicat ions:Anxiety Take 1 capsule (200 mg) by mouth Daily 90 capsule 1 10/06/19 25 Active empagliflozin (Jardiance) 10 MGIndications: Type 2 diabetes mellitus with peripheral neuropathy (HCC) Take 1 tablet (10 mg) by mouth Daily 90 tablet 1 10/06/19 25 026 Active DULoxetine (Cymbalta) [address] capsuleIndicat ions:Generaliz ed anxiety disorder Take 1 capsule (60 mg) by mouth Daily 90 capsule 1 06/09/19 25 025 Discontinued(R eorder) tiZANidine (Zanaflex) 4 MG tabletIndicati ons:Chronic bilateral low back pain without sciatica Take 1 tablet (4 mg) by mouth Daily as needed for muscle spasms 90 tablet 1 07/21/19 25 025 Discontinued(R eorder) gabapentin (Neurontin) 300 MG capsuleIndicat ions:Type 2 diabetes mellitus with peripheral neuropathy (HCC),Chronic bilateral low back pain without sciatica Take 1 capsule (300 mg) by mouth Daily 90 capsule 1 07/21/19 25 025 Discontinued celecoxib (CeleBREX) 200 MG capsuleIndicat ions:Anxiety Take 1 capsule (200 mg) by mouth Daily 90 capsule 1 07/21/19 25 025 Discontinued(R eorder) empagliflozin (Jardiance) 10 MGIndications: Type 2 diabetes mellitus with peripheral neuropathy (HCC) Take 1 tablet (10 mg) by mouth Daily 90 tablet 1 07/21/19 025 Discontinued(R eorder) sulfamethoxazo le-trimethopri m (Bactrim DS) 800-160 MG per tabletIndicati ons:Urinary urgency Take 1 tablet by mouth every 12 (twelve) hours for 5 days 10 tablet 09/15/19 025 Discontinued Active Problems Problem Noted Date Diagnosed Date Bladder spasms 04/21/2024 Metabolic dysfunction-associ ated steatotic liver disease (MASLD) 12/17/2023 Assessment & Plan (09/28/2024 8:41 PM EDT): Following with liver specialist and my be considering an MR elastography test Assessment & Plan (04/22/2024 7:33 PM EST): She has done a nice job with lifestyle modifications and weight loss to help with his. Has an appt with the liver specialist coming up. Assessment & Plan (12/17/2023 3:04 PM EDT): She has moderate fatty liver with severe fibrosis. No signs of liver cirrhosis on the fibroscan test. Discussed continued work on weight loss which she is doing well with. Discussed options of high dose Vitamin E as well as Rezdiffra but would defer this to GI. Will put in referral to GI Hyperlipidemia 09/20/2023 Assessment & Plan (12/17/2023 3:04 PM EDT): Unable to tolerate statins History of colonic polyps 07/25/2023 Anxiety 11/29/2022 Assessment & Plan (09/28/2024 8:42 PM EDT): Encouraged her to find what her new purpose is now that she is retired. 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 Assessment & Plan (04/22/2024 7:34 PM EST): Discussed options for her while being a passenger in a car. Ok to take ativan as needed for this trip but would not drive while using ativan. Cervical radiculopathy 11/29/2022 Cystocele, unspecified 11/29/2022 History of hysterectomy 11/29/2022 Hot flashes due to menopause 11/29/2022 Internal derangement of left shoulder 11/29/2022 Irritable bowel syndrome with diarrhea Myopathy 11/29/2022 Primary osteoarthritis involving multiple joints 11/29/2022 Rosacea 11/29/2022 Type 2 diabetes mellitus with peripheral neuropa thy 11/29/2022 Assessment & Plan (09/28/2024 8:41 PM EDT): During the appointment today all pertinent labs, [...] this. , Will stay on current medications. Assessment & Plan (04/22/2024 7:33 PM EST): During the appointment today all pertinent labs, [...] this. , Will stay on current medications. Assessment & Plan (12/17/2023 3:03 PM EDT): During the appointment today all pertinent labs, [...] this. , Will stay on current medications. Assessment & Plan (07/26/2023 8:22 AM EDT): During the appointment today all pertinent labs, [...] this. , Will stay on current medications. Assessment & Plan (03/28/2023 7:47 PM EST): During the appointment today all pertinent labs, [...] doing very well and encouraged on this. Will decrease insulin to prevent low bg. Assessment & Plan (11/30/2022 9:06 AM EDT): During the appointment today all pertinent labs, [...] any problems or questions. Zara Benedict is making improvements and encouraged on this. , Will stay on current medications. 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, with long-term current use of insulin 11/29/2022 Osteoarthritis of right hip 11/29/2022 Resolved Problems Problem Noted Date Diagnosed Date Resolved Date Essential hypertension 11/29/202212/16 Primary osteoarthritis 08/20/202011/30 Polyneuropathy due to type 2 diabetes mellitus 05/11/2020 11/30/2022 Encounters Date Type Department Care Team Description 10/03/2024 Refill [facility] [address] [place] [phone] Fanny Tejada, Generalized anxiety disorder ; Chronic bilateral low back pain without sciatica; Anxiety; Type 2 diabetes mellitus with peripheral neuropathy (HCC) 10/03/2024 Refill [facility] [address] [place] [phone] Fanny Tejada DO Type 2 diabetes mellitus with peripheral neuropathy (HCC) 09/28/2024 1:00 PM EDT Office Visit [facility] [address] [place] [phone] Fanny Tejada, 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 [address] [place] [phone] Fanny Tejada, DO 08/28/2024 11:00 AM EDT Office Visit [facility] [address] [place] [address] Kyaw Chance, DO Encounter for gynecological examination with abnormal finding; Encounter for screening mammogram for malignant neoplasm of breast; Urinary urgency 08/25/2024 Travel 08/22/2024 Refill [facility] [address] [place] [phone] Kyaw Chance, DO Vaginal atrophy 08/10/2024 Clinisync Result Encounter [facility] External Department Unsolicited Provider, Generic External Data 07/31/2024 Refill [facility] [address] [place] [address] Fanny Tejada, DO Type 2 diabetes mellitus with peripheral neuropathy (HCC) 07/31/2024 Refill [facility] [address] [place] [phone] Fanny Tejada, DO Type 2 diabetes mellitus with peripheral neuropathy (HCC) 07/31/2024 Refill [facility] [address] [place] [phone] Fanny Tejada, DO Hot flashes due to menopause 07/20/2024 Refill [facility] [address] [place] [phone] Fanny Tejada, DO Type 2 diabetes mellitus with peripheral neuropathy (HCC) 07/20/2024 Refill [facility] [address] [place] [address] Fanny Tejada, DO Anxiety 07/20/2024 Refill [facility] [address] [place] [address] Fanny Tejada, DO Type 2 diabetes mellitus with peripheral neuropathy (HCC); Chronic bilateral low back pain without sciatica 07/20/2024 Refill [facility] [address] [place] [address] Fanny Tejada, DO Chronic bilateral low back pain without sciatica 07/20/2024 Refill [facility] [address] [place] [address] Fanny Tejada, DO Irritable bowel syndrome with diarrhea from Last 3 Months Immunizations Immunization Administration Dates Next Due Hep B, adult 05/11/2017,12/14/2016,11/09/2016 Influenza, Injectable, MDCK, preservative free 12/30/2018 Influenza, injectable, quadrivalent 12/30/2016 Influenza, injectable, quadr ivalent, preservative free 01/14/2022,01/06/2021,12/30/2020,2016 Influenza, seasonal, injectable 01/14/2023 Influenza, seasonal, injecta ble, preservative free 01/26/2024,02/03/2020 MMR 11/09/2016 Tdap 11/09/2016 Varicella 12/14/2016,11/09/2016 Family History Medical History Relation Name Comments Alcohol abuse Brother 2 Rodrigo Momin Jr. Alcohol abuse Brother 3 Elliot Deaart Alcohol abuse Father Filipe Deak Sr. COPD Father Filipe Deak Sr. Cancer Father Filipe Deak Sr. Hypertension Father Filipe Deak Sr. Skin cancer Father Filipe Deak Sr. abdominal aortic aneurysm Father Filipe Deak Sr. bladder cancer Father Filipe Deak Sr. Diabetes Maternal Grandmother Nishi Alas Dementia Mother Beti Ruelas Hypertension Mother Beti Ruelas Diabetes Paternal Grandmother Maryanne Momin Diabetes Son 2 Sahil Homler Relation Name Status Comments Brother 1 3 brothers Brother 2 Rodrigo Momin Jr. Alive Brother 3 Elliot Deaart Alive Daughter 3 daughters Father Filipe Deak Sr. Maternal Grandmother Nishi Alas Mother Beti Ruelas Alive Paternal Grandmother Maryanne Momin Son 1 1 son Son 2 Sahil Benedict Alive Social History Tobacco Use Types Packs/Day Years Used Date Smoking Tobacco: Never Smokeless Tobacco: Never Tobacco Cessation:Counseling Given: Not Answered Alcohol Use Standard Drinks/Week Comments Never 0 (1 standard drink = 0.6 oz [...] week 04/16/2024 How often do you attend [facility] or [facility] services? Patient declined 04/16/2024 Do you belong to any clubs o r organizations such as bahai groups, unions, fraternal or athletic groups, or [...] Recorded Patient Health Questionnaire-2 Score 0 04/21/2024 [facility] - Occupational Stress Questionnaire Answer Date [...] place to sleep or slept in a chcf (including now)? No 10/09/2022 Housing Stability Vital Sign Answer Edwin e Recorded In the last 12 months, was t here a time when you were not able to pay the mortgage or rent on time? No 04/16/2024 Number of Times Moved in the Last Year Not on fi le 04/16/2024 At any time in the past [address] [facility], were you homeless or living in a chcf (including now)? No 04/16/2024 Comments No Sex and Gender Information Value Date Recorded Sex Assigned at Female 10/09/2022 4:47 PM EDT Legal Sex Female 7:20 PM EDT Gender Identity Female 10/09/2022 4:47 PM EDT Sexual Orientation Not on file Last Filed Vital Signs Vital Sign Reading Time Taken Comments Blood Pressure 114/78 09/28/2024 12:50 PM EDT Pulse 90 09/28/2024 12:50 PM EDT Temperature 36.2 C (97.2 F) 09/28/2024 12:50 PM EDT Respiratory Rate - - Oxygen Saturation 98% 09/28/2024 12:50 PM EDT Inhaled Oxygen Concentration - - Weight 76 kg (167 lb 9.6 oz) 09/28/2024 12:50 PM EDT Height 175.3 cm (5' 9 ) 09/28/2024 12:50 PM EDT Body Mass Index 24.75 09/28/2024 12:50 PM EDT Plan of Treatment Upcoming Encounters Date Type Department Care Team (Late st Contact Info) Description 01/28/2025 1:15 PM EDT Office Visit [facility] [address] [place] [address] Fanny Tejada, DO [address] [place] [address] 09/06/2025 11:30 AM EDT Office Visit [facility] [address] [place] [address] Kyaw Chance, DO [address] [place], [place] [phone] Health Maintenance Due Date Last Done Comments CT Colonography 1962 FIT-DNA 1962 FIT 1960 FOBT 1960 Sigmoidoscopy 1960 Diabetes: Urine Protein Screening 08/20/2024 08/21/2023, 05/30/2022, 03/23/2021, Additional history exists Mammogram 09/30/2024 10/01/2023, 08/31 (Manually Satisfied by [facility]), 09/12/2021, Additional history exists Influenza Vaccine (#1) 2024 4, 01/14/2023, 01/14/2022, Additional history exists Diabetes: Hemoglobin A1C 12/29/2024 025, 04/21/2024, 12/17/2023, Additional history exists Diabetes: Retinopathy Screening 01/08/2025 01/09/2024, 04/11/2022, 04/11/2022, Additional history exists Colonoscopy 02/13/2033 02/13/2023, 05/2015, 08/01/2015 Colorectal Cancer Screening 02/13/2033 Procedures Procedure Name Priority Date/Time Associated Diagnosis Comments POCT GLYCOSYLATED HEMOGLOBIN (HGB A1C) Routine 09/28/2024 1:07 PM EDT Type 2 diabetes mellitus with peripheral neuropathy (HCC) [place] [facility] [place] Routine 08/10/2024 11:23 AM EDT DIABETIC RETINOPATHY SCREENING - OU - BOTH EYES Routine 01/09/2024 3:18 PM EDT MM TOMOSYNTHESIS SCREENING BI 10/01/2023 3:49 PM EDT ALBUMIN, URINE, RANDOM Routine 2:27 PM EDT COLONOSCOPY Routine 08/01/2015 12:00 PM EDT from Last 3 Months or Most Recently Relevant to Health Maintenance Results * POCT glycosylated hemoglobin (Hb A1C) docked device (09/28/2024 1:07 PM EDT) Hemoglobin A1C 7.2 Blood Venous blood specimen / Unknown 09/28/2024 1:07 PM EDT Fanny Tejada DO POINT OF CARE TEST ENTER/E DIT ORDERABLES Final Result * [place] [facility] [place] (08/10/2024 11:23 AM EDT) [facility] URINE CULTURE [place] [facility] [place] U[place] Culture [place] [facility] [place] No Growth 2 Days [facility] - [facility]INE [facility]ULTURE [place] [facility] [place] performed [facility] [place]URE [place] [facility] [place] [address] [place] [address] [facility] 08/10/2024 11:2 3 AM EDT 08/10/2024 11:28 AM EDT Narrative [facility] - 08/12/2024 2:54 PM EDT Generic External Data Provider LAB BLOOD ORDERAB LES Final Result [facility] * (ABNORMAL) Diabetic Retinopathy Screening - OU - Both Eyes (01/09/2024 3:18 PM EDT) Anatomical Region Laterality Modality Head Other us Fanny Tejada DO OPHTH PHOTOGRAPHY Final Re sult * MM TOMOSYNTHESIS SCREENING BI (10/01/2023 3:49 PM EDT) Anatomical Region Laterality Modality Other 10/01/2023 3:49 PM EDT Narrative 10/01/2023 3:50 PM EDT [address] [address] Mammography Report Signed Patient: ZARA BENEDICT MR#: [id number] : 1960 Acct:[id number] Age/Sex: 63 / F ADM Date: 09/30/23 Loc: MAMMO Attending Dr: Randal Gastelum D.O. Ordering Physician: Randal Gastelum D.O. Results: Date of Service: 09/30/23 Follow Up: Procedure(s): MM tomosynthesis screening BI Accession Number(s): [id number] cc: Randal Gastelum D.O.; FANNY TEJADA Patient Name: ZARA BENEDICT MR#: [id number] : 1960 Exam Date: 09/30/2023 Ordering Doctor: DR Randal Gastelum . RADIOLOGY REPORT PROCEDURE: MM TOMOSYNTHESIS SCREENING BI COMPARISON: MM TOMOSYNTHESIS SCREENING BI, 09/27/2022. MG MAMM SCREEN 3D MELVINA CAD, 09/12/2021. MG MAMM SCREEN 3D MELVINA CAD, 09/10/2020. INDICATIONS: Screening Calculator Name NCI Breast Cancer Risk Assessment Tool 5 Year Breast Cancer Risk 1.30% Lifetime Breast Cancer Risk 6.40% Personal Breast Cancer No Personal Ovarian Cancer No Treatments None Family Cancers Father with bladder cancer at age 80. LOCATION: [facility] BREAST COMPOSITION: The breasts are almost entirely fatty. FINDINGS: DIAGNOSTIC CATEGORY 1--NEGATIVE. RIGHT BREAST: No significant suspicious finding. No significant change has occurred. LEFT BREAST: No significant suspicious finding. No significant change has occurred. RECOMMENDATIONS: ROUTINE MAMMOGRAM AND CLINICAL EVALUATION IN 12 MONTHS. PLEASE NOTE: A NORMAL MAMMOGRAM DOES NOT EXCLUDE THE POSSIBILITY OF BREAST CANCER. A CLINICALLY SUSPICIOUS PALPABLE LUMP SHOULD BE BIOPSIED. Dictated by: Johnson Del Toro M.D. on 10/01/2023 at 15:40 Approved by: Johnson Del Toro M.D. on 10/01/2023 at 15:49 Dictated By: Johnson Del Toro M.D. Signed By: 10/01/23 1550 DD/ 1549 TD/TT: [employer] Analyst: Procedure Note Radiology, Radiologist, - 10/01/2023 [place] [address] Mammography Report Signed Patient: ZARA BENEDICT JMR#: [id number] : 1960Acct:[id number] Age/Sex: 63 / FADM Date: 09/30/23 Loc: MAMMO Attending Dr: Randal Gastelum D.O. Ordering Physician: Randal Gastelum D.O.Results: Date of Service: 09/30/23Follow Up: Procedure(s): MM tomosynthesis screening BI Accession Number(s): [id number] cc: Randal Gastelum D.O.; FANNY TEJADA Patient Name: ZARA BENEDICT MR#: [id number] : 1960 Exam Date: 09/30/2023 Ordering Doctor: DR Randal Gastelum . RADIOLOGY REPORT PROCEDURE: MM TOMOSYNTHESIS SCREENING BI COMPARISON: MM TOMOSYNTHESIS SCREENING BI, 09/27/2022. MG MAMM [id number] MELVINA CAD, 09/12/2021. MG MAMM SCREEN 3D MELVINA CAD, 09/10/2020. INDICATIONS: Screening Calculator Name NCI Breast Cancer Risk Assessment Tool 5 Year Breast Cancer Risk 1.30% Lifetime Breast Cancer Risk 6.40% Personal Breast Cancer No Personal Ovarian Cancer No Treatments None Family Cancers Father with bladder cancer at age 80. LOCATION: [facility] BREAST COMPOSITION: The breasts are almost entirely fatty. FINDINGS: DIAGNOSTIC CATEGORY 1--NEGATIVE. RIGHT BREAST: No significant suspicious finding. No significant changehas occurred. LEFT BREAST: No significant suspicious finding. No significant changehas occurred. RECOMMENDATIONS: ROUTINE MAMMOGRAM AND CLINICAL EVALUATION IN 12 MONTHS. PLEASE NOTE: A NORMAL MAMMOGRAM DOES NOT EXCLUDE THE POSSIBILITY OFBREAST CANCER. A CLINICALLY SUSPICIOUS PALPABLE LUMP SHOULD BE BIOPSIED. Dictated by: Johnson Del Toro M.D. on 10/01/2023 at 15:40 Approved by: Johnson Del Toro M.D. on 10/01/2023 at 15:49 Dictated By: Johnson Del Toro M.D. Signed By:10/01/23 1550 DD/ 1549 TD/TT: [employer] Analyst: us Randal Gastelum DO [facility] IMAGING Final Result * Albumin, urine, random (08/21/2023 2:27 PM EDT) Urine Urine specimen obtained by clean catch procedure / Unknown Fanny Tejada DO LAB URINE ORDERABLES Final Result * Colonoscopy (08/01/2015 12:00 PM EDT) Anatomical Region Laterality Modality Endoscopy 08/01/2015 12:0 0 PM EDT Narrative 08/01/2015 12:00 PM EDT PERFORMED AT [facility] LOCATION:[id number] Polyp/Diverticulosis Procedure Note CONVERSION, GENERIC - 08/16/2022 PERFORMED AT [facility] LOCATION:[id number] Polyp/Diverticulosis Fanny Tejada DO ENDOSCOPY PROCEDURE ORDERA BLES Final Result from Last 3 Months or Most Recently Relevant to Health Maintenance Insurance [facility] [employer] [place] Care Teams Joy Operator Relationship Specialty Start Date End Date Fanny Tejada DO [address] [facility] [address] [place] [address] PCP - General Family Medicine 08/07/22
--- OUTSIDE RECORDS SUMMARY | 2024-10-13 09:54 | XMS_ITS | Encounter Summary ---
Author Organization [facility] Address [address] [place] [address] Care Team Providers Care Rack Carrier Name Role Phone Fanny Tejada DO Primary Care Provider +1- [phone] Encounter Details Date Type Department Care Team (Late st Contact Info) Description 06/16/2024 Abstract [facility] [address] [facility] 230 [place] [address] Fanny Tejada DO [address] [facility] [address] [place] [address] Social History Tobacco Use Types Packs/Day Years [...] How often do you attend chur or muslim services? Patient declined 04/16/2024 Do you belong to any clubs o r organizations such as scientologist groups, unions, fraternal or athletic groups, or [...] Recorded Patient Health Questionnaire-2 Score 0 04/21/2024 [facility] of Occupat ional Health - Occupational Stress [...] place to sleep or slept in a residential (including now)? No 10/09/2022 Housing Stability Vital Sign Answer Edwin e Recorded In the last 12 months, was t here a time when you were not able to pay the mortgage or rent on time? No 04/16/2024 Number of Times Moved in the Last Year Not on fi le 04/16/2024 At any time in the past 12 m [facility], were you homeless or living in a residential (including now)? No 04/16/2024 Comments No Sex [...] [address] [place] [address] Fanny Tejada DO [address] [place] [address] 09/06/2025 11:30 AM EDT Office Visit [facility] [address] [place] [address] Kyaw Chance, [address] [facility] [address] [place] [address] documented as of this encounter Visit Diagnoses Not on filedocumented in this encounter Care Teams Rack Carrier Relationship Specialty Start Date End Date Fanny Tejada DO [address] [facility] 230 [place] [address] PCP - General Family Medicine 08/07/22 documented as of this encounter
--- OUTSIDE RECORDS SUMMARY | 2024-10-13 09:54 | XMS_ITS | Encounter Summary ---
Author Organization [facility] Address [address] [place] [address] Care Team Providers Care Hand Twister Name Role Phone Fanny Tejada DO Unavailable [phone] Fanny Tejada DO Primary Care Provider [phone]- [phone] Encounter Details Date Type Department Care Team (Late st Contact Info) Description 03/13/2023 Abstract [facility] [address] [place] [address] Fanny Tejada DO [address] [place] [address] Social History Tobacco Use Types Packs/Day Years [...] often do you attend chur ch or congregation services? Patient declined 10/09/2022 Do you belong to any clubs o r organizations such as roman catholic groups, unions, fraternal or athletic groups, or [...] Recorded Patient Health Questionnaire-2 Score 0 12/21/2022 [facility] of Occupat ional Health - Occupational Stress [...] place to sleep or slept in a intermediate (including now)? No 10/09/2022 Comments Unknown Sex [...] 01/28/2025 1:15 PM EDT Office Visit [facility] [address] [place] [address] Fanny Tejada DO [address] [place] [address] 09/06/2025 11:30 AM EDT Office Visit [facility] OB [address] [place] [address] Kyaw Chance, DO [address] [place] [address] documented as of this encounter Visit Diagnoses Not on filedocumented in this encounter Care Teams Hand Twister Relationship Specialty Start Date End Date Fanny Tejada, [address] [place] [address] PCP - [employer] 07/30/22 Fanny Tejada, [address] [facility] 230 [place] [address] PCP - General Family Medicine 08/07/22 documented as of this encounter
--- OUTSIDE RECORDS SUMMARY | 2024-10-13 09:54 | XMS_ITS | Encounter Summary ---
Author Organization [facility] Address [address] [place] [address] Care Team Providers Care Medical Observer Name Role Phone Fanny Tejada DO Primary Care Provider [phone]- [phone] Encounter Details Date Type Department Care Team (Late st Contact Info) Description 09/23/2024 Abstract [facility] [address] [facility] 230 [place] [address] Fanny Tejada DO [address] [facility] 230 [place] [address] Social History Tobacco Use Types Packs/Day Years Used Date Smoking Tobacco: Never Smokeless Tobacco: Never Alcohol Use Standard Drinks/Week Comments Never 0 [...] How often do you attend chur or amish services? Patient declined 04/16/2024 Do you belong to any clubs o r organizations such as amish groups, unions, [employer] or athletic groups, or school groups? No [...] Recorded Patient Health Questionnaire-2 Score 0 04/21/2024 [facility] of Occupat ional Health - Occupational Stress [...] place to sleep or slept in a prison (including now)? No 10/09/2022 Housing Stability Vital Sign Answer Edwin e Recorded In the last 12 months, was t here a time when you were not able to pay the mortgage or rent on time? No 04/16/2024 Number of Times Moved in the Last Year Not on fi le 04/16/2024 At any time in the past 12 m [facility], were you homeless or living in a prison (including now)? No 04/16/2024 Comments No Sex [...] [address] [place] [address] Fanny Tejada DO [address] [place] [address] 09/06/2025 11:30 AM EDT Office Visit [facility] [address] [place] [address] Kyaw Chance DO [address] [facility] 210 [place] [address] documented as of this encounter Visit Diagnoses Not on filedocumented in this encounter Care Teams Medical Observer Relationship Specialty Start Date End Date Fanny Tejada DO [address] [facility] 230 [place] [address] PCP - General Family Medicine 08/07/22 documented as of this encounter
--- OUTSIDE RECORDS SUMMARY | 2024-10-13 09:54 | XMS_ITS | Encounter Summary ---
Author Organization [facility] Address [address] [place] [address] Care Team Providers Care Fruit Grader Operator Name Role Phone Fanny Tejada DO Primary Care Provider [phone]- [phone] Reason for Visit * Reason Onset Date Comments Med Refill 10/03/2024 Encounter Details Date Type Department Care Team (Late st Contact Info) Description 10/03/2024 Refill [facility] [address] [place] [address] Fanny Tejada DO [address] [facility] [address] [place] [address] Type 2 diabetes mellitus with peripheral neuropathy (HCC) Social History Tobacco Use Types Packs/Day Years [...] How often do you attend chur or holiness services? Patient declined 04/16/2024 Do you belong to any clubs o r organizations such as yazdanism groups, unions, fraternal or athletic groups, or [...] Recorded Patient Health Questionnaire-2 Score 0 04/21/2024 [facility] of Occupat ional Health - Occupational [...] any time in the past 12 m [facility], were you homeless or living in a chcf (including now)? No 04/16/2024 Comments No Sex and Gender Information Value Date Recorded Sex Assigned at Female 10/09/2022 4:47 PM EDT Legal Sex Female 7:20 PM EDT Gender Identity Female 10/09/2022 4:47 PM EDT Sexual Orientation Not on file documented as of this encounter Miscellaneous Notes * Telephone Encounter - Annie Heck LPN - 10/05/2024 11:44 AM EDT E-Prescribing Status: Receipt confirmed by pharmacy (07/31/2024 1:02 PM EDT) 90 day with 1 refill sent documented in this encounter Plan of Treatment Upcoming Encounters Date Type Department Care Team (Late st Contact Info) Description 01/28/2025 1:15 PM EDT Office Visit [facility] [address] [place] [address] Fanny Tejada, DO [address] [place] [address] 09/06/2025 11:30 AM EDT Office Visit [facility] [address] [place] [address] Kyaw Chance, DO [address] [place] [address] documented as of this encounter Visit Diagnoses Diagnosis Type 2 diabetes mellitus with peripheral neuropathy (HCC) documented in this encounter Care Teams Fruit Grader Operator Relationship Specialty Start Date End Date Fanny Tejada, DO [address] [place] [address] PCP - General Family Medicine 08/07/22 documented as of this encounter
--- OUTSIDE RECORDS SUMMARY | 2024-10-13 09:54 | XMS_ITS | Encounter Summary ---
Author Organization [facility] Address [address] [place] [address] Care Team Providers Care Routing Equipment Tender Name Role Phone Fanny Tejada DO Primary Care Provider [phone]- [phone] Encounter Details Date Type Department Care Team (Late st Contact Info) Description 06/16/2024 Abstract [facility] [address] [facility] 230 [place] [address] Fanny Tejada DO [address] [facility] [address] [place] [address] Social History Tobacco Use Types Packs/Day Years [...] How often do you attend chur or uatsdin services? Patient declined 04/16/2024 Do you belong to any clubs o r organizations such as rastafarian groups, unions, fraternal or athletic groups, or [...] Recorded Patient Health Questionnaire-2 Score 0 04/21/2024 [facility] of Occupat ional Health - Occupational [...] in the past 12 m [facility], were you homeless or living in a [...] [address] [place] [address] Fanny Tejada DO [address] [place] [address] 09/06/2025 11:30 AM EDT Office Visit [facility] [address] [place] [address] Kyaw Chance, [address] [facility] 210 [place] [address] documented as of this encounter Visit Diagnoses Not on filedocumented in this encounter Care Teams Routing Equipment Tender Relationship Specialty Start Date End Date Fanny Tejada DO [address] [facility] [address] [place] [address] PCP - General Family Medicine 08/07/22 documented as of this encounter
--- OUTSIDE RECORDS SUMMARY | 2024-10-13 09:54 | XMS_ITS | Encounter Summary ---
Author Organization [facility] Address [address] [place] [address] Care Team Providers Care Log Hooker Name Role Phone Fanny Tejada DO Primary Care Provider +1- [phone] Encounter Details Date Type Department Care Team (Late st Contact Info) Description 06/04/2024 Abstract [facility] [address] [facility] 230 [place] [address] Fanny Tejada DO [address] [facility] [address] [place] [address] Social History Tobacco Use Types Packs/Day Years [...] How often do you attend chur or adventism services? Patient declined 04/16/2024 Do you belong to any clubs o r organizations such as nondenominational groups, unions, fraternal or athletic groups, or [...] Recorded Patient Health Questionnaire-2 Score 0 04/21/2024 [facility] of Occupat ional Health - Occupational [...] place to sleep or slept in a nursing home (including now)? No 10/09/2022 Housing Stability Vital Sign Answer Edwin e Recorded In the last 12 months, was t here a time when you were not able to pay the mortgage or rent on time? No 04/16/2024 Number of Times Moved in the Last Year Not on fi le 04/16/2024 At any time in the past 12 m [facility], were you homeless or living in a nursing home (including now)? No 04/16/2024 Comments No [...] [address] [place] [address] Fanny Tejada DO [address] [place] [address] 09/06/2025 11:30 AM EDT Office Visit [facility] [address] [place] [address] Kyaw Chance, [address] [facility] 210 [place] [address] documented as of this encounter Visit Diagnoses Not on filedocumented in this encounter Care Teams Log Hooker Relationship Specialty Start Date End Date Fanny Tejada DO [address] [facility] [address] [place] [address] PCP - General Family Medicine 08/07/22 documented as of this encounter
--- OUTSIDE RECORDS SUMMARY | 2024-10-13 09:54 | XMS_ITS | Encounter Summary ---
Author Organization [facility] Address [address] [place] [address] Care Team Providers Care Operator Technician Name Role Phone Fanny Tejada DO Primary Care Provider +1- [phone] Encounter Details Date Type Department Care Team (Late st Contact Info) Description 01/09/2024 Orders Only [facility] [address] [facility] [address] [place] [address] Fanny Tejada DO [address] [facility] [address] [place] [address] Social History Tobacco Use Types Packs/Day Years Used Date Smoking Tobacco: Never Smokeless Tobacco: Never Alcohol Use Standard Drinks/Week Comments Not Currently 0 (1 standard drink = 0.6 oz pur e alcohol) Humiliation, Afraid, Rape, and Kick questionnair e [...] often do you attend chur ch or amish services? Patient declined 10/09/2022 Do you belong to any clubs o r organizations such as latter-day groups, unions, fraternal or athletic groups, or school groups? No 10/09/2022 How often do you attend meet ings of the clubs or organizations you belong to? Never 10/09/2022 Are you , , di vorced, , never , or living with a partner? Living with partner 10/09/2022 AUDIT-C Answer Date Recorded Q1: How often do you have a drink containing alcohol? Never 09/20/2023 Q2: How many drinks containi ng alcohol do you have on a typical day when you are drinking? Patient does not drink Q3: How often do you have si x or more drinks on one occasion? Never 09/20/2023 Overall Financial Resource Strain (CARDIA) Answe r Date Recorded How hard is it for you to pa y for the very basics like food, housing, medical care, and heating? Not hard at all 10/09/2022 PHQ-2 Answer Date Recorded Patient Health Questionnaire-2 Score 0 12/21/2022 [facility] of Occupat ional Health - [...] place to sleep or slept in a fpc (including now)? No 10/09/2022 Comments Unknown Sex [...] [address] [place] [address] Fanny Tejada, DO [address] [place] [address] 09/06/2025 11:30 AM EDT Office Visit [facility] [address] [place] [address] Kyaw Chance, DO [address] [place], [place] [id number] documented as of this encounter Procedures Procedure Name Priority Date/Time Associated Diagnosis Comments DIABETIC RETINOPATHY SCREENING - OU - BOTH EYES Routine 01/09/2024 3:18 PM EDT documented in this encounter Results * (ABNORMAL) Diabetic Retinopathy Screening - OU - Both Eyes (01/09/2024 3:18 PM EDT) Anatomical Region Laterality Modality Head Other us Fanny Tejada DO OPHTH PHOTOGRAPHY Final Re sult documented in this encounter Visit Diagnoses Not on filedocumented in this encounter Care Teams Operator Technician Relationship Specialty Start Date End Date Fanny Tejada DO [address] [place] [address] PCP - General Family Medicine 08/07/22 documented as of this encounter
--- OUTSIDE RECORDS SUMMARY | 2024-10-13 09:54 | XMS_ITS | Encounter Summary ---
Author Organization [facility] Address [address] [place] [address] Care Team Providers Care Database Reporting Consultant Name Role Phone Fanny Tejada DO Primary Care Provider +1- [phone] Encounter Details Date Type Department Care Team (Late st Contact Info) Description 06/18/2024 Abstract [facility] [address] [facility] 230 [place] [address] Fanny Tejada DO [address] [facility] [address] [place] [address] Social History Tobacco Use Types Packs/Day Years [...] How often do you attend chur or buddhism services? Patient declined 04/16/2024 Do you belong to any clubs o r organizations such as jainism groups, unions, fraternal or athletic groups, or [...] Recorded Patient Health Questionnaire-2 Score 0 04/21/2024 [facility] of Occupat ional Health - Occupational Stress [...] place to sleep or slept in a alf (including now)? No 10/09/2022 Housing Stability Vital Sign Answer Edwin e Recorded In the last 12 months, was t here a time when you were not able to pay the mortgage or rent on time? No 04/16/2024 Number of Times Moved in the Last Year Not on fi le 04/16/2024 At any time in the past 12 m [facility], were you homeless or living in a alf (including now)? No 04/16/2024 Comments No Sex [...] [address] [place] [address] Fanny Tejada DO [address] [place] [address] 09/06/2025 11:30 AM EDT Office Visit [facility] [address] [place] [address] Kyaw Chance, [address] [facility] [address] [place] [address] documented as of this encounter Visit Diagnoses Not on filedocumented in this encounter Care Teams Database Reporting Consultant Relationship Specialty Start Date End Date Fanny Tejada DO [address] [facility] [address] [place] [address] PCP - General Family Medicine 08/07/22 documented as of this encounter
--- OUTSIDE RECORDS SUMMARY | 2024-10-13 09:54 | XMS_ITS | Encounter Summary ---
Author Organization [facility] Address [address] [place] [address] Care Team Providers Care School Examiner Name Role Phone Fanny Tejada DO Unavailable [phone] Fanny Tejada DO Primary Care Provider [phone]- [phone] Encounter Details Date Type Department Care Team (Late st Contact Info) Description 03/15/2023 Abstract [facility] [address] [place] [address] Fanny Tejada DO [address] [place] [address] Social History Tobacco Use Types Packs/Day Years [...] often do you attend chur ch or muslim services? Patient declined 10/09/2022 Do you belong to any clubs o r organizations such as jewish groups, unions, fraternal or athletic groups, or [...] Recorded Patient Health Questionnaire-2 Score 0 12/21/2022 [facility] of Occupat ional Health - [...] in a residential (including now)? No 10/09/2022 Comments Unknown Sex [...] 01/28/2025 1:15 PM EDT Office Visit [facility] [address] [place] [address] Fanny Tejada DO [address] [place] [address] 09/06/2025 11:30 AM EDT Office Visit [facility] OB [address] [place] [address] Kyaw Chance, DO [address] [place] [address] documented as of this encounter Visit Diagnoses Not on filedocumented in this encounter Care Teams School Examiner Relationship Specialty Start Date End Date Fanny Tejada, [address] [place] [address] PCP - [place] [employer] 07/30/22 Fanny Tejada, [address] [facility] 230 [place] [address] PCP - General Family Medicine 08/07/22 documented as of this encounter
--- OUTSIDE RECORDS SUMMARY | 2024-10-13 09:54 | XMS_ITS | Encounter Summary ---
Author Organization [facility] Address [address] [place] [address] Care Team Providers Care Board Certified Family Physician Name Role Phone Fanny Tejada DO Primary Care Provider [phone]- [phone] Reason for Visit * Reason Onset Date Comments Med Refill 10/03/2024 Encounter Details Date Type Department Care Team (Late st Contact Info) Description 10/03/2024 Refill [facility] [address] [place] [address] Fanny Tejada DO [address] [facility] [address] [place] [address] Generalized anxiety disorder ; Chronic bilateral low [...] How often do you attend chur or mandaeism services? Patient declined 04/16/2024 Do you belong to any clubs o r organizations such as congregational groups, unions, fraternal or athletic groups, or [...] Recorded Patient Health Questionnaire-2 Score 0 04/21/2024 [facility] of Occupat ional Health - [...] place to sleep or slept in a halfway (including now)? No 10/09/2022 Housing Stability Vital Sign Answer Edwin e Recorded In the last 12 months, was t here a time when you were not able to pay the mortgage or rent on time? No 04/16/2024 Number of Times Moved in the Last Year Not on fi le 04/16/2024 At any time in the past 12 m [facility], were you homeless or living in a halfway (including now)? No 04/16/2024 Comments No Sex and Gender Information Value Date Recorded Sex Assigned at Female 10/09/2022 4:47 PM EDT Legal Sex Female 7:20 PM EDT Gender Identity Female 10/09/2022 4:47 PM EDT Sexual Orientation Not on file documented as of this encounter Miscellaneous Notes * Telephone Encounter - Josee Parham LPN - 10/05/2024 12:02 PM EDT Last ov 09/28/2024 RX sent in per Dr Escobedo documented in this encounter Plan of Treatment Upcoming Encounters Date Type Department Care Team (Late st Contact Info) Description 01/28/2025 1:15 PM EDT Office Visit [facility] [address] [place] [address] Fanny Tejada, DO [address] [place] [address] 09/06/2025 11:30 AM EDT Office Visit [facility] [address] [place] [address] Kyaw Chance, DO [address] [place] [address] documented as of this encounter Visit Diagnoses Diagnosis Generalized anxiety disorder Generalized anxiety disorder Chronic bilateral low back pain without sciatica Anxiety Anxiety state, unspecified Type 2 diabetes mellitus with peripheral neuropathy (HCC) documented in this encounter Care Teams Board Certified Family Physician Relationship Specialty Start Date End Date Fanny Tejada, [address] [place] [address] PCP - General Family Medicine 08/07/22 documented as of this encounter
--- OUTSIDE RECORDS SUMMARY | 2024-10-13 09:54 | XMS_ITS | Encounter Summary ---
Author Organization [facility] Address [address] [place] [address] Care Team Providers Care Experimental Mechanic Name Role Phone Fanny Tejada DO Unavailable [phone] Fanny Tejada DO Primary Care Provider [phone]- [phone] Encounter Details Date Type Department Care Team (Late st Contact Info) Description 11/29/2022 Abstract [facility] [address] [place] [address] Fanny Tejada DO [address] [place] [address] Social History Tobacco Use Types Packs/Day Years Used Date Smoking Tobacco: Never Smokeless Tobacco: Never Tobacco Cessation:Counseling Given: Not Answered Alcohol Use Standard Drinks/Week Comments Yes 0 [...] often do you attend chur ch or cheondoism services? Patient declined 10/09/2022 Do you belong to any clubs o r organizations such as hindu groups, unions, fraternal or athletic groups, or [...] Recorded Patient Health Questionnaire-2 Score 0 11/29/2022 [facility] - Occupational Stress Questionnaire Answer Date Recorded [...] PM EDT documented as of this encounter Functional Status * Over the past 2 weeks, how often have you been bothered by any of the following problems? Question Answer Date of Assessment Author Little interest or pleasure in doing things Not at all 11/29/2022 3:04 PM EDT Josee Parham LPN Feeling down, depressed, or hopeless Not at all 11/29/2022 3:04 PM EDT Josee Parham LPN Patient Health Questionnaire-2 Score 0 11/29/2022 3:04 PM EDT Alvin Parham LPN documented as of this encounter Plan of Treatment Upcoming Encounters Date Type Department Care Team (Late st Contact Info) Description 01/28/2025 1:15 PM EDT Office Visit [facility] [address] [place] [address] Fanny Tejada, DO [address] [place] [address] 09/06/2025 11:30 AM EDT Office Visit [facility] [address] [place] [phone] Kyaw Chance, DO [address] [place] [address] documented as of this encounter Visit Diagnoses Not on filedocumented in this encounter Care Teams Experimental Mechanic Relationship Specialty Start Date End Date Fanny Tejada DO [address] [place] [address] PCP - [place] [employer] 07/30/22 Fanny Tejada DO [address] [place] [address] PCP - General Family Medicine 08/07/22 documented as of this encounter
--- OUTSIDE RECORDS SUMMARY | 2024-10-13 09:55 | XMS_ITS | Encounter Summary ---
Author Organization [facility] Address [address] [place] [address] Care Team Providers Care Cemetery Counselor Name Role Phone Fanny Tejada DO Primary Care Provider [phone]- [phone] Reason for Visit * Reason Onset Date Comments Med Refill 07/31/2024 Encounter Details Date Type Department Care Team (Late st Contact Info) Description 07/31/2024 Refill [facility] [address] [place] [address] Fanny Tejada DO [address] [facility] [address] [place] [address] Type 2 diabetes mellitus with peripheral neuropathy [...] How often do you attend chur or roman catholic services? Patient declined 04/16/2024 Do you belong to any clubs o r organizations such as christian groups, unions, fraternal or athletic groups, or [...] place to sleep or slept in a skilled nursing (including now)? No 10/09/2022 Housing Stability Vital Sign Answer Edwin e Recorded In the last 12 months, was t here a time when you were not able to pay the mortgage or rent on time? No 04/16/2024 Number of Times Moved in the Last Year Not on fi le 04/16/2024 At any time in the past 12 m [facility], were you homeless or living in a skilled nursing (including now)? No 04/16/2024 Comments No Sex [...] [address] [place] [address] Fanny Tejada, [address] [place] [address] 09/06/2025 11:30 AM EDT Office Visit [facility] [address] [place] [address] Kyaw Chance DO [address] [place] [address] documented as of this encounter Visit Diagnoses Diagnosis Type 2 diabetes mellitus with peripheral neuropathy (HCC) documented in this encounter Care Teams Cemetery Counselor Relationship Specialty Start Date End Date Fanny Tejada DO [address] [place] [address] PCP - General Family Medicine 08/07/22 documented as of this encounter
--- OUTSIDE RECORDS SUMMARY | 2024-10-13 09:55 | XMS_ITS | Encounter Summary ---
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 Patient declined 10/09/2022 Do you belong to any clubs o r organizations such as mormon groups, unions, fraternal or athletic groups, or [...] and heating? Not hard at all 10/09/2022 [facility] - Occupational [...] suspected to have Coronavirus/COVID-19? No / Unsure 10/09/2022 6:45 PM EDT documented as of this encounter Miscellaneous Notes * Telephone Encounter - Josee Parham LPN - 10/15/2022 1:51 PM EDT Approving, but needs appt for additional refills. 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
--- OUTSIDE RECORDS SUMMARY | 2024-10-13 09:55 | XMS_ITS | Encounter Summary ---
Author Organization [facility] Address [address] [place] [address] Care Team Providers Care Air And Missile Defense Crewmember Name Role Phone Fanny Tejada DO Unavailable Fanny Tejada DO Primary Care Provider [phone]- [phone] Reason for Visit * Reason Comments Med Refill Encounter Details Date Type Department Care Team (Late Contact Info) Description 09/20/2022 Refill [facility] 230 [address] [facility] 230 [place] [address] Fanny Tejada DO [address] [facility] 230 [place] [address] Acute seasonal allergic rhinitis Social History Tobacco Use Types Packs/Day Years Used Date Smoking Tobacco: Never Assessed Comments Unknown Sex and Gender Information Value Date Recorded Sex Assigned at Female 10/09/2022 4:47 PM EDT Legal Sex Female 7:20 PM EDT Gender Identity Female 10/09/2022 4:47 PM EDT Sexual Orientation Not on file documented as of this encounter Miscellaneous Notes * Telephone Encounter - Josee Parham LPN - 09/21/2022 8:18 AM EDT Approving, but needs appt for additional refills. documented in this encounter Plan of Treatment Upcoming Encounters Date Type Department Care Team (Late Contact Info) Description 01/28/2025 1:15 PM EDT Office Visit [facility] [address] [place] [address] Fanny Tejada, DO [address] [place] [address] 09/06/2025 11:30 AM EDT Office Visit [facility] OB [address] [place] [address] Kyaw Chance, DO [address] [place] [address] documented as of this encounter Visit Diagnoses Diagnosis Acute seasonal allergic rhinitis documented in this encounter Care Teams Air And Missile Defense Crewmember Relationship Specialty Start Date End Date Fanny Tejada DO [address] [place] [address] PCP - [place] [employer] 07/30/22 Fanny Tejada DO [address] [place] [address] PCP - General Family Medicine 08/07/22 documented as of this encounter
--- OUTSIDE RECORDS SUMMARY | 2024-10-13 09:55 | XMS_ITS | Encounter Summary ---
Author Organization [facility] Address [address] [place] [address] Care Team Providers Care Crop Adjuster Name Role Phone Fanny Tejada DO Unavailable Fanny Tejada DO Primary Care Provider [phone] Encounter Details Date Type Department Care Team (Late st Contact Info) Description 09/09/2023 Clinisync Result Encounter [facility] External Department Unsolicited Fanny Tejada, DO [address] [facility] [address] [place] [address] Social History Tobacco Use Types Packs/Day Years [...] friends, or neighbors? Once a week 10/10/19 23 How often do you get togethe r with friends or relatives? Twice a week 10/09/2022 How often do you attend chur or samaritan services? Patient declined 10/09/2022 Do you belong to any clubs o r organizations such as mandaeism groups, unions, fraternal or athletic groups, or [...] Recorded Patient Health Questionnaire-2 Score 0 12/21/2022 [facility] [...] place to sleep or slept in a care home (including now)? No 10/09/2022 Comments Unknown Sex [...] [address] [place] [address] Fanny Tejada, DO [address] [place] [address] 09/06/2025 11:30 AM EDT Office Visit [facility] [address] [place] [address] Kyaw Chance, DO [address] [place], [place] [phone] documented as of this encounter Procedures Procedure Name Priority Date/Time Associated Diagnosis Comments US RIGHT UPPER QUADRANT 09/09/2023 8:21 AM EDT documented in this encounter Results * US RIGHT UPPER QUADRANT (09/09/2023 8:21 AM EDT) Anatomical Region Laterality Modality Other 09/09/2023 8:21 AM EDT Narrative 09/09/2023 8:24 AM EDT The [address] [address] Ultrasound Report Signed Patient: ZARA BENEDICT MR#: [id number] : 1960 Acct:[id number] Age/Sex: 63 / F ADM Date: 09/07/23 Loc: US Attending Dr: FANNY TEJADA Ordering Physician: FANNY TEJADA Date of Service: 09/07/23 Procedure(s): US right upper quadrant Accession Number(s): [id number] cc: FANNY TEJADA [place] [id number] Patient Name: ZARA BENEDICT MRN: [id number] date: 1960 Sex: F Assigned Patient Location: US Current Patient Location: US Accession/Order Number: [id number] Exam Date: 09/07/2023 07:56 Report Date: 09/09/2023 08:21 At the request of: FANNY TEJADA Procedure: US right upper quadrant PROCEDURE: US right upper quadrant, 09/07/2023 7:56 AM EDT CLINICAL INDICATIONS: Right upper quadrant abdominal pain for 6 months. COMPARISON: None. TECHNIQUE: Right quadrant abdominal sonogram, charlton scale, color, and spectral assessment. FINDINGS: Visualized pancreas is unremarkable. No ductal dilatation is seen. Portions of head and tail segment obscured. Right kidney is normal in morphology. It measures 11.8 x 6.4 x 6.0 cm. No hydronephrosis or shadowing calculus is identified. Focal renal abnormality is not demonstrated. No ascites. Liver is upper normal in size right lobe 15.8 cm. Increased echogenicity, coarsened echotexture, decreased acoustic penetration noted. Visualized portal vein patent, antegrade flow, normal velocity. Common bile duct 0.5 cm. Multiple echogenic foci are present near the expected location of the gallbladder. There is suggestion of wall echo pattern. Contracted gallbladder with extensive cholelithiasis favored. Localized pain, wall thickening is not seen. US/US right upper quadrant IMPRESSION: 1. Suspect cholelithiasis within contracted gallbladder. No wall thickening, localized pain, or biliary dilatation. 2. Mild hepatomegaly, moderate hepatic steatosis. Electronically authenticated by: KING BONILLA Date: 09/09/2023 08:21 Dictated By: King Bonilla M.D. Signed By: 09/09/23823 DD/ 0 TD/TT: Crusher Operator: Procedure Note Radiology, Radiologist, MD - 09/09/2023 [place] [address] Ultrasound Report Signed Patient: ZARA BENEDICT R#: [id number] : 1960Acct:[id number] Age/Sex: 63 / FADM Date: 09/07/23 Loc: US Attending Dr: FANNY TEJADA Ordering Physician: FANNY TEJADA Date of Service: 09/07/23 Procedure(s): US right upper quadrant Accession Number(s): [id number] cc: FANNY TEJADA [place] [id number] Patient Name: ZARA BENEDICT MRN: [id number] date: 1960 Sex: F Assigned Patient Location: Current Patient Location: Accession/Order Number: [id number] Exam Date: 09/07/2023 07:56 Report Date: 09/09/2023 08:21 At the request of: FANNY TEJADA Procedure: US right upper quadrant PROCEDURE: US right upper quadrant, 09/07/2023 7:56 AM EDT CLINICAL INDICATIONS: Right upper quadrant abdominal pain for 6 months. COMPARISON: None. TECHNIQUE: Right quadrant abdominal sonogram, charlton scale, color, andspectral assessment. FINDINGS: Visualized pancreas is unremarkable. No ductal dilatation is seen.Portions of head and tail segment obscured. Right kidney is normal in morphology. It measures 11.8 x 6.4 x 6.0 cm. No hydronephrosis or shadowing calculus is identified. Focal renalabnormality is not demonstrated. No ascites. Liver is upper normal in size right lobe 15.8 cm. Increased echogenicity, coarsened echotexture, decreased acoustic penetration noted. Visualizedportal vein patent, antegrade flow, normal velocity. Common bile duct 0.5 cm. Multiple echogenic foci are present near theexpected location of the gallbladder. There is suggestion of wall echo pattern. Contracted gallbladder with extensive cholelithiasis favored. Localizedpain, wall thickening is not seen. US/US right upper quadrant IMPRESSION: 1. Suspect cholelithiasis within contracted gallbladder. No wallthickening, localized pain, or biliary dilatation. 2. Mild hepatomegaly, moderate hepatic steatosis. Electronically authenticated by: KING BONILLA Date: 09/09/2023 08:21 Dictated By: King Bonilla M.D. Signed By:09/09/23823 DD/ 0 TD/TT: Crusher Operator: us Fanny Tejada DO [facility] Final Re sult documented in this encounter Visit Diagnoses Not on filedocumented in this encounter Care Teams Crop Adjuster Relationship Specialty Start Date End Date Fanny Tejada DO [address] [place] [address] PCP - [place] [employer] 07/30/22 Fanny Tejada DO [address] [place] [address] PCP - General Family Medicine 08/07/22 documented as of this encounter
--- OUTSIDE RECORDS SUMMARY | 2024-10-13 09:56 | XMS_ITS | Encounter Summary ---
Author Organization [facility] Address [address] [place] [address] Care Team Providers Care Forest Fire Fighters Dispatcher Name Role Phone Fanny Tejada DO Unavailable [phone] Fanny Tejada DO Primary Care Provider [phone] Encounter Details Date Type Department Care Team (Late st Contact Info) Description 09/17/2023 Abstract [facility] [address] [place] [address] Randal Gastelum, DO [address] [place], [place] [id number] Social History Tobacco Use Types Packs/Day Years [...] often do you attend chur ch or synagogue services? Patient declined 10/09/2022 Do you belong to any clubs o r organizations such as jehovah's witness groups, unions, fraternal or athletic groups, or [...] Recorded Patient Health Questionnaire-2 Score 0 12/21/2022 [facility] ional Health - Occupational [...] in a halfway (including now)? No 10/09/2022 Comments Unknown Sex and Gender Information Value Date Recorded Sex Assigned at Female 10/09/2022 4:47 PM EDT Legal Sex Female 7:20 PM EDT Gender Identity Female 10/09/2022 4:47 PM EDT Sexual Orientation Not on file documented as of this encounter Functional Status * Audit-C Score Answer Date of Assessment Author 0 09/20/2023 8:55 AM Maria De Jesus Jimenez LPN * Question Answer Date of Assessment Author Q1: How often do you have a drink containing alcohol? Never 09/20/2023 8:55 AM Josee Jimenez LPN Q2: How many drinks containing alcohol do you have on a typical day when you are drinking? Patient does not drink 09/20/2023 8:55 AM Josee Jimenez LPN Q3: How often do you have six or more drinks on one occasion? Never 09/20/2023 8:55 AM Josee Jimenez LPN documented as of this encounter Plan of Treatment Upcoming Encounters Date Type Department Care Team (Late st Contact Info) Description 01/28/2025 1:15 PM EDT Office Visit [facility] [address] [place] [address] Fanny Tejada, DO [address] [place] [address] 09/06/2025 11:30 AM EDT Office Visit [facility] [address] [place] [address] Kyaw Chance, DO [address] [place] [address] documented as of this encounter Visit Diagnoses Not on filedocumented in this encounter Care Teams Forest Fire Fighters Dispatcher Relationship Specialty Start Date End Date Fanny Tejada DO [address] [place] [address] PCP - [place] 07/30/22 Fanny Tejada DO [address] [place] [address] PCP - General Family Medicine 08/07/22 documented as of this encounter
--- OUTSIDE RECORDS SUMMARY | 2024-10-13 09:56 | XMS_ITS | Encounter Summary ---
Author Organization [facility] Address [address] [place] [address] Care Team Providers Care Boomswing Operator Name Role Phone Fanny Tejada DO Unavailable [phone] Fanny Tejada DO Primary Care Provider [phone] Encounter Details Date Type Department Care Team (Late st Contact Info) Description 04/03/2023 Orders Only [facility] FM [address] [place] [address] A, Unknown Practice [address] [id number] Social History Tobacco Use Types Packs/Day Years [...] How often do you attend chur or methodist services? Patient declined 10/09/2022 Do you belong to any clubs o r organizations such as mandaen groups, unions, fraternal or athletic groups, or [...] Recorded Patient Health Questionnaire-2 Score 0 12/21/2022 [facility] - Occupational Stress Questionnaire [...] [address] [place], [place] [id number] 09/06/2025 11:30 AM EDT Office Visit [facility] [address] [place] [address] Kyaw Chance, DO [address] [place], [place] [address] documented as of this encounter Procedures Procedure Name Priority Date/Time Associated Diagnosis Comments XR LUMBAR SPINE COMPLETE 4+ VIEWS Routine 03/29/2023 8:45 AM EST documented in this encounter Results * XR lumbar spine complete 4+ views (03/29/2023 8:45 AM EST) Anatomical Region Laterality Modality Spine, L-spine Radiographic Amy ging us Unknown Practice A IMG XR PROCEDURES Final Resul t documented in this encounter Visit Diagnoses Not on filedocumented in this encounter Care Teams Boomswing Operator Relationship Specialty Start Date End Date Fanny Tejada DO [address] [place] [address] [facility] Fanny Tejada DO [address] [place] [address] PCP - General Family Medicine 08/07/22 documented as of this encounter
--- OUTSIDE RECORDS SUMMARY | 2024-10-13 09:56 | XMS_ITS | Encounter Summary ---
Author Organization [facility] Address [address] [place] [address] Care Team Providers Care Incoming Freight Clerk Name Role Phone Fanny Tejada DO Unavailable [phone] Fanny Tejada DO Primary Care Provider [phone] Encounter Details Date Type Department Care Team (Late st Contact Info) Description 08/21/2023 Orders Only [facility] FM [address] [place] [address] Fanny Tejada, [address] [place] [address] Social History Tobacco Use Types Packs/Day Years [...] often do you attend chur ch or islam services? Patient declined 10/09/2022 Do [...] 01/28/2025 1:15 PM EDT Office Visit [facility] FM [address] [place] [address] Fanny Tejada, DO [address] [place] [address] 09/06/2025 11:30 AM EDT Office Visit [facility] OB [address] [place] [address] Kyaw Chance, DO [address] [place] [address] documented as of this encounter Procedures Procedure Name Priority Date/Time Associated Diagnosis Comments ALBUMIN, URINE, RANDOM Routine 08/21/2023 2:27 PM EDT documented in this encounter Results * Albumin, urine, random (08/21/2023 2:27 PM EDT) Urine Urine specimen obtained by clean catch procedure / Unknown Fanny Tejada DO LAB URINE ORDERABLES Final Result documented in this encounter Visit Diagnoses Not on filedocumented in this encounter Care Teams Incoming Freight Clerk Relationship Specialty Start Date End Date Fanny Tejada DO [address] [place] [address] PCP - [place] [employer] 07/30/22 Fanny Tejada DO [address] [place] [address] PCP - General Family Medicine 08/07/22 documented as of this encounter
--- OUTSIDE RECORDS SUMMARY | 2024-10-13 09:56 | XMS_ITS | Encounter Summary ---
Author Organization [facility] Address [address] [place] [address] Care Team Providers Care Lathe Sander Name Role Phone Fanny Tejada DO Primary Care Provider [phone] Encounter Details Date Type Department Care Team (Late st Contact Info) Description 12/18/2023 Abstract [facility] [address] [facility] 230 [place] [address] Fanny Tejada DO [address] [facility] [address] [place] [address] Social History Tobacco Use Types Packs/Day Years [...] often do you attend chur ch or lutheran services? Patient declined 10/09/2022 Do you belong to any clubs o r organizations such as temple groups, unions, fraternal or athletic groups, or [...] Recorded Patient Health Questionnaire-2 Score 0 12/21/2022 [facility] Occupat ional Health - [...] in a alf (including now)? No 10/09/2022 Comments Unknown Sex [...] [address] [place] [address] 09/06/2025 11:30 AM EDT Office Visit [facility] [address] [place] [phone] Kyaw Chance, DO [address] [place], [place] [phone] documented as of this encounter Visit Diagnoses Not on filedocumented in this encounter Care Teams Lathe Sander Relationship Specialty Start Date End Date Fanny Tejada, [address] [place] [address] PCP - General Family Medicine 08/07/22 documented as of this encounter
--- OUTSIDE RECORDS SUMMARY | 2024-10-13 09:56 | XMS_ITS | Encounter Summary ---
Author Organization [facility] Address [address] [place] [address] Care Team Providers Care Welder First Class Name Role Phone Fanny Tejada DO Unavailable [phone] Fanny Tejada DO Primary Care Provider [phone]- [phone] Encounter Details Date Type Department Care Team (Late st Contact Info) Description 09/12/2023 Clinisync Result Encounter [facility] External Department Unsolicited Dang Patiño PA [address] [place] [address] [place] [address] Social History Tobacco Use Types Packs/Day Years [...] How often do you attend chur or congregation services? Patient declined 10/09/2022 Do [...] Recorded Patient Health Questionnaire-2 Score 0 12/21/2022 [facility] - Occupational [...] a skilled nursing (including now)? No 10/09/2022 Comments Unknown Sex [...] DO [address] [place] [address] 09/06/2025 11:30 AM EDT Office Visit [facility] [address] [place] [address] Kyaw Chance, DO [address] [place], [place] [id number] documented as of this encounter Procedures Procedure Name Priority Date/Time Associated Diagnosis Comments XR DEXA AXIAL SKELETON 09/12/2023 3:53 PM EDT documented in this encounter Results * XR DEXA AXIAL SKELETON (09/12/2023 3:53 PM EDT) Anatomical Region Laterality Modality Other 09/12/2023 3:53 PM EDT Narrative 09/12/2023 3:55 PM EDT [address] [address] XRay Report Signed Patient: ZARA BENEDICT MR#: [id number] : 1960 Acct:[id number] Age/Sex: 63 / F ADM Date: 09/12/23 Loc: RAD Attending Dr: Dang Patiño Ordering Physician: Dang Patiño Date of Service: 09/12/23 Procedure(s): XR DEXA axial skeleton Accession Number(s): [id number] cc: Dang Patiño; FANNY TEJADA [address] [address] Patient Name: ZARA BENEDICT MRN: [id number] date: 1960 Sex: F Assigned Patient Location: [facility] Current Patient Location: [facility] Accession/Order Number: [id number] Exam Date: 09/12/2023 14:08 Report Date: 09/12/2023 15:53 At the request of: DANG PATIÑO Procedure: XR DEXA axial skeleton EXAMINATION: XR DEXA axial skeleton, 09/12/2023 2:08 PM EDT HISTORY: Post Menopausal State Z78.0 COMPARISON: None. TECHNIQUE: Dual-energy X-ray absorptiometry (DEXA) bone density study performed for the axial skeleton. HISTORY: Post Menopausal State Z78.0 FINDINGS: Bone mineral density of the before meals spine L1-L4 measures 1.314 g/sq cm squared. T score 1.1. WHO ossification: Normal. Lowest bone mineral density left femoral trochanter measures 0.742 g/sq cm. T score -0.9. WHO classification: Normal XR/XR DEXA axial skeleton IMPRESSION: Normal bone mineral density. Low fracture risk Electronically authenticated by: FLAVIA CHAVES Date: 09/12/2023 15:53 Dictated By: Flavia Chaves M.D. Signed By: 09/12/23 1555 DD/ 1553 TD/TT: Civil Process Server: Procedure Note Radiology, Radiologist, - 09/12/[address] [address] XRay Report Signed Patient: ZARA BENEDICT R#: [id number] : 1960Acct:[id number] Age/Sex: 63 / FADM Date: 09/12/23 Loc: RAD Attending Dr: Dang Patiño Ordering Physician: Dang Patiño Date of Service: 09/12/23 Procedure(s): XR DEXA axial skeleton Accession Number(s): [id number] cc: Dang Patiño; FNANY TEJADA [address] [address] Patient Name: ZARA BENEDICT MRN: [id number] date: 1960 Sex: F Assigned Patient Location: [facility] Current Patient Location: [facility] Accession/Order Number: [id number] Exam Date: 09/12/2023 14:08 Report Date: 09/12/2023 15:53 At the request of: DANG PATIÑO Procedure: XR DEXA axial skeleton EXAMINATION: XR DEXA axial skeleton, 09/12/2023 2:08 PM EDT HISTORY: Post Menopausal State Z78.0 COMPARISON: None. TECHNIQUE: Dual-energy X-ray absorptiometry (DEXA) bone density study performed for the axial skeleton. HISTORY: Post Menopausal State Z78.0 FINDINGS: Bone mineral density of the before meals spine L1-L4 measures 1.314 g/sqcm squared. T score 1.1. WHO ossification: Normal. Lowest bone mineral density left femoral trochanter measures 0.742 g/sqcm. T score -0.9. WHO classification: Normal XR/XR DEXA axial skeleton IMPRESSION: Normal bone mineral density. Low fracture risk Electronically authenticated by: FLAVIA CHAVES Date: 09/12/2023 15:53 Dictated By: Flavia Chaves M.D. Signed By:09/12/23 1555 DD/ 1553 TD/TT: Civil Process Server: Dang RUFF [facility] Final Result documented in this encounter Visit Diagnoses Not on filedocumented in this encounter Care Teams Welder First Class Relationship Specialty Start Date End Date Fanny Tejada DO [address] [place] [address] PCP - [place] [employer] 07/30/22 Fanny Tejada DO [address] [place] [address] PCP - General Family Medicine 08/07/22 documented as of this encounter
--- OUTSIDE RECORDS SUMMARY | 2024-10-13 09:56 | XMS_ITS | Encounter Summary ---
Author Organization [facility] Address [address] [place] [address] Care Team Providers Care Front End Developer Designer Name Role Phone Fanny Tejada DO Unavailable [phone] Fanny Tejada DO Primary Care Provider [phone] Encounter Details Date Type Department Care Team (Late st Contact Info) Description 10/01/2023 Clinisync Result Encounter [facility] External Department Unsolicited Randal Gastelum DO [address] [facility] [place] [address] Social History Tobacco Use Types Packs/Day Years [...] How often do you attend chur or rastafarian services? Patient declined 10/09/2022 Do you belong to any clubs o r organizations such as congregation groups, unions, fraternal or athletic groups, or [...] Recorded Patient Health Questionnaire-2 Score 0 12/21/2022 [facility] Occupat ional Health - Occupational [...] place to sleep or slept in a usp (including now)? No 10/09/2022 Comments Unknown Sex [...] DO [address] [place] [address] 09/06/2025 11:30 AM EDT Office Visit [facility] [address] [place] [phone] Kyaw Chance, DO [address] [place], [place] [phone] documented as of this encounter Procedures Procedure Name Priority Date/Time Associated Diagnosis Comments MM TOMOSYNTHESIS SCREENING BI 10/01/2023 3:49 PM EDT documented in this encounter Results * MM TOMOSYNTHESIS SCREENING BI (10/01/2023 3:49 PM EDT) Anatomical Region Laterality Modality Other 10/01/2023 3:49 PM EDT Narrative 10/01/2023 3:50 PM EDT The [address] [address] Mammography Report Signed Patient: ZARA BENEDICT MR#: [id number] : 1960 Acct:[id number] Age/Sex: 63 / F ADM Date: 09/30/23 Loc: MAMMO Attending Dr: Randal Gastelum D.O. Ordering Physician: Randal Gastelum D.O. Results: Date of Service: 09/30/23 Follow Up: Procedure(s): MM tomosynthesis screening BI Accession Number(s): [id number] cc: Randal Gastelum D.O.; FANNY TEJADA Patient Name: ZARA BENEDICT MR#: [id number] : 1960 Exam Date: 09/30/2023 Ordering Doctor: [...] bladder cancer at age 82. LOCATION: The [facility] BREAST COMPOSITION: The breasts are almost entirely [...] Signed By: 10/01/23 1550 DD/ 1549 TD/TT: Automatic Centrifugal Station Operator: Procedure Note Radiology, Radiologist, MD - 10/01/2023 [place] [address] Mammography Report Signed Patient: ZARA BENEDICT JMR#: [id number] : 1960Acct:[id number] Age/Sex: 63 / FADM Date: 09/30/23 Loc: MAMMO Attending Dr: Randal Gastelum D.O. Ordering Physician: Randal Gastelum D.O.Results: Date of Service: 09/30/23Follow Up: Procedure(s): MM tomosynthesis screening BI Accession Number(s): [id number] cc: Randal Gastelum D.O.; FANNY TEJADA Patient Name: ZARA BENEDICT MR#: [id number] : 1960 Exam Date: 09/30/2023 Ordering Doctor: DR Randal Gastelum . RADIOLOGY REPORT PROCEDURE: MM TOMOSYNTHESIS SCREENING BI COMPARISON: MM TOMOSYNTHESIS SCREENING BI, 09/27/2022. MG MAMM [id number] MELVINA CAD, 09/12/2021. MG MAMM SCREEN 3D MELVINA CAD, 09/10/2020. INDICATIONS: Screening Calculator Name NCI Breast Cancer Risk Assessment Tool 5 Year Breast Cancer Risk 1.30% Lifetime Breast Cancer Risk 6.40% Personal Breast Cancer No Personal Ovarian Cancer No Treatments None Family Cancers Father with bladder cancer at age 80. LOCATION: The [facility] BREAST COMPOSITION: The breasts are almost entirely [...] M.D. Signed By:10/01/23 1550 DD/ 1549 TD/TT: Automatic Centrifugal Station Operator: us Randal Gastelum DO [facility] Final Result documented in this encounter Visit Diagnoses Not on filedocumented in this encounter Care Teams Front End Developer Designer Relationship Specialty Start Date End Date Fanny Tejada DO [address] [place] [address] PCP - [employer] 07/30/22 Fanny Tejada DO [address] [place] [address] PCP - General Family Medicine 08/07/22 documented as of this encounter
--- OUTSIDE RECORDS SUMMARY | 2024-10-13 09:56 | XMS_ITS | Encounter Summary ---
Author Organization [facility] Address [address] [place] [address] Care Team Providers Care Metal Bending Machine Operator Name Role Phone Fanny Tejada DO Unavailable [phone] Fanny Tejada DO Primary Care Provider [phone] Encounter Details Date Type Department Care Team (Late st Contact Info) Description 04/01/2023 Clinisync Result Encounter [facility] External Department Unsolicited Fanny Tejada, DO [address] [facility] [address] [place] [address] Social History Tobacco Use Types Packs/Day Years [...] How often do you attend chur or taoist services? Patient declined 10/09/2022 Do you belong to any clubs o r organizations such as quaker groups, unions, fraternal or athletic groups, or [...] Recorded Patient Health Questionnaire-2 Score 0 12/21/2022 [facility]at ional Health - Occupational [...] place to sleep or slept in a jail (including now)? No 10/09/2022 Comments Unknown Sex [...] DO [address] [place] [address] 09/06/2025 11:30 AM EDT Office Visit [facility] [address] [place] [address] Kyaw Chance, DO [address] [place], [place] [phone] documented as of this encounter Procedures Procedure Name Priority Date/Time Associated Diagnosis Comments XR LUMBAR SPINE MIN 4V 04/01/2023 5:55 PM EST documented in this encounter Results * XR LUMBAR SPINE MIN 4V (04/01/2023 5:55 PM EST) Anatomical Region Laterality Modality Other 04/01/2023 5:55 PM EST Narrative 04/01/2023 5:57 [place] [address] XRay Report Signed Patient: ZARA BENEDICT MR#: [id number] : 1960 Acct:[id number] Age/Sex: 62 / F ADM Date: 03/29/23 Loc: RAD Attending Dr: FANNY TEJADA Ordering Physician: FANNY TEJADA Date of Service: 03/29/23 Procedure(s): XR lumbar spine min 4V Accession Number(s): [id number] cc: FANNY TEJADA [place] [address] Patient Name: ZARA BENEDICT MRN: [id number] date: 1960 Sex: F Assigned Patient [facility]: [facility] Current Patient Location: Accession/Order Number: [id number] Exam Date: 03/29/2023 13:16 Report Date: 04/01/2023 17:55 At the request of: FANNY TEJADA Procedure: XR lumbar spine min 4V EXAM: XR lumbar spine min 4V HISTORY: Chronic Bilateral Low Back Pain COMPARISON: None. TECHNIQUE: 5 view study FINDINGS: Vertebral bodies are normal in height. There is mild disc space narrowing at L3-4, L4-5, and L5-S1. Right facet arthropathy is noted at L4-5 and L5-S1. Faceted gallbladder calculi noted. Also, there is milk of calcium bile within the gallbladder. XR/XR lumbar spine min 4V IMPRESSION: Lower lumbar spondylosis. Cholelithiasis. Electronically authenticated by: Susana FERNANDES Date: 04/01/2023 17:55 Dictated By: Freddy Fernandes M.D. Signed By: 04/01/231756 DD/ 54 TD/TT: Orthopedic Cast Specialist: Procedure Note Radiology, Radiologist, - 04/01/2023 [place] [address] XRay Report Signed Patient: ZARA BENEDICT JMR#: [id number] : 1960Acct:[id number] Age/Sex: 62 / FADM Date: 03/29/23 Loc: RAD Attending Dr: FANNY TEJADA Ordering Physician: FANNY TEJADA Date of Service: 03/29/23 Procedure(s): XR lumbar spine min 4V Accession Number(s): [id number] cc: FANNY TEJADA [place] [address] Patient Name: ZARA BENEDICT MRN: [id number] date: 1960 Sex: F Assigned Patient Location: RAD Current Patient Location: Accession/Order Number: [id number] Exam Date: 03/29/2023 13:16 Report Date: 04/01/2023 17:55 At the request of: FANNY TEJADA Procedure: XR lumbar spine min 4V EXAM: XR lumbar spine min 4V HISTORY: Chronic Bilateral Low Back Pain COMPARISON: None. TECHNIQUE: 5 view study FINDINGS: Vertebral bodies are normal in height. There is mild disc space narrowing at L3-4, L4-5, and L5-S1. Right facet arthropathy is noted atL4-5 and L5-S1. Faceted gallbladder calculi noted. Also, there is milk of calcium bilewithin the gallbladder. XR/XR lumbar spine min 4V IMPRESSION: Lower lumbar spondylosis. Cholelithiasis. Electronically authenticated by: Susana FERNANDES Date: 04/01/2023 17:55 Dictated By: Freddy Fernandes M.D. Signed By:04/01/231756 DD/ 54 TD/TT: Orthopedic Cast Specialist: Fanny Tejada DO [facility] Final Re sult documented in this encounter Visit Diagnoses Not on filedocumented in this encounter Care Teams Metal Bending Machine Operator Relationship Specialty Start Date End Date Fanny Tejada DO [address] [place] [address] PCP - [employer] 07/30/22 Fanny Tejada DO [address] [facility] [address] [place] [id number] PCP - General Family Medicine 08/07/22 documented as of this encounter
--- OUTSIDE RECORDS SUMMARY | 2024-10-13 09:56 | XMS_ITS | Encounter Summary ---
Author Organization [facility] Address [address] [place] [address] Care Team Providers Care Treer Name Role Phone Fanny Tejada DO Unavailable [phone] Fanny Tejada DO Primary Care Provider [phone] Encounter Details Date Type Department Care Team (Late st Contact Info) Description 09/24/2023 Abstract [facility] [address] [place] [address] Fanny Tejada DO [address] [place] [address] Social History Tobacco Use Types Packs/Day Years [...] often do you attend chur ch or confucianist services? Patient declined 10/09/2022 Do you belong to any clubs o r organizations such as mu-ism groups, unions, fraternal or athletic groups, or [...] Recorded Patient Health Questionnaire-2 Score 0 12/21/2022 [facility] Occupat ional Health - Occupational [...] place to sleep or slept in a senior living (including now)? No 10/09/2022 Comments Unknown Sex [...] [address] [place] [address] Fanny Tejada DO [address] [place], [place] [phone] 09/06/2025 11:30 AM EDT Office Visit [facility] [address] [place] [address] Kyaw Chance, DO [address] [place] [address] documented as of this encounter Visit Diagnoses Not on filedocumented in this encounter Care Teams Treer Relationship Specialty Start Date End Date Fanny Tejada DO [address] [place] [address] PCP - [employer] 07/30/22 Fanny Tejada DO [address] [address] PCP - General Family Medicine 08/07/22 documented as of this encounter
--- OUTSIDE RECORDS SUMMARY | 2024-10-13 09:56 | XMS_ITS | Encounter Summary ---
Author Organization [facility] Address [address] [place] [address] Care Team Providers Care Farm Manager Name Role Phone Fanny Tejada DO Primary Care Provider [phone] Encounter Details Date Type Department Care Team (Late st Contact Info) Description 12/16/2023 Abstract [facility] [address] [facility] [address] [place] [address] Fanny Tejada DO [address] [facility] [address] [place] [address] Social History Tobacco Use Types Packs/Day Years [...] often do you attend chur ch or buddhist services? Patient declined 10/09/2022 Do you belong [...] Recorded Patient Health Questionnaire-2 Score 0 12/21/2022 [facility] of Occupat ional Health - Occupational Stress [...] [address] [place] [address] 09/06/2025 11:30 AM EDT Office Visit [facility] [address] [place] [address] Kyaw Chance, DO [address] [place], [place] [phone] documented as of this encounter Visit Diagnoses Not on filedocumented in this encounter Care Teams Farm Manager Relationship Specialty Start Date End Date Fanny Tejada, [address] [place] [address] PCP - General Family Medicine 08/07/22 documented as of this encounter
--- OUTSIDE RECORDS SUMMARY | 2024-10-13 09:56 | XMS_ITS | Encounter Summary ---
Author Organization [facility] Address [address] [place] [address] Care Team Providers Care Crematory Operator Name Role Phone Fanny Tejada DO Unavailable [phone] Fanny Tejada DO Primary Care Provider [phone] Reason for Visit * Reason Onset Date Comments Error (VOID this visit) 09/20/2023 Encounter Details Date Type Department Care Team (Late st Contact Info) Description 09/20/2023 Telephone [facility] [address] [facility] [address] [place] [phone] Fanny Tejada, [address] [facility] [address] [place] [address] Error (VOID this visit) Social History Tobacco Use Types Packs/Day Years [...] often do you attend chur ch or advent services? Patient declined 10/09/2022 Do you belong [...] Recorded Patient Health Questionnaire-2 Score 0 12/21/2022 [facility] of Occupat ional Health - Occupational [...] place to sleep or slept in a penitentiary (including now)? No 10/09/2022 Comments Unknown Sex and Gender Information Value Date Recorded Sex Assigned at Female 10/09/2022 4:47 PM EDT Legal Sex Female 7:20 PM EDT Gender Identity Female 10/09/2022 4:47 PM EDT Sexual Orientation Not on file documented as of this encounter Functional Status * Audit-C Score Answer Date of Assessment Author 0 09/20/2023 8:55 AM CLAUDIAT Maria De Jesus Parham LPN * Question Answer Date of Assessment [...] 01/28/2025 1:15 PM EDT Office Visit [facility] [address] [place] [address] Fanny Tejada, DO [address] [place] [address] 09/06/2025 11:30 AM EDT Office Visit [facility] [address] [place] [phone] Kyaw Chnace, DO [address] [place] [address] documented as of this encounter Visit Diagnoses Not on filedocumented in this encounter Care Teams Crematory Operator Relationship Specialty Start Date End Date Fanny Tejada DO [address] [place] [address] PCP - [employer] 07/30/22 Fanny Tejada DO [address] [place] [address] PCP - General Family Medicine 08/07/22 documented as of this encounter
[2024-10-13 10:01] LABS: Hematocrit 48.1 % (36.0-48.0); Hemoglobin 15.4 g/dL (12.0-16.0); Immature Granulocytes Abs Auto 0.02 10^3/uL (0.00-0.03); Immature Granulocytes Pct Auto 0.4 % (0.0-0.5); Lymphocytes Absolute Auto 1.3 10^3/uL (1.2-3.8); Mean Corpuscular HGB Conc 32.0 g/dL (29.9-35.2); Mean Corpuscular Hemoglobin 29.3 pg (26.7-34.0); Mean Corpuscular Volume 91.6 fL (81.0-99.0); Platelet Count 176 10^3/uL (150-450); Red Blood Count 5.25 10^6/uL (4.20-5.40); White Blood Count 4.8 10^3/uL (4.0-11.0)
[2024-10-13 11:11] LABS: Sodium 144 mmol/L (136-145)
[2024-10-13 11:12] LABS: Alanine Aminotransferase 34 U/L (14-59); Albumin Globulin Ratio 1.3; Albumin Level 4.1 g/dL (3.4-5.0); Alkaline Phosphatase 69 U/L (46-116); Anion Gap 13.9; Aspartate Amino Transferase 20 U/L (15-37); Blood Urea Nitrogen 13.0 mg/dL (7.0-18.0); Calcium 9.0 mg/dL (8.5-10.1); Carbon Dioxide 29.0 mmol/L (21.0-32.0); Chloride 105 mmol/L (98-107); Cholesterol 214 mg/dL (<=200); Estimated GFR (African America >60 (>=60 mL/min/1.73m^2); Estimated GFR (Non-African Ame >60 (>=60 mL/min/1.73m^2); Globulin 3.2 g/dL; Glucose 130 mg/dL (74-106); Potassium 3.9 mmol/L (3.5-5.1); Total Protein 7.3 g/dL (6.4-8.2); Triglycerides 137 mg/dL (<=150); VLDL CHOLESTEROL 27.4 mg/dL
[2024-10-13 11:13] LABS: HDL Cholesterol 54 mg/dL (40-60); Thyroid Stimulating Hormone 2.116 uIU/mL (0.358-3.740)
== END 2024-10-13 09:51 | disposition home or self-care (01) ==
LOC: LAB 09:50
PROVIDERS: PCP Family Medicine; Visit Provider Family Medicine
DX: Z00.00 Encounter for general adult medical examination without abnormal findings (principal); E11.42 Type 2 diabetes mellitus with diabetic polyneuropathy
CPT/HCPCS: 36415; 80053; 80061; 82043; 82570; 84443; 85025

== ENCOUNTER 2024-10-13 09:57 | Outpatient (OUT) | payer MEDICAID, SELFPAY ==
--- NOTE | 2024-10-13 10:02 | MM_ITS ---
Patient Name: ZARA BENEDICT MR#: [id number] : 1960 Exam Date: 10/13/2024 Ordering Doctor: DR INES MEJIAS RADIOLOGY REPORT PROCEDURE: MM TOMOSYNTHESIS SCREENING BI COMPARISON: MM TOMOSYNTHESIS SCREENING BI, 09/30/2023. MM TOMOSYNTHESIS SCREENING BI, 09/27/2022. MG MAMM SCREEN 3D MELVINA CAD, 09/12/2021. MG MAMM SCREEN 3D MELVINA CAD, 09/10/2020. INDICATIONS: Screening Calculator Name NCI Breast Cancer Risk Assessment Tool 5 Year Breast Cancer Risk 1.40% Lifetime Breast Cancer Risk 6.20% Personal Breast Cancer No Personal Ovarian Cancer No Treatments None Family Cancers Father with bladder cancer at age 80. LOCATION: The [facility] BREAST COMPOSITION: The breasts are almost entirely fatty. FINDINGS: RIGHT BREAST: No significant suspicious finding. LEFT BREAST: No significant suspicious finding. DIAGNOSTIC CATEGORY 1--NEGATIVE. RECOMMENDATIONS: ROUTINE MAMMOGRAM AND CLINICAL EVALUATION IN 12 MONTHS. PLEASE NOTE: A NORMAL MAMMOGRAM DOES NOT EXCLUDE THE POSSIBILITY OF BREAST CANCER. A CLINICALLY SUSPICIOUS PALPABLE LUMP SHOULD BE BIOPSIED. Dictated by: Harsha De Luna DO on 10/13/2024 at 12:32 Approved by: Harsha De Luna DO on 10/13/2024 at 12:33
== END 2024-10-13 09:58 | disposition home or self-care (01) ==
LOC: MAMMO 09:58
PROVIDERS: PCP Family Medicine; Visit Provider Obstetrics & Gynecology
DX: Z00.00 Encounter for general adult medical examination without abnormal findings (principal); E11.42 Type 2 diabetes mellitus with diabetic polyneuropathy; Z12.31 Encounter for screening mammogram for malignant neoplasm of breast; Z80.52 Family history of malignant neoplasm of bladder
CPT/HCPCS: 36415; 77063; 77067; 80053; 80061; 82043; 82570; 84443; 85025